=== PATIENT | female | born 1945 | race Caucasian/White ===

== ENCOUNTER 2018-01-18 08:15 | Outpatient (REF) | payer MEDICARE, MEDICAID, SELFPAY ==
[2018-01-18 12:07] LABS: Iron 17 ug/dL (50-175); Total Iron Binding Capacity 237 ug/dL (250-450); Transferrin Sat 7 % (15-50)
[2018-01-18 12:34] LABS: Ferritin 16 ng/mL (8-388); Vitamin B12 461 pg/mL (193-986)
== END 2018-01-18 08:16 ==
LOC: LBN 08:15
PROVIDERS: PCP Family Medicine; Visit Provider Family Medicine
DX: D64.9 Anemia, unspecified (principal); G21.9 Secondary parkinsonism, unspecified
CPT/HCPCS: 82607; 82728; 83540; 83550

== ENCOUNTER 2018-03-08 14:01 | Outpatient (REF) | payer MEDICARE, MEDICAID, SELFPAY ==
[2018-03-08 14:39] LABS: HCT 33.9 % (36.0-46.0); Mean Corp. HGB Concentration 29.5 g/dL (32.0-36.0); Mean Corpuscular Hemoglobin 24.5 pg (27.0-33.0); Mean Corpuscular Volume 83.1 fL (80-95); Mean Platelet Volume 10.7 fL (8.0-11.0); Platelet Count 289 x1000/uL (130-400); RBC 4.08 m/cumm (4.00-5.20); RBC Distribution Width 20.8 % (11.7-14.6); White Blood Cell Count 10.18 k/cumm (4.4-10.8)
[2018-03-08 14:47] LABS: ALT 26 U/L (12-78); AST 23 U/L (15-37); Albumin 1.8 g/dL (3.4-5.0); Alkaline Phosphatase 114 U/L (46-116); Anion Gap 4.4 mmol/L (3-11); BUN 27 mg/dL (7-18); Bilirubin, Total 0.2 mg/dL (0.2-1.0); CO2 31.6 mmol/L (21.0-32.0); CREATININE 0.77 mg/dL (0.55-1.02); Calcium 8.3 mg/dL (8.5-10.1); Chloride 96 mmol/L (98-107); Glucose 328 mg/dL (70-100); NT-proBNP 58 pg/mL; Potassium 5.1 mmol/L (3.5-5.1); Sodium 132 mmol/L (136-145); Total Protein 4.4 g/dL (6.4-8.2)
== END 2018-03-08 14:21 ==
LOC: LBN 14:01
PROVIDERS: PCP Family Medicine; Visit Provider Family Medicine
DX: J44.1 Chronic obstructive pulmonary disease with (acute) exacerbation (principal)
CPT/HCPCS: 80053; 85027; 83880

== ENCOUNTER 2018-03-15 15:24 | Outpatient (REF) | payer MEDICARE, MEDICAID, SELFPAY ==
[2018-03-15 15:47] LABS: Bilirubin Negative (Negative); Blood Small (Negative); Clarity Sl Cloudy; Glucose Negative (Negative); Ketones Negative (Negative); Leukocyte Esterase Small (Negative); Nitrite Positive (Negative); Specific Gravity 1.015 (1.005-1.025); Urobilinogen 0.2 EU/dL (Up TO 0.2); pH 8.5 (5-8)
[2018-03-15 15:58] LABS: Epithelial Cells Negative HPF (Negative); Other Cells Negative (Negative); RBC >50 (0-2); WBC >50 HPF (0-5)
[2018-03-15 15:59] LABS: Bacteria Many HPF (Negative); C & S Indicated? C&S Done As Ordered; Casts Negative LPF (Negative); Crystals Negative HPF (Negative); Mucus Negative (Negative)
== END 2018-03-15 15:44 ==
LOC: LBN 15:24
PROVIDERS: PCP Family Medicine; Visit Provider Family Medicine
DX: N39.0 Urinary tract infection, site not specified (principal)
CPT/HCPCS: 87077; 81003; 81015; 87086; 87186

== ENCOUNTER 2018-03-30 15:59 | Outpatient (REF) | payer MEDICARE, MEDICAID, SELFPAY ==
[2018-03-30 17:52] LABS: Bilirubin Negative (Negative); Blood Moderate (Negative); Clarity Sl Cloudy; Glucose 500 mg/dL (Negative); Ketones Negative (Negative); Leukocyte Esterase Moderate (Negative); Nitrite Negative (Negative); Specific Gravity 1.015 (1.005-1.025); Urobilinogen 0.2 EU/dL (Up TO 0.2); pH 8.5 (5-8)
[2018-03-30 18:22] LABS: Bacteria Moderate HPF (Negative); Epithelial Cells Rare HPF (Negative); Other Cells Negative (Negative)
[2018-03-30 18:23] LABS: C & S Indicated? C&S Done As Ordered; Casts Negative LPF (Negative); Crystals Negative HPF (Negative); Mucus Negative (Negative)
== END 2018-03-30 16:19 ==
LOC: LBN 15:59
PROVIDERS: PCP Family Medicine; Visit Provider Family Medicine
DX: R31.9 Hematuria, unspecified (principal)
CPT/HCPCS: 87077; 81003; 81015; 87086; 87186

== ENCOUNTER 2018-04-01 08:47 | Emergency (ER) | payer MEDICARE, MEDICAID, SELFPAY ==
[2018-04-01] VITALS (45 sets, daily range): BP systolic 94–168; BP diastolic 35–101; PULSE 78–107; RESP 0–25; TEMP 37–38; O2SAT 88–96
--- NOTE | 2018-04-01 08:53 | W.ED.GENAD ---
Discharge Plan Disposition Patient Disposition: HOME Condition: Stable Discharge Details Chief Complaint: Urinary Clinical Impression: Acute UTI, Hyponatremia Reason For Visit: calex Primary Care Provider: John Carpenter ED Provider: Meg Thapa Home Meds and New Rx's Prescriptions: New cephalexin [Keflex] 500 mg capsule 500 mg PO BID Qty: 13 RF: 0 Continue vitamin B comp and C no.3 [B Complex Plus Vitamin C] 1 EACH capsule 1 ea PO DAILY RF: 0 xpvzygxrvjlz-gotn-mjkua acid [Adults' Daily Formula (folic)] 1 EACH tablet 1 tab-cap PO DAILY RF: 0 ascorbic acid (vitamin C) 1,000 MG tablet 2 tab PO DAILY RF: 0 nicotine (polacrilex) 4 MG lozenge 4 mg Buccal TID PRNQty: 30 RF: 0 diaper,brief,youth disposable [Prevail Brief Youth] 1 EACH misc 1 ea Miscellaneous BID Qty: 60 RF: 11 risperidone 0.25 MG tablet 0.25 mg PO TID PRN Qty: 90 RF: 3 albuterol sulfate [ProAir HFA] 8.5 GM HFA aerosol inhaler 1 - 2 puff Inhalation Q4H PRN Qty: 1 RF: 4 lamotrigine [Lamictal] 100 MG tablet 100 mg PO QAM Qty: 90 RF: 3 magnesium chloride [Mag 64] 64 MG tablet,delayed release (DR/EC) 128 mg PO DAILY Qty: 180 RF: 3 ipratropium-albuterol [Combivent Respimat] 120 PUFF mist 1 puff Inhalation QID Qty: 120 RF: 11 marijuana RF: 0 polyethylene glycol 3350 [Miralax] 17 GM powder in packet 17 g PO DAILY PRNQty: 255 RF: 0 docusate sodium 100 MG capsule 100 mg PO DAILY RF: 0 ibuprofen 600 MG tablet 600 mg PO Q6H PRN MDD 4 30 Days Qty: 120 RF: 3 dronabinol 5 MG capsule 5 mg PO BID Qty: 60 RF: 3 clonazepam 0.5 MG tablet 0.5 mg PO Every AM RF: 0 lamotrigine 200 MG tablet 200 mg PO HS Qty: 90 RF: 4 citalopram [Celexa] 40 MG tablet 40 mg PO DAILY Qty: 90 RF: 3 triamterene-hydrochlorothiazid [Dyazide] 1 EACH capsule 1 ea PO DAILY Qty: 90 RF: 3 simvastatin [Zocor] 40 MG tablet 0.5 tab PO DAILY Qty: 45 RF: 3 glimepiride 1 MG tablet 1 mg PO DAILY Qty: 30 RF: 11 levothyroxine [Synthroid] 100 MCG tablet 100 mcg PO DAILY Qty: 90 RF: 3 pantoprazole 40 MG tablet,delayed release (DR/EC) 40 mg PO DAILY Qty: 90 RF: 3 metformin [Glucophage] 1,000 MG tablet 1,000 mg PO BID@0800,1700 Qty: 180 RF: 3 oxybutynin chloride 5 MG tablet 5 mg PO BID Qty: 180 RF: 3 spironolactone 50 MG tablet 50 mg PO DAILY Qty: 90 RF: 3 Metoprolol Succinate 25 MG Tabcr 25 mg PO DAILY Qty: 90 RF: 3 doxycycline hyclate 100 MG capsule 100 mg PO TID Qty: 270 RF: 3 risperidone 3 MG tablet 3 mg PO DAILY Qty: 90 RF: 3 fluticasone 16 GM spray,suspension 1 spray NS DAILY Qty: 16 RF: 3 nystatin 15 GM cream 1 applic Topical BID Qty: 60 RF: 5 ferrous sulfate [Iron (ferrous sulfate)] 325 MG tablet 325 mg PO BID Qty: 180 RF: 3 clonazepam 0.5 mg tablet 0.5 mg PO BID PRN (Reason: anxiety) Qty: 60 RF: 5 nystatin (bulk) 500 million unit powder 1 unit Transdermal BID PRN (Reason: tinea) Qty: 1 RF: 5 dicyclomine 10 mg capsule 10 mg PO TID Qty: 90 RF: 5 morphine 20 mg capsule,extend.release pellets 20 mg PO BID MDD 2 tabs 30 Days Qty: 60 RF: 0 methadone 10 mg tablet 10 mg PO BID MDD 2 tabs 30 Days Qty: 60 RF: 0 oxycodone 5 mg tablet 5 mg PO BID PRN MDD 2 tabs 30 Days Qty: 60 RF: 0 pregabalin [Lyrica] 50 mg capsule 50 mg PO BID Qty: 60 RF: 2 furosemide 20 mg tablet 20 mg PO DAILY Qty: 30 RF: 0 aspirin [Aspir-81] 81 MG tablet,delayed release (DR/EC) 81 mg PO DAILY RF: 0 naloxone [Narcan] 4 MG spray,non-aerosol 4 mg NS ONCE Qty: 1 RF: 0 Discontinued cephalexin 500 MG tablet 500 mg PO QID Qty: 20 RF: 0 cephalexin 500 mg capsule 500 mg PO BID Qty: 14 RF: 0 Discharge Instructions Instructions: Hyponatremia (ED), Catheter-associated Urinary Tract Infection (ED) Additional Instructions: Please return immediately to the emergency department if you develop any new or worsening symptoms or if you become otherwise concerned. It is extremely important that you make an appointment to be seen by her primary care doctor tomorrow in follow-up for this visit. Please do not salt restricted your diet for the next few days. Referrals: John Carpenter. [Primary Care Provider] - Discharge Data Discharge Date/Time-TO BE ENTERED AT DEPARTURE: 04/01/18 14:36 Medical Decision Making Deana Alvarado is a 73 y/o woman h/o COPD, DM, chronic in-dwelling toney, chronic LE weakness presents to the emergency department to have toney changed and for possible tx for recent diagnosis of UTI. On exam Pt is well and non-toxic appearing. Benign PE without abd TTP. Urine cx results positive on record review. Also, Pt was apparently prescribed keflex for UTI, but she reports that she has not been taking it and never had rx filled. Concern for UTI, given multiple co-morbidities, will send screening labs for possible metabolic/lyte derangement. Toney replaced by nursing without issue. Repeat UA equivocal. Possible partially treated infection given doxy, as Pt still with symptoms will rx keflex. Labs show new hyponatremia. Pt reports that she has been strictly sodium restricting at home to help prevent peripheral edema. Pt reports that she feels well and essentially at baseline and would like to go home. I contacted Pt's PCP's office, and spoke to Dr. Kirby, Dr. Carpenter not available. Relayed plan for keflex UTI tx and hyponatremia, need for Pt to have repeat testing and be seen within 48 hours for f/u. Dr. Kirby agreed with plan. Lengthy discussion with Pt re: hold sodium restriction until seen in f/u, RTED precautions and importance of outpt f/u with PCP within 48 hours. Pt is amenable to the plan. At time of discharge Pt found to have mild fever. Pt reports that she feels very well and would prefer to f/u outpt as planned. Tylenol given. Exam/hx not c/w sepsis, PNA or other non-UTI source of infection at this time. Plan for outpt f/u or RTED for any worsening symptoms. Pt is amenable to the plan. Medical Records Medical records reviewed: Yes I reviewed the patient's medical records. Lab Data Lab results reviewed: Yes I reviewed the patient's lab results. 04/01/18 09:10 Urine - Reflex from Ua Urine Culture - Final Proteus mirabilis Laboratory Tests Range/Units 04/01/18 04/01/18 04/01/18 09:10 09:25 09:25 WBC (4.4-10.8) k/cumm 13.06 H RBC (4.00-5.20) m/cumm 4.13 Hgb (12.0-15.5) g/dL 10.6 L Hct (36.0-46.0) % 35.3 L MCV (80-95) fL 85.5 MCH (27.0-33.0) pg 25.7 L MCHC (32.0-36.0) g/dL 30.0 L RDW (11.7-14.6) % 22.6 H Plt Count (130-400) x1000/uL 292 MPV (8.0-11.0) fL 10.8 Immature Gran % See Differential Neutrophils % 72.0 Lymphocytes % 10.0 Monocytes % 13.0 Eosinophils % 4.0 Basophils % 0.0 Absolute Neutrophils (1.2-6.7) k/cumm 9.53 H Band Neutrophils % 1.0 Absolute Lymphocytes (1.2-3.4) k/cumm 1.31 Absolute Monocytes (0.11-0.7) k/cumm 1.70 H Absolute Eosinophils (0.0-0.7) k/cumm 0.52 Absolute Basophils (0.0-0.2) k/cumm 0.00 Differential Comment Comment RBC Morphology See below Polychromasia Present Poikilocytosis 2+ Basophilic Stippling Present Anisocytosis 3+ Sodium (136-145) mmol/L 128 L Potassium (3.5-5.1) mmol/L 4.9 Chloride (98-107) mmol/L 92 L Carbon Dioxide (21.0-32.0) mmol/L 29.2 Anion Gap (3-11) mmol/L 6.8 BUN (7-18) mg/dL 31 H Creatinine (0.55-1.02) mg/dL 0.93 Estimated GFR/1.73 m2 (mL/min/1.73m2) 59.26 Glucose (70-100) mg/dL 318 H Calcium (8.5-10.1) mg/dL 8.7 Urine Color (Yellow) Yellow Urine Clarity Clear Urine pH (5-8) 7.0 Ur Specific [place] (1.005-1.025) 1.015 Urine Protein (Negative) mg/dL Negative Urine Ketones (Negative) mg/dL Negative Urine Blood (Negative) Large H Urine Nitrite (Negative) Negative Urine Bilirubin (Negative) Negative Urine Urobilinogen (Up TO 0.2) EU/dL 0.2 Ur Leukocyte Esterase (Negative) Small H Urine RBC (0-2) 20-50 H Urine WBC (0-5) HPF 5-10 Ur Epithelial Cells (Negative) HPF Rare Urine Crystals (Negative) HPF Negative Urine Bacteria (Negative) HPF Rare Urine Casts (Negative) LPF Negative Urine Mucus (Negative) Trace Ur Culture Indicated? Yes Urine Glucose (Negative) mg/dL 500 H HPI General Mode of arrival: EMS. Date/Time Provider Initiated Documentation: 04/01/18 08:53. Limitations to Documentation: no limitations. Information obtained by: patient, RN notes reviewed and old records reviewed. HPI Narrative: Deana Alvarado is a 73 y/o woman with COPD, diabetes, chronic indwelling Toney and bilateral lower extremity weakness status post postoperative infection 4 years ago presenting to the emergency department with Toney problem. Patient reports that she had back surgery 4 years ago, and had a postoperative staph infection resulting in permanent weakness of her legs and need for chronic indwelling Toney. Patient reports that she had some suprapubic discomfort, and was tested for UTI several days ago, and she does not know the results of this test at this point. Patient is presenting to the emergency department because her Toney catheter was changed recently and fell out this morning and she needs to have it replaced. Patient denies any new pain, fevers, vomiting/diarrhea, rash, new weakness/numbness/tingling, shortness of breath, cough. She reports that she feels well in her usual state of health. Has been eating and drinking as usual. Patient reports that she is nonambulatory at baseline, although she can stand and pivot to get into her wheelchair. There is no change in this status. Patient is on doxycycline for life for prophylactic MRSA treatment. Related Data Home Medications Medication Instructions Recorded Confirmed [id number] acid 1 tab-cap PO DAILY tab-cap 08/08/12 08/31/16 [Adults' Daily Formula (folic)] vitamin B comp and C no.3 [B 1 ea PO DAILY 08/08/12 08/31/16 Complex Plus Vitamin C] ascorbic acid (vitamin C) 2 tab PO DAILY 09/25/12 08/31/16 aspirin [Aspir-81] 81 mg PO DAILY 12/28/15 08/31/16 naloxone [Narcan] 4 mg NS ONCE #1 inhn 01/19/16 08/31/16 diaper,brief,youth disposable #60 isaac 01/25/16 [Prevail Brief Youth] nicotine (polacrilex) 4 mg BUCCAL TID PRN #30 freeman 01/25/16 albuterol sulfate [ProAir HFA] 1 - 2 puff INHALATION Q4H PRN #1 10/15/16 inhaler lamotrigine [Lamictal] 100 mg PO QAM #90 tab-cap 10/15/16 magnesium chloride [Mag 64] 128 mg PO DAILY #180 tabcr 10/15/16 risperidone 0.25 mg PO TID PRN #90 tab-cap 10/15/16 ipratropium-albuterol [Combivent 1 puff INHALATION QID #120 puff 10/20/16 Respimat] Marijuana 01/09/17 docusate sodium 100 mg PO DAILY tab-cap 02/06/17 polyethylene glycol 3350 [Miralax] 17 g PO DAILY PRN #255 gm 02/06/17 ibuprofen 600 mg PO Q6H PRN 30 Days #120 02/26/17 tab-cap MDD 4 dronabinol 5 mg PO BID #60 tab-cap 11/16/17 citalopram [Celexa] 40 mg PO DAILY #90 tab-cap 12/07/17 04/01/18 clonazepam 0.5 mg PO Every AM 12/07/17 doxycycline hyclate 100 mg PO TID #270 tab-cap 12/07/17 04/01/18 glimepiride 1 mg PO DAILY #30 tab-cap 12/07/17 lamotrigine 200 mg PO HS #90 tab-cap 12/07/17 04/01/18 levothyroxine [Synthroid] 100 mcg PO DAILY #90 tab-cap 12/07/17 04/01/18 metformin [Glucophage] 1,000 mg PO BID@0800,1700 #180 tab 12/07/17 04/01/18 oxybutynin chloride 5 mg PO BID #180 tab-cap 12/07/17 04/01/18 pantoprazole 40 mg PO DAILY #90 tab-cap 12/07/17 04/01/18 risperidone 3 mg PO DAILY #90 tab-cap 12/07/17 04/01/18 simvastatin [Zocor] 0.5 tab PO DAILY #45 tab-cap 12/07/17 04/01/18 spironolactone 50 mg PO DAILY #90 tab-cap 12/07/17 04/01/18 triamterene-hydrochlorothiazid 1 ea PO DAILY #90 tab-cap 12/07/17 04/01/18 [Dyazide] fluticasone 1 spray NS DAILY #16 gm 12/24/17 nystatin 1 applic TOPICAL BID #60 gm 12/26/17 ferrous sulfate [Iron (ferrous 325 mg PO BID #180 tab-cap 01/18/18 04/01/18 sulfate)] clonazepam 0.5 mg tablet 0.5 mg PO BID PRN #60 tab-cap 02/05/18 nystatin (bulk) 500 million unit 1 unit TRANSDERMAL BID PRN #1 each 02/05/18 powder dicyclomine 10 mg capsule 10 mg PO TID #90 tab-cap 03/10/18 04/01/18 methadone 10 mg tablet 10 mg PO BID 30 Days #60 tab MDD 2 03/10/18 tabs morphine ER 20 mg capsule,extended 20 mg PO BID 30 Days #60 tab-cap 03/10/18 release pellets MDD 2 tabs oxycodone 5 mg tablet 5 mg PO BID PRN 30 Days #60 mg MDD 03/10/18 2 tabs pregabalin 50 mg capsule 50 mg PO BID #60 cap 03/14/18 04/01/18 furosemide 20 mg tablet 20 mg PO DAILY #30 tab 03/22/18 cephalexin [Keflex] 500 mg PO BID #13 cap 04/01/18 Previous Rx's Medication Instructions Recorded naloxone [Narcan] 4 mg NS ONCE #1 inhn 01/19/16 ibuprofen 600 mg PO Q6H PRN 30 Days #120 02/26/17 tab-cap MDD 4 dronabinol 5 mg PO BID #60 tab-cap 11/16/17 citalopram [Celexa] 40 mg PO DAILY #90 tab-cap 12/07/17 doxycycline hyclate 100 mg PO TID #270 tab-cap 12/07/17 glimepiride 1 mg PO DAILY #30 tab-cap 12/07/17 lamotrigine 200 mg PO HS #90 tab-cap 12/07/17 levothyroxine [Synthroid] 100 mcg PO DAILY #90 tab-cap 12/07/17 metformin [Glucophage] 1,000 mg PO BID@0800,1700 #180 tab 12/07/17 oxybutynin chloride 5 mg PO BID #180 tab-cap 12/07/17 pantoprazole 40 mg PO DAILY #90 tab-cap 12/07/17 risperidone 3 mg PO DAILY #90 tab-cap 18 simvastatin [Zocor] 0.5 tab PO DAILY #45 tab-cap 12/07/17 spironolactone 50 mg PO DAILY #90 tab-cap 12/07/17 triamterene-hydrochlorothiazid 1 ea PO DAILY #90 tab-cap 18 [Dyazide] fluticasone 1 spray NS DAILY #16 gm 12/24/17 nystatin 1 applic TOPICAL BID #60 gm 12/26/17 ferrous sulfate [Iron (ferrous 325 mg PO BID #180 tab-cap 01/18/18 sulfate)] clonazepam 0.5 mg tablet 0.5 mg PO BID PRN #60 tab-cap 02/05/18 nystatin (bulk) 500 million unit 1 unit TRANSDERMAL BID PRN #1 each 02/05/18 powder dicyclomine 10 mg capsule 10 mg PO TID #90 tab-cap 03/10/18 methadone 10 mg tablet 10 mg PO BID 30 Days #60 tab MDD 2 03/10/18 tabs morphine ER 20 mg capsule,extended 20 mg PO BID 30 Days #60 tab-cap 03/10/18 release pellets MDD 2 tabs oxycodone 5 mg tablet 5 mg PO BID PRN 30 Days #60 mg MDD 03/10/18 2 tabs pregabalin 50 mg capsule 50 mg PO BID #60 cap 03/14/18 furosemide 20 mg tablet 20 mg PO DAILY #30 tab 03/22/18 cephalexin [Keflex] 500 mg PO BID #13 cap 04/01/18 Allergies Allergy/AdvReac Type Severity Reaction Status Date / Time aripiprazole AdvReac Intermediate anxiety Unverified 04/01/18 08:54 prednisone AdvReac Intermediate Hallucinati Unverified 04/01/18 08:54 ons codeine AdvReac Mild GI Upset Unverified 04/01/18 08:54 azithromycin AdvReac Unknown Unverified 04/01/18 08:54 General Stated Complaint: Urinary CHRISTIANO: 3 Review of Systems Review of Systems Constitutional: denies fevers Eyes: denies eye pain ENT: denies facial pain, dental pain, sore throat Cardiovascular: denies chest pain, edema Respiratory: denies SOB, cough GI: denies vomiting, diarrhea, reports mild suprapubic pain : denies flank pain MSK: denies back pain, neck pain, arthralgias, myalgias Skin: denies rash Neuro: denies headaches, lightheadedness, new weakness PFS Medical History Chronic pain syndrome (Acute 08/21/12) Chronic obstructive lung disease (Chronic) Hypothyroidism (Chronic) Diabetes mellitus type 2 (Chronic) Bipolar disorder (Chronic) Chronic back pain (Chronic) Hyperlipidemia (Chronic) Anxiety (Chronic) Intention tremor (Chronic) 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) Spinal stenosis of lumbar region (Chronic) Scoliosis (Chronic) Infection (Chronic) Lumbar radicular pain (Chronic) Obesity (Chronic) Anxiety COPD (chronic obstructive pulmonary disease) Chronic pain Chronic rhinitis DJD (degenerative joint disease) of pelvis Diabetes Hyperlipidemia Hypothyroidism Schizoaffective disorder, bipolar type Wound infection after surgery Social History Smoking/Tobacco Use Status: Former Tobacco Use Surgical History section Colonoscopy - MAC (~2003) ELECTROSHOCK THERAPY Spinal Fusion Tonsillectomy Total replacement of hip (~2003) Exam Narrative Exam Narrative: Constitutional: well and [id number]-yhfzgxehs, pleasant, conversing normally HENT: head atraumatic, normocephalic normal inspection, mucous membranes moist Eyes: conjunctiva normal, sclera normal, pupils 3mm b/l Neck: no stridor, normal ROM, trachea midline Chest: normal inspection Resp: normal work of breathing, LCTAB Cardio: normal rate, normal rhythm, no murmur appreciated GI: abdomen soft, non-tender, non-distended Skin: warm, dry, normal color, no rash Neuro: alert, not altered, normal tone Psych: normal mood, normal affect, normal behavior Course Vital Signs Temperature 37.6 C 04/01/18 08:48 Pulse 96 H 04/01/18 08:48 Respiratory Rate 18 04/01/18 08:48 Blood Pressure 108/47 L 04/01/18 08:48 Pulse Oximetry 93 L 04/01/18 08:48 Temperature 37.6 C 04/01/18 08:48 Temperature Source Oral 04/01/18 08:48 Pulse 96 H 04/01/18 08:48 Respiratory Rate 18 04/01/18 08:48 Blood Pressure 108/47 L 04/01/18 08:48 Blood Pressure Position Supine 04/01/18 08:48 Pulse Oximetry 93 L 04/01/18 08:48 Oxygen Delivery Method Room Air 04/01/18 08:48 Oxygen Flow Rate 0 04/01/18 08:48 Pain Level 3 04/01/18 08:48
[2018-04-01 09:21] LABS: Bilirubin Negative (Negative); Blood Large (Negative); Clarity Clear; Glucose 500 mg/dL (Negative); Ketones Negative (Negative); Leukocyte Esterase Small (Negative); Nitrite Negative (Negative); Specific Gravity 1.015 (1.005-1.025); Urobilinogen 0.2 EU/dL (Up TO 0.2)
[2018-04-01 09:31] LABS: Bacteria Rare HPF (Negative); Crystals Negative HPF (Negative); Epithelial Cells Rare HPF (Negative); RBC 20-50 (0-2)
[2018-04-01 09:32] LABS: C & S Indicated? Yes; Casts Negative LPF (Negative); Mucus Trace (Negative)
[2018-04-01 09:35] LABS: Abs Immature Grans 0.33 k/cumm (0.0-0.09); HCT 35.3 % (36.0-46.0); HGB 10.6 g/dL (12.0-15.5); Mean Corpuscular Hemoglobin 25.7 pg (27.0-33.0); Mean Corpuscular Volume 85.5 fL (80-95); Mean Platelet Volume 10.8 fL (8.0-11.0); Platelet Count 292 x1000/uL (130-400); RBC 4.13 m/cumm (4.00-5.20); RBC Distribution Width 22.6 % (11.7-14.6); White Blood Cell Count 13.06 k/cumm (4.4-10.8)
[2018-04-01 09:44] LABS: Anion Gap 6.8 mmol/L (3-11); BUN 31 mg/dL (7-18); CO2 29.2 mmol/L (21.0-32.0); CREATININE 0.93 mg/dL (0.55-1.02); Calcium 8.7 mg/dL (8.5-10.1); Chloride 92 mmol/L (98-107); Estimated GFR 59.26 (mL/min/1.73m2); Glucose 318 mg/dL (70-100); Potassium 4.9 mmol/L (3.5-5.1); Sodium 128 mmol/L (136-145)
[2018-04-01 10:04] LABS: Absolute Eosinophil Count 0.52 k/cumm (0.0-0.7); Absolute Lymphocyte Count 1.31 k/cumm (1.2-3.4); Absolute Neutrophil Count 9.53 k/cumm (1.2-6.7)
[2018-04-01 10:06] LABS: Anisocytosis 3+; Basophilic Stippling Present; Polychromasia Present
[2018-04-01 10:07] LABS: Poikilocytes 2+
[2018-04-01] MEDS: Normal Saline 500 ML IV (11:01)
[2018-04-01] MEDS: Cephalexin 500 MG CAP PO (13:43)
[2018-04-01] MEDS: Ibuprofen 400 MG TAB PO (14:21)
== END 2018-04-01 14:36 | disposition home or self-care (01) ==
PROVIDERS: Emergency Provider Student in an Organized Health Care Education/Training Program; PCP Family Medicine
DX: T83.021A Displacement of indwelling urethral catheter, initial encounter (principal); N39.0 Urinary tract infection, site not specified; B96.4 Proteus (mirabilis) (morganii) as the cause of diseases classified elsewhere; Y84.6 Urinary catheterization as the cause of abnormal reaction of the patient, or of later complication, without mention of misadventure at the time of the procedure; E87.1 Hypo-osmolality and hyponatremia; J44.9 Chronic obstructive pulmonary disease, unspecified; Z79.84 Long term (current) use of oral hypoglycemic drugs; E11.9 Type 2 diabetes mellitus without complications; Z87.891 Personal history of nicotine dependence
CPT/HCPCS: 36415; 51702; 80048; 96360; 96361; 99284; 81003; 81015; 85025; 87086

== ENCOUNTER 2018-04-09 14:51 | Outpatient (REF) | payer MEDICARE, MEDICAID, SELFPAY ==
[2018-04-09 16:52] LABS: Anion Gap 7.2 mmol/L (3-11); CO2 29.8 mmol/L (21.0-32.0); Chloride 96 mmol/L (98-107); Potassium 5.3 mmol/L (3.5-5.1); Sodium 133 mmol/L (136-145)
== END 2018-04-09 15:11 ==
LOC: LBN 14:51
PROVIDERS: PCP Family Medicine; Visit Provider Family Medicine
DX: E87.1 Hypo-osmolality and hyponatremia (principal)
CPT/HCPCS: 80051

== ENCOUNTER 2018-04-16 13:59 | Outpatient (REF) | payer MEDICARE, MEDICAID, SELFPAY ==
[2018-04-16 15:46] LABS: Anion Gap 8.4 mmol/L (3-11); BUN 25 mg/dL (7-18); CO2 27.6 mmol/L (21.0-32.0); CREATININE 0.87 mg/dL (0.55-1.02); Calcium 8.3 mg/dL (8.5-10.1); Chloride 94 mmol/L (98-107); Glucose 389 mg/dL (70-100); Potassium 5.3 mmol/L (3.5-5.1); Sodium 130 mmol/L (136-145)
== END 2018-04-16 14:19 ==
LOC: LBN 13:59
PROVIDERS: PCP Family Medicine; Visit Provider Family Medicine
DX: G21.9 Secondary parkinsonism, unspecified (principal)
CPT/HCPCS: 80048

== ENCOUNTER 2018-04-18 15:14 | Outpatient (REF) | payer MEDICARE, MEDICAID, SELFPAY ==
[2018-04-18 17:07] LABS: *AMPHETAMINES SCREEN URINE Negative (Negative); *BARBITURATES SCREEN URINE Negative (Negative); *BENZODIAZEPINES SCREEN URINE Negative (Negative); Cannabinoids THC POSITIVE (Negative); Cocaine Screen,Urine Negative (Negative); METHADONE URINE SCREEN POSITIVE (Negative); OPIATES URINE SCREEN POSITIVE (Negative)
[2018-04-18 17:08] LABS: Tricyclic Antidepressants Negative (Negative)
== END 2018-04-18 15:34 ==
LOC: LBN 15:14
PROVIDERS: PCP Family Medicine; Visit Provider Family Medicine
DX: G89.29 Other chronic pain (principal); Z79.899 Other long term (current) drug therapy
CPT/HCPCS: 80307

== ENCOUNTER 2018-05-16 23:10 | Inpatient (IN) | payer MEDICARE, MEDICAID, SELFPAY ==
--- NOTE | 2018-05-16 00:15 | DI.RAD_ITS ---
SYMPTOM/DIAGNOSIS: FEVER AP PORTABLE CHEST: The lungs are free of gross infiltrate. There is some ill-defined densities in the left lower lobe on this single AP projection of the chest and the possibility of an acute pneumonitis could not be entirely excluded. There is no pleural effusion. The cardiovascular structures are intact. Note is made of fixation of hugh and pedicle screw fixation devices affixed to the mid-dorsal through the visualized portions of the upper and mid lumbar spine. SUMMARY: No significant interval change in the chest save for a likely small area of left atelectasis. An acute pneumonitis could not be entirely excluded on this single frontal film and if clinically appropriate further assessment with follow up images is recommended.
[2018-05-16 23:08] VITALS: BP 104/53; PULSE 130; RESP 20; TEMP 38.5; O2SAT 93
--- NOTE | 2018-05-16 23:15 | W.ED.GENAD ---
Discharge Plan Disposition Patient Disposition: [facility] INPATIENT Condition: Serious Discharge Details Chief Complaint: Fever Clinical Impression: Sepsis, Acute UTI Reason For Visit: [place]EX Primary Care Provider: John Carpenter ED Provider: Duc Chandler Home Meds and New Rx's Prescriptions: No Action ranitidine HCl 150 mg tablet 150 mg PO QPM Qty: 30 RF: 2 vitamin B comp and C no.3 [B Complex Plus Vitamin C] 1 EACH capsule 1 ea PO DAILY RF: 0 pbhfdbbigulh-xtcu-gzjdg acid [Adults' Daily Formula (folic)] 1 EACH tablet 1 tab-cap PO DAILY RF: 0 ascorbic acid (vitamin C) 1,000 MG tablet 2 tab PO DAILY RF: 0 nicotine (polacrilex) 4 MG lozenge 4 mg Buccal TID PRNQty: 30 RF: 0 diaper,brief,youth disposable [Prevail Brief Youth] 1 EACH misc 1 ea Miscellaneous BID Qty: 60 RF: 11 risperidone 0.25 MG tablet 0.25 mg PO TID PRN Qty: 90 RF: 3 albuterol sulfate [ProAir HFA] 8.5 GM HFA aerosol inhaler 1 - 2 puff Inhalation Q4H PRN Qty: 1 RF: 4 lamotrigine [Lamictal] 100 MG tablet 100 mg PO QAM Qty: 90 RF: 3 magnesium chloride [Mag 64] 64 MG tablet,delayed release (DR/EC) 128 mg PO DAILY Qty: 180 RF: 3 ipratropium-albuterol [Combivent Respimat] 120 PUFF mist 1 puff Inhalation QID Qty: 120 RF: 11 marijuana RF: 0 polyethylene glycol 3350 [Miralax] 17 GM powder in packet 17 g PO DAILY PRNQty: 255 RF: 0 docusate sodium 100 MG capsule 100 mg PO DAILY RF: 0 ibuprofen 600 MG tablet 600 mg PO Q6H PRN MDD 4 30 Days Qty: 120 RF: 3 dronabinol 5 MG capsule 5 mg PO BID Qty: 60 RF: 3 clonazepam 0.5 MG tablet 0.5 mg PO Every AM RF: 0 lamotrigine 200 MG tablet 200 mg PO HS Qty: 90 RF: 4 citalopram [Celexa] 40 MG tablet 40 mg PO DAILY Qty: 90 RF: 3 triamterene-hydrochlorothiazid [Dyazide] 1 EACH capsule 1 ea PO DAILY Qty: 90 RF: 3 simvastatin [Zocor] 40 MG tablet 0.5 tab PO DAILY Qty: 45 RF: 3 glimepiride 1 MG tablet 1 mg PO DAILY Qty: 30 RF: 11 levothyroxine [Synthroid] 100 MCG tablet 100 mcg PO DAILY Qty: 90 RF: 3 pantoprazole 40 MG tablet,delayed release (DR/EC) 40 mg PO DAILY Qty: 90 RF: 3 metformin [Glucophage] 1,000 MG tablet 1,000 mg PO BID@0800,1700 Qty: 180 RF: 3 oxybutynin chloride 5 MG tablet 5 mg PO BID Qty: 180 RF: 3 spironolactone 50 MG tablet 50 mg PO DAILY Qty: 90 RF: 3 Metoprolol Succinate 25 MG Tabcr 25 mg PO DAILY Qty: 90 RF: 3 doxycycline hyclate 100 MG capsule 100 mg PO TID Qty: 270 RF: 3 risperidone 3 MG tablet 3 mg PO DAILY Qty: 90 RF: 3 fluticasone 16 GM spray,suspension 1 spray NS DAILY Qty: 16 RF: 3 nystatin 15 GM cream 1 applic Topical BID Qty: 60 RF: 5 ferrous sulfate [Iron (ferrous sulfate)] 325 MG tablet 325 mg PO BID Qty: 180 RF: 3 clonazepam 0.5 mg tablet 0.5 mg PO BID PRN (Reason: anxiety) Qty: 60 RF: 5 nystatin (bulk) 500 million unit powder 1 unit Transdermal BID PRN (Reason: tinea) Qty: 1 RF: 5 pregabalin [Lyrica] 50 mg capsule 50 mg PO BID Qty: 60 RF: 2 furosemide 20 mg tablet 20 mg PO DAILY Qty: 30 RF: 0 Hold Instructions: Changed by Provider dicyclomine 10 mg capsule 10 mg PO QID PRN (Reason: bladder spasms) Qty: 120 RF: 5 methadone 10 mg tablet 10 mg PO BID MDD 2 tabs Qty: 60 RF: 0 morphine 20 mg capsule,extend.release pellets 20 mg PO Q12H MDD 2 caps Qty: 60 RF: 0 oxycodone 5 mg tablet 5 mg PO BID MDD 2 tabs PRN (Reason: pain) Qty: 60 RF: 0 aspirin [Aspir-81] 81 MG tablet,delayed release (DR/EC) 81 mg PO DAILY RF: 0 naloxone [Narcan] 4 MG spray,non-aerosol 4 mg NS ONCE Qty: 1 RF: 0 cephalexin [Keflex] 500 mg capsule 500 mg PO BID Qty: 13 RF: 0 Medical Decision Making Patient arrives here febrile and tachycardic but normotensive with normal mentation. Her lungs have a few rhonchi but she has no cough or shortness of breath. Her abdomen is benign. 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 She has a chronic indwelling Cuevas. She denies URI or headache. Most likely source of symptoms probably is her urine. IV established and fluid resuscitation started. Laboratory studies including lactic acid and blood cultures ordered. We will change the patient's Cuevas and obtain urine off the clean catheter. Will obtain chest x-ray. Patient's urine after changing Cuevas has gross pus present. Laboratory studies significant for white count of 20.5 and a lactic acid of 5. Her heart rate is coming down with fluids. She remains normotensive. She was also found to have a glucose of 506. Sodium was 123 but when corrected is 133. She has no anion gap. Her bicarb is reasonable at 23. I do not think she has DKA. Magnesium is low at 1.4 and needs to be replaced. Because of her history of MRSA colonization she is covered with ceftriaxone and vancomycin until urine cultures are back. Patient's EKG is sinus tachycardia at a rate of 127. She has normal axis and intervals. She has no acute ST changes. Her chest x-ray per preliminary radiology read negative for infiltrates. I discussed goals of treatment with the patient. She requests to remain DNR/DNI. She would like fluids and antibiotics but beyond that does not wish to pursue. She has had some soft pressures here but no persistent hypotension. After her liter of LR she was changed to 200 and hour of LR. Glucose remains elevated so she will be covered with insulin as well. Case discussed with hospitalist who accepts patient for admission to ICU as [facility] overflow. Lab Data Lab results reviewed: Yes I reviewed the patient's lab results. ECG Data Attestation: I personally reviewed and interpreted this ECG (s) as follows: Prior ECG tracings: available for review Interpretation: Sinus tachycardia at a rate of 127. Normal axis and intervals. No acute ST changes. HPI General Mode of arrival: EMS. Date/Time Provider Initiated Documentation: 05/16/18 23:14. Limitations to Documentation: no limitations. Information obtained by: patient. HPI Narrative: Patient presents to ED by ambulance with fever and chills. She is concerned she has a urinary tract infection. She has a chronic indwelling Cuevas that was changed about 1 week ago. She has chronic back pain which is unchanged. She denies headache, cold symptoms, cough, shortness of breath, chest pain, abdominal pain. 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 She is not having increased back pain. She is currently living at home and is no longer in the [facility]. Related Data Home Medications Medication Instructions Recorded Confirmed rognaihlvjab-jsom-wqxlq acid 1 tab-cap PO DAILY tab-cap 08/08/12 08/31/16 [Adults' Daily Formula (folic)] vitamin B comp and C no.3 [B 1 ea PO DAILY 08/08/12 08/31/16 Complex Plus Vitamin C] ascorbic acid (vitamin C) 2 tab PO DAILY 09/25/12 08/31/16 aspirin [Aspir-81] 81 mg PO DAILY 12/28/15 08/31/16 naloxone [Narcan] 4 mg NS ONCE #1 inhn 01/19/16 08/31/16 diaper,brief,youth disposable #60 isaac 01/25/16 [Prevail Brief Youth] nicotine (polacrilex) 4 mg BUCCAL TID PRN #30 freeman 01/25/16 albuterol sulfate [ProAir HFA] 1 - 2 puff INHALATION Q4H PRN #1 10/15/16 inhaler lamotrigine [Lamictal] 100 mg PO QAM #90 tab-cap 10/15/16 magnesium chloride [Mag 64] 128 mg PO DAILY #180 tabcr 10/15/16 risperidone 0.25 mg PO TID PRN #90 tab-cap 10/15/16 ipratropium-albuterol [Combivent 1 puff INHALATION QID #120 puff 10/20/16 Respimat] Marijuana 01/09/17 docusate sodium 100 mg PO DAILY tab-cap 02/06/17 polyethylene glycol 3350 [Miralax] 17 g PO DAILY PRN #255 gm 02/06/17 ibuprofen 600 mg PO Q6H PRN 30 Days #120 02/26/17 tab-cap MDD 4 dronabinol 5 mg PO BID #60 tab-cap 11/16/17 citalopram [Celexa] 40 mg PO DAILY #90 tab-cap 12/07/17 04/01/18 clonazepam 0.5 mg PO Every AM 12/07/17 doxycycline hyclate 100 mg PO TID #270 tab-cap 12/07/17 04/01/18 glimepiride 1 mg PO DAILY #30 tab-cap 12/07/17 lamotrigine 200 mg PO HS #90 tab-cap 12/07/17 04/01/18 levothyroxine [Synthroid] 100 mcg PO DAILY #90 tab-cap 12/07/17 04/01/18 metformin [Glucophage] 1,000 mg PO BID@0800,1700 #180 tab 12/07/17 04/01/18 oxybutynin chloride 5 mg PO BID #180 tab-cap 12/07/17 04/01/18 pantoprazole 40 mg PO DAILY #90 tab-cap 12/07/17 04/01/18 risperidone 3 mg PO DAILY #90 tab-cap 12/07/17 04/01/18 simvastatin [Zocor] 0.5 tab PO DAILY #45 tab-cap 12/07/17 04/01/18 spironolactone 50 mg PO DAILY #90 tab-cap 12/07/17 04/01/18 triamterene-hydrochlorothiazid 1 ea PO DAILY #90 tab-cap 12/07/17 04/01/18 [Dyazide] fluticasone 1 spray NS DAILY #16 gm 12/24/17 nystatin 1 applic TOPICAL BID #60 gm 12/26/17 ferrous sulfate [Iron (ferrous 325 mg PO BID #180 tab-cap 01/18/18 04/01/18 sulfate)] clonazepam 0.5 mg tablet 0.5 mg PO BID PRN #60 tab-cap 02/05/18 nystatin (bulk) 500 million unit 1 unit TRANSDERMAL BID PRN #1 each 02/05/18 powder pregabalin 50 mg capsule 50 mg PO BID #60 cap 03/14/18 04/01/18 furosemide 20 mg tablet 20 mg PO DAILY #30 tab 03/22/18 cephalexin [Keflex] 500 mg PO BID #13 cap 04/01/18 dicyclomine 10 mg capsule 10 mg PO QID PRN #120 tab-cap 04/16/18 ranitidine 150 mg tablet 150 mg PO QPM #30 tab 05/09/18 05/09/18 methadone 10 mg tablet 10 mg PO BID #60 tab MDD 2 tabs 05/13/18 morphine ER 20 mg capsule,extended 20 mg PO Q12H #60 cap MDD 2 caps 05/13/18 release pellets oxycodone 5 mg tablet 5 mg PO BID PRN #60 tab MDD 2 tabs 05/13/18 Previous Rx's Medication Instructions Recorded naloxone [Narcan] 4 mg NS ONCE #1 inhn 01/19/16 ibuprofen 600 mg PO Q6H PRN 30 Days #120 02/26/17 tab-cap MDD 4 dronabinol 5 mg PO BID #60 tab-cap 11/16/17 citalopram [Celexa] 40 mg PO DAILY #90 tab-cap 12/07/17 doxycycline hyclate 100 mg PO TID #270 tab-cap 12/07/17 glimepiride 1 mg PO DAILY #30 tab-cap 12/07/17 lamotrigine 200 mg PO HS #90 tab-cap 12/07/17 levothyroxine [Synthroid] 100 mcg PO DAILY #90 tab-cap 12/07/17 metformin [Glucophage] 1,000 mg PO BID@0800,1700 #180 tab 12/07/17 oxybutynin chloride 5 mg PO BID #180 tab-cap 12/07/17 pantoprazole 40 mg PO DAILY #90 tab-cap 12/07/17 risperidone 3 mg PO DAILY #90 tab-cap 12/07/17 simvastatin [Zocor] 0.5 tab PO DAILY #45 tab-cap 12/07/17 spironolactone 50 mg PO DAILY #90 tab-cap 12/07/17 triamterene-hydrochlorothiazid 1 ea PO DAILY #90 tab-cap 12/07/17 [Dyazide] fluticasone 1 spray NS DAILY #16 gm 12/24/17 nystatin 1 applic TOPICAL BID #60 gm 12/26/17 ferrous sulfate [Iron (ferrous 325 mg PO BID #180 tab-cap 01/18/18 sulfate)] clonazepam 0.5 mg tablet 0.5 mg PO BID PRN #60 tab-cap 02/05/18 nystatin (bulk) 500 million unit 1 unit TRANSDERMAL BID PRN #1 each 02/05/18 powder pregabalin 50 mg capsule 50 mg PO BID #60 cap 03/14/18 furosemide 20 mg tablet 20 mg PO DAILY #30 tab 03/22/18 cephalexin [Keflex] 500 mg PO BID #13 cap 04/01/18 dicyclomine 10 mg capsule 10 mg PO QID PRN #120 tab-cap 04/16/18 ranitidine 150 mg tablet 150 mg PO QPM #30 tab 05/09/18 methadone 10 mg tablet 10 mg PO BID #60 tab MDD 2 tabs 05/13/18 morphine ER 20 mg capsule,extended 20 mg PO Q12H #60 cap MDD 2 caps 05/13/18 release pellets oxycodone 5 mg tablet 5 mg PO BID PRN #60 tab MDD 2 tabs 05/13/18 Allergies Allergy/AdvReac Type Severity Reaction Status Date / Time aripiprazole AdvReac Intermediate anxiety Unverified 05/17/18 01:29 prednisone AdvReac Intermediate Hallucinati Unverified 05/17/18 01:29 ons codeine AdvReac Mild GI Upset Unverified 05/17/18 01:29 azithromycin AdvReac Unknown Unverified 05/17/18 01:29 General Stated Complaint: Fever CHRISTIANO: 2 Review of Systems Constitutional Reports chills, Reports fever(s), Denies headache(s), Reports malaise and Reports weakness Eyes Denies other visual disturbances and Denies eye pain ENT Denies otalgia, Denies facial pain, Denies headache(s), Denies nasal congestion, Denies neck pain and Denies sore throat Cardiovascular Denies chest pain, Denies diaphoresis, Denies syncope, Denies lightheadedness and Denies dyspnea Respiratory Denies cough and Denies dyspnea Gastrointestinal Denies abdominal pain, Denies diarrhea, Denies nausea and Denies vomiting Genitourinary Comments: chronic Cuevas Musculoskeletal Reports back pain, Denies neck pain and Denies numbness Integumentary/Breasts Denies erythema and Denies rash Neurologic Denies abnormal speech, Denies confusion, Denies syncope, Denies headache(s), Denies numbness and Reports weakness Psychiatric Denies confusion [facility] Medical History Chronic pain syndrome (Acute 08/21/12) Chronic obstructive lung disease (Chronic) Hypothyroidism (Chronic) Diabetes mellitus type 2 (Chronic) Bipolar disorder (Chronic) Chronic back pain (Chronic) Hyperlipidemia (Chronic) Anxiety (Chronic) Intention tremor (Chronic) [employer] current use of antibiotics (Suspected) Spinal stenosis of lumbar region (Chronic) Scoliosis (Chronic) Infection (Chronic) Lumbar radicular pain (Chronic) Obesity (Chronic) Anxiety COPD (chronic obstructive pulmonary disease) Chronic pain Chronic rhinitis DJD (degenerative joint disease) of pelvis Diabetes Hyperlipidemia Hypothyroidism Schizoaffective disorder, bipolar type Wound infection after surgery Surgical History section Colonoscopy - MAC (~2003) ELECTROSHOCK THERAPY Spinal Fusion Tonsillectomy Total replacement of hip (~2003) Social History Smoking/Tobacco Use Status: Former Tobacco Use Exam Const General: cooperative and no acute distress Nutritional Appearance: obese Orientation: alert and oriented x3 HENMT Head: normal to inspection, normocephalic and atraumatic Mouth: mucous membranes dry Eyes Sclera: sclerae normal Neck Neck: trachea midline and supple Resp Effort & Inspection: normal respiratory effort Auscultation: no rales, rhonchi (few scattered) and no wheezes Cardio Rate: tachycardic Rhythm: regular rhythm Heart Sounds: S1 normal and S2 normal Pulses: radial pulses present GI Palpation: soft, not firm and nontender Skin General skin exam: no rashes or lesions noted and no erythema Neuro General: alert, oriented x3, moves all extremities and CN's II-XI intact bilaterally Extrem General: no clubbing, cyanosis or edema and no pedal edema Course Vital Signs Temperature 101.3 F H 05/16/18 23:08 Pulse 130 H 05/16/18 23:08 Respiratory Rate 20 05/16/18 23:08 Blood Pressure 104/53 L 05/16/18 23:08 Pulse Oximetry 93 L 05/16/18 23:08 Temperature 101.3 F H 05/16/18 23:08 Temperature Source Skin 05/16/18 23:08 Pulse 130 H 05/16/18 23:08 Respiratory Rate 20 05/16/18 23:08 Blood Pressure 104/53 L 05/16/18 23:08 Blood Pressure Position Sitting 05/16/18 23:08 Pulse Oximetry 93 L 05/16/18 23:08 Oxygen Delivery Method Room Air 05/16/18 23:08 Oxygen Flow Rate 0 05/16/18 23:08 Pain Level 6 05/16/18 23:08 Critical Care Time Critical Care Time: Yes Total Critical Care Time: 45 Attestation: Management of sepsis.
[2018-05-16] MEDS: Lactated Ringers 1,000 ML 1000 ML IV (23:25)
[2018-05-16 23:56] LABS: Abs Immature Grans 0.22 k/cumm (0.0-0.09); Absolute Basophil Count 0.02 k/cumm (0.0-0.2); Absolute Eosinophil Count 0.02 k/cumm (0.0-0.7); Absolute Lymphocyte Count 0.29 k/cumm (1.2-3.4); Absolute Monocyte Count 0.84 k/cumm (0.11-0.7); Absolute Neutrophil Count 19.17 k/cumm (1.2-6.7); Basophils % 0.1; Eosinophils % 0.1; HCT 37.3 % (36.0-46.0); HGB 11.5 g/dL (12.0-15.5); Immature Grans % 1.1; Lymphocytes % 1.4; Mean Corp. HGB Concentration 30.8 g/dL (32.0-36.0); Mean Corpuscular Hemoglobin 27.4 pg (27.0-33.0); Mean Platelet Volume 11.6 fL (8.0-11.0); Monocytes % 4.1; Neutrophils % 93.2; Platelet Count 245 x1000/uL (130-400); RBC 4.19 m/cumm (4.00-5.20); RBC Distribution Width 22.4 % (11.7-14.6); White Blood Cell Count 20.57 k/cumm (4.4-10.8)
[2018-05-17] VITALS (119 sets, daily range): BP systolic 65–235; BP diastolic 41–183; PULSE 65–238; RESP 7–39; TEMP 36.5–38.9; O2SAT 87–98
[2018-05-17 00:12] LABS: ALT 23 U/L (12-78); AST 27 U/L (15-37); Albumin 2.1 g/dL (3.4-5.0); Alkaline Phosphatase 84 U/L (46-116); Anion Gap 9.7 mmol/L (3-11); BUN 21 mg/dL (7-18); Bilirubin, Total 0.3 mg/dL (0.2-1.0); CO2 23.3 mmol/L (21.0-32.0); CREATININE 1.15 mg/dL (0.55-1.02); Calcium 8.1 mg/dL (8.5-10.1); Chloride 90 mmol/L (98-107); Estimated GFR 46.38 (mL/min/1.73m2); Magnesium 1.4 mg/dL (1.8-2.4); Total Protein 5.2 g/dL (6.4-8.2); Troponin I 0.02 ng/mL (0.00-0.06)
[2018-05-17 00:15] LABS: Glucose 506 mg/dL (70-100); Sodium 123 mmol/L (136-145)
[2018-05-17 00:20] LABS: Anisocytosis 1+; Basophilic Stippling Present; Macrocytosis 1+
[2018-05-17] MEDS: Acetaminophen 325 MG TAB 650 MG PO (00:23)
[2018-05-17 00:39] LABS: Bilirubin Negative (Negative); Blood Moderate (Negative); Clarity Cloudy; Glucose >=1000 mg/dL (Negative); Ketones Trace mg/dL (Negative); Leukocyte Esterase Small (Negative); Nitrite Negative (Negative); Urobilinogen 0.2 EU/dL (Up TO 0.2)
[2018-05-17 00:45] LABS: WBC >50 HPF (0-5)
[2018-05-17 00:46] LABS: C & S Indicated? Yes
--- NOTE | 2018-05-17 00:58 | DI.VRAD_ITS ---
EXAM: XR Chest, 1 View EXAM DATE/TIME: 05/16/2018 11:27 PM CLINICAL HISTORY: 73 years old, female; Signs and symptoms; Fever; Prior surgery; Surgery date: 6+ months; Surgery type: Spinal fusion; Patient HX: Fever, unable to sit up due to spinal fusion. Dr. Ramesh saldana with supine image on this patient. TECHNIQUE: XR of the chest, 1 view. COMPARISON: CR CHEST 2 VIEWS PA,LAT 08/31/2016 12:00 PM FINDINGS: There is some atelectasis within the left lung base. There is no consolidation. There are no pleural effusions or pneumothorax. The heart size and pulmonary vascularity are normal. Again noted is extensive instrumentation of the spine. IMPRESSION: Left basilar atelectasis. No consolidation. Dictated and Authenticated by: Gordon Bob MD. Ordering:MCKENNA Xavier MD
[2018-05-17] MEDS: VANCOMYCIN 2,000 MG in Normal Saline 500 ML 250 MG IVPB (01:22)
[2018-05-17] MEDS: MAGNESIUM SULFATE 2 GM/50 ML BAG IVPB (01:22)
[2018-05-17] MEDS: Lactated Ringers 1,000 ML 200 ML IV ×2 (01:22→06:15)
[2018-05-17] MEDS: Insulin REGULAR-Human 100 UNITS/ML UNIT 10 UNITS SC (01:56)
--- NOTE | 2018-05-17 06:51 | W.PM.HP.N ---
Date of service: 05/17/18 Time of Service: 06:51 Assessment and Plan (1) UTI (urinary tract infection): Current visit: Yes Status: Acute Patient found to have pus coming from the Cuevas catheter. The Cuevas catheter was changed in the emergency room. Urine was sent from the new flow of urine. This is presumed to be the source of her sepsis syndrome. She was empirically started on vancomycin and ceftriaxone because of a history of MRSA infection. Continue dosing of above antibiotics pending culture results. She has had trouble with sediment buildup in her Cuevas catheter and blockage of flow from her quadrant chronic indwelling catheter. Will ask urology to evaluate. She had outpatient urology recommended but was never able to make the appointment. (2) Schizoaffective disorder, bipolar type: Current visit: Yes Status: Chronic Patient has chronic schizoaffective disorder on antipsychotic medications. We will continue the Resporal, clonazepam, Lamictal (3) COPD (chronic obstructive pulmonary disease): Current visit: Yes Status: Chronic Chronic COPD. Respiratory status is currently stable. She satting well on room air. (4) Chronic pain syndrome: Current visit: No Status: Acute Chronic pain with opiate dependence. She is on methadone and as needed oxycodone. We will continue above. (5) Hypothyroidism: Current visit: No Status: Chronic Continue thyroid replacement. (6) Diabetes mellitus type 2: Current visit: No Status: Chronic Blood sugars high on admission, 500. Fluid replacement and aspart correction. Hold metformin and glimepiride, oral agents, for now. She may benefit from a long-acting insulin depending on how her sugars react. I suspect her blood sugars will come down as her infection improves (7) Spinal stenosis of lumbar region: Current visit: No Status: Chronic Severely limited mobility due to pain. We will have physical therapy evaluate. (8) Leukocytosis: Current visit: No Status: Acute White count is 20,000. Likely related to the acute urinary tract infection. (9) Sepsis: Current visit: Yes Status: Acute Patient presents with leukocytosis altered mental status. Likely urinary source. Blood cultures are pending. Continue vancomycin and ceftriaxone. She is DNR/DNI and does not want to have aggressive measures such as pressors. We will continue supportive measures as above. (10) Discharge planning issues: Current visit: Yes Status: Acute Patient has a COLST form that clearly delineates her advanced wishes. She has been seen by palliative care. She is DNR/DNI with limited interventions recommended. (11) Hypomagnesemia: Current visit: Yes Status: Acute Magnesium replaced IV in the emergency room. Continue oral magnesium replacement. Follow level History of Present Illness Chief Complaint: Sepsis syndrome/complicated urinary tract infection Narrative: This is a 73-year-old woman brought to the emergency room by EMS because of fever and chills. She lives at home with her . She was recently discharged from a chronic care facility. She is chronically disabled by severe back pain, opiate dependence, urinary incontinence, immobility. She has an underlying mental illness, schizoaffective disorder, bipolar type. In the emergency room she was found to have tachycardia, leukocytosis, hyponatremia, hypomagnesemia, hyperglycemia. She received copious IV fluids, vancomycin, ceftriaxone. Her Cuevas catheter was changed out. Blood cultures and urine cultures are pending. She is admitted to the ICU as MedSurg overflow. She had been comfort measures only at the [facility]. She transitioned home with a COLST form, DNR/DNI. Review of Systems Constitutional Reports weakness Comments: Patient is obtunded. She is arousable but does not give any specific review of systems other than as noted. Cardiovascular Denies chest pain Respiratory Denies chest congestion and Denies cough Gastrointestinal Denies abdominal pain Musculoskeletal Comments: Denies any current back pain Neurologic Reports weakness Comments: Very sleepy and decreased ability to attend. She offers no complaints. 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) Chronic osteoarthritis (Acute) Chronic pain syndrome (Acute 08/21/12) Hypothyroidism (Chronic) Diabetes mellitus type 2 (Chronic) Bipolar disorder (Chronic) Chronic back pain (Chronic) Hyperlipidemia (Chronic) Anxiety (Chronic) Intention tremor (Chronic) correction current use of antibiotics (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 She recently returned home from a long stay at the [facility]. She has limited mobility and poor use of ADLs. Former smoker. No current alcohol use. Meds Home Medications Medication Instructions Recorded Confirmed Type qawkhtllcnmz-lzpv-yttgl acid 1 tab-cap PO DAILY tab-cap 08/08/12 08/31/16 History [Adults' Daily Formula (folic)] vitamin B comp and C no.3 [B 1 ea PO DAILY 08/08/12 08/31/16 History Complex Plus Vitamin C] ascorbic acid (vitamin C) 2 tab PO DAILY 09/25/12 08/31/16 History aspirin [Aspir-81] 81 mg PO DAILY 12/28/15 08/31/16 History naloxone [Narcan] 4 mg NS ONCE #1 inhn 01/19/16 08/31/16 Rx diaper,brief,youth disposable #60 isaac 01/25/16 History [Prevail Brief Youth] nicotine (polacrilex) 4 mg BUCCAL TID PRN #30 freeman 01/25/16 History albuterol sulfate [ProAir HFA] 1 - 2 puff INHALATION Q4H PRN #1 10/15/16 History inhaler lamotrigine [Lamictal] 100 mg PO QAM #90 tab-cap 10/15/16 History magnesium chloride [Mag 64] 128 mg PO DAILY #180 tabcr 10/15/16 History risperidone 0.25 mg PO TID PRN #90 tab-cap 10/15/16 History ipratropium-albuterol [Combivent 1 puff INHALATION QID #120 puff 10/20/16 History Respimat] Marijuana 01/09/17 History docusate sodium 100 mg PO DAILY tab-cap 02/06/17 History polyethylene glycol 3350 [Miralax] 17 g PO DAILY PRN #255 gm 02/06/17 History ibuprofen 600 mg PO Q6H PRN 30 Days #120 02/26/17 Rx tab-cap MDD 4 dronabinol 5 mg PO BID #60 tab-cap 11/16/17 Rx Metoprolol Succinate 25 mg PO DAILY #90 tab-cap 12/07/17 04/01/18 Clinic citalopram [Celexa] 40 mg PO DAILY #90 tab-cap 12/07/17 04/01/18 Rx clonazepam 0.5 mg PO Every AM 12/07/17 History doxycycline hyclate 100 mg PO TID #270 tab-cap 12/07/17 04/01/18 Rx glimepiride 1 mg PO DAILY #30 tab-cap 12/07/17 Rx lamotrigine 200 mg PO HS #90 tab-cap 12/07/17 04/01/18 Rx levothyroxine [Synthroid] 100 mcg PO DAILY #90 tab-cap 12/07/17 04/01/18 Rx metformin [Glucophage] 1,000 mg PO BID@0800,1700 #180 tab 12/07/17 04/01/18 Rx oxybutynin chloride 5 mg PO BID #180 tab-cap 12/07/17 04/01/18 Rx pantoprazole 40 mg PO DAILY #90 tab-cap 12/07/17 04/01/18 Rx risperidone 3 mg PO DAILY #90 tab-cap 12/07/17 04/01/18 Rx simvastatin [Zocor] 0.5 tab PO DAILY #45 tab-cap 12/07/17 04/01/18 Rx spironolactone 50 mg PO DAILY #90 tab-cap 12/07/17 04/01/18 Rx triamterene-hydrochlorothiazid 1 ea PO DAILY #90 tab-cap 12/07/17 04/01/18 Rx [Dyazide] fluticasone 1 spray NS DAILY #16 gm 12/24/17 Rx nystatin 1 applic TOPICAL BID #60 gm 12/26/17 Rx ferrous sulfate [Iron (ferrous 325 mg PO BID #180 tab-cap 01/18/18 04/01/18 Rx sulfate)] clonazepam 0.5 mg tablet 0.5 mg PO BID PRN #60 tab-cap 02/05/18 Rx nystatin (bulk) 500 million unit 1 unit TRANSDERMAL BID PRN #1 each 02/05/18 Rx powder pregabalin 50 mg capsule 50 mg PO BID #60 cap 03/14/18 04/01/18 Rx furosemide 20 mg tablet 20 mg PO DAILY #30 tab 03/22/18 Rx cephalexin [Keflex] 500 mg PO BID #13 cap 04/01/18 Rx dicyclomine 10 mg capsule 10 mg PO QID PRN #120 tab-cap 04/16/18 Rx ranitidine 150 mg tablet 150 mg PO QPM #30 tab 05/09/18 05/09/18 Rx methadone 10 mg tablet 10 mg PO BID #60 tab MDD 2 tabs 05/13/18 Rx morphine ER 20 mg capsule,extended 20 mg PO Q12H #60 cap MDD 2 caps 05/13/18 Rx release pellets oxycodone 5 mg tablet 5 mg PO BID PRN #60 tab MDD 2 tabs 05/13/18 Rx Allergies Allergy/AdvReac Type Severity Reaction Status Date / Time aripiprazole AdvReac Intermediate anxiety Unverified 05/17/18 01:29 prednisone AdvReac Intermediate Hallucinati Unverified 05/17/18 01:29 ons codeine AdvReac Mild GI Upset Unverified 05/17/18 01:29 azithromycin AdvReac Unknown Unverified 05/17/18 01:29 Exam Narrative Exam Narrative: Patient is somnolent and is minimally able to cooperate Const General: cooperative Nutritional Appearance: obese Orientation: obtunded (Arousable with moderate stimulation) [facility] Head: normal to inspection Ears: hearing grossly normal bilaterally General nose exam: external nose normal Face and sinus: normal facial exam Mouth: oral mucosae normal Teeth and gingiva: edentulous Eyes General: appearance normal, both eyes and all related structures Neck Neck: normal visual inspection Chest Chest: normal inspection of the chest Resp Effort & Inspection: normal respiratory effort Auscultation: clear to auscultation bilaterally Cardio Rate: regular rate Rhythm: regular rhythm Heart Sounds: S1 normal, S2 normal and murmur (2/6 to 3/6 systolic murmur right upper sternal border) GI Inspection: normal to inspection and obesity Palpation: soft and no guarding Back/Spine/Pelvis Back: no CVA tenderness Cervical Spine: normal cervical lordosis Thoracic/Lumbar Spine: thoracic and lumbar spine normal to inspection and surgical scar(s) present (Well-healed) Skin General skin exam: no rashes or lesions noted Other: Sacral area inspected with very small superficial fissuring in the upper pilonidal region, no open sores Neuro General: moves all extremities, no focal motor deficits (She was able to assist with rolling and did cooperate once stimulated ) and obtunded Extrem Other: 2+ edema both lower extremities Results Labs : 05/16/18 23:42 05/16/18 23:42 Laboratory Results - last 24 hr 05/16/18 05/16/18 05/16/18 23:42 23:42 23:42 WBC 20.57 H RBC 4.19 Hgb 11.5 L Hct 37.3 MCV 89.0 MCH 27.4 MCHC 30.8 L RDW 22.4 H Plt Count 245 MPV 11.6 H Immature Gran % 1.1 Neutrophils % 93.2 Lymphocytes % 1.4 Monocytes % 4.1 Eosinophils % 0.1 Basophils % 0.1 Absolute Neutrophils 19.17 H Absolute Lymphocytes 0.29 L Absolute Monocytes 0.84 H Absolute Eosinophils 0.02 Absolute Basophils 0.02 RBC Morphology See below Basophilic Stippling Present Anisocytosis 1+ Macrocytosis 1+ Sodium 123 L* Potassium 5.0 Chloride 90 L Carbon Dioxide 23.3 Anion Gap 9.7 BUN 21 H Creatinine 1.15 H Estimated GFR/1.73 m2 46.38 Glucose 506 H* Lactate 5.0 H Calcium 8.1 L Magnesium 1.4 L Total Bilirubin 0.3 AST 27 ALT 23 Alkaline Phosphatase 84 Troponin I 0.02 Total Protein 5.2 L Albumin 2.1 L Urine Color Urine Clarity Urine pH Ur Specific [place] Urine Protein Urine Ketones Urine Blood Urine Nitrite Urine Bilirubin Urine Urobilinogen Ur Leukocyte Esterase Urine RBC Urine WBC Ur Epithelial Cells Urine Crystals Urine Bacteria Urine Mucus Ur Culture Indicated? Urine Glucose 05/17/18 00:23 WBC RBC Hgb Hct MCV MCH MCHC RDW Plt Count MPV Immature Gran % Neutrophils % Lymphocytes % Monocytes % Eosinophils % Basophils % Absolute Neutrophils Absolute Lymphocytes Absolute Monocytes Absolute Eosinophils Absolute Basophils RBC Morphology Basophilic Stippling Anisocytosis Macrocytosis Sodium Potassium Chloride Carbon Dioxide Anion Gap BUN Creatinine Estimated GFR/1.73 m2 Glucose Lactate Calcium Magnesium Total Bilirubin AST ALT Alkaline Phosphatase Troponin I Total Protein Albumin Urine Color Yellow Urine Clarity Cloudy Urine pH 7.0 Ur Specific [place] 1.020 Urine Protein 100 H Urine Ketones Trace H Urine Blood Moderate H Urine Nitrite Negative Urine Bilirubin Negative Urine Urobilinogen 0.2 Ur Leukocyte Esterase Small H Urine RBC Not Applicable Urine WBC >50 Ur Epithelial Cells Not Applicable Urine Crystals Not Applicable Urine Bacteria Not Applicable Urine Mucus Not Applicable Ur Culture Indicated? Yes Urine Glucose >=1000 H Last Vital Signs Temp 37.6 C 05/17/18 04:47 Pulse 97 H 05/17/18 06:01 Resp 15 05/17/18 06:01 BP 124/67 05/17/18 06:01 Pulse Ox 95 05/17/18 06:01
--- NOTE | 2018-05-17 07:38 | PDOC.CMIN ---
- If Service Date Differs Date of service: 05/17/18 Time of Service: 07:38 Care Management Initial Assess REASON FOR HOSPITALIZATION:: Sepsis, UTI. PAST MEDICAL HISTORY/PAST SURGICAL HISTORY:: Anxiety, bipolar disorder, chronic back pain, osteoarthritis, rhinitis, COPD, diabetes type II, DJD, hyerlipidemia, hypothyroidism, intention tremor, lumbar radicular pain, obesity, parkinsonism d/t drug, schizoaffective disorder, bipolar type, scoliosis, sepsis, spinal stenosis of lumbar region. Surgical hx: section, colonoscopy, spinal fusion, tonsillectomy, total replacement hip (R). PREVIOUS FUNCTIONAL STATUS/SOCIAL/FAMILY SUPPORTS:: Deana resides with her , Jared in [facility]. She is mostly bedbound according to her , though will occasionally get OOB with a walker to access her wheelchair. Deana resided at the [facility] for 6 months prior to moving home. The family is working on installing a ramp; at this time Deana is homebound. She requires assistance with all of her ADLs. Deana has many supports in the community including [facility] high/highest need. CURRENT FUNCTIONAL STATUS:: Deana is lying in bed with her , Jared, at bedside. She has been difficult to meet with today; sleeping x2. She responds to questions however asks her to answer in more detail when necessary. Deana is waiting for urology; discussion regarding suprapubic catheter(?) as patient has had difficulties with her indwelling. ADVANCE DIRECTIVES:: On file at [facility]. Health Care Agent: [place] Jenny. Has patient been provided with information about the portal?: Yes Did the patient sign up for the portal?: Yes (Previously signed up) CODE STATUS:: DNR/DNI INSURANCE COVERAGE / FINANCIAL ISSUES:: [employer], Medicaid, Medicare. CURRENT HOME/COMMUNITY SERVICES/EQUIPMENT:: Home health services 6x/week. When Jared is away for 10 days at a time (4x/year), Deana has 24 hour care through [facility]. FWW, wheelchair, bedside commode. PRIMARY CARE PHYSICIAN:: John Carpenter. POTENTIAL DISCHARGE NEEDS:: Follow up appointment with PCP, resumption of home health services. PATIENT/FAMILY EDUCATION NEEDS:: Discharge education, any limitations, and follow up plan of care. Ask Me Three discussion. ANTICIPATED BARRIERS TO DISCHARGE:: No anticipated barriers to discharge. TRANSPORTATION:: Deana will transport via EMS when medically ready. PLAN:: Deana will discharge home when medically ready per MD. Anticipate patient will discharge with resumption of home health services (nursing once every 4-6 weeks, PT 1x/week, OT 2x/week, [facility], [facility] [employer] 7x/week.
[2018-05-17 07:43] LABS: Abs Immature Grans 0.19 k/cumm (0.0-0.09); Absolute Basophil Count 0.02 k/cumm (0.0-0.2); Absolute Lymphocyte Count 0.54 k/cumm (1.2-3.4); Absolute Monocyte Count 1.65 k/cumm (0.11-0.7); Basophils % 0.1; Eosinophils % 0.8; Immature Grans % 1.2; Lymphocytes % 3.5; Mean Corp. HGB Concentration 30.3 g/dL (32.0-36.0); Mean Corpuscular Volume 88.9 fL (80-95); Mean Platelet Volume 10.9 fL (8.0-11.0); Monocytes % 10.7; Neutrophils % 83.7; RBC 3.71 m/cumm (4.00-5.20); RBC Distribution Width 22.2 % (11.7-14.6); White Blood Cell Count 15.42 k/cumm (4.4-10.8)
[2018-05-17 07:44] LABS: Absolute Eosinophil Count 0.12 k/cumm (0.0-0.7); Absolute Neutrophil Count 12.91 k/cumm (1.2-6.7)
[2018-05-17 08:03] LABS: ALT 21 U/L (12-78); AST 17 U/L (15-37); Alkaline Phosphatase 78 U/L (46-116); Anion Gap 5.1 mmol/L (3-11); BUN 20 mg/dL (7-18); Bilirubin, Total 0.3 mg/dL (0.2-1.0); CO2 28.9 mmol/L (21.0-32.0); CREATININE 1.03 mg/dL (0.55-1.02); Chloride 94 mmol/L (98-107); Estimated GFR 52.67 (mL/min/1.73m2); Glucose 256 mg/dL (70-100); Magnesium 2.2 mg/dL (1.8-2.4); Potassium 3.9 mmol/L (3.5-5.1); Sodium 128 mmol/L (136-145); Total Protein 5.1 g/dL (6.4-8.2)
[2018-05-17 08:07] LABS: Lactate-non-spesis 2.5 mmol/L (0.6-1.4)
[2018-05-17 08:20] LABS: Anisocytosis 2+; Basophilic Stippling Present; Diff Comment Manual Differential; Hypochromasia 1+; Microcytosis 1+
[2018-05-17 08:21] LABS: Poikilocytes 1+
[2018-05-17 08:22] LABS: Platelet Count 220 x1000/uL (130-400)
--- NOTE | 2018-05-17 08:49 | INITIAL_ITS ---
- If Service Date Differs Date of service: 05/17/18 Time of Service: 07:38 Care Management Initial Assess REASON FOR HOSPITALIZATION:: Sepsis, UTI. PAST MEDICAL HISTORY/PAST SURGICAL HISTORY:: Anxiety, bipolar disorder, chronic back pain, osteoarthritis, rhinitis, COPD, diabetes type II, DJD, hyerlipidemia, hypothyroidism, intention tremor, lumbar radicular pain, obesity, parkinsonism d/t drug, schizoaffective disorder, bipolar type, scoliosis, sepsis, spinal stenosis of lumbar region. Surgical hx: section, colonoscopy, spinal fusion, tonsillectomy, total replacement hip (R). PREVIOUS FUNCTIONAL STATUS/SOCIAL/FAMILY SUPPORTS:: Deana resides with her , Jared in [facility]. She is mostly bedbound according to her , though will occasionally get OOB with a walker to access her wheelchair. Deana resided at the [facility] for 6 months prior to moving home. The family is working on installing a ramp; at this time Deana is homebound. She requires assistance with all of her ADLs. Deana has many supports in the community including [facility] high/highest need. CURRENT FUNCTIONAL STATUS:: Deana is lying in bed with her , Jared, at bedside. She has been difficult to meet with today; sleeping x2. She responds to questions however asks her to answer in more detail when necessary. Deana is waiting for urology; discussion regarding suprapubic catheter(?) as patient has had difficulties with her indwelling. ADVANCE DIRECTIVES:: On file at [facility]. Health Care Agent: [place] Jenny. Has patient been provided with information about the portal?: Yes Did the patient sign up for the portal?: Yes (Previously signed up) CODE STATUS:: DNR/DNI INSURANCE COVERAGE / FINANCIAL ISSUES:: [employer], Medicaid, Medicare. CURRENT HOME/COMMUNITY SERVICES/EQUIPMENT:: Home health services 6x/week. When Jared is away for 10 days at a time (4x/year), Deana has 24 hour care through [facility]. FWW, wheelchair, bedside commode. PRIMARY CARE PHYSICIAN:: John Carpenter. POTENTIAL DISCHARGE NEEDS:: Follow up appointment with PCP, resumption of home health services. PATIENT/FAMILY EDUCATION NEEDS:: Discharge education, any limitations, and fol low up plan of care. Ask Me Three discussion. ANTICIPATED BARRIERS TO DISCHARGE:: No anticipated barriers to discharge. TRANSPORTATION:: Deana will transport via EMS when medically ready. PLAN:: Deana will discharge home when medically ready per MD. Anticipate patient will discharge with resumption of home health services (nursing once every 4-6 weeks, PT 1x/week, OT 2x/week, [facility], EKG/ECG TECHNICIAN 7x/week.
[2018-05-17] MEDS: Normal Saline Flush 10 ML SYR IVP ×2 (09:03→10:56)
[2018-05-17] MEDS: Dronabinol 2.5 MG CAP 5 MG PO ×2 (09:04→20:45)
[2018-05-17] MEDS: Enoxaparin 40 MG/0.4 ML SYR SC (09:04)
[2018-05-17] MEDS: Docusate Sodium 100 MG CAP PO (09:06)
[2018-05-17] MEDS: clonazePAM 0.5 MG TAB PO (09:06)
[2018-05-17] MEDS: Pantoprazole 40 MG TABCR PO (09:07)
[2018-05-17] MEDS: lamoTRIgine 100 MG TAB PO (09:07)
[2018-05-17] MEDS: Metoprolol CR 25 MG TABCR PO (09:08)
[2018-05-17] MEDS: risperiDONE 1 MG TAB 3 MG PO (09:08)
[2018-05-17] MEDS: Magnesium Chloride 64 MG TABCR 128 MG PO (09:08)
[2018-05-17] MEDS: Methadone 10 MG TAB PO ×2 (09:09→20:44)
[2018-05-17] MEDS: Levothyroxine 100 MCG TAB PO (09:09)
[2018-05-17] MEDS: Citalopram 20 MG TAB 40 MG PO (09:09)
[2018-05-17] MEDS: Pregabalin 50 MG CAP PO ×2 (09:09→20:45)
[2018-05-17] MEDS: Fluticasone NASAL SPRAY 16 GM BTL NS (09:10)
[2018-05-17] MEDS: Insulin Aspart 300 UNITS/3 ML PEN SC ×3 (09:16→17:12)
[2018-05-17] MEDS: Ipratropium/Albuterol 4 GM 120 PUFF INH IH ×3 (09:23→20:40)
--- NOTE | 2018-05-17 10:52 | PT.INIE ---
Date of service: 05/17/18 Time of Service: 10:46 PT Notes Inpatient Physical Therapy Evaluation Date: 05/09/2018 Referring Doctor: Sammy Bland MD PT Orders: PT CONSULT: Deconditioned, chronically ill woman for home assessment and strengthening Precautions: Fall precautions, contact precautions Patient Profile/Admitting Diagnosis: Patient is a 73-year-old female admitted with urinary tract infection, sepsis, hypomagnesemia PMHX: Schizoaffective disorder bipolar, chronic pain syndrome, scoliosis, spinal stenosis s/p spinal fusion, lumbar radicular pain, degenerative joint disease of pelvis, total hip arthroplasty, osteoarthritis, obesity, anxiety, intention tremor, hyperlipidemia, hypothyroidism, hypomagnesemia, chronic obstructive pulmonary disease, history of electroshock therapy, tonsillectomy, parkinsonism due to drug, bowel obstruction, drug-induced ileus Social History/Home Situation: Patient reports she lives with her in a home, ramp to enter no stairs. Baseline mobility sleeps in hospital bed uses bed elevation and bed rails to get to sitting position, reports she is independent with transfers with 3 wheel walker to wheelchair and is independent with self propelling wheelchair around home setting. She states she does not ambulate further than transfers to and from a wheelchair. Reports she performs sponge bath at home by caregiver 1 time per day. States her prepares meals. She was receiving home PT and OT prior to admission. Equipment Owned/DME: 3 wheeled walker, FWW, hospital bed, commode, raised toilet seat, grab bars Subjective: Patient lying in bed alert and agreeable to PT consult. States she only wants to transfer to a wheelchair because that is what she uses at home. Objective: General Observation: IV left upper extremity, telemetry, Cuevas catheter, 2 L O2 nasal cannula, BP/O2 monitors Mental Status: A and O x3 Pain: No complaints of pain ROM: Right Upper Extremity: AROM shoulder flexion 170 degrees, elbow and wrist within normal limits Left Upper Extremity: AROM shoulder flexion 180 degree, elbow and wrist within normal limits Right Lower Extremity: AAROM hip flexion 90 degrees, knee 0-90, ankle -10 degrees dorsiflexion Left Lower Extremity: AAROM hip flexion 95 degrees, knee 0-90 degrees,ankle -10 degrees dorsiflexion Strength: Right Upper Extremity: 2/5 shoulder flexion, 5/5 bicep, 5/5 mine manager Left Upper Extremity: 3/5 shoulder flexion, 5/5 bicep, 5/5 mine manager Right Lower Extremity: 2/5 hip flexion, 3/5 quad, 2/5 dorsiflexion/plantar Left Lower Extremity: 2/5 hip flexion, 3/5 quad, 2/5 dorsiflexion/plantarflexion Bed Mobility/Transfers: Supine to sit: HOB 40 degrees, patient able to use left rail to assist trunk to sitting, independent getting legs out of bed Sit to stand: Min assist x1 on right side to get to standing position with FWW Bed to wheelchair: CGA with FWW Stand to sit: CGA, tactile cues for hand placement to arm rest of wheelchair Gait: CGA with FWW 4 steps bed to wheelchair. Patient left up in wheelchair legs on leg rests, pillow behind back, call light in reach Wheelchair mobility: Patient deferred at this time will assess at future session. Patient states she self propels wheelchair at home. Balance: Static Sitting: Normal Dynamic Sitting: Normal Static Standing: Fair Dynamic Standing: Poor Special Tests: Mobility Limitations Standardized Measure [facility]-PAC 6 clicks Basic Mobility Inpatient Short Form: Raw Score: 14 standardized Score: 38.10 CMS Score: 61.29% CMS Modifier: CL Informed Consent/Education: Patient instructed in purpose of PT consult and plan of care. Assessment: Patient is a 73-year-old female admitted with urinary tract infection, sepsis, hypomagnesemia in setting of Schizoaffective disorder bipolar, chronic pain syndrome, scoliosis, spinal stenosis s/p spinal fusion, lumbar radicular pain, degenerative joint disease of pelvis, total hip arthroplasty, osteoarthritis, obesity, anxiety, intention tremor. Patient presents with the following impairment level findings: Weakness in bilateral upper and lower extremities, requires use of hospital bed for bed transfers, decreased strength with standing transfers requiring 1 person assist FWW, limited gait mobility performing transfers to wheelchair only, independent wheelchair mobility for community distance, decreased static and dynamic standing balance putting her at risk for falls. Patient will benefit from skilled therapy intervention for strengthening, transfer gait, wheelchair mobility training. Patient's goal is to return to home setting with home PT and caregiver assist Impairments are contributing to the following functional limitations: AMPA score CMS Score: 61.29% Patient is assessed as a High [id number] complexity based on the following: History: See above Examination: See above Presentation: Evolving Decision Making: AMPAC score CMS Score: 61.29% Goals: Goals X1 week 1. Supine-Sit: Independent with use of hospital bed 2. Sit-Supine: Independent with use of hospital bed 3. Sit-Stand: Supervision with FWW 4. Stand-Sit: Supervision with FWW 5. Bed-Chair: SBA with FWW 6. Chair-Bed: SBA with FWW 7. Gait: SBA with FWW5 steps to wheelchair 8. Independent with home exercise program Plan of Care/Treatment Plan: 1-2x/day, 7 days/week x 1 week. Plan of care has been reviewed with the COPPER PLATER providing the service under Physical Therapy direction. Initiate Physical Therapy intervention for strengthening, bed mobility, transfers, gait, stairs, balance training, use of assistive device. DISCHARGE RECOMMENDATIONS: Home with home PT, patient has all DME TREATMENT CODE/TIME: 35 minutes IE 10:45 AM G Codes in the area mobility of walking and moving around: current status [id number] []; projected status GP [id number]-[]. Discharge status (if discharging) GP [id number] CL based on AMPAC score CMS Score: 61.29% Kasie Sterling PT
--- NOTE | 2018-05-17 11:09 | OT.INIE ---
Occupational Therapy Notes Inpatient Occupational Therapy Evaluation Date: 05/17/18 Referring Doctor:oNra Simons MD OT Orders: Eval and Treat Precautions: Contact Precautions PATIENT PROFILE/ADMITTING DIAGNOSIS: Pt is a 73 year old female referred to [facility] for UTI, sepsis and hypomagnesemia. Past Medical History: Schizoaffective disorder bipolar, chronic pain syndrome, scoliosis, spinal stenosis s/p spinal fusion, lumbar radicular pain, degenerative joint disease of pelvis, total hip arthroplasty, osteoarthritis, obesity, anxiety, intention tremor, hyperlipidemia, hypothyroidism, hypomagnesemia, chronic obstructive pulmonary disease, history of electroshock therapy, tonsillectomy, parkinsonism due to drug, bowel obstruction, drug-induced ileus. Social History/Home Situation: Pt reports that she lives in her home with her . She states that her works upstair in their home in his study and she describes herself as bed bound. She states that she does not leave her home throughout the day and that she has an aide who comes into their home 6 days/week who (A) her with dressing, bathing, and ADL/IADL routines as needed. She states that her functional baseline for ADLs/IADLs is that she requires (A) for everything except soaking her teeth and eating, she uses a commode which she state she is able to (I) use. She states that the aide that comes into her home is there to specifically help her with her ADL routines. She reports that they recently had a ramp installed at her home as she uses a wheelchair for mobility. She reports that home PT is coming in to teach her and her how to use it. She drinks from a cup with (B) handles and cover with spout to avoid spilling fluids on herself. Equipment owned/DME: Pt reports that she has a FWW, hospital bed, commode, raised toilet seat, grab bars. SUBJECTIVE: Pt was sitting in her wheelchair when OT arrived. She was agreeable to OT session. OBJECTIVE: General Observation: : IV (L) UE, telemetry, Cuevas, O2 nasal cannula, BP/O2 monitors, slight tremor (R) UE Mental Status: A&Ox3 Pain: no c/o pain. ROM: RUE AROM WNL L UE AROM shoulder flexion WNL, elbow NT pt denied due to IV, hand WNL STRENGTH: RUE shoulder flexion 3/5, bicep 5/5, medical assisting program director 5/5 LUE shoulder flexion 3/5, bicep NT due to IV per pts request, medical assisting program director 5/5 EATING (I) with using a covered lid cup with (B) handles and spout. Pt reports that this makes it easier for her to grasp and bring to her mouth without spilling liquids on herself. BALANCE: Static sitting Normal Dynamic Sitting Normal SPECIAL TESTS: Daily Activity Limitations Standardized Measure [facility] AM PAC ?6 clicks? Daily Activity Inpatient Short Form: Raw score: 17 Standardized score: 37.26 CMS score: 50.11% CMS modifier: CK INFORMED CONSENT/EDUCATION: Pt instructed in purpose of OT Consult and plan of care. ASSESSMENT: Patient is a 73-year-old female referred to occupational therapy services with diagnosis of UTI, sepsis and hypomagnesemia in setting of Schizoaffective disorder bipolar, chronic pain syndrome, scoliosis, spinal stenosis s/p spinal fusion, lumbar radicular pain, degenerative joint disease of pelvis, total hip arthroplasty, osteoarthritis, obesity, anxiety, intention tremor, hyperlipidemia, hypothyroidism, hypomagnesemia, chronic obstructive pulmonary disease, history of electroshock therapy, tonsillectomy, parkinsonism due to drug, bowel obstruction, drug-induced ileus. Pt was seen today for OT eval only. Pt has caregiver that comes into her home 6 days/week to (A) her with bathing and dressing. She reports that she does not feel that she needs OT as she did not perform her ADLs with (A) before and her caregiver/aide is there to help when needed. OT recommends that pt return home to care from aide 6 days/week when medically cleared per MD. No skilled OT needed at this time. AMPAC score 17, CMS score 50.11% Patient is assessed as a high [id number] complexity based on the following: History: See Above Examination: See Above Presentation: Evolving Decision Making: AMPAC score 17, CMS score 50.11% GOALS N/A PLAN OF CARE/TREATMENT PLAN: OT consult Only. DISCHARGE RECOMMENDATIONS Home with aide 6 days a week, which pt was receiving prior to admission. Pt has all DME. TREATMENT TIME/MINUTES/CODES IE 28 minutes (10:40) G Codes in the area of self- : washing oneself, toileting, dressing, eating and drinking, current status GO [id number] CK projected status GO [id number]. Discharge status (if discharging) GO [id number] Donna Simental, OTR/L
--- NOTE | 2018-05-17 11:10 | IN_ITS ---
Date of service: 05/17/18 Time of Service: 10:46 PT Notes Inpatient Physical Therapy Evaluation Date: 05/09/2018 Referring Doctor: Sammy Bland MD PT Orders: PT CONSULT: Deconditioned, chronically ill woman for home assessment and strengthening Precautions: Fall precautions, contact precautions Patient Profile/Admitting Diagnosis: Patient is a 73-year-old female admitted with urinary tract infection, sepsis, hypomagnesemia PMHX: Schizoaffective disorder bipolar, chronic pain syndrome, scoliosis, spinal stenosis s/p spinal fusion, lumbar radicular pain, degenerative joint disease of pelvis, total hip arthroplasty, osteoarthritis, obesity, anxiety, intention tremor, hyperlipidemia, hypothyroidism, hypomagnesemia, chronic obstructive pulmonary disease, history of electroshock therapy, tonsillectomy, parkinsonism due to drug, bowel obstruction, drug-induced ileus Social History/Home Situation: Patient reports she lives with her in a home, ramp to enter no stairs. Baseline mobility sleeps in hospital bed uses b ed elevation and bed rails to get to sitting position, reports she is independent with transfers with 3 wheel walker to wheelchair and is independent with self propelling wheelchair around home setting. She states she does not ambulate further than transfers to and from a wheelchair. Reports she performs sponge bath at home by caregiver 1 time per day. States her prepares meals. She was receiving home PT and OT prior to admission. Equipment Owned/DME: 3 wheeled walker, FWW, hospital bed, commode, raised toilet seat, grab bars Subjective: Patient lying in bed alert and agreeable to PT consult. States she only wants to transfer to a wheelchair because that is what she uses at home. Objective: General Observation: IV left upper extremity, telemetry, Cuevas catheter, 2 L O2 nasal cannula, BP/O2 monitors Mental Status: A and O x3 Pain: No complaints of pain ROM: Right Upper Extremity: AROM shoulder flexion 170 degrees, elbow and wrist within normal limits Left Upper Extremity: AROM shoulder flexion 180 degree, elbow and wrist within normal limits Right Lower Extremity: AAROM hip flexion 90 degrees, knee 0-90, ankle -10 degrees dorsiflexion Left Lower Extremity: AAROM hip flexion 95 degrees, knee 0-90 degrees,ankle - 10 degrees dorsiflexion Strength: Right Upper Extremity: 2/5 shoulder flexion, 5/5 bicep, 5/5 electrical systems design engineer Left Upper Extremity: 3/5 shoulder flexion, 5/5 bicep, 5/5 electrical systems design engineer Right Lower Extremity: 2/5 hip flexion, 3/5 quad, 2/5 dorsiflexion/plantar Left Lower Extremity: 2/5 hip flexion, 3/5 quad, 2/5 dorsiflexion/plantarflexion Bed Mobility/Transfers: Supine to sit: HOB 40 degrees, patient able to use left rail to assist trunk to sitting, independent getting legs out of bed Sit to stand: Min assist x1 on right side to get to standing position with FWW Bed to wheelchair: CGA with FWW Stand to sit: CGA, tactile cues for hand placement to arm rest of wheelchair Gait: CGA with FWW 4 steps bed to wheelchair. Patient left up in wheelchair legs on leg rests, pillow behind back, call light in reach Wheelchair mobility: Patient deferred at this time will assess at future session. Patient states she self propels wheelchair at home. Balance: Static Sitting: Normal Dynamic Sitting: Normal Static Standing: Fair Dynamic Standing: Poor Special Tests: Mobility Limitations Standardized Measure [facility]-PAC 6 clicks Basic Mobility Inpatient Short Form: Raw Score: 14 standardized Score: 38.10 CMS Score: 61.29% CMS Modifier: CL Informed Consent/Education: Patient instructed in purpose of PT consult and plan of care. Assessment: Patient is a 73-year-old female admitted with urinary tract infection, sepsis, hypomagnesemia in setting of Schizoaffective disorder bipolar, chronic pain syndrome, scoliosis, spinal stenosis s/p spinal fusion, lumbar radicular pain, degenerative joint disease of pelvis, total hip arthroplasty, osteoarthritis, obesity, anxiety, intention tremor. Patient presents with the following impairment level findings: Weakness in bilateral upper and lower extremities, requires use of hospital bed for bed transfers, decreased strength with standing transfers requiring 1 person assist FWW, limited gait mobility performing transfers to wheelchair only, independent wheelchair mobility for community distance, decreased static and dynamic standing balance putting her at risk for falls. Patient will benefit from skilled therapy intervention for strengthening, transfer gait, wheelchair mobility training. Patient's goal is to return to home setting with home PT and caregiver assist Impairments are contributing to the following functional limitations: AMPA score CMS Score: 61.29% Patient is assessed as a High [id number] complexity based on the following: History: See above Examination: See above Presentation: Evolving Decision Making: AMPAC score CMS Score: 61.29% Goals: Goals X1 week 1. Supine-Sit: Independent with use of hospital bed 2. Sit-Supine: Independent with use of hospital bed 3. Sit-Stand: Supervision with FWW 4. Stand-Sit: Supervision with FWW 5. Bed-Chair: SBA with FWW 6. Chair-Bed: SBA with FWW 7. Gait: SBA with FWW5 steps to wheelchair 8. Independent with home exercise program Plan of Care/Treatment Plan: 1-2x/day, 7 days/week x 1 week. Plan of care has been reviewed with the OTR [employer]AN [employer] TR[employer] DRIVER providing the service under Physical Therapy direction. Initiate Physical Therapy intervention for strengthening, bed mobility, transfers, gait, stairs, balance training, use of assistive device. DISCHARGE RECOMMENDATIONS: Home with home PT, patient has all DME TREATMENT CODE/TIME: 35 minutes IE 10:45 AM G Codes in the area mobility of walking and moving around: current status [id number] []; projected status GP G8979-[]. Discharge status (if discharging) GP [id number] CL based on AMPAC score CMS Score: 61.29% Kasie Sterling PT
--- NOTE | 2018-05-17 11:47 | PHARADMIT ---
Addendum entered by Savanna Shoemaker 05/18/18 11:05: Pharmacy Note Subjective Chronic pain, edema, IVF's dc'd Objective BP 117/64, HR 80-90's, Afebrile now (Tmax 38.9), WBC down 12.83, BG 300 K+ down 3.4, Mag 2.3, Na++ up 130 SCr 0.97 (CrCl~45ml/min) Micro urine: 10-50K gram negative and positive Micro blood: no growth x 24h Assessment Rocephin/Vanco/Doxy oral...day#2 Will need a Vanco trough 05/19/18 @1300...ordered Potassium being replaced today orally MSContin 15mg po BID ordered to replace home med of MS ER capsules No baseline insulin, just Novolog scale, Oral Metformin and Glimepiride not started yet Spironolactone starting today Urology consult: (Indwelling cath- considering other options and can be done as outpt) Plan CT this morning abdomen/pelvis stone protocol Tx to M/S, re-evaluate Vanco level, Micro sensitivites Original Note: Admission Pharmacy Clinical Review Code Status DNR/DNI Current Weight 88.9 kg Renally Cleared and Narrow Therapeutic Index Meds CrCL ~65.2 QTc Value / Action Taken 439 (wnl) -citalopram, methadone, pantoprazole, risperidone BP Control, Fever 130/54 Electrolytes reviewed Na 128 K+ 3.9 (down from 5.0) Mag 2.2 (up from 1.4) DVT Prophylaxis Enoxaparin 40mg Opiate Usage / Scheduled Bowel Regimen Ordered Methadone 10mg BID Oxycodone 5mg BID PRN Morphine er 20mg (home med) -- dc'd for now as pt is somnolent Plt/SCr for Heparin / Enoxaparin Plt 220 SCr 1.02 INR for Warfarin n/a H/H stable, WBC/Bands H/H 10.0/33.0 WBC 15.42 (down from 20.57) Antibiotic appropriateness Vancomycin 750mg q12h (ld of 2000mg) Ceftriaxone 1mg q24h *hx of mrsa infection Cultures and Sensitivities pending Surgical ABX d/c within 24 hr n/a DM control / Insulin Dosing BG 256 (initial BG of 506) Novolog per SS (gave 10U humulin R in ED) Heart Failure (Check EF%) (CARLI's, B-Block, Diuretics) Metoprolol Succ 25mg daily IV to PO Switch n/a Home Meds Reviewed *checking with her pharmacy ([facility]) what is currently active... -spironolactone and triamterene-HCTZ combo contraindicated due to hyperkalemia -possible QTc prolongation with citalopram, methadone, pantoprazole, risperidone -hypo/hyperglycemia risks with glimepiride and several other meds; monitor for side effects, consider safer JOSESITO Home Meds Not Ordered -doxycycline -ferrous sulfate -furosemide -glimepiride -metformin -morphine cr 20mg -oxybutynin -spironolactone -triamterene-HCTZ Comments Admitted for UTI (toney catheter); vanco and ceftriaxone were started bc patient has history of MRSA (Dr. Bland thinks this might be an error and was only mssa); electrolytes affected by extremely high BG level; urology consult ordered for today; awaiting urine culture results
--- NOTE | 2018-05-17 11:49 | PT.INTREAT ---
Date of service: 05/17/18 Time of Service: 11:45 PT Notes Inpatient Physical Therapy Treatment Note Date: 05/17/18 PRECAUTIONS: Fall precautions SUBJECTIVE: Pt sitting in wheelchair, sat up for 1hr. Stating she is having back pain and asking to get back to bed. OBJECTIVE: PAIN: 11/27 pain in back, RN aware BED MOBILITY/TRANSFERS Sit-stand: CGA with FWW Wheelchair-bed: CGA with FWW Stand-sit: CGA Sit-supine: independent, pt able to lift legs into bed GAIT Assistive Device: FWW Weight bearing: as tolerated Assist: CGA Distance: 5 steps wheelchair to bed THEREX: deferred 2nd pain, wanting to rest ASSESSMENT: Pt able to sit in chair x 1 hr this morning, improved transfers back to bed from wheelchair compared to am. Will benefit from continued strengthening. PLAN: Progress strengthening Progress transfers to/from wheelchair TREATMENT CODE/TIME: 23min TAx2 11:45 Kasie Sterling PT
--- NOTE | 2018-05-17 12:17 | W.UROLOGYCON ---
Date of service: 05/17/18 Time of Service: 16:43 History of Present Illness Chief Complaint: Urosepsis Narrative: This is a 73-year-old woman in who apparently has a chronic indwelling Cuevas catheter that has been in place for about a year now. She tells me that the catheter was placed not for retention, but for urinary incontinence. It sounds like she was considered a fall risk and then did an indwelling catheter was the safest option for her. I do not see that she has ever had a urology evaluation in the past. She estimates that her catheter is changed every 4-6 weeks. Her tells me that many stone particles and debris have been identified in the urine. She has had several positive urine cultures as would be expected with a chronic indwelling catheter Apparently, she has been on oxybutynin for bladder spasms. She is not aware of any additional treatments that have been used for her bladder. Her catheter has always been a urethral catheter. She has never been considered for a suprapubic tube as far as I can tell. She does have a history of chronic spine disease. She describes numbness and tingling down both legs. She tells me that she believes there has been nerve damage related to her spine. She is not having any issues with her bowel. [facility] Medical History Sepsis (Acute) UTI (urinary tract infection) (Acute ~04/2018) Schizoaffective disorder, bipolar type (Chronic) Wound infection after surgery (Resolved) Chronic rhinitis (Chronic) Anxiety (Chronic) Hyperlipidemia (Chronic) Hypothyroidism (Chronic) 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) COPD (chronic obstructive pulmonary disease) (Chronic) 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) Chronic osteoarthritis (Acute) Chronic pain syndrome (Acute 08/21/12) Hypothyroidism (Chronic) Diabetes mellitus type 2 (Chronic) Bipolar disorder (Chronic) Chronic back pain (Chronic) Hyperlipidemia (Chronic) Anxiety (Chronic) Intention tremor (Chronic) penitentiary current use of antibiotics (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 She recently returned home from a long stay at the [facility]. She has limited mobility and poor use of ADLs. Former smoker. No current alcohol use. Exam Narrative Exam Narrative: She is in her intensive care unit bed. She is talkative. She does not appear septic or toxic. Her abdomen is somewhat obese and soft with no masses. Her urethral catheter is draining yellow urine. She is awake and alert. Results Last Vital Signs Temp 37.2 C 05/17/18 08:32 Pulse 89 05/17/18 10:01 Resp 12 05/17/18 10:15 BP 130/54 L 05/17/18 10:01 Pulse Ox 96 05/17/18 10:15 Labs : 05/17/18 07:02 05/17/18 07:02 Laboratory Results - last 24 hr 05/16/18 05/16/18 05/16/18 23:42 23:42 23:42 WBC 20.57 H RBC 4.19 Hgb 11.5 L Hct 37.3 MCV 89.0 MCH 27.4 MCHC 30.8 L RDW 22.4 H Plt Count 245 MPV 11.6 H Immature Gran % 1.1 Neutrophils % 93.2 Lymphocytes % 1.4 Monocytes % 4.1 Eosinophils % 0.1 Basophils % 0.1 Absolute Neutrophils 19.17 H Absolute Lymphocytes 0.29 L Absolute Monocytes 0.84 H Absolute Eosinophils 0.02 Absolute Basophils 0.02 Differential Comment RBC Morphology See below Hypochromasia Poikilocytosis Basophilic Stippling Present Anisocytosis 1+ Microcytosis Macrocytosis 1+ Sodium 123 L* Potassium 5.0 Chloride 90 L Carbon Dioxide 23.3 Anion Gap 9.7 BUN 21 H Creatinine 1.15 H Estimated GFR/1.73 m2 46.38 Glucose 506 H* Lactate 5.0 H Calcium 8.1 L Magnesium 1.4 L Total Bilirubin 0.3 AST 27 ALT 23 Alkaline Phosphatase 84 Troponin I 0.02 Total Protein 5.2 L Albumin 2.1 L Urine Color Urine Clarity Urine pH Ur Specific [facility] Urine Protein Urine Ketones Urine Blood Urine Nitrite Urine Bilirubin Urine Urobilinogen Ur Leukocyte Esterase Urine RBC Urine WBC Ur Epithelial Cells Urine Crystals Urine Bacteria Urine Mucus Ur Culture Indicated? Urine Glucose 05/17/18 05/17/18 05/17/18 00:23 07:02 07:02 WBC 15.42 H RBC 3.71 L Hgb 10.0 L Hct 33.0 L MCV 88.9 MCH 27.0 MCHC 30.3 L RDW 22.2 H Plt Count 220 MPV 10.9 Immature Gran % 1.2 Neutrophils % 83.7 Lymphocytes % 3.5 Monocytes % 10.7 Eosinophils % 0.8 Basophils % 0.1 Absolute Neutrophils 12.91 H Absolute Lymphocytes 0.54 L Absolute Monocytes 1.65 H Absolute Eosinophils 0.12 Absolute Basophils 0.02 Differential Comment Manual differential RBC Morphology See below Hypochromasia 1+ Poikilocytosis 1+ Basophilic Stippling Present Anisocytosis 2+ Microcytosis 1+ Macrocytosis Sodium 128 L Potassium 3.9 D Chloride 94 L Carbon Dioxide 28.9 Anion Gap 5.1 BUN 20 H Creatinine 1.03 H Estimated GFR/1.73 m2 52.67 Glucose 256 H D Lactate Calcium 8.0 L Magnesium 2.2 Total Bilirubin 0.3 AST 17 ALT 21 Alkaline Phosphatase 78 Troponin I Total Protein 5.1 L Albumin 2.0 L Urine Color Yellow Urine Clarity Cloudy Urine pH 7.0 Ur Specific [facility] 1.020 Urine Protein 100 H Urine Ketones Trace H Urine Blood Moderate H Urine Nitrite Negative Urine Bilirubin Negative Urine Urobilinogen 0.2 Ur Leukocyte Esterase Small H Urine RBC Not Applicable Urine WBC >50 Ur Epithelial Cells Not Applicable Urine Crystals Not Applicable Urine Bacteria Not Applicable Urine Mucus Not Applicable Ur Culture Indicated? Yes Urine Glucose >=1000 H 05/17/18 05/17/18 07:02 07:59 WBC RBC Hgb Hct MCV MCH MCHC RDW Plt Count MPV Immature Gran % Neutrophils % Lymphocytes % Monocytes % Eosinophils % Basophils % Absolute Neutrophils Absolute Lymphocytes Absolute Monocytes Absolute Eosinophils Absolute Basophils Differential Comment RBC Morphology Hypochromasia Poikilocytosis Basophilic Stippling Anisocytosis Microcytosis Macrocytosis Sodium Potassium Chloride Carbon Dioxide Anion Gap BUN Creatinine Estimated GFR/1.73 m2 Glucose Lactate 2.5 H Calcium Magnesium Cancelled Total Bilirubin AST ALT Alkaline Phosphatase Troponin I Total Protein Albumin Urine Color Urine Clarity Urine pH Ur Specific [facility] Urine Protein Urine Ketones Urine Blood Urine Nitrite Urine Bilirubin Urine Urobilinogen Ur Leukocyte Esterase Urine RBC Urine WBC Ur Epithelial Cells Urine Crystals Urine Bacteria Urine Mucus Ur Culture Indicated? Urine Glucose Assessment and Plan (1) UTI (urinary tract infection): Current visit: Yes Status: Acute Unfortunately, recurrent bacteriuria and sepsis is common in patients that have chronic indwelling catheters. In the short-term, treating this patient with antibiotics is appropriate. The ultimate type and duration of antibiotics will depend on her final urine and blood cultures. Since she is on chronic antibiotics, she is also at risk for yeast infections. We will simply need to wait and see what her culture and sensitivity shows A bigger long-term question is whether or not she is best served with a chronic indwelling catheter. From what I can tell from her medical records, the catheter was inserted about a year ago. It looks like the catheter was requested by the patient's home care team because of issues with incontinence. Apparently the patient had difficulty getting up to use the commode. It is not clear to me if the mobility issue is related to her spine and a neurologic component, or if it is simply a functional issue due to her chronic pain. In either event, I do not find any type of urologic evaluation either here at our facility or at [facility]. I do see that she has had bacteruria including cultures positive for Proteus. Since this particular organism can be associated with struvite stones, we should arrange for a stone protocol CT of the abdomen and pelvis while she is still here at the hospital. I do not think this needs to be done emergently, so I will not place the order today. It can be done as her clinical status improves. If any stone debris is identified in her bladder, she would likely require cystoscopy to evacuate/fragment the stones. Generally, before deciding if the patient requires a chronic indwelling catheter, we do a workup including a urodynamic study. Rather than chronic indwelling catheters, we greatly favor intermittent catheterization for patients with chronic retention. For the incontinent patients, we sometimes will try to paralyze the bladder with anticholinergics or Botox, thus placing them in retention, and starting intermittent catheterization. This management technique runs a much lower risk of urosepsis. If the patient truly does require a chronic indwelling catheter, women tend to do much better with suprapubic tubes. These tubes still have the same risk of urosepsis, but are not associated with urethral erosion as we see with chronic urethral catheters. With urethral erosion we can sometimes see loss of sphincter function in these women. In those cases, paralyzing the bladder and doing intermittent catheterization would not be practical as they would have continuous incontinence due to lack of sphincter function. Unfortunately a urodynamic study cannot be done on an inpatient basis. The patient would require a trip to our office for this procedure. I promised the family that we would try to do as much of this patient's workup while she is hospitalized. If she does require surgical treatment, I would need to talk to our anesthesia providers. If a larger surgical procedure is needed, she may need to have it done at a larger facility. (2) Sepsis: Current visit: Yes Status: Acute
[2018-05-17] MEDS: VANCOMYCIN 750 MG in Normal Saline 250 ML 250 MG IV (14:07)
[2018-05-17] MEDS: Acetaminophen 325 MG TAB PO (14:47)
--- NOTE | 2018-05-17 15:00 | DI.US_ITS ---
SYMPTOMS/DIAGNOSIS: RIGHT LEG PAIN, EDEMA, ? DVT BILATERAL LOWER EXTREMITY ULTRASOUND: There is no evidence of deep venous thrombosis or superficial venous thrombosis in either lower extremity. There is a hypoechoic collection in the medial right knee, measuring 3.7 x 1.3 x 2.7 cm, which could represent an area of hematoma versus a Correa's cyst. IMPRESSION: No evidence of DVT.
--- NOTE | 2018-05-17 15:11 | W.INDIABCONS ---
Date of service: 05/17/18 Time of Service: 15:34 Diabetes Inpatient Consult DESCRIPTION/ASSESSMENT: Appreciate diabetes consult for Deana Alvarado who is hospitalized with sepsis. She is well known to diabetes support from previous inpatient visits. BLood sugars during this hospitalization [id number] with moderate insulin correction. At home she manages diabetes with Metformin and Glimepiride. No current A1c available. She had 43 grams carbohydrate at breakfast. She is not visited due to her present condition. INTERVENTION: Deana could benefit from basal insulin to help her improve her glycemic control. Suggest standard initiation of 10 units of basal insulin once a day increasing daily until blood sugars are less than 180mg/dl fasting in addition to insulin correction at the moderate level. This could be increased to the resistant level given her elevated blood sugars and presumed insulin resistance. If more intense management is desired, could initiate by a factor of .3 x weight in KG = 26 units basal insulin. PLAN: Will follow blood sugars and await indication of a desire for improved glycemic control. Time Spent in Nutritional Counseling and Treatment: jaziel
--- NOTE | 2018-05-17 15:45 | PGE_ITS ---
Date of Service Date of service: 05/17/18 Time of Service: 10:30 Subjective Interval history since last seen: Denies dizziness, chest pain, shortness of breath, nausea, vomiting. She is now fully oriented and back at her baseline. Asking why she has edema. States she had a poor reaction to lasix and to all water pills in general. Reviewing her medication reconcilliation, she has an active script for aldactone. VSS On physical exam, the patient has 2+ BLE edema I have stopped the IVF and ordered a doppler of BLE's. Her aldactone can be resumed tomorrow am. Reviewed urology recommendations - ordering a CT of the abdomen/pelvis stone protocol. Ok to transfer out of ICU. Objective Objective Clinical Data: Abnormal lab results 05/16/18 05/16/18 05/16/18 Range/Units 23:42 23:42 23:42 WBC 20.57 H (4.4-10.8) k/cumm RBC (4.00-5.20) m/cumm Hgb 11.5 L (12.0-15.5) g/dL Hct (36.0-46.0) % MCHC 30.8 L (32.0-36.0) g/dL RDW 22.4 H (11.7-14.6) % MPV 11.6 H (8.0-11.0) fL Absolute Neutrophils 19.17 H (1.2-6.7) k/cumm Absolute Lymphocytes 0.29 L (1.2-3.4) k/cumm Absolute Monocytes 0.84 H (0.11-0.7) k/cumm Sodium 123 L* (136-145) mmol/L Chloride 90 L (98-107) mmol/L BUN 21 H (7-18) mg/dL Creatinine 1.15 H (0.55-1.02) mg/dL Glucose 506 H* (70-100) mg/dL Lactate 5.0 H (0.6-1.4) mmol/L Calcium 8.1 L (8.5-10.1) mg/dL Magnesium 1.4 L (1.8-2.4) mg/dL Total Protein 5.2 L (6.4-8.2) g/dL Albumin 2.1 L (3.4-5.0) g/dL Urine Protein (Negative) mg/dL Urine Ketones (Negative) mg/dL Urine Blood (Negative) Ur Leukocyte Esterase (Negative) Urine Glucose (Negative) mg/dL 05/17/18 05/17/18 05/17/18 Range/Units 00:23 07:02 07:02 WBC 15.42 H (4.4-10.8) k/cumm RBC 3.71 L (4.00-5.20) m/cumm Hgb 10.0 L (12.0-15.5) g/dL Hct 33.0 L (36.0-46.0) % MCHC 30.3 L (32.0-36.0) g/dL RDW 22.2 H (11.7-14.6) % MPV (8.0-11.0) fL Absolute Neutrophils 12.91 H (1.2-6.7) k/cumm Absolute Lymphocytes 0.54 L (1.2-3.4) k/cumm Absolute Monocytes 1.65 H (0.11-0.7) k/cumm Sodium 128 L (136-145) mmol/L Chloride 94 L (98-107) mmol/L BUN 20 H (7-18) mg/dL Creatinine 1.03 H (0.55-1.02) mg/dL Glucose 256 H D (70-100) mg/dL Lactate (0.6-1.4) mmol/L Calcium 8.0 L (8.5-10.1) mg/dL Magnesium (1.8-2.4) mg/dL Total Protein 5.1 L (6.4-8.2) g/dL Albumin 2.0 L (3.4-5.0) g/dL Urine Protein 100 H (Negative) mg/dL Urine Ketones Trace H (Negative) mg/dL Urine Blood Moderate H (Negative) Ur Leukocyte Esterase Small H (Negative) Urine Glucose >=1000 H (Negative) mg/dL 05/17/18 Range/Units 07:59 WBC (4.4-10.8) k/cumm RBC (4.00-5.20) m/cumm Hgb (12.0-15.5) g/dL Hct (36.0-46.0) % MCHC (32.0-36.0) g/dL RDW (11.7-14.6) % MPV (8.0-11.0) fL Absolute Neutrophils (1.2-6.7) k/cumm Absolute Lymphocytes (1.2-3.4) k/cumm Absolute Monocytes (0.11-0.7) k/cumm Sodium (136-145) mmol/L Chloride (98-107) mmol/L BUN (7-18) mg/dL Creatinine (0.55-1.02) mg/dL Glucose (70-100) mg/dL Lactate 2.5 H (0.6-1.4) mmol/L Calcium (8.5-10.1) mg/dL Magnesium (1.8-2.4) mg/dL Total Protein (6.4-8.2) g/dL Albumin (3.4-5.0) g/dL Urine Protein (Negative) mg/dL Urine Ketones (Negative) mg/dL Urine Blood (Negative) Ur Leukocyte Esterase (Negative) Urine Glucose (Negative) mg/dL Vital Signs Temperature 36.5 C 05/17/18 12:12 Temperature Source Temporal Artery Scan 05/17/18 12:12 Pulse 65 05/17/18 12:14 Pulse 98 H 05/17/18 13:15 Respiratory Rate 17 05/17/18 13:15 Respiratory Effort 05/17/18 08:32 Respiratory Depth Normal 05/17/18 08:32 Respiratory Pattern Normal 05/17/18 08:32 Blood Pressure 116/56 L 05/17/18 12:14 Blood Pressure Mean 71 05/17/18 12:14 Blood Pressure Position Supine 05/17/18 08:32 Pulse Oximetry 95 05/17/18 13:15 Oxygen Delivery Method Nasal Cannula 05/17/18 12:12 Oxygen Flow Rate 2 05/17/18 12:12 Pain Level 0 05/17/18 08:32 Comment 05/17/18 12:12 Intake & Output 05/16/18 05/17/18 05/17/18 23:59 11:59 23:59 Intake Total 4610 / 5330 720 / 5330 Output Total 1135 / 1135 Balance 3475 / 4195 720 / 4195 Weight 90.5 kg 88.9 kg Intake: IV 3560 / 3560 Oral 1050 / 1770 720 / 1770 Output: Urine 1135 / 1135 Other: Urine Color Straw Urine Appearance Cloudy Cloudy Urine Odor None Comment Cuevas catheter in place draining cloudy, straw colored urine. Large amt of leukocytes, 1+ protein, pH of 6, large amt of blood and SG of 1.015 per chem strip Laboratory Results WBC 15.42 k/cumm (4.4-10.8) H 05/17/18 07:02 RBC 3.71 m/cumm (4.00-5.20) L 05/17/18 07:02 Hgb 10.0 g/dL (12.0-15.5) L 05/17/18 07:02 Hct 33.0 % (36.0-46.0) L 05/17/18 07:02 MCV 88.9 fL (80-95) 05/17/18 07:02 MCH 27.0 pg (27.0-33.0) 05/17/18 07:02 MCHC 30.3 g/dL (32.0-36.0) L 05/17/18 07:02 RDW 22.2 % (11.7-14.6) H 05/17/18 07:02 Plt Count 220 x1000/uL (130-400) 05/17/18 07:02 MPV 10.9 fL (8.0-11.0) 05/17/18 07:02 Immature Gran % 1.2 05/17/18 07:02 Neutrophils % 83.7 05/17/18 07:02 Lymphocytes % 3.5 05/17/18 07:02 Monocytes % 10.7 05/17/18 07:02 Eosinophils % 0.8 05/17/18 07:02 Basophils % 0.1 05/17/18 07:02 Absolute Neutrophils 12.91 k/cumm (1.2-6.7) H 05/17/18 07:02 Absolute Lymphocytes 0.54 k/cumm (1.2-3.4) L 05/17/18 07:02 Absolute Monocytes 1.65 k/cumm (0.11-0.7) H 05/17/18 07:02 Absolute Eosinophils 0.12 k/cumm (0.0-0.7) 05/17/18 07:02 Absolute Basophils 0.02 k/cumm (0.0-0.2) 05/17/18 07:02 Differential Comment Manual differential 05/17/18 07:02 RBC Morphology See below 05/17/18 07:02 Hypochromasia 1+ 05/17/18 07:02 Poikilocytosis 1+ 05/17/18 07:02 Basophilic Stippling Present 05/17/18 07:02 Anisocytosis 2+ 05/17/18 07:02 Microcytosis 1+ 05/17/18 07:02 Macrocytosis 1+ 05/16/18 23:42 Sodium 128 mmol/L (136-145) L 05/17/18 07:02 Potassium 3.9 mmol/L (3.5-5.1) D 05/17/18 07:02 Chloride 94 mmol/L (98-107) L 05/17/18 07:02 Carbon Dioxide 28.9 mmol/L (21.0-32.0) 05/17/18 07:02 Anion Gap 5.1 mmol/L (3-11) 05/17/18 07:02 BUN 20 mg/dL (7-18) H 05/17/18 07:02 Creatinine 1.03 mg/dL (0.55-1.02) H 05/17/18 07:02 Estimated GFR/1.73 m2 52.67 (mL/min/1.73m2) 05/17/18 07:02 Glucose 256 mg/dL (70-100) H D 05/17/18 07:02 Lactate 2.5 mmol/L (0.6-1.4) H 05/17/18 07:59 Calcium 8.0 mg/dL (8.5-10.1) L 05/17/18 07:02 Magnesium 2.2 mg/dL (1.8-2.4) 05/17/18 07:02 Total Bilirubin 0.3 mg/dL (0.2-1.0) 05/17/18 07:02 AST 17 U/L (15-37) 05/17/18 07:02 ALT 21 U/L (12-78) 05/17/18 07:02 Alkaline Phosphatase 78 U/L (46-116) 05/17/18 07:02 Troponin I 0.02 ng/mL (0.00-0.06) 05/16/18 23:42 Total Protein 5.1 g/dL (6.4-8.2) L 05/17/18 07:02 Albumin 2.0 g/dL (3.4-5.0) L 05/17/18 07:02 Urine Color Yellow (Yellow) 05/17/18 00: Urine Clarity Cloudy 05/17/18 00: Urine pH 7.0 (5-8) 05/17/18 00:23 Ur Specific [place] 1.020 (1.005-1.025) 05/17/18 00: Urine Protein 100 mg/dL (Negative) H 05/17/18 00: Urine Ketones Trace mg/dL (Negative) H 05/17/18 00: Urine Blood Moderate (Negative) H 05/17/18 00: Urine Nitrite Negative (Negative) 05/17/18: Urine Bilirubin Negative (Negative) 05/17/18 00: Urine Urobilinogen 0.2 EU/dL (Up TO 0.2) 05/17/18 00: Ur Leukocyte Esterase Small (Negative) H 05/17/18 00: Urine RBC Not Applicable 05/17/18 00: Urine WBC >50 HPF (0-5) 05/17/18 00: Ur Epithelial Cells Not Applicable 05/17/18 00: Urine Crystals Not Applicable 05/17/18: Urine Bacteria Not Applicable 05/17/18: Urine Mucus Not Applicable 05/17/18 00: Ur Culture Indicated? Yes 05/17/18 00: Urine Glucose >=1000 mg/dL (Negative) H 05/17/18 00:23
[2018-05-17] MEDS: oxyCODONE 5 MG TAB PO (16:44)
--- NOTE | 2018-05-17 17:43 | DI.VRAD_ITS ---
EXAM: US Bilateral Duplex Lower Extremity Veins EXAM DATE/TIME: 05/17/2018 3:02 PM CLINICAL HISTORY: 73 years old, female; Signs and symptoms; Lymphedema; Lower extremity, right and lower extremity, left; Patient HX: Bilat lower leg edema, rule out dvt TECHNIQUE: Real-time duplex ultrasound of the Bilateral Lower Extremities with 2-D horan scale, color Doppler flow and spectral waveform analysis. Complete exam focused on the bilateral lower extremity veins. COMPARISON: No relevant prior studies available. FINDINGS: Right deep veins: Unremarkable. The common femoral, femoral and popliteal veins are patent without thrombus. Normal compressibility, augmentation response and Doppler waveforms. Right superficial veins: Saphenofemoral junction is patent without thrombus. Right calf/foot arteries: Hypoechoic collection with enhanced through sound transmission measuring 3.6 cm x 1.3 cm x 2.7 cm within the right medial knee, nonspecific. This may be secondary to a Correa's cyst, ganglion cyst, bursitis, hematoma as well as abscess. Correlate clinically. Left deep veins: Unremarkable. The common femoral, femoral and popliteal veins are patent without thrombus. Normal compressibility, augmentation response and Doppler waveforms. Left superficial veins: Saphenofemoral junction is patent without thrombus. Soft tissues: Unremarkable. IMPRESSION: 1. No DVT within the right or left leg. 2. Small cystic collection within the right medial knee soft tissues. This may be secondary to a Correa's cyst, ganglion cyst, bursitis, hematoma as well as abscess. Correlate clinically. Dictated and Authenticated by: Bob Delgadillo MD. Ordering:ANABELLE Melendez MD
[2018-05-17] MEDS: Simvastatin 40 MG TAB 20 MG PO (20:43)
[2018-05-17] MEDS: Doxycycline Hyclate 100 MG CAP PO (20:44)
[2018-05-17] MEDS: Oxybutynin 5 MG TAB PO (20:44)
[2018-05-17] MEDS: Acetaminophen 650 MG SUPP PR (22:05)
[2018-05-18] VITALS (40 sets, daily range): BP systolic 94–141; BP diastolic 49–92; PULSE 81–136; RESP 11–28; TEMP 36.3–38.4; O2SAT 89–98
[2018-05-18] MEDS: Insulin Aspart 100 UNITS/ML UNIT 10 UNITS SC (00:49)
[2018-05-18] MEDS: VANCOMYCIN 750 MG in Normal Saline 250 ML 250 MG IV ×2 (01:47→14:14)
[2018-05-18] MEDS: clonazePAM 0.5 MG TAB PO (06:23)
[2018-05-18] MEDS: Ferrous Sulfate 325 MG TAB PO (06:23)
--- NOTE | 2018-05-18 07:00 | DI.CT_ITS ---
SYMPTOM/DIAGNOSIS: SEPSIS, UTI, ? NEPHROLITHIASIS ABDOMEN AND PELVIC CT: Comparison is made with 01/10/16. A staghorn calculus is seen in the right renal pelvis causing moderate hydronephrosis. There is extension of the calculus into the calices. No left renal calculi are seen. A toney catheter is noted in the bladder. A right ovarian cyst is again noted. There is a small right pleural effusion and adjacent basilar atelectasis. The liver again is noted to be enlarged and extremely low density. Gallstones are again identified. The pancreas is atrophic. The spleen appears mildly enlarged, increasing from the previous exam. The adrenals appear unchanged. No bowel dilatation or inflammatory changes are identified. There are rods in the spine as well as a right hip prosthesis which create artifact. IMPRESSION: Moderate right hydronephrosis secondary to a staghorn calculus. Small right pleural effusion and right basilar atelectasis. Stable hepatomegaly and cholelithiasis. Mild splenic enlargement.
[2018-05-18 07:08] LABS: Absolute Basophil Count 0.01 k/cumm (0.0-0.2); Absolute Monocyte Count 1.49 k/cumm (0.11-0.7); Basophils % 0.1; Eosinophils % 0.2; HCT 33.5 % (36.0-46.0); HGB 10.1 g/dL (12.0-15.5); Immature Grans % 0.8; Lymphocytes % 3.4; Mean Corp. HGB Concentration 30.1 g/dL (32.0-36.0); Mean Corpuscular Hemoglobin 26.9 pg (27.0-33.0); Mean Corpuscular Volume 89.3 fL (80-95); Mean Platelet Volume 11.3 fL (8.0-11.0); Monocytes % 11.6; Neutrophils % 83.9; Platelet Count 177 x1000/uL (130-400); RBC 3.75 m/cumm (4.00-5.20); RBC Distribution Width 22.5 % (11.7-14.6); White Blood Cell Count 12.83 k/cumm (4.4-10.8)
[2018-05-18 07:11] LABS: Absolute Eosinophil Count 0.03 k/cumm (0.0-0.7); Absolute Lymphocyte Count 0.44 k/cumm (1.2-3.4); Absolute Neutrophil Count 10.76 k/cumm (1.2-6.7)
[2018-05-18 07:27] LABS: ALT 23 U/L (12-78); AST 23 U/L (15-37); Alkaline Phosphatase 89 U/L (46-116); Anion Gap 7.4 mmol/L (3-11); BUN 15 mg/dL (7-18); Bilirubin, Total 0.3 mg/dL (0.2-1.0); CO2 27.6 mmol/L (21.0-32.0); CREATININE 0.97 mg/dL (0.55-1.02); Calcium 8.1 mg/dL (8.5-10.1); Chloride 95 mmol/L (98-107); Estimated GFR 56.45 (mL/min/1.73m2); Glucose 300 mg/dL (70-100); Magnesium 2.3 mg/dL (1.8-2.4); Potassium 3.4 mmol/L (3.5-5.1); Sodium 130 mmol/L (136-145); Total Protein 5.5 g/dL (6.4-8.2)
[2018-05-18] MEDS: Magnesium Chloride 64 MG TABCR 128 MG PO (08:24)
[2018-05-18] MEDS: Enoxaparin 40 MG/0.4 ML SYR SC (08:24)
[2018-05-18] MEDS: Citalopram 20 MG TAB 40 MG PO (08:25)
[2018-05-18] MEDS: Spironolactone 25 MG TAB 50 MG PO (08:25)
[2018-05-18] MEDS: Dronabinol 2.5 MG CAP 5 MG PO (08:25)
[2018-05-18] MEDS: Levothyroxine 100 MCG TAB PO (08:25)
[2018-05-18] MEDS: Doxycycline Hyclate 100 MG CAP PO ×2 (08:25→13:33)
[2018-05-18] MEDS: risperiDONE 1 MG TAB 3 MG PO (08:25)
[2018-05-18] MEDS: lamoTRIgine 100 MG TAB PO (08:26)
[2018-05-18] MEDS: Docusate Sodium 100 MG CAP PO (08:26)
[2018-05-18] MEDS: Pregabalin 50 MG CAP PO (08:26)
[2018-05-18] MEDS: Oxybutynin 5 MG TAB PO (08:26)
[2018-05-18] MEDS: Pantoprazole 40 MG TABCR PO (08:27)
[2018-05-18] MEDS: Metoprolol CR 25 MG TABCR PO (08:27)
[2018-05-18] MEDS: Methadone 10 MG TAB PO (08:27)
--- NOTE | 2018-05-18 08:28 | PDOC.CMPRO ---
- If Service Date Differs Date of service: 05/18/18 Time of Service: 08:28 Care Management Progress Note S/O: Deana is lying in bed in the ICU when CM visits this morning. Deana's status remains MS. She makes good eye contact and is open to conversation. Deana reports that she is not feeling well but can not specify as to what is hurting. Her WBCs remain elevated, her lungs are clear though diminished, and her catheter is draining well. CM offers support to Deana and she denies any needs. Deana reports that her , Jared, will be in later in the morning to visit. CM is informed later in the day that a CT of the abdomen and pelvis was obtained, showing a large staghorn calculus on the right ureteropelvic junction, with associated right-sided obstructive uropathy. Per MD report given the size of the stone, evidence of obstruction, and sepsis Mrs. Alvarado will benefit from urological intervention, including a likely percutaneous nephrolithotomy with potential stent placement. goes on to report that the case was discussed with Dr. Bills and urology at [facility], and the recommendation is for transfer to [facility] for intervention. CM phoned Deana's , Jared, at [employer] request, and apprised him of the situation. He is understanding of the need for transfer but is worried that he will not be able to visit his easily once she leaves [facility]. Jared phones back several minutes later to report he has spoken with his daughter, who resides in [place], and that he is coming in shortly to meet with the patient. Per Pam, Deana herself was in complete agreement of the transfer. CM will continue to follow and support in any way needed. A: 73 year old female admitted for Sepsis, UTI. P: With new developments, the plan for discharge has changed and anticipate Deana will transfer to [facility] for urological intervention vs. earlier plan of discharge home when medically ready per MD. Deana will transport via EMS at discharge regardless of where she discharges to. CM will continue to offer support to patient, family, and care team regarding discharge planning and disposition.
--- NOTE | 2018-05-18 08:35 | CMPROGNOTE_ITS ---
- If Service Date Differs Date of service: 05/18/18 Time of Service: 08:28 Care Management Progress Note S/O: Deana is lying in bed in the ICU when CM visits this morning. Deana's status remains MS. She makes good eye contact and is open to conversation. Deana reports that she is not feeling well but can not specify as to what is hurting. Her WBCs remain elevated, her lungs are clear though diminished, and her catheter is draining well. CM offers support to Deana and she denies any needs. Deana reports that her , Jared, will be in later in the morning to visit. CM is informed later in the day that a CT of the abdomen and pelvis was obtained, showing a large staghorn calculus on the right ureteropelvic junction, with associated right-sided obstructive uropathy. Per MD report given the size of the stone, evidence of obstruction, and sepsis Mrs. Alvarado will benefit from urological intervention, including a likely percutaneous nephrolithotomy with potential stent placement. goes on to report that the case was discussed with Dr. Bills and urology at [facility], and the recommendation is for transfer to [facility] for intervention. CM phoned Deana's , Jared, at [employer] request, and apprised him of the situation. He is understanding of the need for transfer but is worried that he will not be able to visit his easily once she leaves [facility]. Jared phones back several minutes later to report he has spoken with his daughter, who resides in [place], and that he is coming in shortly to meet with the patient. Per Pam, Deana herself was in complete agreement of the transfer. CM will continue to follow and support in any way needed. A: 73 year old female admitted for Sepsis, UTI. P: With new developments, the plan for discharge has changed and anticipate Deana will transfer to [facility] for urological intervention vs. earlier plan of discharge home when medically ready per MD. Deana will transport via EMS at discharge regardless of where she discharges to. CM will continue to offer support to patient, family, and care team regarding discharge planning and disposition.
[2018-05-18] MEDS: Insulin Aspart 300 UNITS/3 ML PEN SC ×2 (08:38→12:17)
[2018-05-18] MEDS: Fluticasone NASAL SPRAY 16 GM BTL NS (08:41)
[2018-05-18] MEDS: Potassium Chloride 20 MEQ TABCR 40 MEQ PO ×2 (08:41→16:18)
[2018-05-18] MEDS: Ipratropium/Albuterol 4 GM 120 PUFF INH IH ×3 (09:55→16:19)
--- NOTE | 2018-05-18 11:20 | DI.VRAD_ITS ---
EXAM: CT Abdomen and Pelvis Without Contrast EXAM DATE/TIME: 05/18/2018 12:00 AM CLINICAL HISTORY: 73 years old, female; Pain; Other: Flank pain, recurring utis; Patient HX: Rule out nephrolithiasis TECHNIQUE: Axial computed tomography images of the abdomen and pelvis without contrast. All CT scans at this facility use at least one of these dose optimization techniques: automated exposure control; mA and/or kV adjustment per patient size (includes targeted exams where dose is matched to clinical indication); or iterative reconstruction. Coronal and sagittal reformatted images were created and reviewed. COMPARISON: CT ABD PELVIS WO CONTRAST 01/10/2016 12:23 PM FINDINGS: Lower thorax: Small right pleural effusion and right basilar atelectasis. ABDOMEN: Liver: Fatty infiltration of the liver with hepatomegaly. Gallbladder and bile ducts: Cholelithiasis. Pancreas: Normal. No ductal dilation. Spleen: Normal. No splenomegaly. Adrenals: Normal. No mass. Kidneys and ureters: Moderate right obstructive uropathy with large calculus at the ureteropelvic junction, appear to be staghorn calculus. Measures 2.2 x 2.5 cm, with extensions into major calyces. No left hydronephrosis. Stomach and bowel: Normal. No obstruction. No mucosal thickening. Appendix: No evidence of appendicitis. PELVIS: Bladder: Unremarkable as visualized. Reproductive: Stable right adnexal cyst measures 5.1 x 4.8 cm. ABDOMEN and PELVIS: Intraperitoneal space: Normal. No free air. No significant fluid collection. Bones/joints: No acute fracture. No dislocation. Soft tissues: Unremarkable. Vasculature: Normal. No abdominal aortic aneurysm. Lymph nodes: Normal. No enlarged lymph nodes. Other findings: Thoracolumbar fixation with mild streak artifact. IMPRESSION: 1. Moderate right obstructive uropathy with large calculus at the ureteropelvic junction, appear to be staghorn calculus. Measures 2.2 x 2.5 cm, with extensions into major calyces. 2. Cholelithiasis. 3. Small right pleural effusion and right basilar atelectasis. Dictated and Authenticated by: Dnona Du MD. Ordering:ANABELLE Melendez MD
--- NOTE | 2018-05-18 11:57 | PT.INTREAT ---
Date of service: 05/18/18 Time of Service: 11:57 PT Notes Inpatient Physical Therapy Treatment Note Date: 05/18/18 PRECAUTIONS: Fall SUBJECTIVE: Clarence is agreeable to participating in PT. OBJECTIVE: PAIN: No complaints of pain BED MOBILITY/TRANSFERS Supine-sit: Min A with HOB at 20 degrees plus use of rail Sit-stand: Min A Stand-sit: CGA Bed-Chair: CGA GAIT Assistive Device: FWW Weight bearing: WBAT Assist: CGA Distance: 5 steps + 10 steps THEREX: Refused ther ex. TOILETING: Patient toileted with assist. ASSESSMENT: Patient tolerated transfers from bed to commode and commode to chair with FWW support and CGA. She would benefit from continued transfer and gait training for improved mobility and decreased need for assistance. She would also benefit from participating in a strengthening program. PLAN: Continue with PT's POC TREATMENT CODE/TIME: 25 minutes; TA x2
[2018-05-18] MEDS: Acetaminophen 325 MG TAB PO (12:25)
--- NOTE | 2018-05-18 13:05 | W.PM.PROGNOT ---
Date of Service Date of service: 05/18/18 Time of Service: 13:06 Assessment and Plan (1) Sepsis: Current visit: Yes Status: Acute Evidence of leukocytosis, hypotension, tachycardia, and altered mental status with a urinary source. Blood cultures results currently pending. Continue vancomycin and ceftriaxone, now day#2. Prior urine culture results reviewed, including recent infections with both Proteus and E. coli. Based on multiple recurrent UTIs a CT of the abdomen and pelvis was obtained, showing a large staghorn calculus on the right ureteropelvic junction, with associated right-sided obstructive uropathy. Given the size of the stone, evidence of obstruction, and sepsis Mrs. Alvarado will benefit from urological intervention, including a likely percutaneous nephrolithotomy with potential stent placement. This case was discussed with Dr. Bills who is in agreement, and given her clinical picture recommends transfer for intervention. Case is currently pending for discussion with [facility] [place] u[place]. (2) UTI (urinary tract infection): Current visit: Yes Status: Acute Treatment as above. (3) Schizoaffective disorder, bipolar type: Current visit: Yes Status: Chronic Continue current home regimen of psych meds, including risperidone and Lamictal. Jenny is also on daily SSRI and Klonopin. (4) Hyperlipidemia: Current visit: Yes Status: Chronic Currently on statin therapy. (5) Hypothyroidism: Current visit: Yes Status: Chronic Continue replacement therapy. (6) Chronic pain syndrome: Current visit: No Status: Acute Continue home regimen of methadone, MS Contin, and oxycodone on a as needed basis. (7) Hypertension: Current visit: No Status: Acute Currently with triamterene/HCTZ on hold secondary to hypotension. Spironolactone was restarted given an overall volume fluid overload status. Patient is also receiving a one-time dose of IV Lasix. (8) Diabetes mellitus type 2: Current visit: No Status: Chronic Currently holding glimepiride and metformin, and maintained on sliding scale coverage. Monitor blood sugars carefully. (9) DVT prophylaxis: Current visit: Yes Status: Acute Subcutaneous Lovenox. (10) Advanced directives, counseling/discussion: Current visit: Yes Status: Acute DNR/DNI confirmed. Subjective Interval history since last seen: 73-year-old woman with a history of chronic indwelling toney catheter, admitted from [facility] emergency department on 05/17 with a diagnosis of sepsis due to a urinary source. Mrs. Alvarado was recently discharged from a chronic care facility. She is chronically disabled by severe back pain, and has a history of opiate dependence, urinary incontinence, and immobility. She also has an underlying mental illness, schizoaffective disorder, bipolar type. Her other medical history includes diabetes, dyslipidemia, COPD, and hypertension. She also now has a chronic indwelling Toney catheter in place. Upon presentation to the emergency department she was noted to have a fever, and was found to have tachycardia, leukocytosis, hyponatremia, and evidence of a UTI by urinalysis. She was admitted and initiated on vancomycin and ceftriaxone, with vast improvement in symptoms overall, resolution of her tachycardia, and vast improvement in her leukocytosis. This morning the patient appears improved and states that she is subjectively improved as well. No overnight events were reported. She was however found to be febrile with a T-max of 38.9 overnight. Exam Narrative Exam Narrative: General: Patient appears comfortable, AAOX3, NAD Neck: Supple CV: Regular, nontachycardic, S1S2, No rubs, murmurs, or gallops. Pulmonary: Clear to auscultation bilaterally, no crackles, wheezing, or rhonchi on limited anterior lateral exam. Abdomen: + Bowel Sounds, soft, nontender, nondistended Vascular: +2 pitting edema bilaterally Psych: Normal mood and affect. Objective Objective Clinical Data: Abnormal lab results 05/18/18 05/18/18 Range/Units 06:35 06:35 WBC 12.83 H (4.4-10.8) k/cumm RBC 3.75 L (4.00-5.20) m/cumm Hgb 10.1 L (12.0-15.5) g/dL Hct 33.5 L (36.0-46.0) % MCH 26.9 L (27.0-33.0) pg MCHC 30.1 L (32.0-36.0) g/dL RDW 22.5 H (11.7-14.6) % MPV 11.3 H (8.0-11.0) fL Absolute Neutrophils 10.76 H (1.2-6.7) k/cumm Absolute Lymphocytes 0.44 L (1.2-3.4) k/cumm Absolute Monocytes 1.49 H (0.11-0.7) k/cumm Sodium 130 L (136-145) mmol/L Potassium 3.4 L (3.5-5.1) mmol/L Chloride 95 L (98-107) mmol/L Glucose 300 H (70-100) mg/dL Calcium 8.1 L (8.5-10.1) mg/dL Total Protein 5.5 L (6.4-8.2) g/dL Albumin 2.0 L (3.4-5.0) g/dL Vital Signs Temperature 37.6 C H 05/18/18 08:10 Temperature Source Temporal Artery Scan 05/18/18 08:10 Pulse 107 H 05/18/18 10:04 Pulse Rhythm Regular 05/17/18 22:40 Pulse 103 H 05/18/18 12:02 Respiratory Rate 15 05/18/18 12:02 Respiratory Effort 05/18/18 08:10 Respiratory Depth Shallow 05/18/18 08:10 Respiratory Pattern Normal 05/18/18 08:10 Blood Pressure 109/62 05/18/18 12:02 Blood Pressure Mean 70 05/18/18 12:02 Blood Pressure Position Supine 05/17/18 08:32 Pulse Oximetry 94 L 05/18/18 11:00 Oxygen Delivery Method Nasal Cannula 05/18/18 08:10 Oxygen Flow Rate 2 05/18/18 08:10 Pain Level 0 05/18/18 08:10 Comment 05/17/18 19:00 Intake & Output 05/17/18 05/18/18 05/18/18 23:59 11:59 23:59 Intake Total 730 / 5340 750 / 750 Output Total 550 / 1685 500 / 500 Balance 180 / 3655 250 / 250 Weight 91.4 kg Intake: IV 3569 550 / 550 Oral 720 / 1770 200 / 200 Output: Urine 550 / 1685 500 / 500 Other: Urine Color Yellow Light Zarina Urine Appearance Clear Comment Toney in place. Stool Occult Blood Negative Negative Stool Size Large Moderate Stool Characteristics Formed Formed Black Hard Black Laboratory Results WBC 12.83 k/cumm (4.4-10.8) H 05/18/18 06:35 RBC 3.75 m/cumm (4.00-5.20) L 05/18/18 06:35 Hgb 10.1 g/dL (12.0-15.5) L 05/18/18 06:35 Hct 33.5 % (36.0-46.0) L 05/18/18 06:35 MCV 89.3 fL (80-95) 05/18/18 06:35 MCH 26.9 pg (27.0-33.0) L 05/18/18 06:35 MCHC 30.1 g/dL (32.0-36.0) L 05/18/18 06:35 RDW 22.5 % (11.7-14.6) H 05/18/18 06:35 Plt Count 177 x1000/uL (130-400) 05/18/18 06:35 MPV 11.3 fL (8.0-11.0) H 05/18/18 06:35 Immature Gran % 0.8 05/18/18 06:35 Neutrophils % 83.9 05/18/18 06:35 Lymphocytes % 3.4 05/18/18 06:35 Monocytes % 11.6 05/18/18 06:35 Eosinophils % 0.2 05/18/18 06:35 Basophils % 0.1 05/18/18 06:35 Absolute Neutrophils 10.76 k/cumm (1.2-6.7) H 05/18/18 06:35 Absolute Lymphocytes 0.44 k/cumm (1.2-3.4) L 05/18/18 06:35 Absolute Monocytes 1.49 k/cumm (0.11-0.7) H 05/18/18 06:35 Absolute Eosinophils 0.03 k/cumm (0.0-0.7) 05/18/18 06:35 Absolute Basophils 0.01 k/cumm (0.0-0.2) 05/18/18 06:35 Differential Comment Manual differential 05/17/18 07:02 RBC Morphology See below 05/17/18 07:02 Hypochromasia 1+ 05/17/18 07:02 Poikilocytosis 1+ 05/17/18 07:02 Basophilic Stippling Present 05/17/18 07:02 Anisocytosis 2+ 05/17/18 07:02 Microcytosis 1+ 05/17/18 07:02 Macrocytosis 1+ 05/16/18 23:42 Sodium 130 mmol/L (136-145) L 05/18/18 06:35 Potassium 3.4 mmol/L (3.5-5.1) L 05/18/18 06:35 Chloride 95 mmol/L (98-107) L 05/18/18 06:35 Carbon Dioxide 27.6 mmol/L (21.0-32.0) 05/18/18 06:35 Anion Gap 7.4 mmol/L (3-11) 05/18/18 06:35 BUN 15 mg/dL (7-18) 05/18/18 06:35 Creatinine 0.97 mg/dL (0.55-1.02) 05/18/18 06:35 Estimated GFR/1.73 m2 56.45 (mL/min/1.73m2) 05/18/18 06:35 Glucose 300 mg/dL (70-100) H 05/18/18 06:35 Lactate 2.5 mmol/L (0.6-1.4) H 05/17/18 07:59 Calcium 8.1 mg/dL (8.5-10.1) L 05/18/18 06:35 Magnesium 2.3 mg/dL (1.8-2.4) 05/18/18 06:35 Total Bilirubin 0.3 mg/dL (0.2-1.0) 05/18/18 06:35 AST 23 U/L (15-37) 05/18/18 06:35 ALT 23 U/L (12-78) 05/18/18 06:35 Alkaline Phosphatase 89 U/L (46-116) 05/18/18 06:35 Troponin I 0.02 ng/mL (0.00-0.06) 05/16/18 23:42 Total Protein 5.5 g/dL (6.4-8.2) L 05/18/18 06:35 Albumin 2.0 g/dL (3.4-5.0) L 05/18/18 06:35 Urine Color Yellow (Yellow) 05/17/18 00:23 Urine Clarity Cloudy 05/17/18 00:23 Urine pH 7.0 (5-8) 05/17/18 00:23 Ur Specific Copen 1.020 (1.005-1.025) 05/17/18 00:23 Urine Protein 100 mg/dL (Negative) H 05/17/18 00:23 Urine Ketones Trace mg/dL (Negative) H 05/17/18 00: Urine Blood Moderate (Negative) H 05/17/18: Urine Nitrite Negative (Negative) 05/17/18: Urine Bilirubin Negative (Negative) 05/17/18: Urine Urobilinogen 0.2 EU/dL (Up TO 0.2) 05/17/18: Ur Leukocyte Esterase Small (Negative) H 05/17/18: Urine RBC Not Applicable 05/17/18: Urine WBC >50 HPF (0-5) 05/17/18: Ur Epithelial Cells Not Applicable 05/17/18: Urine Crystals Not Applicable 05/17/18: Urine Bacteria Not Applicable 05/17/18: Urine Mucus Not Applicable 05/17/18: Ur Culture Indicated? Yes 05/17/18: Urine Glucose >=1000 mg/dL (Negative) H 05/17/18 00: Objective Narrative Objective Narrative: EXAM: US Bilateral Duplex Lower Extremity Veins EXAM DATE/TIME: 05/17/2018 3:02 PM IMPRESSION: 1. No DVT within the right or left leg. 2. Small cystic collection within the right medial knee soft tissues. This may be secondary to a Correa's cyst, ganglion cyst, bursitis, hematoma as well as abscess. Correlate clinically. EXAM: CT Abdomen and Pelvis Without Contrast EXAM DATE/TIME: 05/18/2018 12:00 AM CLINICAL HISTORY: 73 years old, female; Pain; Other: Flank pain, recurring utis; Patient HX: Rule out nephrolithiasis IMPRESSION: 1. Moderate right obstructive uropathy with large calculus at the ureteropelvic junction, appear to be staghorn calculus. Measures 2.2 x 2.5 cm, with extensions into major calyces. 2. Cholelithiasis. 3. Small right pleural effusion and right basilar atelectasis.
[2018-05-18] MEDS: Normal Saline Flush 10 ML SYR IVP (13:32)
[2018-05-18] MEDS: Furosemide 20 MG/2 ML VIAL IVP (13:32)
--- NOTE | 2018-05-18 16:15 | PDOC.CMDIS ---
- If Service Date Differs Date of service: 05/18/18 Time of Service: 16:15 LACE Index Scoring Tool - Questions: Length of Stay (in days): 2 Acuity (Admit via E.D.?): Yes Comorbidities: Diabetes w/o Complication E.D. Visits: 2 - Answers: Total Score: 8 Risk of Readmission: Low Risk Care Management Discharge Reason for Hospitalization: Sepsis, UTI. Discharge Plan: Anticipate patient will transfer to [facility] [place] via EMS for urological intervention. CM will continue to offer support to patient, family, and careteam regarding discharge planning and disposition as needed. Patient/Family Education Needs: Discharge education, any limitations, and follow up plan of care. Ask Me Three discussion.
[2018-05-18] MEDS: oxyCODONE 5 MG TAB PO (16:17)
--- NOTE | 2018-05-18 16:18 | CMDISCH_ITS ---
- If Service Date Differs Date of service: 05/18/18 Time of Service: 16:15 LACE Index Scoring Tool - Questions: Length of Stay (in days): 2 Acuity (Admit via E.D.?): Yes Comorbidities: Diabetes w/o Complication E.D. Visits: 2 - Answers: Total Score: 8 Risk of Readmission: Low Risk Care Management Discharge Reason for Hospitalization: Sepsis, UTI. Discharge Plan: Anticipate patient will [place] [facility] [place] intervention. CM will continue to offer support to patient, family, and careteam regarding discharge planning and disposition as needed. Patient/Family Education Needs: Discharge education, any limitations, and follow up plan of care. Ask Me Three discussion.
--- NOTE | 2018-05-20 10:26 | PT.DS ---
Date of service 05/20/18 Time of Service 10:25 PT Notes Date: 05/20/2018 Referring Doctor: Sammy Bland MD PT Orders: PT CONSULT: Deconditioned, chronically ill woman for home assessment and strengthening Precautions: Fall precautions, contact precautions Treatment Dates: 05/09/18 - 05/18/18 THIS DOCUMENT SERVES A SUMMARY OF CARE. NO PHYSICAL THERAPY SERVICES WERE PROVIDED ON THIS DATE. Patient Profile/Admitting Diagnosis: Patient is a 73-year-old female admitted with urinary tract infection, sepsis, hypomagnesemia. She was discharged to [facility] [place] work up. PMHX: Schizoaffective disorder bipolar, chronic pain syndrome, scoliosis, spinal stenosis s/p spinal fusion, lumbar radicular pain, degenerative joint disease of pelvis, total hip arthroplasty, osteoarthritis, obesity, anxiety, intention tremor, hyperlipidemia, hypothyroidism, hypomagnesemia, chronic obstructive pulmonary disease, history of electroshock therapy, tonsillectomy, parkinsonism due to drug, bowel obstruction, drug-induced ileus Social History/Home Situation: Patient reports she lives with her in a home, ramp to enter no stairs. Baseline mobility sleeps in hospital bed uses bed elevation and bed rails to get to sitting position, reports she is independent with transfers with 3 wheel walker to wheelchair and is independent with self propelling wheelchair around home setting. She states she does not ambulate further than transfers to and from a wheelchair. Reports she performs sponge bath at home by caregiver 1 time per day. States her prepares meals. She was receiving home PT and OT prior to admission. Equipment Owned/DME: 3 wheeled walker, FWW, hospital bed, commode, raised toilet seat, grab bars Subjective: Unable to obtain, as patient was discharged 05/18. Objective: ROM: Right Upper Extremity: AROM shoulder flexion 170 degrees, elbow and wrist within normal limits Left Upper Extremity: AROM shoulder flexion 180 degree, elbow and wrist within normal limits Right Lower Extremity: AAROM hip flexion 90 degrees, knee 0-90, ankle -10 degrees dorsiflexion Left Lower Extremity: AAROM hip flexion 95 degrees, knee 0-90 degrees,ankle -10 degrees dorsiflexion Strength: Right Upper Extremity: 3/5 shoulder flexion, 5/5 bicep, 5/5 senior electronics design engineer Left Upper Extremity: 3/5 shoulder flexion, 5/5 bicep, 5/5 senior electronics design engineer Right Lower Extremity: 2/5 hip flexion, 3/5 quad, 2/5 dorsiflexion/plantar Left Lower Extremity: 2/5 hip flexion, 3/5 quad, 2/5 dorsiflexion/plantarflexion Bed Mobility/Transfers: Supine to sit: HOB 20 degrees, min A with use of bed rail Sit to stand: Min assist x1 Bed to wheelchair: CGA with FWW Stand to sit: CGA, tactile cues for hand placement to arm rest of wheelchair Gait: CGA with FWW 10 steps Balance: Static Sitting: Normal Dynamic Sitting: Normal Static Standing: Fair Dynamic Standing: Poor Informed Consent/Education: Patient instructed in purpose of PT consult and plan of care. Assessment: Patient is a 73-year-old female admitted with urinary tract infection, sepsis, hypomagnesemia in setting of Schizoaffective disorder bipolar, chronic pain syndrome, scoliosis, spinal stenosis s/p spinal fusion, lumbar radicular pain, degenerative joint disease of pelvis, total hip arthroplasty, osteoarthritis, obesity, anxiety, intention tremor. She participated in skilled PT intervention 1-2x/day for 2 days, although rehab goals were note met due to transfer to [facility] [place] further medical work up. Goals: Goals X1 week 1. Supine-Sit: Independent with use of hospital bed (not met) 2. Sit-Supine: Independent with use of hospital bed(not met) 3. Sit-Stand: Supervision with FWW(not met) 4. Stand-Sit: Supervision with FWW(not met) 5. Bed-Chair: SBA with FWW(not met) 6. Chair-Bed: SBA with FWW(not met) 7. Gait: SBA with FWW5 steps to wheelchair(not met) 8. Independent with home exercise program (not met) Plan of Care/Treatment Plan: D/C from PT services due to ongoing medical care at [facility]
--- NOTE | 2018-05-20 10:32 | PTDS_ITS ---
Date of service 05/20/18 Time of Service 10:25 PT Notes Date: 05/20/2018 Referring Doctor: Sammy Bland MD PT Orders: PT CONSULT: Deconditioned, chronically ill woman for home assessment and strengthening Precautions: Fall precautions, contact precautions Treatment Dates: 05/09/18 - 05/18/18 THIS DOCUMENT SERVES A SUMMARY OF CARE. NO PHYSICAL THERAPY SERVICES WERE PROVIDED ON THIS DATE. Patient Profile/Admitting Diagnosis: Patient is a 73-year-old female admitted with urinary tract infection, sepsis, hypomagnesemia. She was discharged to [facility] for urology work up. PMHX: Schizoaffective disorder bipolar, chronic pain syndrome, scoliosis, spinal stenosis s/p spinal fusion, lumbar radicular pain, degenerative joint disease of pelvis, total hip arthroplasty, osteoarthritis, obesity, anxiety, intention tremor, hyperlipidemia, hypothyroidism, hypomagnesemia, chronic obstructive pulmonary disease, history of electroshock therapy, tonsillectomy, parkinsonism due to drug, bowel obstruction, drug-induced ileus Social History/Home Situation: Patient reports she lives with her in a h ome, ramp to enter no stairs. Baseline mobility sleeps in hospital bed uses bed elevation and bed rails to get to sitting position, reports she is independent with transfers with 3 wheel walker to wheelchair and is independent with self propelling wheelchair around home setting. She states she does not ambulate further than transfers to and from a wheelchair. Reports she performs sponge bath at home by caregiver 1 time per day. States her prepares meals. She was receiving home PT and OT prior to admission. Equipment Owned/DME: 3 wheeled walker, FWW, hospital bed, commode, raised toilet seat, grab bars Subjective: Unable to obtain, as patient was discharged 05/18. Objective: ROM: Right Upper Extremity: AROM shoulder flexion 170 degrees, elbow and wrist within normal limits Left Upper Extremity: AROM shoulder flexion 180 degree, elbow and wrist within normal limits Right Lower Extremity: AAROM hip flexion 90 degrees, knee 0-90, ankle -10 degrees dorsiflexion Left Lower Extremity: AAROM hip flexion 95 degrees, knee 0-90 degrees,ankle - 10 degrees dorsiflexion Strength: Right Upper Extremity: 3/5 shoulder flexion, 5/5 bicep, 5/5 raw shellfish preparer Left Upper Extremity: 3/5 shoulder flexion, 5/5 bicep, 5/5 raw shellfish preparer Right Lower Extremity: 2/5 hip flexion, 3/5 quad, 2/5 dorsiflexion/plantar Left Lower Extremity: 2/5 hip flexion, 3/5 quad, 2/5 dorsiflexion/plantarflexion Bed Mobility/Transfers: Supine to sit: HOB 20 degrees, min A with use of bed rail Sit to stand: Min assist x1 Bed to wheelchair: CGA with FWW Stand to sit: CGA, tactile cues for hand placement to arm rest of wheelchair Gait: CGA with FWW 10 steps Balance: Static Sitting: Normal Dynamic Sitting: Normal Static Standing: Fair Dynamic Standing: Poor Informed Consent/Education: Patient instructed in purpose of PT consult and plan of care. Assessment: Patient is a 73-year-old female admitted with urinary tract infection, sepsis, hypomagnesemia in setting of Schizoaffective disorder bipolar, chronic pain syndrome, scoliosis, spinal stenosis s/p spinal fusion, lumbar radicular pain, degenerative joint disease of pelvis, total hip arthroplasty, osteoarthritis, obesity, anxiety, intention tremor. She participated in skilled PT intervention 1-2x/day for 2 days, although rehab goals were note met due to transfer to [facility] for further medical work up. Goals: Goals X1 week 1. Supine-Sit: Independent with use of hospital bed (not met) 2. Sit-Supine: Independent with use of hospital bed(not met) 3. Sit-Stand: Supervision with FWW(not met) 4. Stand-Sit: Supervision with FWW(not met) 5. Bed-Chair: SBA with FWW(not met) 6. Chair-Bed: SBA with FWW(not met) 7. Gait: SBA with FWW5 steps to wheelchair(not met) 8. Independent with home exercise program (not met) Plan of Care/Treatment Plan: D/C from PT services due to ongoing medical care at [facility]
== END 2018-05-18 17:30 | disposition other institution (70) | DRG 689 ==
LOC: ER 05-17 01:58 → ICU 05-17 02:44
PROVIDERS: Internal Medicine; Admitting Provider Family Medicine; Emergency Provider Emergency Medicine; PCP Family Medicine; Visit Provider Family Medicine
DX: N39.0 Urinary tract infection, site not specified (principal); A41.9 Sepsis, unspecified organism; N20.1 Calculus of ureter; F25.0 Schizoaffective disorder, bipolar type; J44.9 Chronic obstructive pulmonary disease, unspecified; G89.4 Chronic pain syndrome; E03.9 Hypothyroidism, unspecified; E11.9 Type 2 diabetes mellitus without complications; Z79.84 Long term (current) use of oral hypoglycemic drugs; M48.061 Spinal stenosis, lumbar region without neurogenic claudication; Z66 Do not resuscitate; E83.42 Hypomagnesemia; Z79.891 Long term (current) use of opiate analgesic; R33.9 Retention of urine, unspecified; Z87.891 Personal history of nicotine dependence; B96.4 Proteus (mirabilis) (morganii) as the cause of diseases classified elsewhere; B95.2 Enterococcus as the cause of diseases classified elsewhere; B96.89 Other specified bacterial agents as the cause of diseases classified elsewhere; Z16.29 Resistance to other single specified antibiotic; Z16.11 Resistance to penicillins; Z16.19 Resistance to other specified beta lactam antibiotics; Z87.440 Personal history of urinary (tract) infections; E78.5 Hyperlipidemia, unspecified; I10 Essential (primary) hypertension; R32 Unspecified urinary incontinence; M79.661 Pain in right lower leg; R60.0 Localized edema
CPT/HCPCS: 36415; 36416; 51702; 80053; 82962; 87040; 87077; 93005; 94640; 96361; 96365; 96368; 96372; 97163; 97167; 97530; 99221; 99223; 99233; 99252; 99291; J1650; NC; 71045; 74176; 81003; 81015; 83605; 83735; 84484; 85025; 87086; 87186; 93010; 93970; J0696; J1941; J3490

== ENCOUNTER 2018-06-02 11:16 | Inpatient (IN) | payer MEDICARE, MEDICAID, SELFPAY ==
[2018-06-02] VITALS (25 sets, daily range): BP systolic 100–126; BP diastolic 33–66; PULSE 74–105; RESP 11–20; TEMP 36.8–37.3; O2SAT 92–98
--- NOTE | 2018-06-02 11:30 | DI.CT_ITS ---
SYMPTOM/DIAGNOSIS: LEAKING NEPHROSTOMY TUBE ABDOMEN AND PELVIC CT: Comparison is made with 05/18/18. The patient is status post placement of a right percutaneous nephrostomy tube since the previous exam. The distal loop of the catheter is seen in the upper right ureter. A large calculus is again noted in the right renal pelvis. There is no perinephric collection or evidence of fluid collection along the course of the tubing. The right kidney is unremarkable. A toney catheter is seen in the bladder. Calcification is again noted superior to the balloon of the catheter. Air is also seen in the bladder. There are mild dependent changes at the lung bases. An enlarged fatty liver is again noted. Gallstones are again noted in the dependent portion of the gallbladder. No gallbladder wall thickening or inflammation is seen. The spleen, adrenals and pancreas are unremarkable. Hardware is again noted in the spine and right hip. There is a stable 5 cm. right ovarian cyst. The uterus appears normal in size. No bowel dilatation or inflammatory changes are seen. IMPRESSION: Right nephrostomy tube. No evidence of perinephric collection or collection along the course of the tubing.
--- NOTE | 2018-06-02 11:35 | W.ED.GENAD ---
Discharge Plan Disposition Patient Disposition: [facility] INPATIENT Condition: Good Discharge Details Chief Complaint: GenMedical Clinical Impression: Adult failure to thrive, Acute hyperkalemia, Malfunction of nephrostomy tube Reason For Visit: VARUNEX Primary Care Provider: John Carpenter ED Provider: Ubaldo Peraza Home Meds and New Rx's Prescriptions: No Action Prevail Brief Youth 1 EACH misc 1 ea Miscellaneous BID Qty: 60 RF: 11 lamotrigine [Lamictal] 100 MG tablet 100 mg PO QAM Qty: 90 RF: 3 lamotrigine 200 MG tablet 200 mg PO HS Qty: 90 RF: 4 citalopram [Celexa] 40 MG tablet 40 mg PO DAILY Qty: 90 RF: 3 triamterene-hydrochlorothiazid [Dyazide] 1 EACH capsule 1 ea PO DAILY Qty: 90 RF: 3 simvastatin [Zocor] 40 MG tablet 0.5 tab PO DAILY Qty: 45 RF: 3 glimepiride 1 MG tablet 1 mg PO DAILY Qty: 30 RF: 11 levothyroxine [Synthroid] 100 MCG tablet 100 mcg PO DAILY Qty: 90 RF: 3 pantoprazole 40 MG tablet,delayed release (DR/EC) 40 mg PO DAILY Qty: 90 RF: 3 metformin [Glucophage] 1,000 MG tablet 1,000 mg PO BID@0800,1700 Qty: 180 RF: 3 oxybutynin chloride 5 MG tablet 5 mg PO BID Qty: 180 RF: 3 spironolactone 50 MG tablet 50 mg PO DAILY Qty: 90 RF: 3 Metoprolol Succinate 25 MG Tabcr 25 mg PO DAILY Qty: 90 RF: 3 doxycycline hyclate 100 MG capsule 100 mg PO TID Qty: 270 RF: 3 risperidone 3 MG tablet 3 mg PO DAILY Qty: 90 RF: 3 fluticasone 16 GM spray,suspension 1 spray NS DAILY Qty: 16 RF: 3 nystatin 15 GM cream 1 applic Topical BID Qty: 60 RF: 5 ferrous sulfate [Iron (ferrous sulfate)] 325 MG tablet 325 mg PO BID Qty: 180 RF: 3 Lyrica 50 mg capsule 50 mg PO BID Qty: 60 RF: 2 dicyclomine 10 mg capsule 10 mg PO QID PRN (Reason: bladder spasms) Qty: 120 RF: 5 methadone 10 mg tablet 10 mg PO BID MDD 2 tabs Qty: 60 RF: 0 morphine 20 mg capsule,extend.release pellets 20 mg PO Q12H MDD 2 caps Qty: 60 RF: 0 oxycodone 5 mg tablet 5 mg PO BID MDD 2 tabs PRN (Reason: pain) Qty: 60 RF: 0 dronabinol [Marinol] 2.5 mg capsule 2.5 mg PO BID PRN (Reason: nausea and vomiting) Qty: 60 RF: 0 Narcan 4 MG spray,non-aerosol 4 mg NS ONCE Qty: 1 RF: 0 Medical Decision Making This is a 73-year-old female who presents for evaluation of leaking from her right-sided nephrostomy tube. She has had no other associated red flags of fevers, chills, chest pain or shortness of breath. No abdominal pain, CVA tenderness. No other significant abnormalities. We will get a CT scan to evaluate for transition or movement of her nephrostomy tube. We will evaluate for obstruction and worsening renal function. 2:50 p.m. Patient's laboratory workup has returned, she does demonstrate a slight elevation in creatinine, mild hyperkalemia at 5.3 which she is certainly been at before in the past. No leukocytosis or bandemia. No fever or chills. Urinalysis shows greater than 50 RBCs and greater than 50 WBCs with no nitrites. I reviewed the patient's labs and images with the urologist Dr. Chandler at [facility]. After reviewing these, and having him personally reviewed the CT scan he recommends that we do continue dressing changes for the leaking. He does not want any acute management or change in the nephrostomy tube at this time. He feels that she can be safely discharged home with follow-up with the outpatient interventional radiology clinic on Sunday or Sunday. He recommends that the patient call this clinic. He has provided a phone number of [phone]. We will give the patient corrective measures on her mildly elevated potassium, recheck if this is normal she will be discharged home with close follow-up as discussed with Dr. Chandler the urologist 5 PM. The patient's potassium has been corrected on repeat laboratory eval after medication administration. Fortunately prior to discharge the family brought up with myself, the nursing provider, that they do not want to go home and are seeking assisted placement. They feel that there is slightly uncomfortable with home care. We did involve our porter sample case with this, and currently there are no options for immediate placement in assisted. Initially we did not have beds available here and we did contact [facility], they stated that they were unable and unwilling to accept the patient for admission at this time for a social admit. We do have additional beds available here, we will discussed the case again with the porter sample case to see if admission here would be a viable option in the swing bed. 5:41 PM After an extensive amount of conversations, and patient and patient's family continue refusal for home discharge as they are concerned that they will not be able to care for her, that she is in danger due to her 's inability to care for her, as well as her other medical problems, we have contacted the hospitalist, Dr. Zendejas does agree with the current assessment and plan. Patient will be admitted for observation with case management referrals for potential placement in a assisted facility. Case management states that they are optimistic that they will be able to get her into a facility shortly. I have extensively reviewed the treatment plan with the patient. I have addressed all patient concerns at this time. I have also discussed the plan with the admitting physician and they agree with the current assessment and plan and have agreed to assume responsibility for the patient. All parties demonstrate verbal understanding and agreement with our assessment and plan at this time. EKG 14: 37 Rate 98, W[place] 136, QTc 437, QRS 92, sinus rhythm with premature atrial complexes. No significant ST elevations or depressions, no T wave peaking. No significant Q waves FINDINGS: Lower thorax: Stable right infrahilar fibrosis and/or atelectasis. Resolution of the small right pleural effusion. ABDOMEN: Liver: Stable enlarged fatty infiltrated liver. Gallbladder and bile ducts: Gallbladder is enlarged on today's exam, measuring 5.4 cm diameter. Stable gallstones layering dependently. No evidence of gallbladder wall thickening and no pericholecystic inflammation. Pancreas: Fatty involution of the pancreas with. No ductal dilation. Spleen: Unremarkable.No splenomegaly. Adrenals: No right adrenal gland is unremarkable. Stable, nonspecific, nodular thickening of the left adrenal gland without discrete mass. Kidneys and ureters: Interval placement of a right percutaneous nephrostomy tube which passes down through the extrarenal pelvis to make a half loop terminating in the proximal right ureter. No subcutaneous or retroperitoneal fluid collection. Stable degree of periureteral fat stranding a to the pelvis. Stable large calculus in the right extrarenal pelvis/ureteral pelvic junction, but decreased staghorn extension into the calyces. Stable s 1 mall left renal cysts. No hydronephrosis. Stomach and bowel: Mild scattered colonic diverticulosis without signs of diverticulitis. No obstruction. No mucosal thickening. Appendix: No evidence of appendicitis. PELVIS: Right hip prosthesis produces a large amount of metal artifact, limiting evaluation of the pelvic structures. Bladder: Cuevas catheter in the urinary bladder with stable large calcification along the superior margin measuring 26 mm x 19 mm. There is intraluminal gas, consistent with instrumentation. Reproductive: Stable 5 cm right adnexal cyst. ABDOMEN and PELVIS: Intraperitoneal space: Unremarkable. No free air. No significant fluid collection. Bones/joints: No acute bony abnormality. Soft tissues: Unremarkable. Vasculature: Unremarkable. No abdominal aortic aneurysm. Lymph nodes: Unremarkable. No enlarged lymph nodes. IMPRESSION: 1. Right percutaneous nephrostomy tube with tip in the proximal right ureter. No fluid collection along the course of the tube. 2. Stable cholelithiasis. Dilated gallbladder without definite obstructing stone and no inflammatory changes. Thank you for allowing us to participate in the care of your patient. HPI General Date/Time Provider Initiated Documentation: 06/02/18 11:30. HPI Narrative: This is a 73-year-old female with a past medical history of a obstructing stone at the ureteropelvic junction, requiring right-sided nephrostomy tube. 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 Patient had the stent placed at [facility] this past month, it was recently discharged 2 days ago from [facility]. Patient states that she noticed significant discharge from her right nephrostomy tube today, and this was confirmed by her home health nurse. She was then sent in for further evaluation. The patient denies any abdominal pain, nausea, vomiting, diarrhea, fever or chills. She has been taking her medications as directed. She denies any significant change in her urine output from her nephrostomy tube or from her chronic Cuevas. She denies any hematuria or other complaints. No other modifying factors at this time. Related Data Home Medications Medication Instructions Recorded Confirmed Narcan 4 mg NS ONCE #1 inhn 01/19/16 06/02/18 Prevail Brief Youth #60 isaac 01/25/16 06/02/18 lamotrigine [Lamictal] 100 mg PO QAM #90 tab-cap 10/15/16 06/02/18 citalopram [Celexa] 40 mg PO DAILY #90 tab-cap 12/07/17 06/02/18 doxycycline hyclate 100 mg PO TID #270 tab-cap 12/07/17 06/02/18 glimepiride 1 mg PO DAILY #30 tab-cap 12/07/17 06/02/18 lamotrigine 200 mg PO HS #90 tab-cap 12/07/17 06/02/18 levothyroxine [Synthroid] 100 mcg PO DAILY #90 tab-cap 12/07/17 06/02/18 metformin [Glucophage] 1,000 mg PO BID@0800,1700 #180 tab 12/07/17 06/02/18 oxybutynin chloride 5 mg PO BID #180 tab-cap 12/07/17 06/02/18 pantoprazole 40 mg PO DAILY #90 tab-cap 12/07/17 06/02/18 risperidone 3 mg PO DAILY #90 tab-cap 12/07/17 06/02/18 simvastatin [Zocor] 0.5 tab PO DAILY #45 tab-cap 12/07/17 06/02/18 spironolactone 50 mg PO DAILY #90 tab-cap 12/07/17 06/02/18 triamterene-hydrochlorothiazid 1 ea PO DAILY #90 tab-cap 12/07/17 06/02/18 [Dyazide] fluticasone 1 spray NS DAILY #16 gm 12/24/17 06/02/18 nystatin 1 applic TOPICAL BID #60 gm 12/26/17 06/02/18 ferrous sulfate [Iron (ferrous 325 mg PO BID #180 tab-cap 01/18/18 06/02/18 sulfate)] pregabalin 50 mg capsule 50 mg PO BID #60 cap 03/14/18 06/02/18 dicyclomine 10 mg capsule 10 mg PO QID PRN #120 tab-cap 04/16/18 06/02/18 methadone 10 mg tablet 10 mg PO BID #60 tab MDD 2 tabs 05/13/18 06/02/18 morphine ER 20 mg capsule,extended 20 mg PO Q12H #60 cap MDD 2 caps 05/13/18 06/02/18 release pellets oxycodone 5 mg tablet 5 mg PO BID PRN #60 tab MDD 2 tabs 05/13/18 06/02/18 dronabinol 2.5 mg capsule 2.5 mg PO BID PRN #60 cap 05/23/18 06/02/18 Previous Rx's Medication Instructions Recorded Narcan 4 mg NS ONCE #1 inhn 01/19/16 citalopram [Celexa] 40 mg PO DAILY #90 tab-cap 12/07/17 doxycycline hyclate 100 mg PO TID #270 tab-cap 12/07/17 glimepiride 1 mg PO DAILY #30 tab-cap 12/07/17 lamotrigine 200 mg PO HS #90 tab-cap 12/07/17 levothyroxine [Synthroid] 100 mcg PO DAILY #90 tab-cap 12/07/17 metformin [Glucophage] 1,000 mg PO BID@0800,1700 #180 tab 12/07/17 oxybutynin chloride 5 mg PO BID #180 tab-cap 12/07/17 pantoprazole 40 mg PO DAILY #90 tab-cap 12/07/17 risperidone 3 mg PO DAILY #90 tab-cap 12/07/17 simvastatin [Zocor] 0.5 tab PO DAILY #45 tab-cap 12/07/17 spironolactone 50 mg PO DAILY #90 tab-cap 12/07/17 triamterene-hydrochlorothiazid 1 ea PO DAILY #90 tab-cap 12/07/17 [Dyazide] fluticasone 1 spray NS DAILY #16 gm 12/24/17 nystatin 1 applic TOPICAL BID #60 gm 12/26/17 ferrous sulfate [Iron (ferrous 325 mg PO BID #180 tab-cap 01/18/18 sulfate)] pregabalin 50 mg capsule 50 mg PO BID #60 cap 03/14/18 dicyclomine 10 mg capsule 10 mg PO QID PRN #120 tab-cap 04/16/18 methadone 10 mg tablet 10 mg PO BID #60 tab MDD 2 tabs 05/13/18 morphine ER 20 mg capsule,extended 20 mg PO Q12H #60 cap MDD 2 caps 05/13/18 release pellets oxycodone 5 mg tablet 5 mg PO BID PRN #60 tab MDD 2 tabs 05/13/18 dronabinol 2.5 mg capsule 2.5 mg PO BID PRN #60 cap 05/23/18 Allergies Allergy/AdvReac Type Severity Reaction Status Date / Time aripiprazole AdvReac Intermediate anxiety Unverified 06/02/18 16:15 prednisone AdvReac Intermediate Hallucinati Unverified 06/02/18 16:15 ons codeine AdvReac Mild GI Upset Unverified 06/02/18 16:15 azithromycin AdvReac Unknown Unverified 06/02/18 16:15 General CHRISTIANO: 2 Review of Systems Review of Systems All systems reviewed & are unremarkable except as noted in HPI and below PFSH Medical History Sepsis (Acute) UTI (urinary tract infection) (Acute ~04/2018) Schizoaffective disorder, bipolar type (Chronic) Wound infection after surgery (Resolved) Chronic rhinitis (Chronic) Anxiety (Chronic) Hyperlipidemia (Chronic) Hypothyroidism (Chronic) 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) COPD (chronic obstructive pulmonary disease) (Chronic) 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) Chronic osteoarthritis (Acute) Chronic pain syndrome (Acute 08/21/12) Hypothyroidism (Chronic) Diabetes mellitus type 2 (Chronic) Bipolar disorder (Chronic) Chronic back pain (Chronic) Hyperlipidemia (Chronic) Anxiety (Chronic) Intention tremor (Chronic) detention current use of antibiotics (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 She recently returned home from a long stay at the [facility]. She has limited mobility and poor use of ADLs. Former smoker. No current alcohol use. Exam Narrative Exam Narrative: 1.Const: Well-nourished, Well-developed, appearing stated age 2.Eyes: PERRL, no conjunctival injection, and symmetrical lids. 3.ENT: Atraumatic external nose and ears. Moist MM. Neck: Symmetric, trachea midline, No thyromegaly. 4.CVS: +S1/S2, No murmurs or gallops. Peripheral pulses 2+ and equal in all extremities. Brisk capillary refill in all extremities. 5.RESP: Unlabored respiratory effort. Clear to auscultation bilaterally. No wheezes rales or rhonchi 6.GI: Soft, Nontender/Nondistended, No hepatosplenomegaly. No guarding or rebound. Right nephrostomy tube is in place. Notable leaking is present. No significant redness or purulent discharge. No other significant abnormalities. No CVA tenderness. 7.MSK: Normocephalic/Atraumatic, Extremities w/o deformity or ttp No cyanosis or clubbing, Normal movement of all extremities 8.Skin: Warm, Dry. No rashes or lesions. 9.Neuro: eligibility analyst II-XII grossly intact. Sensation grossly intact, no focal neurologic deficits. 10.Psych: (AAO) x3. Appropriate mood and affect
--- NOTE | 2018-06-02 11:40 | ED.GENADUL_ITS ---
Discharge Plan Disposition Patient Disposition: [facility] INPATIENT Condition: Good Discharge Details Chief Complaint: GenMedical Clinical Impression: Adult failure to thrive, Acute hyperkalemia, Malfunction of nephrostomy tube Reason For Visit: VARUNEX Primary Care Provider: John Carpenter ED Provider: Ubaldo Peraza Home Meds and New Rx's Prescriptions: No Action Prevail Brief Youth 1 EACH misc 1 ea Miscellaneous BID Qty: 60 RF: 11 lamotrigine [Lamictal] 100 MG tablet 100 mg PO QAM Qty: 90 RF: 3 lamotrigine 200 MG tablet 200 mg PO HS Qty: 90 RF: 4 citalopram [Celexa] 40 MG tablet 40 mg PO DAILY Qty: 90 RF: 3 triamterene-hydrochlorothiazid [Dyazide] 1 EACH capsule 1 ea PO DAILY Qty: 90 RF: 3 simvastatin [Zocor] 40 MG tablet 0.5 tab PO DAILY Qty: 45 RF: 3 glimepiride 1 MG tablet 1 mg PO DAILY Qty: 30 RF: 11 levothyroxine [Synthroid] 100 MCG tablet 100 mcg PO DAILY Qty: 90 RF: 3 pantoprazole 40 MG tablet,delayed release (DR/EC) 40 mg PO DAILY Qty: 90 RF: 3 metformin [Glucophage] 1,000 MG tablet 1,000 mg PO BID@0800,1700 Qty: 180 RF: 3 oxybutynin chloride 5 MG tablet 5 mg PO BID Qty: 180 RF: 3 spironolactone 50 MG tablet 50 mg PO DAILY Qty: 90 RF: 3 Metoprolol Succinate 25 MG Tabcr 25 mg PO DAILY Qty: 90 RF: 3 doxycycline hyclate 100 MG capsule 100 mg PO TID Qty: 270 RF: 3 risperidone 3 MG tablet 3 mg PO DAILY Qty: 90 RF: 3 fluticasone 16 GM spray,suspension 1 spray NS DAILY Qty: 16 RF: 3 nystatin 15 GM cream 1 applic Topical BID Qty: 60 RF: 5 ferrous sulfate [Iron (ferrous sulfate)] 325 MG tablet 325 mg PO BID Qty: 180 RF: 3 Lyrica 50 mg capsule 50 mg PO BID Qty: 60 RF: 2 dicyclomine 10 mg capsule 10 mg PO QID PRN (Reason: bladder spasms) Qty: 120 RF: 5 methadone 10 mg tablet 10 mg PO BID MDD 2 tabs Qty: 60 RF: 0 morphine 20 mg capsule,extend.release pellets 20 mg PO Q12H MDD 2 caps Qty: 60 RF: 0 oxycodone 5 mg tablet 5 mg PO BID MDD 2 tabs PRN (Reason: pain) Qty: 60 RF: 0 dronabinol [Marinol] 2.5 mg capsule 2.5 mg PO BID PRN (Reason: nausea and vomiting) Qty: 60 RF: 0 Narcan 4 MG spray,non-aerosol 4 mg NS ONCE Qty: 1 RF: 0 Medical Decision Making This is a 73-year-old female who presents for evaluation of leaking from her right-sided nephrostomy tube. She has had no other associated red flags of fevers, chills, chest pain or shortness of breath. No abdominal pain, CVA tenderness. No other significant abnormalities. We will get a CT scan to evaluate for transition or movement of her nephrostomy tube. We will evaluate for obstruction and worsening renal function. 2:50 p.m. Patient's laboratory workup has returned, she does demonstrate a slight elevation in creatinine, mild hyperkalemia at 5.3 which she is certainly been at before in the past. No leukocytosis or bandemia. No fever or chills. Urina lysis shows greater than 50 RBCs and greater than 50 WBCs with no nitrites. I reviewed the patient's labs and images with the urologist Dr. Chandler at [facility]. After reviewing these, and having him personally reviewed the CT scan he recommends that we do continue dressing changes for the leaking. He does not want any acute management or change in the nephrostomy tube at this time. He feels that she can be safely discharged home with follow-up with the outpatient interventional radiology clinic on Sunday or Sunday. He recommends that the patient call this clinic. He has provided a phone number of [phone]. We will give the patient corrective measures on her mildly elevated potassium, recheck if this is normal she will be discharged home with close follow-up as discussed with Dr. Chandler the urologist 5 PM. The patient's potassium has been corrected on repeat laboratory eval after medication administration. Fortunately prior to discharge the family brought up with myself, the nursing provider, that they do not want to go home and are seeking shelter placement. They feel that there is slightly uncomfortable with home care. We did involve our rn case manager with this, and currently there are no options for immediate placement in shelter. Initially we did not have beds available here and we did contact [facility], they stated that they were unable and unwilling to accept the patient for admission at this time for a social admit. We do have additional beds available here, we will discussed the case again with the rn case manager to see if admission here would be a viable option in the swing bed. 5:41 PM After an extensive amount of conversations, and patient and patient's family continue refusal for home discharge as they are concerned that they will not be able to care for her, that she is in danger due to her 's inability to care for her, as well as her other medical problems, we have contacted the hospitalist, Dr. Zendejas does agree with the current assessment and plan. Patient will be admitted for observation with case management referrals for potential placement in a shelter facility. Case management states that they are optimistic that they will be able to get her into a facility shortly. I have extensively reviewed the treatment plan with the patient. I have addressed all patient concerns at this time. I have also discussed the plan with the admitting physician and they agree with the current assessment and plan and have agreed to assume responsibility for the patient. All parties demonstrate verbal understanding and agreement with our assessment and plan at this time. EKG 14: 37 Rate 98, WV 136, QTc 437, QRS 92, sinus rhythm with premature atrial complexes. No significant ST elevations or depressions, no T wave peaking. No significant Q waves FINDINGS: Lower thorax: Stable right infrahilar fibrosis and/or atelectasis. Resolution of the small right pleural effusion. ABDOMEN: Liver: Stable enlarged fatty infiltrated liver. Gallbladder and bile ducts: Gallbladder is enlarged on today's exam, measuring 5.4 cm diameter. Stable gallstones layering dependently. No evidence of gallbladder wall t hickening and no pericholecystic inflammation. Pancreas: Fatty involution of the pancreas with. No ductal dilation. Spleen: Unremarkable.No splenomegaly. Adrenals: No right adrenal gland is unremarkable. Stable, nonspecific, nodular thickening of the left adrenal gland without discrete mass. Kidneys and ureters: Interval placement of a right percutaneous nephrostomy tube which passes down through the extrarenal pelvis to make a half loop terminating in the proximal right ureter. No subcutaneous or retroperitoneal fluid collection. Stable degree of periureteral fat stranding a to the pelvis. Stable large calculus in the right extrarenal pelvis/ureteral pelvic junction, but decreased staghorn extension into the calyces. Stable s 1 mall left renal cysts. No hydronephrosis. Stomach and bowel: Mild scattered colonic diverticulosis without signs of diverticulitis. No obstruction. No mucosal thickening. Appendix: No evidence of appendicitis. PELVIS: Right hip prosthesis produces a large amount of metal artifact, limiting evaluation of the pelvic structures. Bladder: Cuevas catheter in the urinary bladder with stable large calcification along the superior margin measuring 26 mm x 19 mm. There is intraluminal gas, consistent with instrumentation. Reproductive: Stable 5 cm right adnexal cyst. ABDOMEN and PELVIS: Intraperitoneal space: Unremarkable. No free air. No significant fluid collec tion. Bones/joints: No acute bony abnormality. Soft tissues: Unremarkable. Vasculature: Unremarkable. No abdominal aortic aneurysm. Lymph nodes: Unremarkable. No enlarged lymph nodes. IMPRESSION: 1. Right percutaneous nephrostomy tube with tip in the proximal right ureter. No fluid collection along the course of the tube. 2. Stable cholelithiasis. Dilated gallbladder without definite obstructing stone and no inflammatory changes. Thank you for allowing us to participate in the care of your patient. HPI General Date/Time Provider Initiated Documentation: 06/02/18 11:30 . HPI Narrative: This is a 73-year-old female with a past medical history of a obstructing stone at the ureteropelvic junction, requiring right-sided nephrostomy tube. 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 Patient had the stent placed at [facility] this past month, it was recently discharged 2 days ago from [facility]. Patient states that she noticed significant discharge from her right nephrostomy tube today, and this was confirmed by her home health nurse. She was then sent in for further evaluation. The patient denies any abdominal pain, nausea, vomiting, diarrhea, fever or chills. She has been taking her medications as directed. She denies any significant change in her urine output from her nephrostomy tube or from her chronic Cuevas. She denies any hematuria or other complaints. No other modifying factors at this time. Related Data Home Medications Medication Instructions Recorded Confirmed Narcan 4 mg NS ONCE #1 inhn 01/19/16 06/02/18 Prevail Brief Youth #60 isaac 01/25/16 06/02/18 lamotrigine [Lamictal] 100 mg PO QAM #90 tab-cap 10/15/16 06/02/18 citalopram [Celexa] 40 mg PO DAILY #90 tab-cap 12/07/17 06/02/18 doxycycline hyclate 100 mg PO TID #270 tab-cap 12/07/17 06/02/18 glimepiride 1 mg PO DAILY #30 tab-cap 12/07/17 06/02/18 lamotrigine 200 mg PO HS #90 tab-cap 12/07/17 06/02/18 levothyroxine [Synthroid] 100 mcg PO DAILY #90 tab-cap 12/07/17 06/02/18 metformin [Glucophage] 1,000 mg PO BID@0800,1700 #180 tab 12/07/17 06/02/18 oxybutynin chloride 5 mg PO BID #180 tab-cap 12/07/17 06/02/18 pantoprazole 40 mg PO DAILY #90 tab-cap 12/07/17 06/02/18 risperidone 3 mg PO DAILY #90 tab-cap 12/07/17 06/02/18 simvastatin [Zocor] 0.5 tab PO DAILY #45 tab-cap 12/07/17 06/02/18 spironolactone 50 mg PO DAILY #90 tab-cap 12/07/17 06/02/18 triamterene-hydrochlorothiazid 1 ea PO DAILY #90 tab-cap 12/07/17 06/02/18 [Dyazide] fluticasone 1 spray NS DAILY #16 gm 12/24/17 06/02/18 nystatin 1 applic TOPICAL BID #60 gm 12/26/17 06/02/18 ferrous sulfate [Iron (ferrous 325 mg PO BID #180 tab-cap 01/18/18 06/02/18 sulfate)] pregabalin 50 mg capsule 50 mg PO BID #60 cap 03/14/18 06/02/18 dicyclomine 10 mg capsule 10 mg PO QID PRN #120 tab-cap 04/16/18 06/02/18 methadone 10 mg tablet 10 mg PO BID #60 tab MDD 2 tabs 05/13/18 06/02/18 morphine ER 20 mg capsule,extended 20 mg PO Q12H #60 cap MDD 2 caps 05/13/18 06/02/18 release pellets oxycodone 5 mg tablet 5 mg PO BID PRN #60 tab MDD 2 tabs 05/13/18 06/02/18 dronabinol 2.5 mg capsule 2.5 mg PO BID PRN #60 cap 05/23/18 06/02/18 Previous Rx's Medication Instructions Recorded Narcan 4 mg NS ONCE #1 inhn 01/19/16 citalopram [Celexa] 40 mg PO DAILY #90 tab-cap 12/07/17 doxycycline hyclate 100 mg PO TID #270 tab-cap 12/07/17 glimepiride 1 mg PO DAILY #30 tab-cap 12/07/17 lamotrigine 200 mg PO HS #90 tab-cap 12/07/17 levothyroxine [Synthroid] 100 mcg PO DAILY #90 tab-cap 12/07/17 metformin [Glucophage] 1,000 mg PO BID@0800,1700 #180 tab 12/07/17 oxybutynin chloride 5 mg PO BID #180 tab-cap 12/07/17 pantoprazole 40 mg PO DAILY #90 tab-cap 12/07/17 risperidone 3 mg PO DAILY #90 tab-cap 12/07/17 simvastatin [Zocor] 0.5 tab PO DAILY #45 tab-cap 12/07/17 spironolactone 50 mg PO DAILY #90 tab-cap 12/07/17 triamterene-hydrochlorothiazid 1 ea PO DAILY #90 tab-cap 12/07/17 [Dyazide] fluticasone 1 spray NS DAILY #16 gm 12/24/17 nystatin 1 applic TOPICAL BID #60 gm 12/26/17 ferrous sulfate [Iron (ferrous 325 mg PO BID #180 tab-cap 01/18/18 sulfate)] pregabalin 50 mg capsule 50 mg PO BID #60 cap 03/14/18 dicyclomine 10 mg capsule 10 mg PO QID PRN #120 tab-cap 04/16/18 methadone 10 mg tablet 10 mg PO BID #60 tab MDD 2 tabs 05/13/18 morphine ER 20 mg capsule,extended 20 mg PO Q12H #60 cap MDD 2 caps 05/13/18 release pellets oxycodone 5 mg tablet 5 mg PO BID PRN #60 tab MDD 2 tabs 05/13/18 dronabinol 2.5 mg capsule 2.5 mg PO BID PRN #60 cap 05/23/18 Allergies Allergy/AdvReac Type Severity Reaction Status Date / Time aripiprazole AdvReac Intermediate anxiety Unverified 06/02/18 16:15 prednisone AdvReac Intermediate Hallucinati Unverified 06/02/18 16:15 ons codeine AdvReac Mild GI Upset Unverified 06/02/18 16:15 azithromycin AdvReac Unknown Unverified 06/02/18 16:15 General CHRISTIANO: 2 Review of Systems Review of Systems All systems reviewed & are unremarkable except as noted in HPI and below PFSH Medical History Sepsis (Acute) UTI (urinary tract infection) (Acute ~04/2018) Schizoaffective disorder, bipolar type (Chronic) Wound infection after surgery (Resolved) Chronic rhinitis (Chronic) Anxiety (Chronic) Hyperlipidemia (Chronic) Hypothyroidism (Chronic) 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) COPD (chronic obstructive pulmonary disease) (Chronic) 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) Chronic osteoarthritis (Acute) Chronic pain syndrome (Acute 08/21/12) Hypothyroidism (Chronic) Diabetes mellitus type 2 (Chronic) Bipolar disorder (Chronic) Chronic back pain (Chronic) Hyperlipidemia (Chronic) Anxiety (Chronic) Intention tremor (Chronic) 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 She recently returned home from a long stay at the [facility]. She has limited mobility and poor use of ADLs. Former smoker. No current alcohol use. Exam Narrative Exam Narrative: 1.Const: Well-nourished, Well-developed, appearing stated age 2.Eyes: PERRL, no conjunctival injection, and symmetrical lids. 3.ENT: Atraumatic external nose and ears. Moist MM. Neck: Symmetric, trachea midline, No thyromegaly. 4.CVS: +S1/S2, No murmurs or gallops. Peripheral pulses 2+ and equal in all extremities. Brisk capillary refill in all extremities. 5.RESP: Unlabored respiratory effort. Clear to auscultation bilaterally. No wheezes rales or rhonchi 6.GI: Soft, Nontender/Nondistended, No hepatosplenomegaly. No guarding or rebound. Right nephrostomy tube is in place. Notable leaking is present. No significant redness or purulent discharge. No other significant abnormalities. No CVA tenderness. 7.MSK: Normocephalic/Atraumatic, Extremities w/o deformity or ttp No cyanosis or clubbing, Normal movement of all extremities 8.Skin: Warm, Dry. No rashes or lesions. 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 Sensation grossly intact, no focal neurologic deficits. 10.Psych: (AAO) x3. Appropriate mood and affect
[2018-06-02 12:26] LABS: Abs Immature Grans 0.09 k/cumm (0.0-0.09); Absolute Basophil Count 0.03 k/cumm (0.0-0.2); Absolute Eosinophil Count 0.19 k/cumm (0.0-0.7); Absolute Lymphocyte Count 0.73 k/cumm (1.2-3.4); Absolute Monocyte Count 0.88 k/cumm (0.11-0.7); Absolute Neutrophil Count 7.08 k/cumm (1.2-6.7); Basophils % 0.3; Eosinophils % 2.1; HCT 33.5 % (36.0-46.0); HGB 10.2 g/dL (12.0-15.5); Lymphocytes % 8.1; Mean Corp. HGB Concentration 30.4 g/dL (32.0-36.0); Mean Corpuscular Hemoglobin 27.9 pg (27.0-33.0); Mean Corpuscular Volume 91.5 fL (80-95); Mean Platelet Volume 11.5 fL (8.0-11.0); Monocytes % 9.8; Neutrophils % 78.7; Platelet Count 265 x1000/uL (130-400); RBC 3.66 m/cumm (4.00-5.20)
[2018-06-02 12:27] LABS: RBC Distribution Width 20.6 % (11.7-14.6)
[2018-06-02 12:39] LABS: ALT 31 U/L (12-78); AST 23 U/L (15-37); Albumin 2.9 g/dL (3.4-5.0); Alkaline Phosphatase 113 U/L (46-116); Anion Gap 6.6 mmol/L (3-11); BUN 26 mg/dL (7-18); Bilirubin, Total 0.3 mg/dL (0.2-1.0); CO2 28.4 mmol/L (21.0-32.0); CREATININE 1.35 mg/dL (0.55-1.02); Chloride 101 mmol/L (98-107); Estimated GFR 38.55 (mL/min/1.73m2); Glucose 205 mg/dL (70-100); Potassium 5.3 mmol/L (3.5-5.1); Sodium 136 mmol/L (136-145); Total Protein 7.2 g/dL (6.4-8.2)
[2018-06-02 12:52] LABS: Bilirubin Negative (Negative); Blood Large (Negative); Clarity Cloudy; Glucose Negative (Negative); Ketones Negative (Negative); Leukocyte Esterase Large (Negative); Nitrite Negative (Negative); Specific Gravity 1.025 (1.005-1.025); Urobilinogen 0.2 EU/dL (Up TO 0.2)
[2018-06-02 13:00] LABS: RBC >50 (0-2); WBC >50 HPF (0-5)
[2018-06-02 13:01] LABS: C & S Indicated? Yes
--- NOTE | 2018-06-02 13:36 | DI.VRAD_ITS ---
EXAM: CT Abdomen and Pelvis Without Contrast EXAM DATE/TIME: 06/02/2018 11:32 AM CLINICAL HISTORY: 73 years old, female; Signs and symptoms; Other: Leaking nephrostomy tube TECHNIQUE: Axial computed tomography images of the abdomen and pelvis without contrast. Coronal and sagittal reformatted images were created and reviewed. COMPARISON: CT Private^ROUTINE ABDOMEN PELVIS WITHOUT (Adult) 05/18/2018 10:22 AM FINDINGS: Lower thorax: Stable right infrahilar fibrosis and/or atelectasis. Resolution of the small right pleural effusion. ABDOMEN: Liver: Stable enlarged fatty infiltrated liver. Gallbladder and bile ducts: Gallbladder is enlarged on today's exam, measuring 5.4 cm diameter. Stable gallstones layering dependently. No evidence of gallbladder wall thickening and no pericholecystic inflammation. Pancreas: Fatty involution of the pancreas with. No ductal dilation. Spleen: Unremarkable.No splenomegaly. Adrenals: No right adrenal gland is unremarkable. Stable, nonspecific, nodular thickening of the left adrenal gland without discrete mass. Kidneys and ureters: Interval placement of a right percutaneous nephrostomy tube which passes down through the extrarenal pelvis to make a half loop terminating in the proximal right ureter. No subcutaneous or retroperitoneal fluid collection. Stable degree of periureteral fat stranding a to the pelvis. Stable large calculus in the right extrarenal pelvis/ureteral pelvic junction, but decreased staghorn extension into the calyces. Stable s 1 mall left renal cysts. No hydronephrosis. Stomach and bowel: Mild scattered colonic diverticulosis without signs of diverticulitis. No obstruction. No mucosal thickening. Appendix: No evidence of appendicitis. PELVIS: Right hip prosthesis produces a large amount of metal artifact, limiting evaluation of the pelvic structures. Bladder: Cuevas catheter in the urinary bladder with stable large calcification along the superior margin measuring 26 mm x 19 mm. There is intraluminal gas, consistent with instrumentation. Reproductive: Stable 5 cm right adnexal cyst. ABDOMEN and PELVIS: Intraperitoneal space: Unremarkable. No free air. No significant fluid collection. Bones/joints: No acute bony abnormality. Soft tissues: Unremarkable. Vasculature: Unremarkable. No abdominal aortic aneurysm. Lymph nodes: Unremarkable. No enlarged lymph nodes. IMPRESSION: 1. Right percutaneous nephrostomy tube with tip in the proximal right ureter. No fluid collection along the course of the tube. 2. Stable cholelithiasis. Dilated gallbladder without definite obstructing stone and no inflammatory changes. Dictated and Authenticated by: Tiffanie Martinez MD. Ordering:YAMILEX Conner MD
--- NOTE | 2018-06-02 14:59 | PDOC.ERCMPRO ---
Care Management Progress Note CM met with Deana and her , Jared. The couple reviewed current concerns about Deana's care needs at home and Jared was able to process his concerns and feeling he can no longer care for Deana's increasing needs (per his report). Deana processed feeling like a burden and not feeling safe being home when Jared couldn't care for her. Jared stated having to manage incontinence care multiple times throughout the day and worrying that when Deana gets up to the commode that she will fall as well as her nephrostomy tube leaking. CM reviewed current supports and Jared reported he would outreach to personal care attendants utilized prior through [facility] benefit hours through [employer]. CM agreed to fax referrals to all facilities within driving distance with bed availability; this process will begin tomorrow when admissions personnel are available. CM provided patient education around lack of bed availability, insurance limitations and levels of care. Jared reported the couple previously had a CM through [employer]; Mouna Chu but that currently her direct cloth brushing and sueding supervisor-Gabbie Evangelista was supporting them. Jared reports [facility] cleared Deana for discharge though he feels now that she is home that she was not ready.
[2018-06-02] MEDS: Albuterol 2.5 MG/3 ML INH SOLN VIAL UPD (15:28)
[2018-06-02] MEDS: Insulin REGULAR-Human 100 UNITS/ML UNIT SC (15:28)
[2018-06-02] MEDS: Sodium Bicarbonate 50 MEQ/50 ML SYR (15:28)
[2018-06-02] MEDS: Calcium Gluconate 4.65 MEQ/10 ML VIAL 4.65 MG IVP (15:28)
--- NOTE | 2018-06-02 16:20 | CMPROGNOTE_ITS ---
Care Management Progress Note CM met with Deana and her , Jared. The couple reviewed current concerns about Deana's care needs at home and Jared was able to process his concerns and feeling he can no longer care for Deana's increasing needs (per his report). Deana processed feeling like a burden and not feeling safe being home when Jared couldn't care for her. Jared stated having to manage incontinence care multiple times throughout the day and worrying that when Deana gets up to the commode that she will fall as well as her nephrostomy tube leaking. CM reviewed current supports and Jared reported he would outreach to personal care attendants utilized prior through [facility] benefit hours through [employer] CM agreed to fax referrals to all facilities within driving distance with bed availability; this process will begin tomorrow when admissions personnel are available. CM provided patient education around lack of bed availability, insurance limitations and levels of care. Jared reported the couple previously had a CM through [employer]; Mouna Chu but that currently her direct estimator and drafter supervisor-Gabbie Evangelista was supporting them. Jared reports [facility] cleared Deana for discharge though he feels now that she is home that she was not ready.
[2018-06-02 16:42] LABS: ALT 29 U/L (12-78); AST 23 U/L (15-37); Albumin 2.7 g/dL (3.4-5.0); Alkaline Phosphatase 109 U/L (46-116); BUN 22 mg/dL (7-18); Bilirubin, Total 0.2 mg/dL (0.2-1.0); Calcium 10.2 mg/dL (8.5-10.1); Chloride 101 mmol/L (98-107); Estimated GFR 48.82 (mL/min/1.73m2); Glucose 225 mg/dL (70-100); Potassium 4.7 mmol/L (3.5-5.1); Sodium 137 mmol/L (136-145); Total Protein 6.9 g/dL (6.4-8.2)
--- NOTE | 2018-06-02 20:39 | NUR.NOTE ---
Pt arrived from the ER accompanied by Nurse Venancio from that department on a stretcher. She is conscious alert, rational oriented x3. Verbalized pain 5/10 all over her body due to having back surgery 4 years ago. she also state she has dizziness when she moves, she is unable to walk independently but she is able to pivot and use a bedside commode. this her usual actions at home.She state she has good muscle strength to her upper extremities, but has moderate-severe ailment to her lower extremities. On assessment elderly female patient utilizing 2L oxygen via nasal cannula. In no respiratory or painful distress. Chest clear when ascultated. Abdomen obese but non-tender and soft when palpated. Nephrostomy tube to the right side draining dark colored urine appoximately 50 MLs currently in the bag. She has a toney insitu drained 1200 ML clear, yellow urine, same discarded at this time. Pt has a continuous shaking to her right arm state she has Parkinsonian disease. She has weakness to her lower extremities admits to having neuropathy. 1+ edema noted to bilateral ankle. Patient made comfortable in bed. oriented to room and policies, bed alarm put in place for safety, upper bedrails in place at this time. 20G branula noted to the right arm..
[2018-06-02] MEDS: Normal Saline Flush 10 ML SYR IVP (22:00)
[2018-06-02] MEDS: Normal Saline 1,000 ML 75 ML IV (22:01)
[2018-06-02] MEDS: Insulin Aspart 300 UNITS/3 ML PEN SC (22:41)
--- NOTE | 2018-06-02 23:51 | W.PM.HP.N ---
Date of service: 06/02/18 Time of Service: 23:51 Assessment and Plan (1) Failure to thrive: Current visit: Yes Status: Acute The patient will be evaluated by PT/OT in am with plans to go to jail as soon as bed is available. (2) UTI (urinary tract infection): Current visit: No Status: Acute Patient was d/c'ed from [facility] on bactrim DS having completed cipro there. There is no evidence of acute UTI here - but she was instructed to remain on antibiotics until stone retrieval. As the patient's potassium was borderline elevated, Bactrim DS was stopped, and cipro resumed. Per [facility] discharge summary, the urine culture was polymicrobial. (3) Hyperkalemia: Current visit: Yes Status: Acute In light of bactrim and Galdino-i use. Bactrim d/c'ed. Galdino-i remains for now, but if K again elevated, would d/c it. *I have reconciled the medications with the discharge list from [facility]. Per that discharge list, the patient was no longer on aldactone or Triamterene-HCTZ. (4) Diabetes mellitus type 2: Current visit: No Status: Chronic Continue lantus 30 units qHS. SSi while in the hospital. (5) Bipolar disorder: Current visit: No Status: Chronic Continue home therapy (6) Wound infection after surgery: Current visit: No Status: Resolved MSSA infection of spinal hardware, on chronic suppressive doxycycline - continue (7) COPD (chronic obstructive pulmonary disease): Current visit: No Status: Chronic Not in acute exacerbation. Continue asmanex and combivent. Target O2 sat >88%. Patient is not normally on O2 at home (8) Hypothyroidism: Current visit: No Status: Chronic Continue synthroid (9) DVT prophylaxis: Current visit: No Status: Acute Heparin Sq (can stop if bleeding around nephrostomy tube is clinically significant) (10) Discharge planning issues: Current visit: No Status: Acute DNR/DNI Will require SNF placement. PT/OT consulted History of Present Illness Chief Complaint: My nephrostomy tube was leaking Narrative: Ms Alvarado is a 73 year old female with PMHx of staghorn nephrolithiasis s/p nephrostomy tube at [facility] 05/19/18, d/c'ed on 05/31, as well as urinary incontinence s/p chronic indwelling toney catheter, Chronic MSSA hardware infection, on chronic suppressive therapy with doxycycline, noninsulin dependent diabetes mellitus type 2, hypertension, hyperlipidemia, anxiety, who came to [facility] ED today because her R nephrostomy tube was leaking. She had a CT of her abdomen and pelvis, which was reviewed by her urologist at [facility] and was felt to be in appropriate position. He recommended outpatient follow up, dressing changes, and no emergent intervention. Meanwhile, the patient's is unable to take care of her at home, and the patient/ would like jail placement. The patient was recently discharged from the [facility]. In addition, the patient was discharged form [facility] on 05/31 with DS bactrim post urological intervention, having completed her ciprofloxacin. Today, in the ER, her potassium was found to be 5.3 - it is 4.7 after treatment. Review of Systems Review of Systems 12 systems reviewed. 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) Chronic osteoarthritis (Acute) Chronic pain syndrome (Acute 08/21/12) Hypothyroidism (Chronic) Diabetes mellitus type 2 (Chronic) Bipolar disorder (Chronic) Chronic back pain (Chronic) Hyperlipidemia (Chronic) Anxiety (Chronic) Intention tremor (Chronic) 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 She recently returned home from a long stay at the [facility]. She has limited mobility and poor use of ADLs. Former smoker. No current alcohol use. Meds Home Medications Medication Instructions Recorded Confirmed Type Narcan 4 mg NS ONCE #1 inhn 01/19/16 06/02/18 Rx Prevail Brief Youth #60 isaac 01/25/16 06/02/18 History lamotrigine [Lamictal] 100 mg PO QAM #90 tab-cap 10/15/16 06/02/18 History citalopram [Celexa] 40 mg PO DAILY #90 tab-cap 12/07/17 06/02/18 Rx doxycycline hyclate 100 mg PO TID #270 tab-cap 12/07/17 06/02/18 Rx glimepiride 1 mg PO DAILY #30 tab-cap 12/07/17 06/02/18 Rx lamotrigine 200 mg PO HS #90 tab-cap 12/07/17 06/02/18 Rx levothyroxine [Synthroid] 100 mcg PO DAILY #90 tab-cap 12/07/17 06/02/18 Rx metformin [Glucophage] 1,000 mg PO BID@0800,1700 #180 tab 12/07/17 06/02/18 Rx oxybutynin chloride 5 mg PO BID #180 tab-cap 12/07/17 06/02/18 Rx pantoprazole 40 mg PO DAILY #90 tab-cap 12/07/17 06/02/18 Rx risperidone 3 mg PO DAILY #90 tab-cap 12/07/17 06/02/18 Rx simvastatin [Zocor] 0.5 tab PO DAILY #45 tab-cap 12/07/17 06/02/18 Rx fluticasone 1 spray NS DAILY #16 gm 12/24/17 06/02/18 Rx nystatin 1 applic TOPICAL BID #60 gm 12/26/17 06/02/18 Rx ferrous sulfate [Iron (ferrous 325 mg PO BID #180 tab-cap 01/18/18 06/02/18 Rx sulfate)] pregabalin 50 mg capsule 50 mg PO BID #60 cap 03/14/18 06/02/18 Rx dicyclomine 10 mg capsule 10 mg PO QID PRN #120 tab-cap 04/16/18 06/02/18 Rx methadone 10 mg tablet 10 mg PO BID #60 tab MDD 2 tabs 05/13/18 06/02/18 Rx dronabinol 2.5 mg capsule 2.5 mg PO BID PRN #60 cap 05/23/18 06/02/18 Rx aspirin 81 mg PO DAILY 06/03/18 06/03/18 History diazepam 2 mg PO Q6H PRN PRN 06/03/18 06/03/18 History insulin glargine [Lantus U-100 30 units SUBCUT HS 06/03/18 06/03/18 History Insulin] ipratropium-albuterol [Combivent 1 puff INHALATION Q6H PRN PRN 06/03/18 06/03/18 History Respimat] lisinopril 5 mg PO DAILY 06/03/18 06/03/18 History mometasone 1 puff INHALATION HS 06/03/18 06/03/18 History morphine [MS Contin] 15 mg PO BID 06/03/18 06/03/18 History polyethylene glycol 3350 [Miralax] 1 packet PO DAILY PRN PRN 06/03/18 06/03/18 History sulfamethoxazole-trimethoprim 1 tab PO DAILY 06/03/18 06/03/18 History [Bactrim DS] Allergies Allergy/AdvReac Type Severity Reaction Status Date / Time aripiprazole AdvReac Intermediate anxiety Unverified 06/02/18 16:15 prednisone AdvReac Intermediate Hallucinati Unverified 06/02/18 16:15 ons codeine AdvReac Mild GI Upset Unverified 06/02/18 16:15 azithromycin AdvReac Unknown Unverified 06/02/18 16:15 Exam Narrative Exam Narrative: General: Very pleasant elderly female, resting comfortably in bed, anxious, feels warm to touch Neurological: A&Ox3, no focal deficits Psychiatric: anxious Skin: no bruises/rashes; R nephrostomy tube insertion site is dressed HEENT: EOMI, MMM, clear oropharynx, no submandibular or cervical lymphadenopathy, no goiter or JVD Cardiovascular: RRR, tachycardic Lungs: CTAB Gastrointestinal: abdomen soft, nontender, nondistended : has a toney - pale clear yellow urine; nephrostomy bag with yellow urine and a couple of tiny blood clots Extremities: no edema, clubbing, or cyanosis of BLE's; 2+ pedal pulses B Results Imaging Additional studies: CT abdomen/pelvis: 1. Right percutaneous nephrostomy tube with tip in the proximal right ureter. No fluid collection along the course of the tube. 2. Stable cholelithiasis. Dilated gallbladder without definite obstructing stone and no inflammatory changes. Labs : 06/02/18 12:15 06/02/18 16:18 Laboratory Results - last 24 hr 06/02/18 06/02/18 06/02/18 12:15 12:15 12:46 WBC 9.00 RBC 3.66 L Hgb 10.2 L Hct 33.5 L MCV 91.5 MCH 27.9 MCHC 30.4 L RDW 20.6 H Plt Count 265 MPV 11.5 H Abs Immat Gran (auto) Immature Gran % 1.0 Neutrophils % 78.7 Lymphocytes % 8.1 Monocytes % 9.8 Eosinophils % 2.1 Basophils % 0.3 Absolute Neutrophils 7.08 H Band Neutrophils Absolute Lymphocytes 0.73 L Absolute Monocytes 0.88 H Absolute Eosinophils 0.19 Absolute Basophils 0.03 Metamyelocytes Myelocytes Promyelocytes Nucleated RBCs Differential Comment Atypical Lymphocytes Other Cell Type RBC Morphology Polychromasia Hypochromasia Poikilocytosis Basophilic Stippling Anisocytosis Microcytosis Macrocytosis Spherocytes Target Cells Tear Drop Cells Ovalocytes Stomatocytes [place]uel[place] Bodies Philip Cells Acanthocytes (Spur) Schistocytes Sodium 136 Potassium 5.3 H Chloride 101 Carbon Dioxide 28.4 Anion Gap 6.6 BUN 26 H Creatinine 1.35 H Estimated GFR/1.73 m2 38.55 Glucose 205 H Calcium 10.0 Magnesium Total Bilirubin 0.3 AST 23 ALT 31 Alkaline Phosphatase 113 Troponin I Total Protein 7.2 Albumin 2.9 L Urine Color [place] Urine Clarity Cloudy Urine pH 7.0 Ur Specific [place] 1.025 Urine Protein >=300 H Urine Ketones Negative Urine Blood Large H Urine Nitrite Negative Urine Bilirubin Negative Urine Urobilinogen 0.2 Ur Leukocyte Esterase Large H Urine RBC >50 H Urine WBC >50 Ur Epithelial Cells Urine Crystals Not Applicable Urine Bacteria Not Applicable Urine Mucus Not Applicable Ur Culture Indicated? Yes Urine Glucose Negative 06/02/18 06/02/18 06/02/18 16:18 17:43 17:43 WBC Cancelled RBC Cancelled Hgb Cancelled Hct Cancelled MCV Cancelled MCH Cancelled MCHC Cancelled RDW Cancelled Plt Count Cancelled MPV Cancelled Abs Immat Gran (auto) Cancelled Immature Gran % Cancelled Neutrophils % Cancelled Lymphocytes % Cancelled Monocytes % Cancelled Eosinophils % Cancelled Basophils % Cancelled Absolute Neutrophils Cancelled Band Neutrophils Cancelled Absolute Lymphocytes Cancelled Absolute Monocytes Cancelled Absolute Eosinophils Cancelled Absolute Basophils Cancelled Metamyelocytes Cancelled Myelocytes Cancelled Promyelocytes Cancelled Nucleated RBCs Cancelled Differential Comment Cancelled Atypical Lymphocytes Cancelled Other Cell Type Cancelled RBC Morphology Cancelled Polychromasia Cancelled Hypochromasia Cancelled Poikilocytosis Cancelled Basophilic Stippling Cancelled Anisocytosis Cancelled Microcytosis Cancelled Macrocytosis Cancelled Spherocytes Cancelled Target Cells Cancelled Tear Drop Cells Cancelled Ovalocytes Cancelled Stomatocytes Cancelled [place] Bodies Cancelled [place] Cells Cancelled Acanthocytes (Spur) Cancelled Schistocytes Cancelled Sodium 137 Cancelled Potassium 4.7 Cancelled Chloride 101 Cancelled Carbon Dioxide 30.0 Cancelled Anion Gap 6.0 Cancelled BUN 22 H Cancelled Creatinine 1.10 H Cancelled Estimated GFR/1.73 m2 48.82 Cancelled Glucose 225 H Cancelled Calcium 10.2 H Cancelled Magnesium Cancelled Total Bilirubin 0.2 Cancelled AST 23 Cancelled ALT 29 Cancelled Alkaline Phosphatase 109 Cancelled Troponin I Cancelled Total Protein 6.9 Cancelled Albumin 2.7 L Cancelled Urine Color Urine Clarity Urine pH Ur Specific [place] Urine Protein Urine Ketones Urine Blood Urine Nitrite Urine Bilirubin Urine Urobilinogen Ur Leukocyte Esterase Urine RBC Urine WBC Ur Epithelial Cells Urine Crystals Urine Bacteria Urine Mucus Ur Culture Indicated? Urine Glucose Last Vital Signs Temp 37.0 C 06/02/18 20:00 Pulse 77 06/02/18 20:00 Resp 16 06/02/18 20:00 BP 126/66 06/02/18 19:25 Pulse Ox 98 06/02/18 20:00
--- NOTE | 2018-06-02 23:57 | HPE_ITS ---
Date of service: 06/02/18 Time of Service: 23:51 Assessment and Plan (1) Failure to thrive: Current visit: Yes Status: Acute The patient will be evaluated by PT/OT in am with plans to go to penitentiary as soon as bed is available. (2) UTI (urinary tract infection): Current visit: No Status: Acute Patient was d/c'ed from [facility] on bactrim DS having completed cipro there. There is no evidence of acute UTI here - but she was instructed to remain on antibiotics until stone retrieval. As the patient's potassium was borderline elevated, Bactrim DS was stopped, and cipro resumed. Per [facility] discharge summary, the urine culture was polymicrobial. (3) Hyperkalemia: Current visit: Yes Status: Acute In light of bactrim and Galdino-i use. Bactrim d/c'ed. Galdino-i remains for now, but if K again elevated, would d/c it. *I have reconciled the medications with the discharge list from [facility]. Per that discharge list, the patient was no longer on aldactone or Triamterene-HCTZ. (4) Diabetes mellitus type 2: Current visit: No Status: Chronic Continue lantus 30 units qHS. SSi while in the hospital. (5) Bipolar disorder: Current visit: No Status: Chronic Continue home therapy (6) Wound infection after surgery: Current visit: No Status: Resolved MSSA infection of spinal hardware, on chronic suppressive doxycycline - continue (7) COPD (chronic obstructive pulmonary disease): Current visit: No Status: Chronic Not in acute exacerbation. Continue asmanex and combivent. Target O2 sat >88%. Patient is not normally on O2 at home (8) Hypothyroidism: Current visit: No Status: Chronic Continue synthroid (9) DVT prophylaxis: Current visit: No Status: Acute Heparin Sq (can stop if bleeding around nephrostomy tube is clinically significant) (10) Discharge planning issues: Current visit: No Status: Acute DNR/DNI Will require SNF placement. PT/OT consulted History of Present Illness Chief Complaint: My nephrostomy tube was leaking Narrative: Ms Alvarado is a 73 year old female with PMHx of staghorn nephrolithiasis s/p nephrostomy tube at [facility] 05/19/18, d/c'ed on 05/31, as well as urinary incontinence s/p chronic indwelling toney catheter, Chronic MSSA hardware infection, on chronic suppressive therapy with doxycycline, noninsulin dependent diabetes mellitus type 2, hypertension, hyperlipidemia, anxiety, who came to [facility] ED today because her R nephrostomy tube was leaking. She had a CT of her abdomen and pelvis, which was reviewed by her urologist at [facility] and was felt to be in appropriate position. He recommended outpatient follow up, dressing changes, and no emergent intervention. Meanwhile, the patient's is unable to take care of her at home, and the patient/ would like penitentiary placement. The patient was recently discharged from the [facility]. In addition, the patient was discharged form [facility] on 05/31 with DS bactrim post urological intervention, having completed her ciprofloxacin. Today, in the ER, her potassium was found to be 5.3 - it is 4.7 after treatment. Review of Systems Review of Systems 12 systems reviewed. 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) Chronic osteoarthritis (Acute) Chronic pain syndrome (Acute 08/21/12) Hypothyroidism (Chronic) Diabetes mellitus type 2 (Chronic) Bipolar disorder (Chronic) Chronic back pain (Chronic) Hyperlipidemia (Chronic) Anxiety (Chronic) Intention tremor (Chronic) 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 She recently returned home from a long stay at the [facility]. She has limited mobility and poor use of ADLs. Former smoker. No current alcohol use. Meds Home Medications Medication Instructions Recorded Confirmed Type Narcan 4 mg NS ONCE #1 inhn 01/19/16 06/02/18 Rx Prevail Brief Youth #60 isaac 01/25/16 06/02/18 History lamotrigine [Lamictal] 100 mg PO QAM #90 tab-cap 10/15/16 06/02/18 History citalopram [Celexa] 40 mg PO DAILY #90 tab-cap 12/07/17 06/02/18 Rx doxycycline hyclate 100 mg PO TID #270 tab-cap 12/07/17 06/02/18 Rx glimepiride 1 mg PO DAILY #30 tab-cap 12/07/17 06/02/18 Rx lamotrigine 200 mg PO HS #90 tab-cap 12/07/17 06/02/18 Rx levothyroxine [Synthroid] 100 mcg PO DAILY #90 tab-cap 12/07/17 06/02/18 Rx metformin [Glucophage] 1,000 mg PO BID@0800,1700 #180 tab 12/07/17 06/02/18 Rx oxybutynin chloride 5 mg PO BID #180 tab-cap 12/07/17 06/02/18 Rx pantoprazole 40 mg PO DAILY #90 tab-cap 12/07/17 06/02/18 Rx risperidone 3 mg PO DAILY #90 tab-cap 12/07/17 06/02/18 Rx simvastatin [Zocor] 0.5 tab PO DAILY #45 tab-cap 12/07/17 06/02/18 Rx fluticasone 1 spray NS DAILY #16 gm 12/24/17 06/02/18 Rx nystatin 1 applic TOPICAL BID #60 gm 12/26/17 06/02/18 Rx ferrous sulfate [Iron (ferrous 325 mg PO BID #180 tab-cap 01/18/18 06/02/18 Rx sulfate)] pregabalin 50 mg capsule 50 mg PO BID #60 cap 03/14/18 06/02/18 Rx dicyclomine 10 mg capsule 10 mg PO QID PRN #120 tab-cap 04/16/18 06/02/18 Rx methadone 10 mg tablet 10 mg PO BID #60 tab MDD 2 tabs 05/13/18 06/02/18 Rx dronabinol 2.5 mg capsule 2.5 mg PO BID PRN #60 cap 05/23/18 06/02/18 Rx aspirin 81 mg PO DAILY 06/03/18 06/03/18 History diazepam 2 mg PO Q6H PRN PRN 06/03/18 06/03/18 History insulin glargine [Lantus U-100 30 units SUBCUT HS 06/03/18 06/03/18 History Insulin] ipratropium-albuterol [Combivent 1 puff INHALATION Q6H PRN PRN 06/03/18 06/03/18 History Respimat] lisinopril 5 mg PO DAILY 06/03/18 06/03/18 History mometasone 1 puff INHALATION HS 06/03/18 06/03/18 History morphine [MS Contin] 15 mg PO BID 06/03/18 06/03/18 History polyethylene glycol 3350 [Miralax] 1 packet PO DAILY PRN PRN 06/03/18 06/03/18 History sulfamethoxazole-trimethoprim 1 tab PO DAILY 06/03/18 06/03/18 History [Bactrim DS] Allergies Allergy/AdvReac Type Severity Reaction Status Date / Time aripiprazole AdvReac Intermediate anxiety Unverified 06/02/18 16:15 prednisone AdvReac Intermediate Hallucinati Unverified 06/02/18 16:15 ons codeine AdvReac Mild GI Upset Unverified 06/02/18 16:15 azithromycin AdvReac Unknown Unverified 06/02/18 16:15 Exam Narrative Exam Narrative: General: Very pleasant elderly female, resting comfortably in bed, anxious, feels warm to touch Neurological: A&Ox3, no focal deficits Psychiatric: anxious Skin: no bruises/rashes; R nephrostomy tube insertion site is dressed HEENT: EOMI, MMM, clear oropharynx, no submandibular or cervical lymphadenopathy, no goiter or JVD Cardiovascular: RRR, tachycardic Lungs: CTAB Gastrointestinal: abdomen soft, nontender, nondistended : has a toney - pale clear yellow urine; nephrostomy bag with yellow urine and a couple of tiny blood clots Extremities: no edema, clubbing, or cyanosis of BLE's; 2+ pedal pulses B Results Imaging Additional studies: CT abdomen/pelvis: 1. Right percutaneous nephrostomy tube with tip in the proximal right ureter. No fluid collection along the course of the tube. 2. Stable cholelithiasis. Dilated gallbladder without definite obstructing stone and no inflammatory changes. Labs : 06/02/18 12:15 06/02/18 16:18 Laboratory Results - last 24 hr 06/02/18 06/02/18 06/02/18 12:15 12:15 12:46 WBC 9.00 RBC 3.66 L Hgb 10.2 L Hct 33.5 L MCV 91.5 MCH 27.9 MCHC 30.4 L RDW 20.6 H Plt Count 265 MPV 11.5 H Abs Immat Gran (auto) Immature Gran % 1.0 Neutrophils % 78.7 Lymphocytes % 8.1 Monocytes % 9.8 Eosinophils % 2.1 Basophils % 0.3 Absolute Neutrophils 7.08 H Band Neutrophils Absolute Lymphocytes 0.73 L Absolute Monocytes 0.88 H Absolute Eosinophils 0.19 Absolute Basophils 0.03 Metamyelocytes Myelocytes Promyelocytes Nucleated RBCs Differential Comment Atypical Lymphocytes Other Cell Type RBC Morphology Polychromasia Hypochromasia Poikilocytosis Basophilic Stippling Anisocytosis Microcytosis Macrocytosis Spherocytes Target Cells Tear Drop Cells Ovalocytes Stomatocytes [place] Bodies Philip Cells Acanthocytes (Spur) Schistocytes Sodium 136 Potassium 5.3 H Chloride 101 Carbon Dioxide 28.4 Anion Gap 6.6 BUN 26 H Creatinine 1.35 H Estimated GFR/1.73 m2 38.55 Glucose 205 H Calcium 10.0 Magnesium Total Bilirubin 0.3 AST 23 ALT 31 Alkaline Phosphatase 113 Troponin I Total Protein 7.2 Albumin 2.9 L Urine Color [place] Urine Clarity Cloudy Urine pH 7.0 Ur Specific [place] 1.025 Urine Protein >=300 H Urine Ketones Negative Urine Blood Large H Urine Nitrite Negative Urine Bilirubin Negative Urine Urobilinogen 0.2 Ur Leukocyte Esterase Large H Urine RBC >50 H Urine WBC >50 Ur Epithelial Cells Urine Crystals Not Applicable Urine Bacteria Not Applicable Urine Mucus Not Applicable Ur Culture Indicated? Yes Urine Glucose Negative 06/02/18 06/02/18 06/02/18 16:18 17:43 17:43 WBC Cancelled RBC Cancelled Hgb Cancelled Hct Cancelled MCV Cancelled MCH Cancelled MCHC Cancelled RDW Cancelled Plt Count Cancelled MPV Cancelled Abs Immat Gran (auto) Cancelled Immature Gran % Cancelled Neutrophils % Cancelled Lymphocytes % Cancelled Monocytes % Cancelled Eosinophils % Cancelled Basophils % Cancelled Absolute Neutrophils Cancelled Band Neutrophils Cancelled Absolute Lymphocytes Cancelled Absolute Monocytes Cancelled Absolute Eosinophils Cancelled Absolute Basophils Cancelled Metamyelocytes Cancelled Myelocytes Cancelled Promyelocytes Cancelled Nucleated RBCs Cancelled Differential Comment Cancelled Atypical Lymphocytes Cancelled Other Cell Type Cancelled RBC Morphology Cancelled Polychromasia Cancelled Hypochromasia Cancelled Poikilocytosis Cancelled Basophilic Stippling Cancelled Anisocytosis Cancelled Microcytosis Cancelled Macrocytosis Cancelled Spherocytes Cancelled Target Cells Cancelled Tear Drop Cells Cancelled Ovalocytes Cancelled Stomatocytes Cancelled [place] Bodies Cancelled [place] Cells Cancelled Acanthocytes (Spur) Cancelled Schistocytes Cancelled Sodium 137 Cancelled Potassium 4.7 Cancelled Chloride 101 Cancelled Carbon Dioxide 30.0 Cancelled Anion Gap 6.0 Cancelled BUN 22 H Cancelled Creatinine 1.10 H Cancelled Estimated GFR/1.73 m2 48.82 Cancelled Glucose 225 H Cancelled Calcium 10.2 H Cancelled Magnesium Cancelled Total Bilirubin 0.2 Cancelled AST 23 Cancelled ALT 29 Cancelled Alkaline Phosphatase 109 Cancelled Troponin I Cancelled Total Protein 6.9 Cancelled Albumin 2.7 L Cancelled Urine Color Urine Clarity Urine pH Ur Specific [place] Urine Protein Urine Ketones Urine Blood Urine Nitrite Urine Bilirubin Urine Urobilinogen Ur Leukocyte Esterase Urine RBC Urine WBC Ur Epithelial Cells Urine Crystals Urine Bacteria Urine Mucus Ur Culture Indicated? Urine Glucose Last Vital Signs Temp 37.0 C 06/02/18 20:00 Pulse 77 06/02/18 20:00 Resp 16 06/02/18 20:00 BP 126/66 06/02/18 19:25 Pulse Ox 98 06/02/18 20:00
[2018-06-03 00:16] VITALS: BP 148/73; PULSE 99; RESP 19; TEMP 37.3; O2SAT 95
[2018-06-03] MEDS: risperiDONE 1 MG TAB 3 MG PO ×2 (00:23→22:43)
[2018-06-03] MEDS: Ciprofloxacin 250 MG/5 ML 100ML BTL PO ×3 (01:12→20:58)
[2018-06-03] MEDS: Diazepam 2 MG TAB PO ×2 (01:30→13:41)
[2018-06-03] MEDS: Heparin 5,000 UNITS/ML VIAL 5000 UNITS SC ×2 (01:30→12:06)
[2018-06-03] MEDS: Acetaminophen 325 MG TAB PO (01:30)
[2018-06-03] MEDS: Levothyroxine 100 MCG TAB PO (05:47)
[2018-06-03 07:22] LABS: Abs Immature Grans 0.07 k/cumm (0.0-0.09); Absolute Basophil Count 0.02 k/cumm (0.0-0.2); Absolute Eosinophil Count 0.23 k/cumm (0.0-0.7); Absolute Lymphocyte Count 0.75 k/cumm (1.2-3.4); Absolute Monocyte Count 0.79 k/cumm (0.11-0.7); Basophils % 0.3; Eosinophils % 3.4; HCT 32.6 % (36.0-46.0); HGB 9.8 g/dL (12.0-15.5); Lymphocytes % 10.9; Mean Corp. HGB Concentration 30.1 g/dL (32.0-36.0); Mean Corpuscular Hemoglobin 27.3 pg (27.0-33.0); Mean Corpuscular Volume 90.8 fL (80-95); Mean Platelet Volume 11.4 fL (8.0-11.0); Monocytes % 11.5; Neutrophils % 72.9; Platelet Count 227 x1000/uL (130-400); RBC 3.59 m/cumm (4.00-5.20); RBC Distribution Width 20.2 % (11.7-14.6); White Blood Cell Count 6.86 k/cumm (4.4-10.8)
[2018-06-03 07:36] LABS: Anion Gap 5.8 mmol/L (3-11); BUN 14 mg/dL (7-18); CO2 29.2 mmol/L (21.0-32.0); CREATININE 0.77 mg/dL (0.55-1.02); Calcium 9.9 mg/dL (8.5-10.1); Chloride 100 mmol/L (98-107); Glucose 232 mg/dL (70-100); Magnesium 1.6 mg/dL (1.8-2.4); Potassium 4.3 mmol/L (3.5-5.1); Sodium 135 mmol/L (136-145)
[2018-06-03 07:40] VITALS: BP 127/66; PULSE 93; RESP 18; TEMP 36.5; O2SAT 98
[2018-06-03] MEDS: Pregabalin 50 MG CAP PO ×2 (08:34→20:59)
[2018-06-03] MEDS: Lisinopril 5 MG TAB PO (08:35)
[2018-06-03] MEDS: Citalopram 20 MG TAB 40 MG PO (08:35)
[2018-06-03] MEDS: Pantoprazole 40 MG TABCR PO (08:35)
[2018-06-03] MEDS: Oxybutynin 5 MG TAB PO ×2 (08:35→20:58)
[2018-06-03] MEDS: Methadone 10 MG TAB PO ×2 (08:35→20:58)
[2018-06-03] MEDS: Ferrous Sulfate 325 MG TAB PO ×2 (08:36→20:58)
[2018-06-03] MEDS: Simvastatin 40 MG TAB 20 MG PO (08:36)
[2018-06-03] MEDS: lamoTRIgine 100 MG TAB PO (08:36)
[2018-06-03] MEDS: Fluticasone NASAL SPRAY 16 GM BTL NS (08:44)
[2018-06-03] MEDS: Nystatin CREAM 30 GM TUBE TP ×2 (08:45→22:40)
[2018-06-03] MEDS: Insulin Aspart 300 UNITS/3 ML PEN SC ×4 (08:45→22:42)
[2018-06-03] MEDS: MAGNESIUM SULFATE 2 GM/50 ML BAG IVPB (09:36)
[2018-06-03] MEDS: Normal Saline 1,000 ML 75 ML IV (09:36)
[2018-06-03] MEDS: Doxycycline Hyclate 100 MG CAP PO ×3 (10:19→20:58)
[2018-06-03] MEDS: Metoprolol CR 25 MG TABCR PO (11:23)
[2018-06-03] MEDS: clonazePAM 0.5 MG TAB PO ×2 (11:23→20:58)
[2018-06-03] MEDS: Dronabinol 2.5 MG CAP PO ×2 (11:23→16:52)
--- NOTE | 2018-06-03 11:46 | OT.INIE ---
Occupational Therapy Notes Inpatient Occupational Therapy Evaluation Date: 06/03/18 Referring Doctor:Nora Simons MD OT Orders: Eval and treat Precautions: Standard, Fall Precautions PATIENT PROFILE/ADMITTING DIAGNOSIS: Pt is a 73 year old female who was admitted through the ER on 06/02/18 for failure to thrive at home, acute hyperkalemia, and malfunction of nephrostomy tube. Past Medical History: Schizoaffective disorder bipolar, chronic pain syndrome, scoliosis, spinal stenosis s/p spinal fusion, lumbar radicular pain, degenerative joint disease of pelvis, total hip arthroplasty, osteoarthritis, obesity, anxiety, intention tremor, hyperlipidemia, hypothyroidism, hypomagnesemia, chronic obstructive pulmonary disease, history of electroshock therapy, tonsillectomy, parkinsonism due to drug, bowel obstruction, drug-induced ileus. Social History/Home Situation: Pt reports that she lives in her home with her . She describes herself as bed bound. She states that she does not leave her home throughout the day and that she has an aide who comes into their home 6 days/week who (A) her with dressing, bathing, and ADL/IADL routines as needed. She states that her functional baseline for ADLs/IADLs is that she requires (A) for everything except soaking her teeth and eating, she uses a commode which she state she is able to (I) use. She states that the aide that comes into her home is there to specifically help her with her ADL routines. They recently had a ramp installed at her home as she uses a wheelchair for mobility. She drinks from a cup with (B) handles and cover with spout to avoid spilling fluids on herself and has min (A) for opening and closing containers during eating routine. Equipment owned/DME: Pt reports that she has a FWW, hospital bed, commode, raised toilet seat, grab bars. SUBJECTIVE: Pt was lying in bed when OT arrived. She was agreeable to OT consult although does report that she has a caregiver who helps her with all ADLs/IADLs at baseline. OBJECTIVE: General Observation: IV (R) UE, nephrostomy tube Mental Status: A&Ox3 Pain: Pt c/o pain during OT consult but reports them as a whole body pain. OT notified nursing. ROM: RUE Shoulder flexion WNL, elbow WNL, hand and wrist WNL L UE Shoulder flexion WNL, elbow WNL, hand and wrist WNL STRENGTH: RUE Shoulder flexion 4/5, elbow 4/5, sous chef kitchen manager 4/5 LUE Shoulder flexion 4/5, elbow 4/5, sous chef kitchen manager 4/5 FUNCTIONAL MOBILITY/ADLS: Transfers Supine-sit S Sit-supine S BALANCE: Static sitting Normal Dynamic Sitting Good SPECIAL TESTS: Daily Activity Limitations Standardized Measure [facility] AM -PAC ?6 clicks? Daily Activity Inpatient Short Form: Raw score: 14 Standardized score: 33.39 CMS score:59.67% CMS modifier: CK INFORMED CONSENT/EDUCATION: Pt instructed in purpose of OT Consult and plan of care. ASSESSMENT: Patient is a 73-year-old female referred to occupational therapy services with diagnosis of failure to thrive at home, acute hyperkalemia, and malfunction of nephrostomy tube in setting of Schizoaffective disorder bipolar, chronic pain syndrome, scoliosis, spinal stenosis s/p spinal fusion, lumbar radicular pain, degenerative joint disease of pelvis, total hip arthroplasty, osteoarthritis, obesity, anxiety, intention tremor, hyperlipidemia, hypothyroidism, hypomagnesemia, chronic obstructive pulmonary disease, history of electroshock therapy, tonsillectomy, parkinsonism due to drug, bowel obstruction, drug-induced ileus. Patient presents with clinical signs and symptoms consistent with dx, as demonstrated by the following impairment level findings: decreased (I) in ADLS/IADLs, decreased functional activity tolerance. Impairments are contributing to the following functional limitations: Decreased (I) with dressing, bathing, grooming and min (A) with eating routines. Pt reports that her baseline level of function is (A) with all ADLs/IADLs and that she doesn't perform any of these on a regular day to day basis. Due to pts premorbid level of function and an aide who comes into pts home 6 days per week to (A) with ADL/IADL routines, pt does not feel that she will need OT services. She does report that she is planning to attend SNF when medically cleared per MD as her is unable to maintain her care at home and she feels she needs more help. OT recommends that pt go to SNF when medically cleared per MD as pt requires mod-max (A) for all ADLS at baseline. At this time OT will discharge pt from skilled OT services. AMPAC score 14, CMS score 59.67% Patient is assessed as a high 86319 complexity based on the following: History: Schizoaffective disorder bipolar, chronic pain syndrome, scoliosis, spinal stenosis s/p spinal fusion, lumbar radicular pain, degenerative joint disease of pelvis, total hip arthroplasty, osteoarthritis, obesity, anxiety, intention tremor, hyperlipidemia, hypothyroidism, hypomagnesemia, chronic obstructive pulmonary disease, history of electroshock therapy, tonsillectomy, parkinsonism due to drug, bowel obstruction, drug-induced ileus. Examination: See Above Presentation: Evolving Decision Making: AMAC score 14, CMS score 59.67% GOALS N/A PLAN OF CARE/TREATMENT PLAN: OT consult only DISCHARGE RECOMMENDATIONS SNF when medically cleared per MD. TREATMENT TIME/MINUTES/CODES IE 23 minutes (08:02) G Codes in the area of self- : washing oneself, toileting, dressing, eating and drinking, current status GO [id number] CK projected status GO [id number]. Discharge status (if discharging) GO [id number] based on [facility] score of 14, CMS core 59.67%. Thank you for this referral. Donna Simental, OTR/L [facility]
[2018-06-03] MEDS: Normal Saline Flush 10 ML SYR IVP (12:06)
--- NOTE | 2018-06-03 12:19 | PT.INIE ---
Date of service: 06/03/18 Time of Service: 10:30 PT Notes Inpatient Physical Therapy Evaluation Date: 06/03/18 Referring Doctor:Nora Simons MD OT Orders: Eval and treat Precautions: Standard, Fall Precautions PATIENT PROFILE/ADMITTING DIAGNOSIS: Pt is a 73 year old female who was admitted through the ER on 06/02/18 for failure to thrive at home, acute hyperkalemia, and malfunction of nephrostomy tube. Past Medical History: Schizoaffective disorder bipolar, chronic pain syndrome, scoliosis, spinal stenosis s/p spinal fusion, lumbar radicular pain, degenerative joint disease of pelvis, total hip arthroplasty, osteoarthritis, obesity, anxiety, intention tremor, hyperlipidemia, hypothyroidism, hypomagnesemia, chronic obstructive pulmonary disease, history of electroshock therapy, tonsillectomy, parkinsonism due to drug, bowel obstruction, drug-induced ileus. Social History/Home Situation: Pt reports that she lives in her home with her . She describes herself as bed bound. She states that she does not leave her home throughout the day and that she has an aide who comes into their home 6 days/week who (A) her with dressing, bathing, and ADL/IADL routines as needed. She states that her functional baseline for ADLs/IADLs is that she requires (A) for everything except soaking her teeth and eating, she uses a commode which she state she is able to (I) use via stand pivot transfer with UE support to WW. She states that the aide that comes into her home is there to specifically help her with her ADL routines. They recently had a ramp installed at her home as she uses a wheelchair for mobility. Equipment owned/DME: Pt reports that she has a FWW, hospital bed, commode, raised toilet seat, grab bars. SUBJECTIVE: Pt was lying in bed when PT arrived. She was agreeable to PT consult although does report that she is unwilling to transfer or stand at time of consultation. OBJECTIVE: General Observation: IV (R) UE, nephrostomy tube Mental Status: A&Ox3 Pain: Pt c/o back pain during PT consult, which she reports is at baseline level. ROM: RUE Shoulder flexion WNL, elbow WNL, hand and wrist WNL L UE Shoulder flexion WNL, elbow WNL, hand and wrist WNL LLE: Grossly WFL, with the exception of ankle DF, which is -5 degrees RLE: Grossly WFL, with the exception of ankle DF, which is -10 STRENGTH: RUE Shoulder flexion 4/5, elbow 4/5, gaming worker 4/5 LUE Shoulder flexion 4/5, elbow 4/5, gaming worker 4/5 LLE: Hip flexion 3+/5, quads 4-/5, HS 4-/5, ankle DF 3-/5 RLE: Hip flexion 3+/5, quads 4-/5, HS 4-/5, ankle DF 3-/5 Transfers : rolling supine->left: partial roll, independently Supine-sit: independent with HOB at 30 degrees Sit-supine independent with HOB at 30 degrees BALANCE: Static sitting: Good Dynamic Sitting Good Static Standing: unable Dynamic Standing: unable SPECIAL TESTS: Daily Activity Limitations Standardized Measure [facility] AM -PAC ?6 clicks? Daily Activity Inpatient Short Form: Raw score: 14 Standardized score: 38 CMS score:61% CMS modifier: CL Treatment: Today's session consisted of evaluation, followed by instruction in a therapeutic exercise program, including both supine and seated activities as noted on flowsheet. Patient received manual stretching into ankle DF bilat, for 30seconds x 2 each. Informed Consent/Education: Patient instructed in purpose of PT consult and plan of care. Assessment: Patient is a 73 year old female referred to physical therapy services with the diagnosis of diminished mobility related to complicated medical history, with failure to thrive. She has very minimal mobility at home at baseline, and is unfortunately unable to effective manage in the home at this time. She will require placement to SNF following her acute care stay to allow for rehabilitation prior to returning home. Patient presents with clinical signs and symptoms consistent with diagnosis, as demonstrated by the following impairment level findings: 1. Decreased LE strength 2. Contractures of bilat ankles 3. Decreased activity tolerance Impairments are contributing to the following functional limitations: 1. Unable to ambulate 2. Unable to transfer 3. Decreased activity tolerance [facility] score 61% deficit. Patient is assessed as a Moderate [id number] complexity based on the following: History: 73-year-old female admitted for failure to thrive in the home, with multiple medical comorbidities including chronic MRSA infection,Schizoaffective disorder bipolar, chronic pain syndrome, scoliosis, spinal stenosis s/p spinal fusion, lumbar radicular pain, degenerative joint disease of pelvis, total hip arthroplasty, osteoarthritis, obesity, anxiety, intention tremor, hyperlipidemia, hypothyroidism, hypomagnesemia, chronic obstructive pulmonary disease, history of electroshock therapy, tonsillectomy, parkinsonism Examination: Functional limitations as noted above Presentation: Evolving Decision Making: Moderate complexity Goals: Goals X1 week 1. Supine-Sit : independent 2. Sit-Supine independent 3. Sit-Stand independent with WW 4. Stand-Sit independent with WW 5. Bed-Chair independent with WW 6. Chair-Bed independent with WW Plan of Care/Treatment Plan: 1-2x/day, 7 days/week x 1 week. Plan of care has been reviewed with the FLUID PUMP OPERATOR providing the service under Physical Therapy direction. Initiate Physical Therapy intervention for strengthening, bed mobility, transfers, gait, stairs, balance training, use of assistive device. DISCHARGE RECOMMENDATIONS: care home facility for continued rehabilitation prior to returning home TREATMENT CODE/TIME: 30 minutes (62486, [id number]) G Codes in the area mobility of walking and moving around: current status [id number] ; projected status GP [id number]. Discharge status (if discharging) GP G8980 CL.
--- NOTE | 2018-06-03 12:33 | IN_ITS ---
Date of service: 06/03/18 Time of Service: 10:30 PT Notes Inpatient Physical Therapy Evaluation Date: 06/03/18 Referring Doctor:Nora Simons MD OT Orders: Eval and treat Precautions: Standard, Fall Precautions PATIENT PROFILE/ADMITTING DIAGNOSIS: Pt is a 73 year old female who was admitted through the ER on 06/02/18 for failure to thrive at home, acute hyperkalemia, and malfunction of nephrostomy tube. Past Medical History: Schizoaffective disorder bipolar, chronic pain syndrome, scoliosis, spinal stenosis s/p spinal fusion, lumbar radicular pain, degenerative joint disease of pelvis, total hip arthroplasty, osteoarthritis, obesity, anxiety, intention tremor, hyperlipidemia, hypothyroidism, hypomagnesemia, chronic obstructive pulmonary disease, history of electroshock therapy, tonsillectomy, parkinsonism due to drug, bowel obstruction, drug- induced ileus. Social History/Home Situation: Pt reports that she lives in her home with her . She describes herself as bed bound. She states that she does not leave her home throughout the day and that she has an aide who comes into their home 6 days/week who (A) her with dressing, bathing, and ADL/IADL routines as needed. She states that her functional baseline for ADLs/IADLs is that she requires (A) for everything except soaking her teeth and eating, she uses a commode which she state she is able to (I) use via stand pivot transfer with UE support to WW. She states that the aide that comes into her home is there to specifically help her with her ADL routines. They recently had a ramp installed at her home as she uses a wheelchair for mobility. Equipment owned/DME: Pt reports that she has a FWW, hospital bed, commode, raised toilet seat, grab bars. SUBJECTIVE: Pt was lying in bed when PT arrived. She was agreeable to PT consult although does report that she is unwilling to transfer or stand at time of consultation. OBJECTIVE: General Observation: IV (R) UE, nephrostomy tube Mental Status: A&Ox3 Pain: Pt c/o back pain during PT consult, which she reports is at baseline level. ROM: RUE Shoulder flexion WNL, elbow WNL, hand and wrist WNL L UE Shoulder flexion WNL, elbow WNL, hand and wrist WNL LLE: Grossly WFL, with the exception of ankle DF, which is -5 degrees RLE: Grossly WFL, with the exception of ankle DF, which is -10 STRENGTH: RUE Shoulder flexion 4/5, elbow 4/5, examiner of currency 4/5 LUE Shoulder flexion 4/5, elbow 4/5, examiner of currency 4/5 LLE: Hip flexion 3+/5, quads 4-/5, HS 4-/5, ankle DF 3-/5 RLE: Hip flexion 3+/5, quads 4-/5, HS 4-/5, ankle DF 3-/5 Transfers : rolling supine->left: partial roll, independently Supine-sit: independent with HOB at 30 degrees Sit-supine independent with HOB at 30 degrees BALANCE: Static sitting: Good Dynamic Sitting Good Static Standing: unable Dynamic Standing: unable SPECIAL TESTS: Daily Activity Limitations Standardized Measure [facility] AM -PAC ?6 clicks? Daily Activity Inpatient Short Form: Raw score: 14 Standardized score: 38 CMS score:61% CMS modifier: CL Treatment: Today's session consisted of evaluation, followed by instruction in a therapeutic exercise program, including both supine and seated activities as noted on flowsheet. Patient received manual stretching into ankle DF bilat, for 30seconds x 2 each. Informed Consent/Education: Patient instructed in purpose of PT consult and plan of care. Assessment: Patient is a 73 year old female referred to physical therapy services with the diagnosis of diminished mobility related to complicated medical history, with failure to thrive. She has very minimal mobility at home at baseline, and is unfortunately unable to effective manage in the home at this time. She will require placement to SNF following her acute care stay to allow for rehabilitation prior to returning home. Patient presents with clinical signs and symptoms consistent with diagnosis, as demonstrated by the following impairment level findings: 1. Decreased LE strength 2. Contractures of bilat ankles 3. Decreased activity tolerance Impairments are contributing to the following functional limitations: 1. Unable to ambulate 2. Unable to transfer 3. Decreased activity tolerance [facility] score 61% deficit. Patient is assessed as a Moderate 23786 complexity based on the following: History: 73-year-old female admitted for failure to thrive in the home, with multiple medical comorbidities including chronic MRSA infection,Schizoaffective disorder bipolar, chronic pain syndrome, scoliosis, spinal stenosis s/p spinal fusion, lumbar radicular pain, degenerative joint disease of pelvis, total hip arthroplasty, osteoarthritis, obesity, anxiety, intention tremor, hyperlipidemia, hypothyroidism, hypomagnesemia, chronic obstructive pulmonary disease, history of electroshock therapy, tonsillectomy, parkinsonism Examination: Functional limitations as noted above Presentation: Evolving Decision Making: Moderate complexity Goals: Goals X1 week 1. Supine-Sit : independent 2. Sit-Supine independent 3. Sit-Stand independent with WW 4. Stand-Sit independent with WW 5. Bed-Chair independent with WW 6. Chair-Bed independent with WW Plan of Care/Treatment Plan: 1-2x/day, 7 days/week x 1 week. Plan of care has been reviewed with the ULTRASONIC TESTER providing the service under Physical Therapy direction. Initiate Physical Therapy intervention for strengthening, bed mobility, transfers, gait, stairs, balance training, use of assistive device. DISCHARGE RECOMMENDATIONS: long-term facility for continued rehabilitation prior to returning home TREATMENT CODE/TIME: 30 minutes ([id number], [id number]) G Codes in the area mobility of walking and moving around: current status [id number] ; projected status GP [id number]. Discharge status (if discharging) GP G8980 CL.
--- NOTE | 2018-06-03 13:58 | HPE_ITS ---
Assessment and Plan (1) Hyperkalemia: Start date: 06/03/18 Start time: 13:55 Current visit: Yes Status: Acute K+ level corrected at this time, continue to monitor (2) Failure to thrive: Start date: 06/03/18 Start time: 13:55 Current visit: Yes Status: Acute worked with PT/OT today, did not want to get OOB. PT gave in bed exercises. Foot drop to left foot, exercises given by PT (3) Tremor: Start date: 06/03/18 Start time: 13:56 Current visit: Yes Status: Acute Chronic, does not have pain multiple medications. 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) COPD (chronic obstructive pulmonary disease) (Chronic) 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) Chronic osteoarthritis (Acute) Chronic pain syndrome (Acute 08/21/12) Hypothyroidism (Chronic) Diabetes mellitus type 2 (Chronic) Bipolar disorder (Chronic) Chronic back pain (Chronic) Hyperlipidemia (Chronic) Anxiety (Chronic) Intention tremor (Chronic) 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 She recently returned home from a long stay at the [facility]. She has limited mobility and poor use of ADLs. Former smoker. No current alcohol use. Meds Home Medications Medication Instructions Recorded Confirmed Type Narcan 4 mg NS ONCE #1 inhn 01/19/16 06/02/18 Rx Prevail Brief Youth #60 isaac 01/25/16 06/02/18 History lamotrigine [Lamictal] 100 mg PO QAM #90 tab-cap 10/15/16 06/02/18 History citalopram [Celexa] 40 mg PO DAILY #90 tab-cap 12/07/17 06/02/18 Rx doxycycline hyclate 100 mg PO TID #270 tab-cap 12/07/17 06/02/18 Rx glimepiride 1 mg PO DAILY #30 tab-cap 12/07/17 06/02/18 Rx lamotrigine 200 mg PO HS #90 tab-cap 12/07/17 06/02/18 Rx levothyroxine [Synthroid] 100 mcg PO DAILY #90 tab-cap 12/07/17 06/02/18 Rx metformin [Glucophage] 1,000 mg PO BID@0800,1700 #180 tab 12/07/17 06/02/18 Rx oxybutynin chloride 5 mg PO BID #180 tab-cap 12/07/17 06/02/18 Rx pantoprazole 40 mg PO DAILY #90 tab-cap 12/07/17 06/02/18 Rx risperidone 3 mg PO DAILY #90 tab-cap 12/07/17 06/03/18 Rx simvastatin [Zocor] 0.5 tab PO DAILY #45 tab-cap 12/07/17 06/02/18 Rx fluticasone 1 spray NS DAILY #16 gm 12/24/17 06/02/18 Rx nystatin 1 applic TOPICAL BID #60 gm 12/26/17 06/02/18 Rx ferrous sulfate [Iron (ferrous 325 mg PO BID #180 tab-cap 01/18/18 06/02/18 Rx sulfate)] pregabalin 50 mg capsule 50 mg PO BID #60 cap 03/14/18 06/02/18 Rx dicyclomine 10 mg capsule 10 mg PO QID PRN #120 tab-cap 04/16/18 06/02/18 Rx methadone 10 mg tablet 10 mg PO BID #60 tab MDD 2 tabs 05/13/18 06/02/18 Rx dronabinol 2.5 mg capsule 2.5 mg PO BID PRN #60 cap 05/23/18 06/02/18 Rx aspirin 81 mg PO DAILY 06/03/18 06/03/18 History diazepam 2 mg PO Q6H PRN PRN 06/03/18 06/03/18 History insulin glargine [Lantus U-100 30 units SUBCUT HS 06/03/18 06/03/18 History Insulin] ipratropium-albuterol [Combivent 1 puff INHALATION Q6H PRN PRN 06/03/18 06/03/18 History Respimat] lisinopril 5 mg PO DAILY 06/03/18 06/03/18 History mometasone 1 puff INHALATION HS 06/03/18 06/03/18 History morphine [MS Contin] 15 mg PO BID 06/03/18 06/03/18 History polyethylene glycol 3350 [Miralax] 1 packet PO DAILY PRN PRN 06/03/18 06/03/18 History sulfamethoxazole-trimethoprim 1 tab PO DAILY 06/03/18 06/03/18 History [Bactrim DS] Allergies Allergy/AdvReac Type Severity Reaction Status Date / Time aripiprazole AdvReac Intermediate anxiety Unverified 06/02/18 16:15 prednisone AdvReac Intermediate Hallucinati Unverified 06/02/18 16:15 ons codeine AdvReac Mild GI Upset Unverified 06/02/18 16:15 azithromycin AdvReac Unknown Unverified 06/02/18 16:15 Results Labs : 06/03/18 06:40 06/03/18 06:40 Laboratory Results - last 24 hr 06/02/18 06/02/18 06/02/18 16:18 17:43 17:43 WBC Cancelled RBC Cancelled Hgb Cancelled Hct Cancelled MCV Cancelled MCH Cancelled MCHC Cancelled RDW Cancelled Plt Count Cancelled MPV Cancelled Abs Immat Gran (auto) Cancelled Immature Gran % Cancelled Neutrophils % Cancelled Lymphocytes % Cancelled Monocytes % Cancelled Eosinophils % Cancelled Basophils % Cancelled Absolute Neutrophils Cancelled Band Neutrophils Cancelled Absolute Lymphocytes Cancelled Absolute Monocytes Cancelled Absolute Eosinophils Cancelled Absolute Basophils Cancelled Metamyelocytes Cancelled Myelocytes Cancelled Promyelocytes Cancelled Nucleated RBCs Cancelled Differential Comment Cancelled Atypical Lymphocytes Cancelled Other Cell Type Cancelled RBC Morphology Cancelled Polychromasia Cancelled Hypochromasia Cancelled Poikilocytosis Cancelled Basophilic Stippling Cancelled Anisocytosis Cancelled Microcytosis Cancelled Macrocytosis Cancelled Spherocytes Cancelled Target Cells Cancelled Tear Drop Cells Cancelled Ovalocytes Cancelled Stomatocytes Cancelled Ruel[place]-Rosebush Bodies Cancelled Philip Cells Cancelled Acanthocytes (Spur) Cancelled Schistocytes Cancelled Sodium 137 Cancelled Potassium 4.7 Cancelled Chloride 101 Cancelled Carbon Dioxide 30.0 Cancelled Anion Gap 6.0 Cancelled BUN 22 H Cancelled Creatinine 1.10 H Cancelled Estimated GFR/1.73 m2 48.82 Cancelled Glucose 225 H Cancelled Calcium 10.2 H Cancelled Magnesium Cancelled Total Bilirubin 0.2 Cancelled AST 23 Cancelled ALT 29 Cancelled Alkaline Phosphatase 109 Cancelled Troponin I Cancelled Total Protein 6.9 Cancelled Albumin 2.7 L Cancelled 06/03/18 06/03/18 06:40 06:40 WBC 6.86 RBC 3.59 L Hgb 9.8 L Hct 32.6 L MCV 90.8 MCH 27.3 MCHC 30.1 L RDW 20.2 H Plt Count 227 MPV 11.4 H Abs Immat Gran (auto) Immature Gran % 1.0 Neutrophils % 72.9 Lymphocytes % 10.9 Monocytes % 11.5 Eosinophils % 3.4 Basophils % 0.3 Absolute Neutrophils 5.00 Band Neutrophils Absolute Lymphocytes 0.75 L Absolute Monocytes 0.79 H Absolute Eosinophils 0.23 Absolute Basophils 0.02 Metamyelocytes Myelocytes Promyelocytes Nucleated RBCs Differential Comment Atypical Lymphocytes Other Cell Type RBC Morphology Polychromasia Hypochromasia Poikilocytosis Basophilic Stippling Anisocytosis Microcytosis Macrocytosis Spherocytes Target Cells Tear Drop Cells Ovalocytes Stomatocytes Ruelas-Rosebush Bodies Philip Cells Acanthocytes (Spur) Schistocytes Sodium 135 L Potassium 4.3 Chloride 100 Carbon Dioxide 29.2 Anion Gap 5.8 BUN 14 D Creatinine 0.77 Estimated GFR/1.73 m2 >= 60.00 Glucose 232 H Calcium 9.9 Magnesium 1.6 L Total Bilirubin AST ALT Alkaline Phosphatase Troponin I Total Protein Albumin Last Vital Signs Temp 36.5 C 06/03/18 07:40 Pulse 93 H 06/03/18 07:40 Resp 18 06/03/18 07:40 BP 127/66 06/03/18 07:40 Pulse Ox 98 06/03/18 07:40
--- NOTE | 2018-06-03 15:28 | CHAPLAIN ---
Deana and I remembered each other from her previous admissions. She told me that she was discharged from [facility] recently, but her , Jared, was struggling to care for her at home after her nephrostomy tubes began leaking. Deana is a practicing Zoroastrianism and has been for many years. 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 Today she told me about her daughter and son in law, [facility] professors, and their two daughters. Jared planned to visit this afternoon,
[2018-06-03 16:08] VITALS: BP 112/62; PULSE 90; RESP 19; TEMP 36.6; O2SAT 93
--- NOTE | 2018-06-03 16:11 | PGE_ITS ---
Date of Service Date of service: 06/03/18 Time of Service: 16:11 Assessment and Plan (1) Anxiety: Start date: 06/03/18 Start time: 16:34 Current visit: No Status: Chronic highly anxious, restarted clonipin bid for anxiety and biopolar disorder (2) Hyperkalemia: Start date: 06/03/18 Start time: 16:34 Current visit: Yes Status: Acute resolved will continue to monitor (3) Tremor: Start date: 06/03/18 Start time: 16:35 Current visit: Yes Status: Acute hx of tremor on home meds, will continue. (4) DVT prophylaxis: Start date: 06/03/18 Start time: 16:36 Current visit: No Status: Acute Subcu Heparin (5) Hypomagnesemia: Start date: 06/03/18 Start time: 16:36 Current visit: No Status: Acute repleted will continue to monitor. (6) Chronic back pain: Start date: 06/03/18 Start time: 16:36 Current visit: No Status: Chronic on methadone BID, ms contin 15 mg bid, valium po, will continue to monitor pain (7) UTI (urinary tract infection): Start date: 06/03/18 Start time: 16:39 Current visit: No Status: Acute Patient was d/c'ed from [facility] on bactrim DS having completed cipro there. There is no evidence of acute UTI here - but she was instructed to remain on antibiotics until stone retrieval. As the patient's potassium was borderline elevated, Bactrim DS was stopped, and cipro resumed. Per [facility] discharge summary, the urine culture was polymicrobial. (8) Hypothyroidism: Start date: 06/03/18 Start time: 16:40 Current visit: No Status: Chronic continue synthroid (9) Nephrostomy complication: Start date: 06/03/18 Start time: 16:41 Current visit: Yes Status: Acute will consult urology regarding nephrostomy, leaking around site and no drainage into bag. Flushed with 5 ml per nursing with no resistance. Pt stated to nurse she felt the flush it was cold. Subjective Patient reports: still having pain Interval history since last seen: Ms Alvarado is a 73 year old female with PMHx of staghorn nephrolithiasis s/p nephrostomy tube at [facility] 05/19/18, d/c'ed on 05/31, as well as urinary incontinence s/p chronic indwelling toney catheter, Chronic MSSA hardware infection, on chronic suppressive therapy with d oxycycline, noninsulin dependent diabetes mellitus type 2, hypertension, hyperlipidemia, anxiety, who came to [facility] ED today because her Rt nephrostomy tube was leaking. She had a CT of her abdomen and pelvis, which was reviewed by her urologist at [facility] and was felt to be in appropriate position. He recommended outpatient follow up, dressing changes, and no emergent intervention. Meanwhile, the patient's is unable to take care of her at home, and the patient/ would like fpc placement. The patient was recently discharged from the [facility]. In addition, the patient was discharged form [facility] on 05/31 with DS bactrim post urological intervention, having completed her ciprofloxacin. Today, in the ER, her potassium was found to be 5.3 - it is 4.7 after treatment. Today she appears well but anxious, stated she was tired and did not get OOB with PT as she did not feel like working with them today. Asked several times about her marinol and clonipin. Stating I just want to know if I got it. Assured her I would make sure she did as the orders were in and that pleased her. She did not feel her nephrostomy tube was leaking anymore than normal although per nursing it was not draining and leaking more. Exam Const General: cooperative and anxious Nutritional Appearance: obese Orientation: alert, awake and oriented x3 HENMT Head: normal to inspection Mouth: oral mucosae normal Eyes General: appearance normal, both eyes and all related structures Neck Neck: normal visual inspection Lymphatic: no lymphadenopathy noted and no lymphedema noted Chest Chest: normal inspection of the chest Resp Effort & Inspection: normal respiratory effort and able to speak in complete sentences Auscultation: clear to auscultation bilaterally Cardio Jugular venous pressure: no JVD Rate: regular rate Rhythm: regular rhythm GI Inspection: normal to inspection Palpation: soft and no hepatosplenomegaly Auscultation: normal bowel sounds Other: nephrostomy tubes leaking with draining bag Skin General skin exam: no rashes or lesions noted Neuro General: alert and awake Extrem General: normal to inspection Left lower extremity: foot (mild foot drop, PT aware and exercises given) Other: Moderate tremor to Upper extremities greater on right then left. Not a n ew finding. Objective Objective Clinical Data: Abnormal lab results 06/02/18 06/03/18 06/03/18 Range/Units 16:18 06:40 06:40 RBC 3.59 L (4.00-5.20) m/cumm Hgb 9.8 L (12.0-15.5) g/dL Hct 32.6 L (36.0-46.0) % MCHC 30.1 L (32.0-36.0) g/dL RDW 20.2 H (11.7-14.6) % MPV 11.4 H (8.0-11.0) fL Absolute Lymphocytes 0.75 L (1.2-3.4) k/cumm Absolute Monocytes 0.79 H (0.11-0.7) k/cumm Sodium 135 L (136-145) mmol/L BUN 22 H (7-18) mg/dL Creatinine 1.10 H (0.55-1.02) mg/dL Glucose 225 H 232 H (70-100) mg/dL Calcium 10.2 H (8.5-10.1) mg/dL Magnesium 1.6 L (1.8-2.4) mg/dL Albumin 2.7 L (3.4-5.0) g/dL Vital Signs Temperature 36.6 C 06/03/18 16:08 Temperature Source Tympanic 06/03/18 16:08 Pulse 90 06/03/18 16:08 Pulse Rhythm Regular 06/03/18 08:40 Pulse 105 H 06/02/18 15:14 Respiratory Rate 06/03/18 16:08 Respiratory Effort Non-Labored 06/03/18 08:40 Respiratory Depth Normal 06/03/18 08:40 Respiratory Pattern Normal 06/03/18 08:40 Blood Pressure 112/62 06/03/18 16:08 Blood Pressure Mean 63 06/02/18 15:01 Blood Pressure Position Sitting 06/02/18 11:36 Pulse Oximetry 93 L 06/03/18 16:08 Oxygen Delivery Method Room Air 06/03/18 16:08 Oxygen Flow Rate 0 06/03/18 16:08 Pain Level 9 06/03/18 08:40 Comment 06/02/18 11:36 Intake & Output 06/02/18 06/03/18 06/03/18 23:59 11:59 23:59 Intake Total 1118.75 / 1618.75 500 / 1618.75 Output Total 1550 / 1550 Balance -431.25 / 68.75 500 / 68.75 Weight 37 kg 86.9 kg Intake: IV 878.75 / 878.75 Oral 240 / 740 500 / 740 Output: Urine 1550 / 1550 Other: Urine Color Yellow Urine Appearance Clear Clear Stool Size Copious Moderate Stool Characteristics Soft Soft Formed Formed Brown Laboratory Results WBC 6.86 k/cumm (4.4-10.8) 06/03/18 06:40 RBC 3.59 m/cumm (4.00-5.20) L 06/03/18 06:40 Hgb 9.8 g/dL (12.0-15.5) L 06/03/18 06:40 Hct 32.6 % (36.0-46.0) L 06/03/18 06:40 MCV 90.8 fL (80-95) 06/03/18 06:40 MCH 27.3 pg (27.0-33.0) 06/03/18 06:40 MCHC 30.1 g/dL (32.0-36.0) L 06/03/18 06:40 RDW 20.2 % (11.7-14.6) H 06/03/18 06:40 Plt Count 227 x1000/uL (130-400) 06/03/18 06:40 MPV 11.4 fL (8.0-11.0) H 06/03/18 06:40 Abs Immat Gran (auto) Cancelled 06/02/18 17:43 Immature Gran % 1.0 06/03/18 06:40 Neutrophils % 72.9 06/03/18 06:40 Lymphocytes % 10.9 06/03/18 06:40 Monocytes % 11.5 06/03/18 06:40 Eosinophils % 3.4 06/03/18 06:40 Basophils % 0.3 06/03/18 06:40 Absolute Neutrophils 5.00 k/cumm (1.2-6.7) 06/03/18 06:40 Band Neutrophils Cancelled 06/02/18 17:43 Absolute Lymphocytes 0.75 k/cumm (1.2-3.4) L 06/03/18 06:40 Absolute Monocytes 0.79 k/cumm (0.11-0.7) H 06/03/18 06:40 Absolute Eosinophils 0.23 k/cumm (0.0-0.7) 06/03/18 06:40 Absolute Basophils 0.02 k/cumm (0.0-0.2) 06/03/18 06:40 Metamyelocytes Cancelled 06/02/18 17:43 Myelocytes Cancelled 06/02/18 17:43 Promyelocytes Cancelled 06/02/18 17:43 Nucleated RBCs Cancelled 06/02/18 17:43 Differential Comment Cancelled 06/02/18 17:43 Atypical Lymphocytes Cancelled 06/02/18 17:43 Other Cell Type Cancelled 06/02/18 17:43 RBC Morphology Cancelled 06/02/18 17:43 Polychromasia Cancelled 06/02/18 17:43 Hypochromasia Cancelled 06/02/18 17:43 Poikilocytosis Cancelled 06/02/18 17:43 Basophilic Stippling Cancelled 06/02/18 17:43 Anisocytosis Cancelled 06/02/18 17:43 Microcytosis Cancelled 06/02/18 17:43 Macrocytosis Cancelled 06/02/18 17:43 Spherocytes Cancelled 06/02/18 17:43 Target Cells Cancelled 06/02/18 17:43 Tear Drop Cells Cancelled 06/02/18 17:43 Ovalocytes Cancelled 06/02/18 17:43 Stomatocytes Cancelled 06/02/18 17:43 Ruelas-Protivin Bodies Cancelled 06/02/18 17:43 [place] Cells Cancelled 06/02/18 17:43 Acanthocytes (Spur) Cancelled 06/02/18 17:43 Schistocytes Cancelled 06/02/18 17:43 Sodium 135 mmol/L (136-145) L 06/03/18 06:40 Potassium 4.3 mmol/L (3.5-5.1) 06/03/18 06:40 Chloride 100 mmol/L (98-107) 06/03/18 06:40 Carbon Dioxide 29.2 mmol/L (21.0-32.0) 06/03/18 06:40 Anion Gap 5.8 mmol/L (3-11) 06/03/18 06:40 BUN 14 mg/dL (7-18) D 06/03/18 06:40 Creatinine 0.77 mg/dL (0.55-1.02) 06/03/18 06:40 Estimated GFR/1.73 m2 >= 60.00 (mL/min/1.73m2) 06/03/18 06:40 Glucose 232 mg/dL (70-100) H 06/03/18 06:40 Calcium 9.9 mg/dL (8.5-10.1) 06/03/18 06:40 Magnesium 1.6 mg/dL (1.8-2.4) L 06/03/18 06:40 Total Bilirubin 0.2 mg/dL (0.2-1.0) 06/02/18 16:18 AST 23 U/L (15-37) 06/02/18 16:18 ALT 29 U/L (12-78) 06/02/18 16:18 Alkaline Phosphatase 109 U/L (46-116) 06/02/18 16:18 Troponin I Cancelled 06/02/18 17:43 Total Protein 6.9 g/dL (6.4-8.2) 06/02/18 16:18 Albumin 2.7 g/dL (3.4-5.0) L 06/02/18 16:18 Urine Color [place] (Yellow) 06/02/18 12:46 Urine Clarity Cloudy 06/02/18 12:46 Urine pH 7.0 (5-8) 06/02/18 12:46 Ur Specific [place] 1.025 (1.005-1.025) 06/02/18 12:46 Urine Protein >=300 mg/dL (Negative) H 06/02/18 12:46 Urine Ketones Negative mg/dL (Negative) 06/02/18 12:46 Urine Blood Large (Negative) H 06/02/18 12:46 Urine Nitrite Negative (Negative) 06/02/18 12:46 Urine Bilirubin Negative (Negative) 06/02/18 12:46 Urine Urobilinogen 0.2 EU/dL (Up TO 0.2) 06/02/18 12:46 Ur Leukocyte Esterase Large (Negative) H 06/02/18 12:46 Urine RBC >50 (0-2) H 06/02/18 12:46 Urine WBC >50 HPF (0-5) 06/02/18 12:46 Ur Epithelial Cells HPF (Negative) 06/02/18 12:46 Urine Crystals Not Applicable 06/02/18 12:46 Urine Bacteria Not Applicable 06/02/18 12:46 Urine Mucus Not Applicable 06/02/18 12:46 Ur Culture Indicated? Yes 06/02/18 12:46 Urine Glucose Negative mg/dL (Negative) 06/02/18 12:46
--- NOTE | 2018-06-03 16:49 | PT.INTREAT ---
Date of service: 06/03/18 Time of Service: 16:49 PT Notes Inpatient Physical Therapy Treatment Note [facility] Date: 06/03/18 PRECAUTIONS: Contact SUBJECTIVE: Deana states that she is having significant pain all over due to having her pain medications taken away. OBJECTIVE: PAIN: Patient complains of global pain with movement. BED MOBILITY/TRANSFERS Rolling L/R: I to L and R Supine-sit: I Sit-supine: I Sit-stand: CGA Stand-sit: CGA Bed-Chair: CGA Chair-bed: CGA Stand pivot transfer performed from [id number], and [id number] with CGA THEREX: Patient completed ankle pump and long arc quad exercises while seated in wheelchair. Patient received bilateral calf stretching. ASSESSMENT: Patient tolerated session with complaints of global pain with movement. Patient was able to demonstrate stand pivot transfers from bed<> wheelchair requiring CGA only. Patient was able to demonstrate independence with bed mobility at this time. Patient would benefit from continued strengthening as well as transfer training for improved mobility and independence with daily functional tasks. PLAN: Continue with PTs POC TREATMENT CODE/TIME: 25 minutes; (9753 0 x 2)
--- NOTE | 2018-06-03 16:55 | PTTR_ITS ---
Date of service: 06/03/18 Time of Service: 16:49 PT Notes Inpatient Physical Therapy Treatment Note [facility] Date: 06/03/18 PRECAUTIONS: Contact SUBJECTIVE: Deana states that she is having significant pain all over due to having her pain medications taken away. OBJECTIVE: PAIN: Patient complains of global pain with movement. BED MOBILITY/TRANSFERS Rolling L/R: I to L and R Supine-sit: I Sit-supine: I Sit-stand: CGA Stand-sit: CGA Bed-Chair: CGA Chair-bed: CGA Stand pivot transfer performed from [id number], and [id number] with CGA THEREX: Patient completed ankle pump and long arc quad exercises while seated in wheelchair. Patient received bilateral calf stretching. ASSESSMENT: Patient tolerated session with complaints of global pain with movement. Patient was able to demonstrate stand pivot transfers from bed<> wheelchair requiring CGA only. Patient was able to demonstrate independence with bed mobility at this time. Patient would benefit from continued strengthening as well as transfer training for improved mobility and independence with daily functional tasks. PLAN: Continue with PTs POC TREATMENT CODE/TIME: 25 minutes; (9753 0 x 2)
--- NOTE | 2018-06-03 17:27 | PDOC.CMIN ---
Care Management Initial Assess REASON FOR HOSPITALIZATION:: Failure to Thrive. PAST MEDICAL HISTORY/PAST SURGICAL HISTORY:: Anxiety, bipolar disorder, chronic back pain, osteoarthritis, rhinitis, COPD, diabetes type II, DJD, hyerlipidemia, hypothyroidism, intention tremor, lumbar radicular pain, obesity, parkinsonism d/t drug, schizoaffective disorder, bipolar type, scoliosis, sepsis, spinal stenosis of lumbar region. Surgical hx: section, colonoscopy, spinal fusion, tonsillectomy, total replacement hip (R). PREVIOUS FUNCTIONAL STATUS/SOCIAL/FAMILY SUPPORTS:: Deana resides with her , Jared in [facility]. She is mostly bedbound according to her , though will occasionally get OOB with a walker to access her wheelchair. Deana resided at the [facility] for 6 months prior to moving home. The family is working on installing a ramp; at this time Deana is homebound. She requires assistance with all of her ADLs. Deana has many supports in the community including [facility] high/highest need. CURRENT FUNCTIONAL STATUS:: Deana remains pleasant in interaction. ADVANCE DIRECTIVES:: On file at [facility]. Health Care Agent: Jared Alvarado. Has patient been provided with information about the portal?: Yes Did the patient sign up for the portal?: Yes CODE STATUS:: DNR/DNI INSURANCE COVERAGE / FINANCIAL ISSUES:: [facility] Health, Medicaid, Medicare. CURRENT HOME/COMMUNITY SERVICES/EQUIPMENT:: Home health services 6x/week. When Jared is away for 10 days at a time (4x/year), Deana has 24 hour care through [facility]. FWW, wheelchair, bedside commode. PRIMARY CARE PHYSICIAN:: John Carpenter POTENTIAL DISCHARGE NEEDS:: SNF coordination. PATIENT/FAMILY EDUCATION NEEDS:: Discharge education, any limitations, and follow up plan of care. Ask Me Three discussion. ANTICIPATED BARRIERS TO DISCHARGE:: Bed availability. TRANSPORTATION:: Deana will transport via EMS when medically ready. PLAN:: CM faxed referral to Sammy at [facility]. Deana will enter SWB1 or transfer to SNF dependent on bed availibility and coordination. CM will continue to support coordination of disposition. Deana will likely transfer via EMS. Readmission - Within the Past 30 Days Yes or No: Y - Date of First Admission Date of 1st Admission: 05/17/18 - Date of this Admission Date of Admission: 06/02/18 This admission was: Through ED - Assessment for Readmission Summary of readmission circumstances, based upon interviews: The couple reviewed current concerns about Deana's care needs at home and Jared was able to process his concerns and feeling he can no longer care for Deana's increasing needs (per his report). Deana processed feeling like a burden and not feeling safe being home when Jared couldn't care for her. Jared stated having to manage incontinence care multiple times throughout the day and worrying that when Deana gets up to the commode that she will fall as well as her nephrostomy tube leaking. CM reviewed current supports and Jared reported he would outreach to personal care attendants utilized prior through Deana's [facility] benefit hours through [employer]-though he reported their current provider had over the weekend and was currently unavailable. CM provided patient education around lack of bed availability, insurance limitations and levels of care. Jared reported the couple previously had a CM through [employer]; Mouna Chu but that currently her direct supervisor color making-Gabbie Evangelista was supporting them. Jared reports [facility] cleared Deana for discharge to home due to lack of SNF bed availability-he feels now that she is home that she was not ready and he cannot manage her needs.
--- NOTE | 2018-06-03 18:14 | INITIAL_ITS ---
Care Management Initial Assess REASON FOR HOSPITALIZATION:: Failure to Thrive. PAST MEDICAL HISTORY/PAST SURGICAL HISTORY:: Anxiety, bipolar disorder, chronic back pain, osteoarthritis, rhinitis, COPD, diabetes type II, DJD, hyerlipidemia, hypothyroidism, intention tremor, lumbar radicular pain, obesity, parkinsonism d/t drug, schizoaffective disorder, bipolar type, scoliosis, sepsis, spinal stenosis of lumbar region. Surgical hx: section, colonoscopy, spinal fusion, tonsillectomy, total replacement hip (R). PREVIOUS FUNCTIONAL STATUS/SOCIAL/FAMILY SUPPORTS:: Deana resides with her , Jared in [facility]. She is mostly bedbound according to her , though will occasionally get OOB with a walker to access her wheelchair. Deana resided at the [facility] for 6 months prior to moving home. The family is working on installing a ramp; at this time Deana is homebound. She requires assistance with all of her ADLs. Deana has many supports in the community including [facility] high/highest need. CURRENT FUNCTIONAL STATUS:: Deana remains pleasant in interaction. ADVANCE DIRECTIVES:: On file at [facility]. Health Care Agent: Jared Alvarado. Has patient been provided with information about the portal?: Yes Did the patient sign up for the portal?: Yes CODE STATUS:: DNR/DNI INSURANCE COVERAGE / FINANCIAL ISSUES:: [facility] Health, Medicaid, Medicare. CURRENT HOME/COMMUNITY SERVICES/EQUIPMENT:: Home health services 6x/week. When Jared is away for 10 days at a time (4x/year), Deana has 24 hour care through [facility]. FWW, wheelchair, bedside commode. PRIMARY CARE PHYSICIAN:: John Carpenter POTENTIAL DISCHARGE NEEDS:: SNF coordination. PATIENT/FAMILY EDUCATION NEEDS:: Discharge education, any limitations, and follow up plan of care. Ask Me Three discussion. ANTICIPATED BARRIERS TO DISCHARGE:: Bed availability. TRANSPORTATION:: Deana will transport via EMS when medically ready. PLAN:: CM faxed referral to Sammy at [facility]. Deana will enter SWB1 or transfer to SNF dependent on bed availibility and coordination. CM will continue to support coordination of disposition. Deana will likely transfer via EMS. Readmission - Within the Past 30 Days Yes or No: Y - Date of First Admission Date of 1st Admission: 05/17/18 - Date of this Admission Date of Admission: 06/02/18 This admission was: Through ED - Assessment for Readmission Summary of readmission circumstances, based upon interviews: The couple reviewed current concerns about Deana's care needs at home and Jared was able to process his concerns and feeling he can no longer care for Deana's increasing needs (per his report). Deana processed feeling like a burden and not feeling safe being home when Jared couldn't care for her. Jared stated having to manage incontinence care multiple times throughout the day and worrying that when Deana gets up to the commode that she will fall as well as her nephrostomy tube leaking. CM reviewed current supports and Jared reported he would outreach to personal care attendants utilized prior through Deana's [facility] benefit hours through [employer]- though he reported their current provider had over the weekend and was currently unavailable. CM provided patient education around lack of bed availability, insurance limitations and levels of care. Jared reported the couple previously had a CM through [employer]; Mouna Chu but that currently her direct rigger supervisor-Gabbie Evangelista was supporting them. Jared reports [facility] [place] discharge to home due to lack of SNF bed availability-he feels now that she is home that she was not ready and he cannot manage her needs.
[2018-06-03] MEDS: Mometasone 220 MCG 14 DOSE INHALER 1 PUFF IH (22:41)
[2018-06-03] MEDS: lamoTRIgine 100 MG TAB 200 MG PO (22:42)
[2018-06-04 00:04] VITALS: BP 132/79; PULSE 95; RESP 18; TEMP 37; O2SAT 94
[2018-06-04] MEDS: Heparin 5,000 UNITS/ML VIAL 5000 UNITS SC ×3 (00:07→23:17)
[2018-06-04] MEDS: Normal Saline 1,000 ML 75 ML IV (03:37)
[2018-06-04] MEDS: Levothyroxine 100 MCG TAB PO (05:50)
[2018-06-04 07:17] LABS: HCT 31.6 % (36.0-46.0); HGB 9.2 g/dL (12.0-15.5); Mean Corp. HGB Concentration 29.1 g/dL (32.0-36.0); Mean Corpuscular Hemoglobin 26.6 pg (27.0-33.0); Mean Corpuscular Volume 91.3 fL (80-95); Mean Platelet Volume 11.6 fL (8.0-11.0); Platelet Count 231 x1000/uL (130-400); RBC 3.46 m/cumm (4.00-5.20); RBC Distribution Width 20.1 % (11.7-14.6); White Blood Cell Count 6.07 k/cumm (4.4-10.8)
[2018-06-04 07:28] LABS: Anion Gap 6.7 mmol/L (3-11); BUN 13 mg/dL (7-18); CO2 27.3 mmol/L (21.0-32.0); CREATININE 0.98 mg/dL (0.55-1.02); Calcium 8.9 mg/dL (8.5-10.1); Chloride 98 mmol/L (98-107); Estimated GFR 55.79 (mL/min/1.73m2); Glucose 206 mg/dL (70-100); Magnesium 1.5 mg/dL (1.8-2.4); Potassium 4.4 mmol/L (3.5-5.1); Sodium 132 mmol/L (136-145)
--- NOTE | 2018-06-04 07:31 | W.UROLOGYCON ---
History of Present Illness Narrative: This is a 73-year-old woman who I initially saw when she was hospitalized with urosepsis. On CT scan, she was found to have a large staghorn stone on the right. She was transferred to [facility] so interventional radiology could place a nephrostomy tube. Ultimately, she will require a percutaneous nephrolithotomy also at [facility]. She is now hospitalized with hyperkalemia. I have been asked to see her because her nephrostomy tube is leaking. Apparently this has been an issue at least since 06/02/18. I see a phone encounter on [facility]'s EMR regarding this exact issue. I have printed out that phone encounter and placed it on the patient's physical chart. The patient tells me that in the last 24 hours, her nephrostomy tube site has been dry with no leakage PFSH Medical History Sepsis (Acute) UTI (urinary tract infection) (Acute ~04/2018) Schizoaffective disorder, bipolar type (Chronic) Wound infection after surgery (Resolved) Chronic rhinitis (Chronic) Anxiety (Chronic) Hyperlipidemia (Chronic) Hypothyroidism (Chronic) 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) COPD (chronic obstructive pulmonary disease) (Chronic) 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) Chronic osteoarthritis (Acute) Chronic pain syndrome (Acute 08/21/12) Hypothyroidism (Chronic) Diabetes mellitus type 2 (Chronic) Bipolar disorder (Chronic) Chronic back pain (Chronic) Hyperlipidemia (Chronic) Anxiety (Chronic) Intention tremor (Chronic) care home current use of antibiotics (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 She recently returned home from a long stay at the [facility]. She has limited mobility and poor use of ADLs. Former smoker. No current alcohol use. Exam Narrative Exam Narrative: She does not appear to be in any current distress. She does not appear septic or toxic Her vital signs are documented elsewhere in the chart Her drainage bag contains yellow urine with particulate matter. Results Last Vital Signs Temp 37.0 C 06/04/18 00:04 Pulse 95 H 06/04/18 00:04 Resp 18 06/04/18 00:04 BP 132/79 06/04/18 00:04 Pulse Ox 94 L 06/04/18 00:04 Labs : 06/04/18 06:15 06/04/18 06:15 Laboratory Results - last 24 hr 06/03/18 06/04/18 06/04/18 06:40 06:15 06:15 WBC 6.07 RBC 3.46 L Hgb 9.2 L Hct 31.6 L MCV 91.3 MCH 26.6 L MCHC 29.1 L RDW 20.1 H Plt Count 231 MPV 11.6 H Sodium 135 L 132 L Potassium 4.3 4.4 Chloride 100 98 Carbon Dioxide 29.2 27.3 Anion Gap 5.8 6.7 BUN 14 D 13 Creatinine 0.77 0.98 Estimated GFR/1.73 m2 >= 60.00 55.79 Glucose 232 H 206 H Calcium 9.9 8.9 Magnesium 1.6 L 1.5 L Assessment and Plan (1) Nephrostomy complication: Current visit: Yes Status: Acute Unfortunately, I have nothing to suggest or help with this issue. The nephrostomy tubes are generally managed by interventional radiology, rather than urology. I actually printed off the phone encounter with the [facility] urologist from 06/02/18. This phone encounter pretty much says the same thing. Luckily, the leakage from her nephrostomy tube has improved. The patient asked me if I can perform the percutaneous nephrolithotomy that she will require locally. I explained that we do not have access to this type of equipment here and she would need to have her surgery done back down at [facility]. I did offer to provide her postop care if that is easier for her. I would encourage a call to the interventional radiology team at [facility] if this continues to be a problem.
[2018-06-04 07:35] VITALS: BP 115/74; PULSE 89; RESP 16; TEMP 36.2; O2SAT 92
--- NOTE | 2018-06-04 07:35 | UCONE_ITS ---
History of Present Illness Narrative: This is a 73-year-old woman who I initially saw when she was hospitalized with urosepsis. On CT scan, she was found to have a large staghorn stone on the right. She was transferred to [facility] so interventional radiology could place a nephrostomy tube. Ultimately, she w ill require a percutaneous nephrolithotomy also at [facility]. She is now hospitalized with hyperkalemia. I have been asked to see her because her nephrostomy tube is leaking. Apparently this has been an issue at least since 06/02/18. I see a phone encounter on [facility]'s EMR regarding this exact issue. I have printed out that phone encounter and placed it on the patient's physical chart. The patient tells me that in the last 24 hours, her nephrostomy tube site has been dry with no leakage PFSH Medical History Sepsis (Acute) UTI (urinary tract infection) (Acute ~04/2018) Schizoaffective disorder, bipolar type (Chronic) Wound infection after surgery (Resolved) Chronic rhinitis (Chronic) Anxiety (Chronic) Hyperlipidemia (Chronic) Hypothyroidism (Chronic) 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) COPD (chronic obstructive pulmonary disease) (Chronic) 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) Chronic osteoarthritis (Acute) Chronic pain syndrome (Acute 08/21/12) Hypothyroidism (Chronic) Diabetes mellitus type 2 (Chronic) Bipolar disorder (Chronic) Chronic back pain (Chronic) Hyperlipidemia (Chronic) Anxiety (Chronic) Intention tremor (Chronic) residential current use of antibiotics (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 She recently returned home from a long stay at the [facility]. She has limited mobility and poor use of ADLs. Former smoker. No current alcohol use. Exam Narrative Exam Narrative: She does not appear to be in any current distress. She does not appear septic or toxic Her vital signs are documented elsewhere in the chart Her drainage bag contains yellow urine with particulate matter. Results Last Vital Signs Temp 37.0 C 06/04/18 00:04 Pulse 95 H 06/04/18 00:04 Resp 18 06/04/18 00:04 BP 132/79 06/04/18 00:04 Pulse Ox 94 L 06/04/18 00:04 Labs : 06/04/18 06:15 06/04/18 06:15 Laboratory Results - last 24 hr 06/03/18 06/04/18 06/04/18 06:40 06:15 06:15 WBC 6.07 RBC 3.46 L Hgb 9.2 L Hct 31.6 L MCV 91.3 MCH 26.6 L MCHC 29.1 L RDW 20.1 H Plt Count 231 MPV 11.6 H Sodium 135 L 132 L Potassium 4.3 4.4 Chloride 100 98 Carbon Dioxide 29.2 27.3 Anion Gap 5.8 6.7 BUN 14 D 13 Creatinine 0.77 0.98 Estimated GFR/1.73 m2 >= 60.00 55.79 Glucose 232 H 206 H Calcium 9.9 8.9 Magnesium 1.6 L 1.5 L Assessment and Plan (1) Nephrostomy complication: Current visit: Yes Status: Acute Unfortunately, I have nothing to suggest or help with this issue. The nephrostomy tubes are generally managed by interventional radiology, rather than urology. I actually printed off the phone encounter with the [facility] urologist from 06/02/18. This phone encounter pretty much says the same thing. Luckily, the leakage from her nephrostomy tube has improved. The patient asked me if I can perform the percutaneous nephrolithotomy that she will require locally. I explained that we do not have access to this type of equipment here and she would need to have her surgery done back down at [facility]. I did offer to provide her postop care if that is easier for her. I would encourage a call to the interventional radiology team at [facility] if this continues to be a problem.
[2018-06-04] MEDS: Fluticasone NASAL SPRAY 16 GM BTL NS (08:01)
[2018-06-04] MEDS: Citalopram 20 MG TAB 40 MG PO (08:01)
[2018-06-04] MEDS: Lisinopril 5 MG TAB PO (08:01)
[2018-06-04] MEDS: Oxybutynin 5 MG TAB PO ×2 (08:02→20:33)
[2018-06-04] MEDS: Simvastatin 40 MG TAB 20 MG PO (08:02)
[2018-06-04] MEDS: Pantoprazole 40 MG TABCR PO (08:02)
[2018-06-04] MEDS: lamoTRIgine 100 MG TAB PO (08:02)
[2018-06-04] MEDS: Metoprolol CR 25 MG TABCR PO (08:02)
[2018-06-04] MEDS: Methadone 10 MG TAB PO ×2 (08:02→20:31)
[2018-06-04] MEDS: Ferrous Sulfate 325 MG TAB PO ×2 (08:02→21:38)
[2018-06-04] MEDS: Doxycycline Hyclate 100 MG CAP PO ×2 (08:02→20:33)
[2018-06-04] MEDS: Pregabalin 50 MG CAP PO ×2 (08:03→20:31)
[2018-06-04] MEDS: clonazePAM 0.5 MG TAB PO ×2 (08:03→20:49)
[2018-06-04] MEDS: Insulin Aspart 300 UNITS/3 ML PEN SC ×4 (08:03→21:42)
[2018-06-04] MEDS: Ciprofloxacin 250 MG/5 ML 100ML BTL PO ×2 (08:03→20:35)
[2018-06-04] MEDS: Nystatin CREAM 30 GM TUBE TP ×2 (08:04→20:37)
[2018-06-04] MEDS: MAGNESIUM SULFATE 2 GM/50 ML BAG IVPB (09:41)
[2018-06-04] MEDS: Dronabinol 2.5 MG CAP PO ×2 (10:44→16:58)
--- NOTE | 2018-06-04 12:01 | PT.INTREAT ---
Date of service: 06/04/18 Time of Service: 12:01 PT Notes Inpatient Physical Therapy Treatment Note [facility] Date: 06/04/18 PRECAUTIONS: Fall, Contact SUBJECTIVE: Deana is agreeable to participating in PT. OBJECTIVE: PAIN: No c/o pain BED MOBILITY/TRANSFERS Supine-sit: I Sit-stand: SBA Stand-sit: SBA Bed-Chair: CGA Stand-pivot transfer from [id number] with CGA ASSESSMENT: Patient tolerated session well without complaint. She would benefit from continued strengthening for improved mobility. PLAN: Continue with PTs POC TREATMENT CODE/TIME: 10 minutes; ([id number] x 1)
[2018-06-04 15:47] VITALS: BP 100/68; PULSE 82; RESP 19; TEMP 36.5; O2SAT 96
--- NOTE | 2018-06-04 16:44 | W.PM.PROGNOT ---
Date of Service Date of service: 06/04/18 Time of Service: 16:44 Assessment and Plan (1) Hypomagnesemia: Current visit: No Status: Acute Replete and monitor. (2) UTI (urinary tract infection): Current visit: No Status: Acute Recently discharged from [facility] on Bactrim DS, potassium was elevated. Bactrim DS discontinued. Currently on Cipro. Urine culture growing Proteus, Morganella morganii, and enterococcus Faecalis, all sensitive to Cipro. She will remain on Cipro until her follow-up at [facility] where she is scheduled for stone extraction. Current UA growing Rosmery. Continue antibiotics per [facility] recommendations. (3) Nephrostomy complication: Current visit: Yes Status: Acute Right nephrostomy tube leaking. Consulted urology. No concerns related to leaking tube, urine is draining. Nephrostomy tube flushed. Continue to use colostomy bag to protect skin. Follow up with IR at [facility]. (4) Chronic back pain: Current visit: No Status: Chronic Continue home medications, methadone BID, ms contin 15 mg bid, valium po. Continue to monitor pain. (5) Hypothyroidism: Current visit: No Status: Chronic Continue levothyroxine at current dose. (6) Diabetes mellitus type 2: Current visit: No Status: Chronic Blood glucose elevated. Increase Lantus tonight. Continue to monitor. (7) DVT prophylaxis: Current visit: No Status: Acute Subcutaneous heparin. (8) Discharge planning issues: Current visit: No Status: Acute She is a DNR/DNI. Her is unable to care for her at home. Referrals have been sent to detention facilities. This case was discussed with Dr. leyva who is in agreement. Subjective Interval history since last seen: Ms Alvarado is a 73 year old female with PMHx of staghorn nephrolithiasis s/p nephrostomy tube at [facility] 05/19/18, d/c'ed on 05/31, as well as urinary incontinence s/p chronic indwelling toney catheter, Chronic MSSA hardware infection, on chronic suppressive therapy with doxycycline, noninsulin dependent diabetes mellitus type 2, hypertension, hyperlipidemia, anxiety. She presented to the [facility] emergency department yesterday with reports of right nephrostomy tube leaking. She had a CT of abdomen and pelvis which was reviewed by her urologist at [facility] who felt that the tube was appropriately positioned. He recommended outpatient follow-up, dressing changes without emergent intervention. The patient's felt that he was unable to take the patient home. She was also noted to have electrolyte abnormalities. She was admitted to the med/surg floor for correction of electrolyte abnormalities and urology evaluation. She feels weak today. She reports back pain, 3/10, that is chronic. She denies any right low back or abdominal pain, she is eating and drinking well, no nausea, vomiting or diarrhea. She has a chronic toney catheter. She has a colostomy bag over her Right nephrostomy tube which is draining clear yellow urine. She denies chest pain/pressure, palpitations, shortness of breath, coughing, wheezing. She feels that she does have some edema in her lower extremities. She denies any other concerns. Exam Narrative Exam Narrative: General: Elderly female, sitting up in her wheelchair, right arm tremulous, in no acute distress. HEENT: Normocephalic, atraumatic, mucous membranes moist. Neck: Supple Cardiovascular: Heart has regular rate and rhythm, no murmur appreciated. Respiratory: Respirations even and unlabored, rales to bilateral bases, no wheezing. Gastrointestinal: Abdomen soft, nontender on palpation, no masses appreciated, normoactive bowel sounds throughout. Extremities: Edema to bilateral ankles. Pedal pulses palpable. Objective Objective Clinical Data: Abnormal lab results 06/04/18 06/04/18 Range/Units 06:15 06:15 RBC 3.46 L (4.00-5.20) m/cumm Hgb 9.2 L (12.0-15.5) g/dL Hct 31.6 L (36.0-46.0) % MCH 26.6 L (27.0-33.0) pg MCHC 29.1 L (32.0-36.0) g/dL RDW 20.1 H (11.7-14.6) % MPV 11.6 H (8.0-11.0) fL Sodium 132 L (136-145) mmol/L Glucose 206 H (70-100) mg/dL Magnesium 1.5 L (1.8-2.4) mg/dL Vital Signs Temperature 36.5 C 06/04/18 15:47 Temperature Source Tympanic 06/04/18 15:47 Pulse 82 06/04/18 15:47 Pulse Rhythm Regular 06/04/18 08:05 Pulse 105 H 06/02/18 15:14 Respiratory Rate 19 06/04/18 15:47 Respiratory Effort Non-Labored 06/04/18 08:05 Respiratory Depth Normal 06/04/18 08:05 Respiratory Pattern Normal 06/04/18 08:05 Blood Pressure 100/68 06/04/18 15:47 Blood Pressure Mean 63 06/02/18 15:01 Blood Pressure Position Sitting 06/02/18 11:36 Pulse Oximetry 96 06/04/18 15:47 Oxygen Delivery Method Room Air 06/04/18 15:47 Oxygen Flow Rate 0 06/04/18 15:47 Pain Level 0 06/04/18 07:35 Comment 06/02/18 11:36 Intake & Output 06/03/18 06/04/18 06/04/18 23:59 11:59 23:59 Intake Total 1203.75 / 2322.50 596.25 / 1870.00 1273.75 / 1870.00 Output Total 600 / 2150 1400 / 1850 450 / 1850 Balance 603.75 / 172.50 -803.75 / 20.00 823.75 / 20.00 Weight 88.1 kg Intake: IV 703.75 / 1582.50 346.25 / 1140.00 793.75 / 1140.00 Oral 500 / 740 250 / 730 480 / 730 Output: Drainage 200 / 200 Right Lower Back 200 / 200 Urine 400 / 1950 1400 / 1850 450 / 1850 Other: Urine Color Pale Yellow Yellow Yellow Urine Appearance Clear Clear Clear Urine Odor None None Comment Emptied from Nephrostomy tube Emptied Neph tube 200 yellow out Neph tube emptied 250 out. Stool Size Large Stool Characteristics Formed Hard Laboratory Results WBC 6.07 k/cumm (4.4-10.8) 06/04/18 06:15 RBC 3.46 m/cumm (4.00-5.20) L 06/04/18 06:15 Hgb 9.2 g/dL (12.0-15.5) L 06/04/18 06:15 Hct 31.6 % (36.0-46.0) L 06/04/18 06:15 MCV 91.3 fL (80-95) 06/04/18 06:15 MCH 26.6 pg (27.0-33.0) L 06/04/18 06:15 MCHC 29.1 g/dL (32.0-36.0) L 06/04/18 06:15 RDW 20.1 % (11.7-14.6) H 06/04/18 06:15 Plt Count 231 x1000/uL (130-400) 06/04/18 06:15 MPV 11.6 fL (8.0-11.0) H 06/04/18 06:15 Abs Immat Gran (auto) Cancelled 06/02/18 17:43 Immature Gran % 1.0 06/03/18 06:40 Neutrophils % 72.9 06/03/18 06:40 Lymphocytes % 10.9 06/03/18 06:40 Monocytes % 11.5 06/03/18 06:40 Eosinophils % 3.4 06/03/18 06:40 Basophils % 0.3 06/03/18 06:40 Absolute Neutrophils 5.00 k/cumm (1.2-6.7) 06/03/18 06:40 Band Neutrophils Cancelled 06/02/18 17:43 Absolute Lymphocytes 0.75 k/cumm (1.2-3.4) L 06/03/18 06:40 Absolute Monocytes 0.79 k/cumm (0.11-0.7) H 06/03/18 06:40 Absolute Eosinophils 0.23 k/cumm (0.0-0.7) 06/03/18 06:40 Absolute Basophils 0.02 k/cumm (0.0-0.2) 06/03/18 06:40 Metamyelocytes Cancelled 06/02/18 17:43 Myelocytes Cancelled 06/02/18 17:43 Promyelocytes Cancelled 06/02/18 17:43 Nucleated RBCs Cancelled 06/02/18 17:43 Differential Comment Cancelled 06/02/18 17:43 Atypical Lymphocytes Cancelled 06/02/18 17:43 Other Cell Type Cancelled 06/02/18 17:43 RBC Morphology Cancelled 06/02/18 17:43 Polychromasia Cancelled 06/02/18 17:43 Hypochromasia Cancelled 06/02/18 17:43 Poikilocytosis Cancelled 06/02/18 17:43 Basophilic Stippling Cancelled 06/02/18 17:43 Anisocytosis Cancelled 06/02/18 17:43 Microcytosis Cancelled 06/02/18 17:43 Macrocytosis Cancelled 06/02/18 17:43 Spherocytes Cancelled 06/02/18 17:43 Target Cells Cancelled 06/02/18 17:43 Tear Drop Cells Cancelled 06/02/18 17:43 Ovalocytes Cancelled 06/02/18 17:43 Stomatocytes Cancelled 06/02/18 17:43 [place] Bodies Cancelled 06/02/18 17:43 Philip Cells Cancelled 06/02/18 17:43 Acanthocytes (Spur) Cancelled 06/02/18 17:43 Schistocytes Cancelled 06/02/18 17:43 Sodium 132 mmol/L (136-145) L 06/04/18 06:15 Potassium 4.4 mmol/L (3.5-5.1) 06/04/18 06:15 Chloride 98 mmol/L (98-107) 06/04/18 06:15 Carbon Dioxide 27.3 mmol/L (21.0-32.0) 06/04/18 06:15 Anion Gap 6.7 mmol/L (3-11) 06/04/18 06:15 BUN 13 mg/dL (7-18) 06/04/18 06:15 Creatinine 0.98 mg/dL (0.55-1.02) 06/04/18 06:15 Estimated GFR/1.73 m2 55.79 (mL/min/1.73m2) 06/04/18 06:15 Glucose 206 mg/dL (70-100) H 06/04/18 06:15 Calcium 8.9 mg/dL (8.5-10.1) 06/04/18 06:15 Magnesium 1.5 mg/dL (1.8-2.4) L 06/04/18 06:15 Total Bilirubin 0.2 mg/dL (0.2-1.0) 06/02/18 16:18 AST 23 U/L (15-37) 06/02/18 16:18 ALT 29 U/L (12-78) 06/02/18 16:18 Alkaline Phosphatase 109 U/L (46-116) 06/02/18 16:18 Troponin I Cancelled 06/02/18 17:43 Total Protein 6.9 g/dL (6.4-8.2) 06/02/18 16:18 Albumin 2.7 g/dL (3.4-5.0) L 06/02/18 16:18 Urine Color [place] (Yellow) 06/02/18 12:46 Urine Clarity Cloudy 06/02/18 12:46 Urine pH 7.0 (5-8) 06/02/18 12:46 Ur Specific [place] 1.025 (1.005-1.025) 06/02/18 12:46 Urine Protein >=300 mg/dL (Negative) H 06/02/18 12:46 Urine Ketones Negative mg/dL (Negative) 06/02/18 12:46 Urine Blood Large (Negative) H 06/02/18 12:46 Urine Nitrite Negative (Negative) 06/02/18 12:46 Urine Bilirubin Negative (Negative) 06/02/18 12:46 Urine Urobilinogen 0.2 EU/dL (Up TO 0.2) 06/02/18 12:46 Ur Leukocyte Esterase Large (Negative) H 06/02/18 12:46 Urine RBC >50 (0-2) H 06/02/18 12:46 Urine WBC >50 HPF (0-5) 06/02/18 12:46 Ur Epithelial Cells HPF (Negative) 06/02/18 12:46 Urine Crystals Not Applicable 06/02/18 12:46 Urine Bacteria Not Applicable 06/02/18 12:46 Urine Mucus Not Applicable 06/02/18 12:46 Ur Culture Indicated? Yes 06/02/18 12:46 Urine Glucose Negative mg/dL (Negative) 06/02/18 12:46
--- NOTE | 2018-06-04 16:46 | PDOC.CMPRO ---
- If Service Date Differs Date of service: 06/04/18 Time of Service: 16:47 Care Management Progress Note S/O: Deana is alert and engaged during assessment. Urology consulted today she states she feels better. CM faxed referral to [facility] is hopeful that they will offer a bed this week. Deana was transition to acute today her nephrostomy tubes continues to be monitored and she is receiving PT. Anticipate she will discharge this week to [facility] pending bed availability. A: Failure to Thrive P:CM faxed a referral to [facility] re[facility] admissions for review. CM spoke with admission coordinator to determine bed availability referral still pending. [facility] is unable to offer a bed however will continue to review the referral for later in the week admission. CM to continue to support patient discharge planning and disposition. Anticipate Deana will transition to SNF via wheelchair van.
--- NOTE | 2018-06-04 16:48 | PGE_ITS ---
Date of Service Date of service: 06/04/18 Time of Service: 16:44 Assessment and Plan (1) Hypomagnesemia: Current visit: No Status: Acute Replete and monitor. (2) UTI (urinary tract infection): Current visit: No Status: Acute Recently discharged from [facility] on Bactrim DS, potassium was elevated. Bactrim DS discontinued. Currently on Cipro. Urine culture growing Proteus, Morganella morganii, and enterococcus Faecalis, all se nsitive to Cipro. She will remain on Cipro until her follow-up at [facility] where she is scheduled for stone extraction. Current UA growing Rosmery. Continue antibiotics per [facility] recommendations. (3) Nephrostomy complication: Current visit: Yes Status: Acute Right nephrostomy tube leaking. Consulted urology. No concerns related to leaking tube, urine is draining. Nephrostomy tube flushed. Continue to use colostomy bag to protect skin. Follow up with IR at [facility]. (4) Chronic back pain: Current visit: No Status: Chronic Continue home medications, methadone BID, ms contin 15 mg bid, valium po. Continue to monitor pain. (5) Hypothyroidism: Current visit: No Status: Chronic Continue levothyroxine at current dose. (6) Diabetes mellitus type 2: Current visit: No Status: Chronic Blood glucose elevated. Increase Lantus tonight. Continue to monitor. (7) DVT prophylaxis: Current visit: No Status: Acute Subcutaneous heparin. (8) Discharge planning issues: Current visit: No Status: Acute She is a DNR/DNI. Her is unable to care for her at home. Referrals have been sent to retirement facilities. This case was discussed with Dr. leyva who is in agreement. Subjective Interval history since last seen: Ms Alvarado is a 73 year old female with PMHx of staghorn nephrolithiasis s/p nephrostomy tube at [facility] 05/19/18, d/c'ed on 05/31, as well as urinary incontinence s/p chronic indwelling toney catheter, Chronic MSSA hardware infection, on chronic suppressive therapy with doxycycline, noninsulin dependent diabetes mellitus type 2, hypertension, hyperlipidemia, anxiety. She presented to the [facility] emergency department yesterday with reports of right nephrostomy tube leaking. She had a CT of abdomen and pelvis which was reviewed by her urologist at [facility] who felt that the tube was appropriately positioned. He recommended outpatient follow-up, dressing changes without emergent intervention. The patient's felt that he was unable to take the patient home. She was also noted to have electrolyte abnormalities. She was admitted to the med/surg floor for correction of electrolyte abnormalities and urology evaluation. She feels weak today. She reports back pain, 3/10, that is chronic. She denies any right low back or abdominal pain, she is eating and drinking well, no nausea, vomiting or diarrhea. She has a chronic toney catheter. She has a colostomy bag over her Right nephrostomy tube which is draining clear yellow urine. She denies chest pain/pressure, palpitations, shortness of breath, coughing, wheezing. She feels that she does have some edema in her lower extremities. She denies any other concerns. Exam Narrative Exam Narrative: General: Elderly female, sitting up in her wheelchair, right arm tremulous, in no acute distress. HEENT: Normocephalic, atraumatic, mucous membranes moist. Neck: Supple Cardiovascular: Heart has regular rate and rhythm, no murmur appreciated. Respiratory: Respirations even and unlabored, rales to bilateral bases, no whe ezing. Gastrointestinal: Abdomen soft, nontender on palpation, no masses appreciated, normoactive bowel sounds throughout. Extremities: Edema to bilateral ankles. Pedal pulses palpable. Objective Objective Clinical Data: Abnormal lab results 06/04/18 06/04/18 Range/Units 06:15 06:15 RBC 3.46 L (4.00-5.20) m/cumm Hgb 9.2 L (12.0-15.5) g/dL Hct 31.6 L (36.0-46.0) % MCH 26.6 L (27.0-33.0) pg MCHC 29.1 L (32.0-36.0) g/dL RDW 20.1 H (11.7-14.6) % MPV 11.6 H (8.0-11.0) fL Sodium 132 L (136-145) mmol/L Glucose 206 H (70-100) mg/dL Magnesium 1.5 L (1.8-2.4) mg/dL Vital Signs Temperature 36.5 C 06/04/18 15:47 Temperature Source Tympanic 06/04/18 15:47 Pulse 82 06/04/18 15:47 Pulse Rhythm Regular 06/04/18 08:05 Pulse 105 H 06/02/18 15:14 Respiratory Rate 19 06/04/18 15:47 Respiratory Effort Non-Labored 06/04/18 08:05 Respiratory Depth Normal 06/04/18 08:05 Respiratory Pattern Normal 06/04/18 08:05 Blood Pressure 100/68 06/04/18 15:47 Blood Pressure Mean 63 06/02/18 15:01 Blood Pressure Position Sitting 06/02/18 11:36 Pulse Oximetry 96 06/04/18 15:47 Oxygen Delivery Method Room Air 06/04/18 15:47 Oxygen Flow Rate 0 06/04/18 15:47 Pain Level 0 06/04/18 07:35 Comment 06/02/18 11:36 Intake & Output 06/03/18 06/04/18 06/04/18 23:59 11:59 23:59 Intake Total 1203.75 / 2322.50 596.25 / 1870.00 1273.75 / 1870.00 Output Total 600 / 2150 1400 / 1850 450 / 1850 Balance 603.75 / 172.50 -803.75 / 20.00 823.75 / 20.00 Weight 88.1 kg Intake: IV 703.75 / 1582.50 346.25 / 1140.00 793.75 / 1140.00 Oral 500 / 740 250 / 730 480 / 730 Output: Drainage 200 / 200 Right Lower Back 200 / 200 Urine 400 / 1950 1400 / 1850 450 / 1850 Other: Urine Color Pale Yellow Yellow Yellow Urine Appearance Clear Clear Clear Urine Odor None None Comment Emptied from Nephrostomy tube Emptied Neph tube 200 yellow out Neph tube emptied 250 out. Stool Size Large Stool Characteristics Formed Hard Laboratory Results WBC 6.07 k/cumm (4.4-10.8) 06/04/18 06:15 RBC 3.46 m/cumm (4.00-5.20) L 06/04/18 06:15 Hgb 9.2 g/dL (12.0-15.5) L 06/04/18 06:15 Hct 31.6 % (36.0-46.0) L 06/04/18 06:15 MCV 91.3 fL (80-95) 06/04/18 06:15 MCH 26.6 pg (27.0-33.0) L 06/04/18 06:15 MCHC 29.1 g/dL (32.0-36.0) L 06/04/18 06:15 RDW 20.1 % (11.7-14.6) H 06/04/18 06:15 Plt Count 231 x1000/uL (130-400) 06/04/18 06:15 MPV 11.6 fL (8.0-11.0) H 06/04/18 06:15 Abs Immat Gran (auto) Cancelled 06/02/18 17:43 Immature Gran % 1.0 06/03/18 06:40 Neutrophils % 72.9 06/03/18 06:40 Lymphocytes % 10.9 06/03/18 06:40 Monocytes % 11.5 06/03/18 06:40 Eosinophils % 3.4 06/03/18 06:40 Basophils % 0.3 06/03/18 06:40 Absolute Neutrophils 5.00 k/cumm (1.2-6.7) 06/03/18 06:40 Band Neutrophils Cancelled 06/02/18 17:43 Absolute Lymphocytes 0.75 k/cumm (1.2-3.4) L 06/03/18 06:40 Absolute Monocytes 0.79 k/cumm (0.11-0.7) H 06/03/18 06:40 Absolute Eosinophils 0.23 k/cumm (0.0-0.7) 06/03/18 06:40 Absolute Basophils 0.02 k/cumm (0.0-0.2) 06/03/18 06:40 Metamyelocytes Cancelled 06/02/18 17:43 Myelocytes Cancelled 06/02/18 17:43 Promyelocytes Cancelled 06/02/18 17:43 Nucleated RBCs Cancelled 06/02/18 17:43 Differential Comment Cancelled 06/02/18 17:43 Atypical Lymphocytes Cancelled 06/02/18 17:43 Other Cell Type Cancelled 06/02/18 17:43 RBC Morphology Cancelled 06/02/18 17:43 Polychromasia Cancelled 06/02/18 17:43 Hypochromasia Cancelled 06/02/18 17:43 Poikilocytosis Cancelled 06/02/18 17:43 Basophilic Stippling Cancelled 06/02/18 17:43 Anisocytosis Cancelled 06/02/18 17:43 Microcytosis Cancelled 06/02/18 17:43 Macrocytosis Cancelled 06/02/18 17:43 Spherocytes Cancelled 06/02/18 17:43 Target Cells Cancelled 06/02/18 17:43 Tear Drop Cells Cancelled 06/02/18 17:43 Ovalocytes Cancelled 06/02/18 17:43 Stomatocytes Cancelled 06/02/18 17:43 [place]uel[place] Bodies Cancelled 06/02/18 17:43 Philip Cells Cancelled 06/02/18 17:43 Acanthocytes (Spur) Cancelled 06/02/18 17:43 Schistocytes Cancelled 06/02/18 17:43 Sodium 132 mmol/L (136-145) L 06/04/18 06:15 Potassium 4.4 mmol/L (3.5-5.1) 06/04/18 06:15 Chloride 98 mmol/L (98-107) 06/04/18 06:15 Carbon Dioxide 27.3 mmol/L (21.0-32.0) 06/04/18 06:15 Anion Gap 6.7 mmol/L (3-11) 06/04/18 06:15 BUN 13 mg/dL (7-18) 06/04/18 06:15 Creatinine 0.98 mg/dL (0.55-1.02) 06/04/18 06:15 Estimated GFR/1.73 m2 55.79 (mL/min/1.73m2) 06/04/18 06:15 Glucose 206 mg/dL (70-100) H 06/04/18 06:15 Calcium 8.9 mg/dL (8.5-10.1) 06/04/18 06:15 Magnesium 1.5 mg/dL (1.8-2.4) L 06/04/18 06:15 Total Bilirubin 0.2 mg/dL (0.2-1.0) 06/02/18 16:18 AST 23 U/L (15-37) 06/02/18 16:18 ALT 29 U/L (12-78) 06/02/18 16:18 Alkaline Phosphatase 109 U/L (46-116) 06/02/18 16:18 Troponin I Cancelled 06/02/18 17:43 Total Protein 6.9 g/dL (6.4-8.2) 06/02/18 16:18 Albumin 2.7 g/dL (3.4-5.0) L 06/02/18 16:18 Urine Color [place] (Yellow) 06/02/18 12:46 Urine Clarity Cloudy 06/02/18 12:46 Urine pH 7.0 (5-8) 06/02/18 12:46 Ur Specific [place] 1.025 (1.005-1.025) 06/02/18 12:46 Urine Protein >=300 mg/dL (Negative) H 06/02/18 12:46 Urine Ketones Negative mg/dL (Negative) 06/02/18 12:46 Urine Blood Large (Negative) H 06/02/18 12:46 Urine Nitrite Negative (Negative) 06/02/18 12:46 Urine Bilirubin Negative (Negative) 06/02/18 12:46 Urine Urobilinogen 0.2 EU/dL (Up TO 0.2) 06/02/18 12:46 Ur Leukocyte Esterase Large (Negative) H 06/02/18 12:46 Urine RBC >50 (0-2) H 06/02/18 12:46 Urine WBC >50 HPF (0-5) 06/02/18 12:46 Ur Epithelial Cells HPF (Negative) 06/02/18 12:46 Urine Crystals Not Applicable 06/02/18 12:46 Urine Bacteria Not Applicable 06/02/18 12:46 Urine Mucus Not Applicable 06/02/18 12:46 Ur Culture Indicated? Yes 06/02/18 12:46 Urine Glucose Negative mg/dL (Negative) 06/02/18 12:46
--- NOTE | 2018-06-04 17:03 | PT.INTREAT ---
Date of service: 06/04/18 Time of Service: 16:00 PT Notes Inpatient Physical Therapy Treatment Note [facility] Date: 06/04/18 PRECAUTIONS:fall, standard SUBJECTIVE: Deana states that she sat up to her w/c for a long time today and was very sore after. She states that she does not want to get up out of bed. She's agreeable to exercises, as long as she can return to bed afterwards. OBJECTIVE: PAIN: continued back pain, at baseline level BED MOBILITY/TRANSFERS Supine-sit: independent Sit-supine: independent Sit-stand: SBA Stand-sit: SBA Bed-Chair: declines GAIT patient declines ambulation THEREX: Patient was instructed in a progressed open and closed chain strengthening program. Began with supine exercises and manual stretching to bilat calves (30 seconds each). She then transitioned to standing for initiation of closed chain strengthening activities. She completed sit<->stand exercises for 5 reps, as well as standing weight shifts for 10 reps. She was able to tolerate static standing with UE support to WW x 60 seconds. Attempted standing july, although patient is unable to single leg stand. ASSESSMENT: Tolerated progression to closed chain strengthening today with excellent tolerance. She continues to demonstrate ankle contractures into PF bilat, and will benefit from increased WBing activity and continued stretching to prevent loss of functional mobility. PLAN: Continue progressing as tolerated. TREATMENT CODE/TIME: 32252 (20 minutes)
--- NOTE | 2018-06-04 17:09 | PTTR_ITS ---
Date of service: 06/04/18 Time of Service: 16:00 PT Notes Inpatient Physical Therapy Treatment Note [facility] Date: 06/04/18 PRECAUTIONS:fall, standard SUBJECTIVE: Deana states that she sat up to her w/c for a long time today and w as very sore after. She states that she does not want to get up out of bed. She's agreeable to exercises, as long as she can return to bed afterwards. OBJECTIVE: PAIN: continued back pain, at baseline level BED MOBILITY/TRANSFERS Supine-sit: independent Sit-supine: independent Sit-stand: SBA Stand-sit: SBA Bed-Chair: declines GAIT patient declines ambulation THEREX: Patient was instructed in a progressed open and closed chain strengthening program. Began with supine exercises and manual stretching to harley at calves (30 seconds each). She then transitioned to standing for initiation of closed chain strengthening activities. She completed sit<->stand exercises for 5 reps, as well as standing weight shifts for 10 reps. She was able to tolerate static standing with UE support to WW x 60 seconds. Attempted standing july, although patient is unable to single leg stand. ASSESSMENT: Tolerated progression to closed chain strengthening today with excellent tolerance. She continues to demonstrate ankle contractures into PF bilat, and will benefit from increased WBing activity and continued stretching to prevent loss of functional mobility. PLAN: Continue progressing as tolerated. TREATMENT CODE/TIME: 51684 (20 minutes)
[2018-06-04 20:51] VITALS: BP 104/54; PULSE 80; RESP 18; TEMP 36.4; O2SAT 94
[2018-06-04] MEDS: lamoTRIgine 100 MG TAB 200 MG PO (21:38)
[2018-06-04] MEDS: risperiDONE 1 MG TAB 3 MG PO (21:38)
[2018-06-04] MEDS: Mometasone 220 MCG 14 DOSE INHALER 1 PUFF IH (21:39)
[2018-06-04] MEDS: Insulin Glargine 300 UNITS/3 ML PEN 35 UNITS SC (21:45)
[2018-06-05] MEDS: Levothyroxine 100 MCG TAB PO (05:24)
[2018-06-05 07:21] LABS: HCT 30.3 % (36.0-46.0); Mean Corp. HGB Concentration 29.7 g/dL (32.0-36.0); Mean Platelet Volume 11.3 fL (8.0-11.0); Platelet Count 212 x1000/uL (130-400); RBC 3.33 m/cumm (4.00-5.20); RBC Distribution Width 20.2 % (11.7-14.6); White Blood Cell Count 7.22 k/cumm (4.4-10.8)
[2018-06-05 07:30] VITALS: BP 101/58; PULSE 89; RESP 16; TEMP 36.9; O2SAT 90
[2018-06-05 07:42] LABS: Anion Gap 8.4 mmol/L (3-11); BUN 25 mg/dL (7-18); CO2 25.6 mmol/L (21.0-32.0); Calcium 9.1 mg/dL (8.5-10.1); Chloride 97 mmol/L (98-107); Estimated GFR 36.96 (mL/min/1.73m2); Ferritin 45 ng/mL (8-388); Glucose 190 mg/dL (70-100); Potassium 4.5 mmol/L (3.5-5.1); Sodium 131 mmol/L (136-145)
[2018-06-05 08:06] LABS: Iron 61 ug/dL (50-175); Total Iron Binding Capacity 304 ug/dL (250-450); Transferrin Sat 20 % (15-50)
[2018-06-05] MEDS: Insulin Aspart 300 UNITS/3 ML PEN SC ×4 (08:31→21:59)
[2018-06-05] MEDS: Lisinopril 5 MG TAB PO (08:32)
[2018-06-05] MEDS: Citalopram 20 MG TAB 40 MG PO (08:32)
[2018-06-05 08:33] LABS: Folate 14.6 ng/mL (8.6-20.0); Vitamin B12 513 pg/mL (193-986)
[2018-06-05] MEDS: Simvastatin 40 MG TAB 20 MG PO (08:33)
[2018-06-05] MEDS: lamoTRIgine 100 MG TAB PO (08:33)
[2018-06-05] MEDS: Pregabalin 50 MG CAP PO ×2 (08:33→19:45)
[2018-06-05] MEDS: Doxycycline Hyclate 100 MG CAP PO ×2 (08:33→19:45)
[2018-06-05] MEDS: Oxybutynin 5 MG TAB PO ×2 (08:33→19:45)
[2018-06-05] MEDS: Pantoprazole 40 MG TABCR PO (08:33)
[2018-06-05] MEDS: clonazePAM 0.5 MG TAB PO ×2 (08:34→23:19)
[2018-06-05] MEDS: Metoprolol CR 25 MG TABCR PO (08:34)
[2018-06-05] MEDS: Methadone 10 MG TAB PO ×2 (08:34→19:45)
[2018-06-05] MEDS: Fluticasone NASAL SPRAY 16 GM BTL NS (08:35)
[2018-06-05] MEDS: Ciprofloxacin 250 MG/5 ML 100ML BTL PO ×2 (10:19→19:45)
[2018-06-05] MEDS: Ferrous Sulfate 325 MG TAB PO ×2 (10:19→22:00)
[2018-06-05] MEDS: Normal Saline 1,000 ML 100 ML IV (10:20)
[2018-06-05] MEDS: Normal Saline Flush 10 ML SYR IVP (10:20)
[2018-06-05] MEDS: Nystatin CREAM 30 GM TUBE TP ×2 (10:29→19:45)
--- NOTE | 2018-06-05 10:59 | PDOC.CMPRO ---
Care Management Progress Note S/O: Deana continues to work with PT though she was tired and weak after sitting up in her W/C for awhile today. She continues to advocate for going to [facility], oh that would be wonderful! DOMINGO spoke with Sammy of [facility] who agreed to work on bed offer for today-if [facility] is able to offer a bed pending availability-CM will advocate for [facility] until [facility] is able to admit. Sammy called later in the day to report he would be coming to meet Deana tomorrow, 06/06/18@9668. DOMINGO notified [facility] via Mary Beth; Investigation Officer. A: Failure to Thrive, UTI, nephrostomy tube leaking P: DOMINGO spoke with Sammy of [facility] who agreed to work on bed offer for today-if [facility] is able to offer a bed pending availability-CM will advocate for SNF until [facility] is able to admit. CM will continue to seek alternative placement in the event bed offer is not offered. CM to continue to support patient discharge planning and disposition. Anticipate Deana will transition to SNF via wheelchair van.
--- NOTE | 2018-06-05 11:13 | CMPROGNOTE_ITS ---
Care Management Progress Note S/O: Deana continues to work with PT though she was tired and weak after sitting up in her W/C for awhile today. She continues to advocate for going to [facility], oh that would be wonderful! DOMINGO spoke with Sammy of [facility] who agreed to work on bed offer for today-if [facility] is able to offer a bed pending availability-CM will advocate for SW[facility] until [facility] is able to admit. Sammy called later in the day to report he would be coming to meet Deana tomorrow, 06/06/18@4317. DOMINGO notified [facility] via Mary Beth; [employer]. A: Failure to Thrive, UTI, nephrostomy tube leaking P: DOMINGO spoke with Sammy of [facility] who agreed to work on bed offer for today-if [facility] is able to offer a bed pending availability-CM will advocate for SNF until [facility] is able to admit. CM will continue to seek alternative placement in the event bed offer is not offered. CM to continue to support patient discharge planning and disposition. Anticipate Deana will transition to SNF via wheelchair van.
[2018-06-05 11:30] VITALS: BP 105/59; PULSE 79; RESP 16; TEMP 37; O2SAT 94
[2018-06-05] MEDS: Dronabinol 2.5 MG CAP PO ×2 (12:08→17:00)
--- NOTE | 2018-06-05 13:02 | PT.INTREAT ---
Date of service: 06/05/18 Time of Service: 13:03 PT Notes Inpatient Physical Therapy Treatment Note [facility] Date: 06/05/18 PRECAUTIONS: Fall SUBJECTIVE: Deana states that she is feeling weak today. She believes it is due to completing all of her bed exercises last night, which she reports she has not done in a while. OBJECTIVE: PAIN: Patient complained of glute pain with ther ex. BED MOBILITY/TRANSFERS Sit-supine: I Sit-stand: Min A Stand-sit: SBA Chair-bed: CGA GAIT Assistive Device: FWW Weight bearing: Full Assist: CGA Distance: 10 steps THEREX: Patient completed sit<>stand exercise x5 from elevated bed surface with SBA, as well ankle pumps, hip flexion, and bridging exercises, as per flow sheet. ASSESSMENT: Patient tolerated session well with minimal c/o glute pain with ther ex. She was able to tolerate gait training, taking several steps with FWW support with CGA. Patient would benefit from continued gait and transfer training as well as strengthening, for improved mobility and ability to perform daily functional activites. PLAN: Continue with PT's POC TREATMENT CODE/TIME: 25 minutes; ([id number], [id number])
--- NOTE | 2018-06-05 13:03 | W.PM.PROGNOT ---
Date of Service Date of service: 06/05/18 Time of Service: 13:04 Assessment and Plan (1) Acute kidney injury: Current visit: Yes Status: Acute IV fluids discontinued yesterday. Creatinine increased today. She reports that she has not been drinking as much fluids as usual. Encourage oral intake. Will give IV fluids and reassess BMP in the morning. (2) Hypomagnesemia: Current visit: No Status: Acute Improved continue to monitor. (3) UTI (urinary tract infection): Current visit: No Status: Acute Recently discharged from [facility] on Bactrim DS, potassium was elevated. Bactrim DS discontinued. Currently on Cipro. Urine culture growing Proteus, Morganella morganii, and enterococcus Faecalis, all sensitive to Cipro. She will remain on Cipro until her follow-up at [facility] where she is scheduled for stone extraction. Current UA growing Rosmery. Continue antibiotics per [facility] recommendations. (4) Nephrostomy complication: Current visit: Yes Status: Acute Right nephrostomy tube leaking. IR contacted by ED and made aware, recommend outpatient follow up. Urology consulted. No concerns related to leaking tube, urine is draining. Nephrostomy tube flushed well. Continue to use colostomy bag to protect skin. Follow up with IR at [facility]. (5) Chronic back pain: Current visit: No Status: Chronic Continue home medications, methadone BID, ms contin 15 mg bid, valium po. Continue to monitor pain. (6) Hypothyroidism: Current visit: No Status: Chronic Continue levothyroxine at current dose. (7) Diabetes mellitus type 2: Current visit: No Status: Chronic Blood glucose remains elevated. Increased Lantus last night. Continue to monitor, adjust insulin as needed. Continue carb counting diet. (8) DVT prophylaxis: Current visit: No Status: Acute Subcutaneous heparin. (9) Discharge planning issues: Current visit: No Status: Acute She is a DNR/DNI. Her is unable to care for her at home. Referrals have been sent to retirement facilities, will transition when bed available. This case was discussed with Dr. leyva who is in agreement. Subjective Interval history since last seen: Ms Alvarado is a 73 year old female with PMHx of staghorn nephrolithiasis s/p nephrostomy tube at [facility] 05/19[place], discharged on 05/31, as well as urinary incontinence s/p chronic indwelling toney catheter, Chronic MSSA hardware infection, on chronic suppressive therapy with doxycycline, noninsulin dependent diabetes mellitus type 2, hypertension, hyperlipidemia, anxiety. She presented to the [facility] emergency department yesterday with reports of right nephrostomy tube leaking. She had a CT of abdomen and pelvis which was reviewed by her urologist at [facility] who felt that the tube was appropriately positioned. He recommended outpatient follow-up, dressing changes without emergent intervention. The patient's felt that he was unable to take the patient home. She was also noted to have electrolyte abnormalities. She was admitted to the med/surg floor for correction of electrolyte abnormalities and urology consultation. Today, she reports her chronic back pain is 3 out of 10. She does not have any increased CVA tenderness. No abdominal pain. Right nephrostomy tube continues to drain clear yellow urine into colostomy bag. Toney catheter draining clear yellow urine. She is eating and drinking with no nausea, vomiting or diarrhea. She does have some constipation. She had bowel movement yesterday. She has not had one yet today. She would like to try prune juice before trying any other bowel medications. She denies chest pain/pressure, palpitations, shortness of breath, coughing, wheezing. She feels that she does have some edema in her lower extremities. She denies any other concerns. Exam Narrative Exam Narrative: General: Elderly female, sitting up in her wheelchair, right arm tremulous, in no acute distress. HEENT: Normocephalic, atraumatic, mucous membranes moist. Neck: Supple Cardiovascular: Heart has regular rate and rhythm, no murmur appreciated. Respiratory: Respirations even and unlabored, rales to bilateral bases, no wheezing. Gastrointestinal: Abdomen soft, nontender on palpation, no masses appreciated, normoactive bowel sounds throughout. No CVA tenderness. Extremities: Mild edema to bilateral ankles. Pedal pulses palpable. Objective Objective Clinical Data: Abnormal lab results 06/05/18 06/05/18 Range/Units 06:33 06:33 RBC 3.33 L (4.00-5.20) m/cumm Hgb 9.0 L (12.0-15.5) g/dL Hct 30.3 L (36.0-46.0) % MCHC 29.7 L (32.0-36.0) g/dL RDW 20.2 H (11.7-14.6) % MPV 11.3 H (8.0-11.0) fL Sodium 131 L (136-145) mmol/L Chloride 97 L (98-107) mmol/L BUN 25 H D (7-18) mg/dL Creatinine 1.40 H (0.55-1.02) mg/dL Glucose 190 H (70-100) mg/dL Vital Signs Temperature 37 C 06/05/18 11:30 Temperature Source Tympanic 06/05/18 11:30 Pulse 79 06/05/18 11:30 Pulse Rhythm Regular 06/05/18 08:01 Pulse 105 H 06/02/18 15:14 Respiratory Rate 16 06/05/18 11:30 Respiratory Effort Non-Labored 06/05/18 08:01 Respiratory Depth Normal 06/05/18 08:01 Respiratory Pattern Normal 06/05/18 08:01 Blood Pressure 105/59 L 06/05/18 11:30 Blood Pressure Mean 63 06/02/18 15:01 Blood Pressure Position Sitting 06/02/18 11:36 Pulse Oximetry 94 L 06/05/18 11:30 Oxygen Delivery Method Room Air 06/05/18 11:30 Oxygen Flow Rate 0 06/05/18 11:30 Pain Level 3 06/05/18 08:34 Comment 06/02/18 11:36 Intake & Output 06/04/18 06/05/18 06/05/18 23:59 11:59 23:59 Intake Total 1273.75 / 1870.00 350 / 840 490 / 840 Output Total 1150 / 2550 1650 / 1650 Balance 123.75 / -680.00 -1300 / -810 490 / -810 Weight 90.7 kg Intake: IV 793.75 / 1140.00 Oral 480 / 730 350 / 840 490 / 840 Output: Urine 1150 / 2550 1650 / 1650 Other: Urine Color Yellow Yellow Urine Appearance Clear Clear Urine Odor None Comment Neph tube emptied 250 out. 350ml out of Neph tube. Laboratory Results WBC 7.22 k/cumm (4.4-10.8) 06/05/18 06:33 RBC 3.33 m/cumm (4.00-5.20) L 06/05/18 06:33 Hgb 9.0 g/dL (12.0-15.5) L 06/05/18 06:33 Hct 30.3 % (36.0-46.0) L 06/05/18 06:33 MCV 91.0 fL (80-95) 06/05/18 06:33 MCH 27.0 pg (27.0-33.0) 06/05/18 06:33 MCHC 29.7 g/dL (32.0-36.0) L 06/05/18 06:33 RDW 20.2 % (11.7-14.6) H 06/05/18 06:33 Plt Count 212 x1000/uL (130-400) 06/05/18 06:33 MPV 11.3 fL (8.0-11.0) H 06/05/18 06:33 Abs Immat Gran (auto) Cancelled 06/02/18 17:43 Immature Gran % 1.0 06/03/18 06:40 Neutrophils % 72.9 06/03/18 06:40 Lymphocytes % 10.9 06/03/18 06:40 Monocytes % 11.5 06/03/18 06:40 Eosinophils % 3.4 06/03/18 06:40 Basophils % 0.3 06/03/18 06:40 Absolute Neutrophils 5.00 k/cumm (1.2-6.7) 06/03/18 06:40 Band Neutrophils Cancelled 06/02/18 17:43 Absolute Lymphocytes 0.75 k/cumm (1.2-3.4) L 06/03/18 06:40 Absolute Monocytes 0.79 k/cumm (0.11-0.7) H 06/03/18 06:40 Absolute Eosinophils 0.23 k/cumm (0.0-0.7) 06/03/18 06:40 Absolute Basophils 0.02 k/cumm (0.0-0.2) 06/03/18 06:40 Metamyelocytes Cancelled 06/02/18 17:43 Myelocytes Cancelled 06/02/18 17:43 Promyelocytes Cancelled 06/02/18 17:43 Nucleated RBCs Cancelled 06/02/18 17:43 Differential Comment Cancelled 06/02/18 17:43 Atypical Lymphocytes Cancelled 06/02/18 17:43 Other Cell Type Cancelled 06/02/18 17:43 RBC Morphology Cancelled 06/02/18 17:43 Polychromasia Cancelled 06/02/18 17:43 Hypochromasia Cancelled 06/02/18 17:43 Poikilocytosis Cancelled 06/02/18 17:43 Basophilic Stippling Cancelled 06/02/18 17:43 Anisocytosis Cancelled 06/02/18 17:43 Microcytosis Cancelled 06/02/18 17:43 Macrocytosis Cancelled 06/02/18 17:43 Spherocytes Cancelled 06/02/18 17:43 Target Cells Cancelled 06/02/18 17:43 Tear Drop Cells Cancelled 06/02/18 17:43 Ovalocytes Cancelled 06/02/18 17:43 Stomatocytes Cancelled 06/02/18 17:43 Ruel[place]Rutherford Bodies Cancelled 06/02/18 17:43 [place] Cells Cancelled 06/02/18 17:43 Acanthocytes (Spur) Cancelled 06/02/18 17:43 Schistocytes Cancelled 06/02/18 17:43 Sodium 131 mmol/L (136-145) L 06/05/18 06:33 Potassium 4.5 mmol/L (3.5-5.1) 06/05/18 06:33 Chloride 97 mmol/L (98-107) L 06/05/18 06:33 Carbon Dioxide 25.6 mmol/L (21.0-32.0) 06/05/18 06:33 Anion Gap 8.4 mmol/L (3-11) 06/05/18 06:33 BUN 25 mg/dL (7-18) H D 06/05/18 06:33 Creatinine 1.40 mg/dL (0.55-1.02) H 06/05/18 06:33 Estimated GFR/1.73 m2 36.96 (mL/min/1.73m2) 06/05/18 06:33 Glucose 190 mg/dL (70-100) H 06/05/18 06:33 Calcium 9.1 mg/dL (8.5-10.1) 06/05/18 06:33 Magnesium 2.0 mg/dL (1.8-2.4) 06/05/18 06:33 Iron 61 ug/dL (50-175) 06/05/18 06:33 TIBC 304 ug/dL (250-450) 06/05/18 06:33 Transferrin % Sat 20 % (15-50) 06/05/18 06:33 Ferritin 45 ng/mL (8-388) 06/05/18 06:33 Total Bilirubin 0.2 mg/dL (0.2-1.0) 06/02/18 16:18 AST 23 U/L (15-37) 06/02/18 16:18 ALT 29 U/L (12-78) 06/02/18 16:18 Alkaline Phosphatase 109 U/L (46-116) 06/02/18 16:18 Troponin I Cancelled 06/02/18 17:43 Total Protein 6.9 g/dL (6.4-8.2) 06/02/18 16:18 Albumin 2.7 g/dL (3.4-5.0) L 06/02/18 16:18 Vitamin B12 513 pg/mL (193-986) 06/05/18 06:33 Folate 14.6 ng/mL (8.6-20.0) 06/05/18 06:33 Urine Color [place] (Yellow) 06/02/18 12:46 Urine Clarity Cloudy 06/02/18 12:46 Urine pH 7.0 (5-8) 06/02/18 12:46 Ur Specific [place] 1.025 (1.005-1.025) 06/02/18 12:46 Urine Protein >=300 mg/dL (Negative) H 06/02/18 12:46 Urine Ketones Negative mg/dL (Negative) 06/02/18 12:46 Urine Blood Large (Negative) H 06/02/18 12:46 Urine Nitrite Negative (Negative) 06/02/18 12:46 Urine Bilirubin Negative (Negative) 06/02/18 12:46 Urine Urobilinogen 0.2 EU/dL (Up TO 0.2) 06/02/18 12:46 Ur Leukocyte Esterase Large (Negative) H 06/02/18 12:46 Urine RBC >50 (0-2) H 06/02/18 12:46 Urine WBC >50 HPF (0-5) 06/02/18 12:46 Ur Epithelial Cells HPF (Negative) 06/02/18 12:46 Urine Crystals Not Applicable 06/02/18 12:46 Urine Bacteria Not Applicable 06/02/18 12:46 Urine Mucus Not Applicable 06/02/18 12:46 Ur Culture Indicated? Yes 06/02/18 12:46 Urine Glucose Negative mg/dL (Negative) 06/02/18 12:46
[2018-06-05] MEDS: Heparin 5,000 UNITS/ML VIAL 5000 UNITS SC ×2 (13:33→23:19)
--- NOTE | 2018-06-05 13:33 | W.INDIABCONS ---
Date of service: 06/05/18 Time of Service: 13:33 Diabetes Inpatient Consult DESCRIPTION/ASSESSMENT: Appreciate diabetes consult for Ms. Alvarado who is here for leaking urinary tubing. She is well known to us from previous admissions. At home she manages diabetes with Metformin, Glimepiride and 30u Glargine. No current A1c available. Blood sugars here mostly in the [id number] with occasional excursions to 300s. She is managed with 35u Gargine and sensitive insulin correction. She is eating 40-70 grams carbohydrate at a meal. BMI 34 Ms. Alvarado is experiencing hyperglycemia unknown if it is ongoing without A1c. INTERVENTION: Suggest adding insulin:carb at 1 unit to cover 10 grams carbohydrate given she has a reasonable appetite. Suggest increasing insulin correction to moderate given her BMI and glycemic response to current dosing. PLAN: Will follow blood sugars and follow up with her if diabetes support is desired. Time Spent in Nutritional Counseling and Treatment: chart review only
--- NOTE | 2018-06-05 13:45 | DM INPTCON_ITS ---
Date of service: 06/05/18 Time of Service: 13:33 Diabetes Inpatient Consult DESCRIPTION/ASSESSMENT: Appreciate diabetes consult for Ms. Alvarado who is here for leaking urinary tubing. She is well known to us from previous admissions. At home she manages diabetes with Metformin, Glimepiride and 30u Glargine. No current A1c available. Blood sugars here mostly in the [id number] with occasional excursions to 300s. She is managed with 35u Gargine and sensitive insulin correction. She is eating 40- 70 grams carbohydrate at a meal. BMI 34 Ms. Alvarado is experiencing hyperglycemia unknown if it is ongoing without A1c. INTERVENTION: Suggest adding insulin:carb at 1 unit to cover 10 grams carbohydrate given she has a reasonable appetite. Suggest increasing insulin correction to moderate given her BMI and glycemic response to current dosing. PLAN: Will follow blood sugars and follow up with her if diabetes support is desired. Time Spent in Nutritional Counseling and Treatment: chart review only
[2018-06-05 16:17] VITALS: BP 123/68; PULSE 101; RESP 20; TEMP 37; O2SAT 93
[2018-06-05] MEDS: Polyethylene Glycol 3350 17 GM PACKET PO (17:00)
[2018-06-05] MEDS: Mometasone 220 MCG 14 DOSE INHALER 1 PUFF IH (21:58)
[2018-06-05] MEDS: Insulin Glargine 300 UNITS/3 ML PEN 35 UNITS SC (21:58)
[2018-06-05] MEDS: lamoTRIgine 100 MG TAB 200 MG PO (21:59)
[2018-06-05] MEDS: risperiDONE 1 MG TAB 3 MG PO (21:59)
[2018-06-06 04:02] VITALS: BP 153/64; PULSE 85; RESP 20; TEMP 36.7; O2SAT 95
[2018-06-06] MEDS: Levothyroxine 100 MCG TAB PO (05:04)
--- NOTE | 2018-06-06 06:42 | NUR.NOTE ---
Pt complaint that toney was leaking, and it was due to be changed. Same was assessed and noted to be leaking. Charge nurse was informed, was advised to deflate then reinflate, same was done, leaking was more evident. So toney changed to mongolian 16.
[2018-06-06] MEDS: Normal Saline 1,000 ML 100 ML IV (06:53)
[2018-06-06 06:59] LABS: HGB 9.2 g/dL (12.0-15.5); Mean Corp. HGB Concentration 29.7 g/dL (32.0-36.0); Mean Corpuscular Hemoglobin 26.9 pg (27.0-33.0); Mean Corpuscular Volume 90.6 fL (80-95); Mean Platelet Volume 11.9 fL (8.0-11.0); Platelet Count 209 x1000/uL (130-400); RBC 3.42 m/cumm (4.00-5.20); RBC Distribution Width 19.6 % (11.7-14.6); White Blood Cell Count 6.31 k/cumm (4.4-10.8)
[2018-06-06 07:08] LABS: Anion Gap 7.5 mmol/L (3-11); BUN 17 mg/dL (7-18); CO2 26.5 mmol/L (21.0-32.0); CREATININE 0.75 mg/dL (0.55-1.02); Chloride 101 mmol/L (98-107); Glucose 247 mg/dL (70-100); Magnesium 1.7 mg/dL (1.8-2.4); Potassium 4.6 mmol/L (3.5-5.1); Sodium 135 mmol/L (136-145)
[2018-06-06 07:36] VITALS: BP 122/71; PULSE 88; RESP 18; TEMP 36.7; O2SAT 95
[2018-06-06] MEDS: Pantoprazole 40 MG TABCR PO (08:23)
[2018-06-06] MEDS: Pregabalin 50 MG CAP PO ×2 (08:23→20:19)
[2018-06-06] MEDS: Oxybutynin 5 MG TAB PO ×2 (08:23→20:18)
[2018-06-06] MEDS: lamoTRIgine 100 MG TAB PO (08:23)
[2018-06-06] MEDS: Ciprofloxacin 250 MG/5 ML 100ML BTL PO ×2 (08:23→20:25)
[2018-06-06] MEDS: Doxycycline Hyclate 100 MG CAP PO ×2 (08:24→20:19)
[2018-06-06] MEDS: Methadone 10 MG TAB PO ×2 (08:24→20:18)
[2018-06-06] MEDS: clonazePAM 0.5 MG TAB PO ×2 (08:24→20:21)
[2018-06-06] MEDS: Simvastatin 40 MG TAB 20 MG PO (08:25)
[2018-06-06] MEDS: Insulin Aspart 300 UNITS/3 ML PEN SC ×4 (08:25→21:26)
[2018-06-06] MEDS: Citalopram 20 MG TAB 40 MG PO (08:25)
[2018-06-06] MEDS: Metoprolol CR 25 MG TABCR PO (08:25)
--- NOTE | 2018-06-06 09:25 | RESPIRATORY ---
Breath sounds clear and diminished and declines MDI
--- NOTE | 2018-06-06 09:31 | PT.INPN ---
Date of service: 06/06/18 Time of Service: 09:10 PT Notes Inpatient Physical Therapy Progress Note [facility] Date: June 06, 2018 PRECAUTIONS:Fall precautions SUBJECTIVE: Patient states that she is nervous about her meeting regarding placement in SNF but she understands it is in her best interest for her well being. Is willing to participate in PT. OBJECTIVE: Seen for PT for transfer training and ther-ex. PAIN: no complaints BED MOBILITY/TRANSFERS Rolling L/R: Independent Supine-sit: Min assist Sit-supine: SBA Sit-stand: CGx1 to FWW Stand-sit: CG x1 from FWW Bed-Chair: CG x1 with FWW Chair-bed: CG x1 with FWW GAIT Assistive Device: FWW Weight bearing: Full Assist: CG x1 Distance: 5 steps THEREX: as per flow sheets ASSESSMENT: Still requires assistance (as above) for transfers but is showing improvements since admit. She does require continued PT services for strengthening, gait and functional mobility training prior to transfer to SNF. Goals: Goals X1 week 1. Supine-Sit : independent - Progressing 2. Sit-Supine independent - met 3. Sit-Stand independent with WW - progressing towards 4. Stand-Sit independent with WW - progressing towards 5. Bed-Chair independent with WW - progressing towards 6. Chair-Bed independent with WW - progressing towards PLAN: Continue with current plan of care for strengthening, gait and functional mobility training. TREATMENT CODE/TIME: [id number] and [id number]. 9:10 for 25 minutes.
[2018-06-06] MEDS: Nystatin CREAM 30 GM TUBE TP ×2 (09:43→20:21)
[2018-06-06] MEDS: Ferrous Sulfate 325 MG TAB PO ×2 (10:52→21:25)
[2018-06-06] MEDS: Magnesium Oxide 400 MG TAB 800 MG PO (10:52)
[2018-06-06] MEDS: Docusate Sodium 100 MG CAP PO (10:52)
[2018-06-06] MEDS: Dronabinol 2.5 MG CAP PO ×2 (11:29→18:09)
--- NOTE | 2018-06-06 11:46 | PHARADMIT ---
Addendum entered by James De Jesus III 06/07/18 13:04: Pharmacy Note Subjective Patient met with [facility], bed offered for next week. Patient will go to swing bed here before being discharged to SNF. Objective VS-OK Na-136 Mag-1.6 H&H,Plts-OK Wgt- 91.3 kg No BM Assessment Had some crackles, IV fluids increased. Plan Going to Swing bed then to [facility] next week. Original Note: Admission Pharmacy Clinical Review failure to thrive Code Status DNR/DNI Current Weight Wgt-90.1 kg Renally Cleared and Narrow Therapeutic Index Meds CrCl~ 54.9 mL/min Meds-OK QTc Value / Action Taken QTc-437 NA BP- 122/71 Meds-OK Electrolytes reviewed Na- 135 K+4.6 Mag-1.7 DVT Prophylaxis Heparin SC, Opiate Usage / Scheduled Bowel Regimen Ordered Yes Yes Plt/SCr for Heparin / Enoxaparin Plts-209 SCr-0.76 INR for Warfarin NA H/H stable, WBC/Bands H&H- 9.2/31.0 WBC- 6.31 Antibiotic appropriateness Cipro Susp, Doxycycline, Cultures and Sensitivities Urine- Rosmery Surgical ABX d/c within 24 hr NA DM control / Insulin Dosing BG- 247 Aspart, Lantus Heart Failure (Check EF%) (CARLI's, B-Block, Diuretics) Lisinopril, Toprol-XL, IV to PO Switch Yes Home Meds Reviewed Yes Home Meds Not Ordered ASA, Keflex, Diazepam, Glimeperide, Ibuprofen, Oxycodone, Bactrim, Dyazide Comments
[2018-06-06] MEDS: Heparin 5,000 UNITS/ML VIAL 5000 UNITS SC ×2 (12:10→23:58)
--- NOTE | 2018-06-06 14:18 | CHAPLAIN ---
Deana told me today that she had Jared met with someone from [facility], and she may go to [facility] Sunday. She said she is grateful for being able to stay in [facility] near [place] and friends. We talked some more about what led her to become a Hinduism and about her daily meditation practice. Deana seems to be comfortable being here, and looking forward to the going to [facility].
[2018-06-06] MEDS: Dicyclomine 10 MG CAP PO (14:22)
--- NOTE | 2018-06-06 14:31 | PTTR_ITS ---
Date of service: 06/06/18 Time of Service: 13:50 PT Notes Inpatient Physical Therapy Treatment Note [facility] Date: 06/06/18 PRECAUTIONS: fall, standard SUBJECTIVE: Deana states that she's having problems with her catheter. She's a greeable to PT. OBJECTIVE: BED MOBILITY/TRANSFERS Supine-sit: independent Sit-supine: independent Sit-stand: SBA with bed raised Stand-sit: SBA Bed-Chair: CG, WW Chair-bed: CG, WW GAIT Assistive Device: Weight bearing: WW Assist: CG Distance: 6' THEREX: Patient was instructed in open and closed chain strengthening as noted on flowsheet. She also received manual gastroc stretching in supine. She sat up to chair x 15 minutes. ASSESSMENT: Progressing to short distance ambulation. PLAN: Continue progressing as tolerated. Patient plans to transition to SNF early next week. TREATMENT CODE/TIME: 30' (20718, [id number])
--- NOTE | 2018-06-06 14:53 | W.PM.PROGNOT ---
Date of Service Date of service: 06/06/18 Time of Service: 14:53 Assessment and Plan (1) Acute kidney injury: Current visit: Yes Status: Acute Resolved with IV fluids. Appears dry on physical exam. Continue IV fluids, decrease rate. Reassess BMP in the morning (2) Hypomagnesemia: Current visit: No Status: Acute Replete and continue to monitor. (3) UTI (urinary tract infection): Current visit: No Status: Acute Recently discharged from [facility] on Bactrim DS, potassium was elevated on admission to [facility]. Bactrim DS discontinued. Currently on Cipro. Urine culture growing Proteus, Morganella morganii, and enterococcus Faecalis, all sensitive to Cipro. She will remain on Cipro until her follow-up at [facility] where she is scheduled for stone extraction. Current UA growing Rosmery. Continue cipro until follow up with [facility]. (4) Nephrostomy complication: Current visit: Yes Status: Acute Right nephrostomy tube leaking. IR contacted by ED and made aware, recommend outpatient follow up. Urology consulted. No concerns related to leaking tube, urine is draining. Nephrostomy tube flushed well. Continue to use colostomy bag to protect skin. Follow up with IR at [facility]. (5) Chronic back pain: Current visit: No Status: Chronic Continue home medications, methadone BID, ms contin 15 mg bid, valium po. Continue to monitor pain. (6) Hypothyroidism: Current visit: No Status: Chronic Continue levothyroxine at current dose. (7) Diabetes mellitus type 2: Current visit: No Status: Chronic Blood glucose remains elevated. Increase Lantus to 40 units tonight. Continue to monitor, adjust insulin as needed. Continue carb counting diet. (8) DVT prophylaxis: Current visit: No Status: Acute Subcutaneous heparin. (9) Discharge planning issues: Current visit: No Status: Acute She is a DNR/DNI. Her is unable to care for her at home. She has been accepted at [facility], will transition when medically ready. This case was discussed with Dr. leyva who is in agreement. Subjective Interval history since last seen: Ms Alvarado is a 73 year old female with PMHx of staghorn nephrolithiasis s/p nephrostomy tube at [facility] 05/19/18, discharged on 05/31, as well as urinary incontinence s/p chronic indwelling toney catheter, Chronic MSSA hardware infection, on chronic suppressive therapy with doxycycline, noninsulin dependent diabetes mellitus type 2, hypertension, hyperlipidemia, anxiety. She presented to the emergency department on 06/02/2018 with reports of a leaking nephrostomy tube. She had a CT of abdomen and pelvis which was reviewed by her urologist at [facility] who felt that the tube was appropriately positioned. He recommended outpatient follow-up, dressing changes without emergent intervention. The patient's felt that he was unable to take the patient home. She was also noted to have electrolyte abnormalities. She was admitted to the med/surg floor for correction of electrolyte abnormalities and urology consultation. She received IV fluids and her electrolytes were replaced. The IV fluids were discontinued with subsequent worsening renal function. She is currently back on IV fluids. Today, she continues to report chronic back pain that is controlled. She denies any increased CVA tenderness. No abdominal pain. Right nephrostomy tube continues to drain clear yellow urine into a colostomy bag. Her Toney catheter is draining clear yellow urine. She does report leaking of urine around her Toney catheter. She is not moved her bowels in 2 days. She would like to continue to use MiraLAX, she would like to hold off on a suppository until tomorrow to give the MiraLAX a chance to work. She does have chronic constipation at baseline. She denies chest pain/pressure, palpitations, shortness of breath, coughing, wheezing. She met with [facility] and rehab staff today. She feels that the meeting went very well. She is aware that she will need short-term rehab prior to returning home. She would like to stay in [place] as her family and friends are in [place]. Exam Narrative Exam Narrative: General: Elderly female, lying in bed with head elevated, right arm tremulous, in no acute distress. HEENT: Normocephalic, atraumatic, mucous membranes slightly dry Neck: Supple Cardiovascular: Heart has regular rate and rhythm, no murmur appreciated. Respiratory: Respirations even and unlabored, no rales, rhonchi, or wheezing. Gastrointestinal: Abdomen soft, nontender on palpation, no masses appreciated, normoactive bowel sounds throughout. No CVA tenderness. : Toney catheter draining clear yellow urine, appears to be some urine leakage on the bed under her, right nephrostomy tube continues to drain into colostomy bag, clear yellow urine. Extremities: Mild edema to bilateral ankles. Pedal pulses palpable. Objective Objective Clinical Data: Abnormal lab results 06/06/18 06/06/18 Range/Units 06:12 06:12 RBC 3.42 L (4.00-5.20) m/cumm Hgb 9.2 L (12.0-15.5) g/dL Hct 31.0 L (36.0-46.0) % MCH 26.9 L (27.0-33.0) pg MCHC 29.7 L (32.0-36.0) g/dL RDW 19.6 H (11.7-14.6) % MPV 11.9 H (8.0-11.0) fL Sodium 135 L (136-145) mmol/L Glucose 247 H (70-100) mg/dL Magnesium 1.7 L (1.8-2.4) mg/dL Vital Signs Temperature 36.7 C 06/06/18 07:36 Temperature Source Tympanic 06/06/18 07:36 Pulse 88 06/06/18 07:36 Pulse Rhythm Regular 06/06/18 10:48 Pulse 105 H 06/02/18 15:14 Respiratory Rate 18 06/06/18 07:36 Respiratory Effort Non-Labored 06/06/18 10:48 Respiratory Depth Normal 06/06/18 10:48 Respiratory Pattern Normal 06/06/18 10:48 Blood Pressure 122/71 06/06/18 07:36 Blood Pressure Mean 63 06/02/18 15:01 Blood Pressure Position Sitting 06/02/18 11:36 Pulse Oximetry 95 06/06/18 07:36 Oxygen Delivery Method Room Air 06/06/18 07:36 Oxygen Flow Rate 0 06/06/18 07:36 Pain Level 3 06/06/18 08:24 Comment 06/02/18 11:36 Intake & Output 06/05/18 06/06/18 06/06/18 23:59 11:59 23:59 Intake Total 1490 / 1850 4030 / 4813.333 783.333 / 4813.333 Output Total 2350 / 4000 2750 / 2750 Balance -860 / -2150 1280 / 2063.333 783.333 / 3.333 Weight 90.1 kg Intake: IV 1000 / 1010 783.333 / 783.333 Oral 490 / 840 4030 / 4030 Output: Drainage 950 / 950 350 / 350 Right Lower Back 950 / 950 350 / 350 Urine 1400 / 3050 2400 / 2400 Other: Urine Color Pale Yellow Yellow Urine Appearance Clear Clear Laboratory Results WBC 6.31 k/cumm (4.4-10.8) 06/06/18 06:12 RBC 3.42 m/cumm (4.00-5.20) L 06/06/18 06:12 Hgb 9.2 g/dL (12.0-15.5) L 06/06/18 06:12 Hct 31.0 % (36.0-46.0) L 06/06/18 06:12 MCV 90.6 fL (80-95) 06/06/18 06:12 MCH 26.9 pg (27.0-33.0) L 06/06/18 06:12 MCHC 29.7 g/dL (32.0-36.0) L 06/06/18 06:12 RDW 19.6 % (11.7-14.6) H 06/06/18 06:12 Plt Count 209 x1000/uL (130-400) 06/06/18 06:12 MPV 11.9 fL (8.0-11.0) H 06/06/18 06:12 Abs Immat Gran (auto) Cancelled 06/02/18 17:43 Immature Gran % 1.0 06/03/18 06:40 Neutrophils % 72.9 06/03/18 06:40 Lymphocytes % 10.9 06/03/18 06:40 Monocytes % 11.5 06/03/18 06:40 Eosinophils % 3.4 06/03/18 06:40 Basophils % 0.3 06/03/18 06:40 Absolute Neutrophils 5.00 k/cumm (1.2-6.7) 06/03/18 06:40 Band Neutrophils Cancelled 06/02/18 17:43 Absolute Lymphocytes 0.75 k/cumm (1.2-3.4) L 06/03/18 06:40 Absolute Monocytes 0.79 k/cumm (0.11-0.7) H 06/03/18 06:40 Absolute Eosinophils 0.23 k/cumm (0.0-0.7) 06/03/18 06:40 Absolute Basophils 0.02 k/cumm (0.0-0.2) 06/03/18 06:40 Metamyelocytes Cancelled 06/02/18 17:43 Myelocytes Cancelled 06/02/18 17:43 Promyelocytes Cancelled 06/02/18 17:43 Nucleated RBCs Cancelled 06/02/18 17:43 Differential Comment Cancelled 06/02/18 17:43 Atypical Lymphocytes Cancelled 06/02/18 17:43 Other Cell Type Cancelled 06/02/18 17:43 RBC Morphology Cancelled 06/02/18 17:43 Polychromasia Cancelled 06/02/18 17:43 Hypochromasia Cancelled 06/02/18 17:43 Poikilocytosis Cancelled 06/02/18 17:43 Basophilic Stippling Cancelled 06/02/18 17:43 Anisocytosis Cancelled 06/02/18 17:43 Microcytosis Cancelled 06/02/18 17:43 Macrocytosis Cancelled 06/02/18 17:43 Spherocytes Cancelled 06/02/18 17:43 Target Cells Cancelled 06/02/18 17:43 Tear Drop Cells Cancelled 06/02/18 17:43 Ovalocytes Cancelled 06/02/18 17:43 Stomatocytes Cancelled 06/02/18 17:43 Ruelas-Stedman Bodies Cancelled 06/02/18 17:43 Philip Cells Cancelled 06/02/18 17:43 Acanthocytes (Spur) Cancelled 06/02/18 17:43 Schistocytes Cancelled 06/02/18 17:43 Sodium 135 mmol/L (136-145) L 06/06/18 06:12 Potassium 4.6 mmol/L (3.5-5.1) 06/06/18 06:12 Chloride 101 mmol/L (98-107) 06/06/18 06:12 Carbon Dioxide 26.5 mmol/L (21.0-32.0) 06/06/18 06:12 Anion Gap 7.5 mmol/L (3-11) 06/06/18 06:12 BUN 17 mg/dL (7-18) D 06/06/18 06:12 Creatinine 0.75 mg/dL (0.55-1.02) D 06/06/18 06:12 Estimated GFR/1.73 m2 >= 60.00 (mL/min/1.73m2) 06/06/18 06:12 Glucose 247 mg/dL (70-100) H 06/06/18 06:12 Calcium 9.0 mg/dL (8.5-10.1) 06/06/18 06:12 Magnesium 1.7 mg/dL (1.8-2.4) L 06/06/18 06:12 Iron 61 ug/dL (50-175) 06/05/18 06:33 TIBC 304 ug/dL (250-450) 06/05/18 06:33 Transferrin % Sat 20 % (15-50) 06/05/18 06:33 Ferritin 45 ng/mL (8-388) 06/05/18 06:33 Total Bilirubin 0.2 mg/dL (0.2-1.0) 06/02/18 16:18 AST 23 U/L (15-37) 06/02/18 16:18 ALT 29 U/L (12-78) 06/02/18 16:18 Alkaline Phosphatase 109 U/L (46-116) 06/02/18 16:18 Troponin I Cancelled 06/02/18 17:43 Total Protein 6.9 g/dL (6.4-8.2) 06/02/18 16:18 Albumin 2.7 g/dL (3.4-5.0) L 06/02/18 16:18 Vitamin B12 513 pg/mL (193-986) 06/05/18 06:33 Folate 14.6 ng/mL (8.6-20.0) 06/05/18 06:33 Urine Color [place] (Yellow) 06/02/18 12:46 Urine Clarity Cloudy 06/02/18 12:46 Urine pH 7.0 (5-8) 06/02/18 12:46 Ur Specific [place] 1.025 (1.005-1.025) 06/02/18 12:46 Urine Protein >=300 mg/dL (Negative) H 06/02/18 12:46 Urine Ketones Negative mg/dL (Negative) 06/02/18 12:46 Urine Blood Large (Negative) H 06/02/18 12:46 Urine Nitrite Negative (Negative) 06/02/18 12:46 Urine Bilirubin Negative (Negative) 06/02/18 12:46 Urine Urobilinogen 0.2 EU/dL (Up TO 0.2) 06/02/18 12:46 Ur Leukocyte Esterase Large (Negative) H 06/02/18 12:46 Urine RBC >50 (0-2) H 06/02/18 12:46 Urine WBC >50 HPF (0-5) 06/02/18 12:46 Ur Epithelial Cells HPF (Negative) 06/02/18 12:46 Urine Crystals Not Applicable 06/02/18 12:46 Urine Bacteria Not Applicable 06/02/18 12:46 Urine Mucus Not Applicable 06/02/18 12:46 Ur Culture Indicated? Yes 06/02/18 12:46 Urine Glucose Negative mg/dL (Negative) 06/02/18 12:46
--- NOTE | 2018-06-06 15:04 | PGE_ITS ---
Date of Service Date of service: 06/06/18 Time of Service: 14:53 Assessment and Plan (1) Acute kidney injury: Current visit: Yes Status: Acute Resolved with IV fluids. Appears dry on physical exam. Continue IV fluids, decrease rate. Reassess BMP in the morning (2) Hypomagnesemia: Current visit: No Status: Acute Replete and continue to monitor. (3) UTI (urinary tract infection): Current visit: No Status: Acute Recently discharged from [facility] on Bactrim DS, potassium was elevated on admission to [facility]. Bactrim DS discontinued. Currently on Cipro. Urine culture growing Proteus, Morganella morganii, and enterococcus Faecalis, all sensitive to Cipro. She will remain on Cipro until her follow-up at [facility] where she is scheduled for stone extraction. Current UA growing Rosmery. Continue cipro until follow up with [facility]. (4) Nephrostomy complication: Current visit: Yes Status: Acute Right nephrostomy tube leaking. IR contacted by ED and made aware, recommend outpatient follow up. Urology consulted. No concerns related to leaking tube, urine is draining. Nephrostomy tube flushed well. Continue to use colostomy bag to protect skin. Follow up with IR at [facility]. (5) Chronic back pain: Current visit: No Status: Chronic Continue home medications, methadone BID, ms contin 15 mg bid, valium po. Continue to monitor pain. (6) Hypothyroidism: Current visit: No Status: Chronic Continue levothyroxine at current dose. (7) Diabetes mellitus type 2: Current visit: No Status: Chronic Blood glucose remains elevated. Increase Lantus to 40 units tonight. Continue to monitor, adjust insulin as needed. Continue carb counting diet. (8) DVT prophylaxis: Current visit: No Status: Acute Subcutaneous heparin. (9) Discharge planning issues: Current visit: No Status: Acute She is a DNR/DNI. Her is unable to care for her at home. She has been accepted at [facility], will transition when medically ready. This case was discussed with Dr. leyva who is in agreement. Subjective Interval history since last seen: Ms Alvarado is a 73 year old female with PMHx of staghorn nephrolithiasis s/p nephrostomy tube at [facility] 05/19/18, discharged on 05/31, as well as urinary incontinence s/p chronic indwelling toney catheter, Chronic MSSA hardware infection, on chronic suppressive therapy with doxycycline, noninsulin dependent diabetes mellitus type 2, hypertension, hyperlipidemia, anxiety. She presented to the emergency department on 06/02/2018 with reports of a leaking nephrostomy tube. She had a CT of abdomen and pelvis which was reviewed by her urologist at [facility] who felt that the tube was appropriately positioned. He recommended outpatient follow-up, dressing changes without emergent intervention. The patient's felt that he was unable to take the patient home. She was also noted to have electrolyte abnormalities. She was admitted to the med/surg floor for correction of electrolyte abnormalities and urology consultation. She received IV fluids and her electrolytes were replaced. The IV fluids were discontinued with subsequent worsening renal function. She is currently back on IV fluids. Today, she continues to report chronic back pain that is controlled. She denies any increased CVA tenderness. No abdominal pain. Right nephrostomy tube continues to drain clear yellow urine into a colostomy bag. Her Toney catheter is draining clear yellow urine. She does report leaking of urine around her Toney catheter. She is not moved her bowels in 2 days. She would like to continue to use MiraLAX, she would like to hold off on a suppository until tomor row to give the MiraLAX a chance to work. She does have chronic constipation at baseline. She denies chest pain/pressure, palpitations, shortness of breath, coughing, wheezing. She met with [facility] and rehab staff today. She feels that the meeting went very well. She is aware that she will need short-term rehab prior to returning home. She would like to stay in [place] as her family and friends are in [place]. Exam Narrative Exam Narrative: General: Elderly female, lying in bed with head elevated, right arm tremulous, in no acute distress. HEENT: Normocephalic, atraumatic, mucous membranes slightly dry Neck: Supple Cardiovascular: Heart has regular rate and rhythm, no murmur appreciated. Respiratory: Respirations even and unlabored, no rales, rhonchi, or wheezing. Gastrointestinal: Abdomen soft, nontender on palpation, no masses appreciated, normoactive bowel sounds throughout. No CVA tenderness. : Toney catheter draining clear yellow urine, appears to be some urine leakage on the bed under her, right nephrostomy tube continues to drain into colostomy bag, clear yellow urine. Extremities: Mild edema to bilateral ankles. Pedal pulses palpable. Objective Objective Clinical Data: Abnormal lab results 06/06/18 06/06/18 Range/Units 06:12 06:12 RBC 3.42 L (4.00-5.20) m/cumm Hgb 9.2 L (12.0-15.5) g/dL Hct 31.0 L (36.0-46.0) % MCH 26.9 L (27.0-33.0) pg MCHC 29.7 L (32.0-36.0) g/dL RDW 19.6 H (11.7-14.6) % MPV 11.9 H (8.0-11.0) fL Sodium 135 L (136-145) mmol/L Glucose 247 H (70-100) mg/dL Magnesium 1.7 L (1.8-2.4) mg/dL Vital Signs Temperature 36.7 C 06/06/18 07:36 Temperature Source Tympanic 06/06/18 07:36 Pulse 88 06/06/18 07:36 Pulse Rhythm Regular 06/06/18 10:48 Pulse 105 H 06/02/18 15:14 Respiratory Rate 18 06/06/18 07:36 Respiratory Effort Non-Labored 06/06/18 10:48 Respiratory Depth Normal 06/06/18 10:48 Respiratory Pattern Normal 06/06/18 10:48 Blood Pressure 122/71 06/06/18 07:36 Blood Pressure Mean 63 06/02/18 15:01 Blood Pressure Position Sitting 06/02/18 11:36 Pulse Oximetry 95 06/06/18 07:36 Oxygen Delivery Method Room Air 06/06/18 07:36 Oxygen Flow Rate 0 06/06/18 07:36 Pain Level 3 06/06/18 08:24 Comment 06/02/18 11:36 Intake & Output 06/05/18 06/06/18 06/06/18 23:59 11:59 23:59 Intake Total 1490 / 1850 4030 / 4813.333 783.333 / 4813.333 Output Total 2350 / 4000 2750 / 2750 Balance -860 / -2150 1280 / 2063.333 783.333 / 3.333 Weight 90.1 kg Intake: IV 1000 / 1010 783.333 / 783.333 Oral 490 / 840 4030 / 4030 Output: Drainage 950 / 950 350 / 350 Right Lower Back 950 / 950 350 / 350 Urine 1400 / 3050 2400 / 2400 Other: Urine Color Pale Yellow Yellow Urine Appearance Clear Clear Laboratory Results WBC 6.31 k/cumm (4.4-10.8) 06/06/18 06:12 RBC 3.42 m/cumm (4.00-5.20) L 06/06/18 06:12 Hgb 9.2 g/dL (12.0-15.5) L 06/06/18 06:12 Hct 31.0 % (36.0-46.0) L 06/06/18 06:12 MCV 90.6 fL (80-95) 06/06/18 06:12 MCH 26.9 pg (27.0-33.0) L 06/06/18 06:12 MCHC 29.7 g/dL (32.0-36.0) L 06/06/18 06:12 RDW 19.6 % (11.7-14.6) H 06/06/18 06:12 Plt Count 209 x1000/uL (130-400) 06/06/18 06:12 MPV 11.9 fL (8.0-11.0) H 06/06/18 06:12 Abs Immat Gran (auto) Cancelled 06/02/18 17:43 Immature Gran % 1.0 06/03/18 06:40 Neutrophils % 72.9 06/03/18 06:40 Lymphocytes % 10.9 06/03/18 06:40 Monocytes % 11.5 06/03/18 06:40 Eosinophils % 3.4 06/03/18 06:40 Basophils % 0.3 06/03/18 06:40 Absolute Neutrophils 5.00 k/cumm (1.2-6.7) 06/03/18 06:40 Band Neutrophils Cancelled 06/02/18 17:43 Absolute Lymphocytes 0.75 k/cumm (1.2-3.4) L 06/03/18 06:40 Absolute Monocytes 0.79 k/cumm (0.11-0.7) H 06/03/18 06:40 Absolute Eosinophils 0.23 k/cumm (0.0-0.7) 06/03/18 06:40 Absolute Basophils 0.02 k/cumm (0.0-0.2) 06/03/18 06:40 Metamyelocytes Cancelled 06/02/18 17:43 Myelocytes Cancelled 06/02/18 17:43 Promyelocytes Cancelled 06/02/18 17:43 Nucleated RBCs Cancelled 06/02/18 17:43 Differential Comment Cancelled 06/02/18 17:43 Atypical Lymphocytes Cancelled 06/02/18 17:43 Other Cell Type Cancelled 06/02/18 17:43 RBC Morphology Cancelled 06/02/18 17:43 Polychromasia Cancelled 06/02/18 17:43 Hypochromasia Cancelled 06/02/18 17:43 Poikilocytosis Cancelled 06/02/18 17:43 Basophilic Stippling Cancelled 06/02/18 17:43 Anisocytosis Cancelled 06/02/18 17:43 Microcytosis Cancelled 06/02/18 17:43 Macrocytosis Cancelled 06/02/18 17:43 Spherocytes Cancelled 06/02/18 17:43 Target Cells Cancelled 06/02/18 17:43 Tear Drop Cells Cancelled 06/02/18 17:43 Ovalocytes Cancelled 06/02/18 17:43 Stomatocytes Cancelled 06/02/18 17:43 Ruelas-Minot Bodies Cancelled 06/02/18 17:43 [place]ope Cells Cancelled 06/02/18 17:43 Acanthocytes (Spur) Cancelled 06/02/18 17:43 Schistocytes Cancelled 06/02/18 17:43 Sodium 135 mmol/L (136-145) L 06/06/18 06:12 Potassium 4.6 mmol/L (3.5-5.1) 06/06/18 06:12 Chloride 101 mmol/L (98-107) 06/06/18 06:12 Carbon Dioxide 26.5 mmol/L (21.0-32.0) 06/06/18 06:12 Anion Gap 7.5 mmol/L (3-11) 06/06/18 06:12 BUN 17 mg/dL (7-18) D 06/06/18 06:12 Creatinine 0.75 mg/dL (0.55-1.02) D 06/06/18 06:12 Estimated GFR/1.73 m2 >= 60.00 (mL/min/1.73m2) 06/06/18 06:12 Glucose 247 mg/dL (70-100) H 06/06/18 06:12 Calcium 9.0 mg/dL (8.5-10.1) 06/06/18 06:12 Magnesium 1.7 mg/dL (1.8-2.4) L 06/06/18 06:12 Iron 61 ug/dL (50-175) 06/05/18 06:33 TIBC 304 ug/dL (250-450) 06/05/18 06:33 Transferrin % Sat 20 % (15-50) 06/05/18 06:33 Ferritin 45 ng/mL (8-388) 06/05/18 06:33 Total Bilirubin 0.2 mg/dL (0.2-1.0) 06/02/18 16:18 AST 23 U/L (15-37) 06/02/18 16:18 ALT 29 U/L (12-78) 06/02/18 16:18 Alkaline Phosphatase 109 U/L (46-116) 06/02/18 16:18 Troponin I Cancelled 06/02/18 17:43 Total Protein 6.9 g/dL (6.4-8.2) 06/02/18 16:18 Albumin 2.7 g/dL (3.4-5.0) L 06/02/18 16:18 Vitamin B12 513 pg/mL (193-986) 06/05/18 06:33 Folate 14.6 ng/mL (8.6-20.0) 06/05/18 06:33 Urine Color [place] (Yellow) 06/02/18 12:46 Urine Clarity Cloudy 06/02/18 12:46 Urine pH 7.0 (5-8) 06/02/18 12:46 Ur Specific [place] 1.025 (1.005-1.025) 06/02/18 12:46 Urine Protein >=300 mg/dL (Negative) H 06/02/18 12:46 Urine Ketones Negative mg/dL (Negative) 06/02/18 12:46 Urine Blood Large (Negative) H 06/02/18 12:46 Urine Nitrite Negative (Negative) 06/02/18 12:46 Urine Bilirubin Negative (Negative) 06/02/18 12:46 Urine Urobilinogen 0.2 EU/dL (Up TO 0.2) 06/02/18 12:46 Ur Leukocyte Esterase Large (Negative) H 06/02/18 12:46 Urine RBC >50 (0-2) H 06/02/18 12:46 Urine WBC >50 HPF (0-5) 06/02/18 12:46 Ur Epithelial Cells HPF (Negative) 06/02/18 12:46 Urine Crystals Not Applicable 06/02/18 12:46 Urine Bacteria Not Applicable 06/02/18 12:46 Urine Mucus Not Applicable 06/02/18 12:46 Ur Culture Indicated? Yes 06/02/18 12:46 Urine Glucose Negative mg/dL (Negative) 06/02/18 12:46
--- NOTE | 2018-06-06 15:48 | PDOC.CMPRO ---
Care Management Progress Note S/O: Deana and Jared met with Sammy of [facility]. Sammy contacted this senior grant writer in the afternoon and provided an official bed offer-which Deana accepted. Deana shared her excitement at being able to go to the rehab and stay close to her friends and family-as well as Jared. Deana will need to swing at [facility] until [facility] has a bed available next week. Provider-Kim mauricio and reports Deana is not yet ready for SWB, remains acute at this time. A: Failure to Thrive, UTI, nephrostomy tube leaking P: Deana will transition to SNF via wheelchair van next 06/12/18-Sammy reports if sooner admission possible on Sunday he will contact this senior grant writer. Deana will transition to SW[facility] while awaiting placement.
--- NOTE | 2018-06-06 16:31 | CMPROGNOTE_ITS ---
Care Management Progress Note S/O: Deana and Jared met with Sammy of [facility]. Sammy contacted this entry writer in the afternoon and provided an official bed offer-which Deana accepted. Deana shared her excitement at being able to go to the rehab and stay close to her friends and family-as well as Jared. Deana will need to swing at [facility] until [facility] has a bed available next week. Provider-Kim mauricio and reports Deana is not yet ready for SWB, remains acute at this time. A: Failure to Thrive, UTI, nephrostomy tube leaking P: Deana will transition to SNF via wheelchair van next 06/12/18- Sammy reports if sooner admission possible on Sunday he will contact this entry writer. Deana will transition to SWB[facility] while awaiting placement.
[2018-06-06 17:00] VITALS: BP 133/60; PULSE 85; RESP 19; TEMP 36.1; O2SAT 92
[2018-06-06] MEDS: Polyethylene Glycol 3350 17 GM PACKET PO (20:18)
[2018-06-06] MEDS: Normal Saline 1,000 ML 75 ML IV (20:25)
[2018-06-06] MEDS: lamoTRIgine 100 MG TAB 200 MG PO (21:25)
[2018-06-06] MEDS: risperiDONE 1 MG TAB 3 MG PO (21:25)
[2018-06-06] MEDS: Mometasone 220 MCG 14 DOSE INHALER 1 PUFF IH (21:25)
[2018-06-06] MEDS: Insulin Glargine 300 UNITS/3 ML PEN 40 UNITS SC (21:26)
[2018-06-07 05:14] VITALS: BP 123/75; PULSE 86; RESP 18; TEMP 36.7; O2SAT 96
[2018-06-07 07:26] LABS: HCT 31.6 % (36.0-46.0); HGB 9.3 g/dL (12.0-15.5); Mean Corp. HGB Concentration 29.4 g/dL (32.0-36.0); Mean Corpuscular Hemoglobin 26.7 pg (27.0-33.0); Mean Corpuscular Volume 90.8 fL (80-95); Mean Platelet Volume 11.9 fL (8.0-11.0); Platelet Count 194 x1000/uL (130-400); RBC 3.48 m/cumm (4.00-5.20); RBC Distribution Width 19.9 % (11.7-14.6); White Blood Cell Count 6.37 k/cumm (4.4-10.8)
[2018-06-07 07:40] VITALS: BP 116/67; PULSE 90; RESP 20; TEMP 36.6; O2SAT 97
[2018-06-07 07:43] LABS: Anion Gap 6.5 mmol/L (3-11); BUN 15 mg/dL (7-18); CO2 28.5 mmol/L (21.0-32.0); CREATININE 0.74 mg/dL (0.55-1.02); Calcium 9.1 mg/dL (8.5-10.1); Chloride 101 mmol/L (98-107); Glucose 178 mg/dL (70-100); Magnesium 1.6 mg/dL (1.8-2.4); Potassium 4.2 mmol/L (3.5-5.1); Sodium 136 mmol/L (136-145)
[2018-06-07] MEDS: Simvastatin 40 MG TAB 20 MG PO (08:09)
[2018-06-07] MEDS: Oxybutynin 5 MG TAB PO (08:09)
[2018-06-07] MEDS: Methadone 10 MG TAB PO (08:09)
[2018-06-07] MEDS: Doxycycline Hyclate 100 MG CAP PO (08:09)
[2018-06-07] MEDS: Pregabalin 50 MG CAP PO (08:09)
[2018-06-07] MEDS: Citalopram 20 MG TAB 40 MG PO (08:10)
[2018-06-07] MEDS: Metoprolol CR 25 MG TABCR PO (08:10)
[2018-06-07] MEDS: Pantoprazole 40 MG TABCR PO (08:10)
[2018-06-07] MEDS: Polyethylene Glycol 3350 17 GM PACKET PO (08:10)
[2018-06-07] MEDS: lamoTRIgine 100 MG TAB PO (08:10)
[2018-06-07] MEDS: Dronabinol 2.5 MG CAP PO (08:10)
[2018-06-07] MEDS: Insulin Aspart 300 UNITS/3 ML PEN SC ×2 (09:00→12:29)
[2018-06-07] MEDS: MAGNESIUM SULFATE 2 GM/50 ML BAG IVPB (09:01)
[2018-06-07] MEDS: Ciprofloxacin 250 MG/5 ML 100ML BTL PO (09:01)
[2018-06-07] MEDS: Fluticasone NASAL SPRAY 16 GM BTL NS (09:01)
[2018-06-07] MEDS: Nystatin CREAM 30 GM TUBE TP (09:38)
[2018-06-07] MEDS: Ferrous Sulfate 325 MG TAB PO (10:24)
[2018-06-07] MEDS: Heparin 5,000 UNITS/ML VIAL 5000 UNITS SC (13:32)
[2018-06-07] MEDS: clonazePAM 0.5 MG TAB PO (13:32)
--- NOTE | 2018-06-07 13:46 | PDOC.CMPRO ---
Care Management Progress Note Deana will enter SWB1 for further PT/OT to support strengthening while awaiting SNF placement at [facility]-anticipated transfer date 06/12/18.
--- NOTE | 2018-06-07 15:19 | PT.INTREAT ---
Date of service: 06/07/18 Time of Service: 15:19 PT Notes Inpatient Physical Therapy Treatment Note [facility] Date: 06/07/18 PRECAUTIONS: Fall SUBJECTIVE: Deana is agreeable to participating in PT. OBJECTIVE: PAIN: Patient complains of back and buttock pain BED MOBILITY/TRANSFERS Supine-sit: I Sit-supine: I Sit-stand: SBA Stand-sit: SBA Bed-Chair: CGA Chair-bed: CGA GAIT Assistive Device: FWW Weight bearing: Full Assist: CGA Distance: 10' x2 THEREX: Patient completed several lower extremity strengthening exercises, while seated at edge of bed. Patient also completed bridging exercise, as per flow sheet. ASSESSMENT: Patient tolerated session with complaints of back and buttock pain. Patient would benefit from continued gait and transfer training as well as strengthening for improved ability to perform daily functional tasks at a more independent level. PLAN: Continue with PTs POC TREATMENT CODE/TIME: 25 minutes; (9711 0 x 1, 9753 0 x 1)
--- NOTE | 2018-06-07 15:30 | PT.INIE ---
Date of service: 06/07/18 Time of Service: 15:31 PT Notes Inpatient Physical Therapy Swingbed Evaluation Date: June 07, 2018 Referring Doctor: Dr. Regalado PT Orders: Swing Bed PT consult: evaluate and treat Precautions: Contact, Fall PATIENT PROFILE/ADMITTING DIAGNOSIS: Pt is a 73 year old female who was admitted through the ER on 06/02/18 for failure to thrive at home, acute hyperkalemia, and malfunction of nephrostomy tube. Past Medical History: Schizoaffective disorder bipolar, chronic pain syndrome, scoliosis, spinal stenosis s/p spinal fusion, lumbar radicular pain, degenerative joint disease of pelvis, total hip arthroplasty, osteoarthritis, obesity, anxiety, intention tremor, hyperlipidemia, hypothyroidism, hypomagnesemia, chronic obstructive pulmonary disease, history of electroshock therapy, tonsillectomy, parkinsonism due to drug, bowel obstruction, drug-induced ileus. Social History/Home Situation: Pt reports that she lives in her home with her . She describes herself as bed bound. She states that she does not leave her home throughout the day and that she has an aide who comes into their home 6 days/week who (A) her with dressing, bathing, and ADL/IADL routines as needed. She states that her functional baseline for ADLs/IADLs is that she requires (A) for everything except soaking her teeth and eating, she uses a commode which she state she is able to (I) use via stand pivot transfer with UE support to WW. She states that the aide that comes into her home is there to specifically help her with her ADL routines. They recently had a ramp installed at her home as she uses a wheelchair for mobility. Equipment owned/DME: Pt reports that she has a FWW, hospital bed, commode, raised toilet seat, grab bars. SUBJECTIVE: Pt was lying in bed when PT arrived. She was agreeable to PT consult. She notes that she can not walk very far. OBJECTIVE: General Observation: nephrostomy tube Mental Status: A&Ox3 Pain: Pt c/o back pain during PT consult, which she reports is at baseline level. ROM: RUE Shoulder flexion WNL, elbow WNL, hand and wrist WNL L UE Shoulder flexion WNL, elbow WNL, hand and wrist WNL LLE: Grossly WFL, with the exception of ankle DF, which is -5 degrees RLE: Grossly WFL, with the exception of ankle DF, which is -10 STRENGTH: RUE Shoulder flexion 4/5, elbow 4/5, cone machine feeder 4/5 LUE Shoulder flexion 4/5, elbow 4/5, cone machine feeder 4/5 LLE: Hip flexion 3+/5, quads 4-/5, HS 4-/5, ankle DF 3-/5 RLE: Hip flexion 3+/5, quads 4-/5, HS 4-/5, ankle DF 3-/5 Transfers : Supine-sit: independent with HOB at 30 degrees Sit-supine independent with HOB at 30 degrees Sit-stand: SBA with FWW Stand-sit: SBA Gait: FWW, CGA, 10ft x2. BALANCE: Static sitting: Good Dynamic Sitting Good Static Standing: Fair Dynamic Standing: unable SPECIAL TESTS: Daily Activity Limitations Standardized Measure [facility] AM -PAC ?6 clicks? Daily Activity Inpatient Short Form: Raw score: 18 Standardized score: 43.63 CMS score:46.58% CMS modifier: CK Treatment: Today's session consisted of swing bed evaluation. Informed Consent/Education: Patient instructed in purpose of PT consult and plan of care. Assessment: Patient is a 73 year old female referred to physical therapy services with the diagnosis of diminished mobility related to complicated medical history, with failure to thrive. She has very minimal mobility at home at baseline, and is unfortunately unable to effective manage in the home at this time. She will require placement to SNF following her acute care stay to allow for rehabilitation prior to returning home. Patient presents with clinical signs and symptoms consistent with diagnosis, as demonstrated by the following impairment level findings: 1. Decreased LE strength 2. Contractures of bilat ankles 3. Decreased activity tolerance Impairments are contributing to the following functional limitations: 1. Limited ambulation tolerance 2. Decreased activity tolerance [facility] score 46% deficit. Patient is assessed as a Moderate 13157 complexity based on the following: History: 73-year-old female admitted for failure to thrive in the home, with multiple medical comorbidities including chronic MRSA infection,Schizoaffective disorder bipolar, chronic pain syndrome, scoliosis, spinal stenosis s/p spinal fusion, lumbar radicular pain, degenerative joint disease of pelvis, total hip arthroplasty, osteoarthritis, obesity, anxiety, intention tremor, hyperlipidemia, hypothyroidism, hypomagnesemia, chronic obstructive pulmonary disease, history of electroshock therapy, tonsillectomy, parkinsonism Examination: Functional limitations as noted above Presentation: Evolving Decision Making: Moderate complexity Goals: Goals X1 week 1. Supine-Sit : independent 2. Sit-Supine independent 3. Sit-Stand independent with WW 4. Stand-Sit independent with WW 5. Bed-Chair independent with WW 6. Chair-Bed independent with WW Plan of Care/Treatment Plan: 1-2x/day, 7 days/week x 1 week. Plan of care has been reviewed with the [employer] [facility] providing the service under Physical Therapy direction. Initiate Physical Therapy intervention for strengthening, bed mobility, transfers, gait, stairs, balance training, use of assistive device. DISCHARGE RECOMMENDATIONS: assisted facility for continued rehabilitation prior to returning home TREATMENT CODE/TIME: 20 minutes (37066) G Codes in the area mobility of walking and moving around: current status [id number] ; projected status GP [id number]. Discharge status (if discharging) GP [id number] CK. Kim Ramirez, MPT
[2018-06-07 15:37] VITALS: BP 120/70; PULSE 82; RESP 20; TEMP 36.8; O2SAT 94
[2018-06-07] MEDS: Albuterol 2.5 MG/3 ML INH SOLN VIAL UPD (15:59)
--- NOTE | 2018-06-07 16:16 | DSE_ITS ---
Date of service: 06/07/18 Time of Service: 16:10 DS: Diagnosis Discharge Diagnosis (1) Acute kidney injury: Status: Acute (2) Hypomagnesemia: Status: Acute (3) UTI (urinary tract infection): Status: Acute (4) Nephrostomy complication: Status: Acute (5) Chronic back pain: Status: Chronic (6) Hypothyroidism: Status: Chronic (7) Diabetes mellitus type 2: Status: Chronic (8) DVT prophylaxis: Status: Acute (9) Discharge planning issues: Status: Acute Discharge Plan Disposition Patient Disposition: [facility] BED LEVEL 1 Condition: Good Discharge Details Reason For Visit: FAILURE TO THRIVE Admit Date/Time: 06/04/18 09:53 Admit Provider: Nora Simons Attending Provider: Nora Simons Primary Care Provider: John Carpenter Hospital Course Hospital Course: Ms Alvarado is a 73 year old female with PMHx of staghorn nephrolithiasis s/p nephrostomy tube at [facility] 05/19/18, discharged on 05/31, as well as urinary incontinence s/p chronic indwelling toney catheter, Chronic MSSA hardware infection, on chronic suppressive therapy with doxycycline, noninsulin dependent diabetes mellitus type 2, hypertension, hyperlipidemia, anxiety, schizoaffective disorder, bipolar type. She presented to the emergency department on 06/02/2018 with reports of a leaking nephrostomy tube. She had a CT of abdomen and pelvis which was reviewed by her urologist at [facility] who felt that the tube was appropriately positioned. He recommended outpatient follow-up, dressing changes without emergent intervention. The patient's felt that he was unable to take the patient home. She was also noted to have electrolyte abnormalities. She was admitted to the med/surg floor for correction of electrolyte abnormalities and urology consultation. She received IV fluids and her electrolytes were replaced. The IV fluids were discontinued with subsequent worsening renal function. She was received IV fluid hydration again with improvement in her renal function. She was seen by urology, he agreed with the recommendation to follow-up with nephrology on leaking tube. He was not concerned about using a colostomy as a urine collection device, he notes that this represents a controlled fistula. The plan will be for her to follow-up with nephrology in 6-8 weeks for stone extraction. Due to her electrolyte abnormalities the Bactrim DS that she was placed on at [facility] was discontinued. Her urine culture grew Proteus, Morganella morganii and enterococcus faecalis, all sensitive to Cipro. She is currently on Cipro and will remain on Cipro until her follow up due to concern for possible septic stone. Her electrolytes have been replaced. She will need follow up labs to ensure that the levels remain stable. She has been on her chronic pain regimen while she has been hospitalized and her pain has been well controlled. Her blood glucose has been elevated, her lantus has been increased to 40 units at HS (her home dose is 30 units at ). Her blood glucose will require monitoring with adjustment to her regimen as needed. Her is unable to care for her in her present state of health. She has been accepted at [facility] for short-term rehab prior to returning home. She will remain here on swing bed until a bed becomes available at [facility] and rehab. Home Meds and New Rx's Prescriptions: No Action Prevail Brief Youth 1 EACH misc 1 ea Miscellaneous BID Qty: 60 RF: 11 lamotrigine [Lamictal] 100 MG tablet 100 mg PO QAM Qty: 90 RF: 3 lamotrigine 200 MG tablet 200 mg PO HS Qty: 90 RF: 4 citalopram [Celexa] 40 MG tablet 40 mg PO DAILY Qty: 90 RF: 3 simvastatin [Zocor] 40 MG tablet 0.5 tab PO DAILY Qty: 45 RF: 3 glimepiride 1 MG tablet 1 mg PO DAILY Qty: 30 RF: 11 levothyroxine [Synthroid] 100 MCG tablet 100 mcg PO DAILY Qty: 90 RF: 3 pantoprazole 40 MG tablet,delayed release (DR/EC) 40 mg PO DAILY Qty: 90 RF: 3 metformin [Glucophage] 1,000 MG tablet 1,000 mg PO BID@0800,1700 Qty: 180 RF: 3 oxybutynin chloride 5 MG tablet 5 mg PO BID Qty: 180 RF: 3 doxycycline hyclate 100 MG capsule 100 mg PO TID Qty: 270 RF: 3 risperidone 3 MG tablet 3 mg PO DAILY Qty: 90 RF: 3 fluticasone 16 GM spray,suspension 1 spray NS DAILY Qty: 16 RF: 3 nystatin 15 GM cream 1 applic Topical BID Qty: 60 RF: 5 ferrous sulfate [Iron (ferrous sulfate)] 325 MG tablet 325 mg PO BID Qty: 180 RF: 3 Lyrica 50 mg capsule 50 mg PO BID Qty: 60 RF: 2 dicyclomine 10 mg capsule 10 mg PO QID PRN (Reason: bladder spasms) Qty: 120 RF: 5 methadone 10 mg tablet 10 mg PO BID MDD 2 tabs Qty: 60 RF: 0 dronabinol [Marinol] 2.5 mg capsule 2.5 mg PO BID PRN (Reason: nausea and vomiting) Qty: 60 RF: 0 Narcan 4 MG spray,non-aerosol 4 mg NS ONCE Qty: 1 RF: 0 Lantus U-100 Insulin 100 unit/mL Solution 30 units subcut HS RF: 0 aspirin 81 mg Tablet,Chewable 81 mg PO DAILY RF: 0 morphine [MS Contin] 15 mg Tablet Extended Release 15 mg PO BID RF: 0 lisinopril 5 mg Tablet 5 mg PO DAILY RF: 0 polyethylene glycol 3350 [Miralax] 17 gram/dose Powder 1 packet PO DAILY PRN PRN (Reason: Constipation) RF: 0 mometasone 220 mcg (14 doses) Aerosol Powdr Breath Activated 1 puff Inhalation HS RF: 0 diazepam 2 mg Tablet 2 mg PO Q6H PRN PRN (Reason: anxiety/mascule spasms) RF: 0 Combivent Respimat 20-100 mcg/actuation Mist 1 puff Inhalation Q6H PRN PRN (Reason: Shortness Of Breath) RF: 0 sulfamethoxazole-trimethoprim [Bactrim DS] 800-160 mg Tablet 1 tab PO DAILY RF: 0 Discharge Instructions Activity:: Activity as Tolerated Equipment/Supplies:: No Equipment Needed Diet:: Carb Counting Discharge Orders Discharge Orders: Discharge Order (Routine); Ordered 06/07/18 Ordered By: Kim Voss Exam Narrative Exam Narrative: General: Elderly female, lying in bed with head elevated, right arm tremulous, in no acute distress. HEENT: Normocephalic, atraumatic, mucous membranes slightly dry Neck: Supple Cardiovascular: Heart has regular rate and rhythm, no murmur appreciated. Respiratory: Respirations even and unlabored, no rales, rhonchi, or wheezing. Gastrointestinal: Abdomen soft, nontender on palpation, no masses appreciated, normoactive bowel sounds throughout. No CVA tenderness. : Toney catheter draining clear yellow urine, right nephrostomy tube continues to drain into colostomy bag, clear yellow urine. Extremities: +1-+2 edema to bilateral ankles. Pedal pulses palpable. BLEs sensitive to touch r/t neuropathy. DS: Data Vitals/I&O Vitals and I&O: Vital Signs Temperature 36.8 C 06/07/18 15:37 Temperature Source Tympanic 06/07/18 15:37 Pulse 82 06/07/18 15:37 Pulse Rhythm Regular 06/07/18 08:17 Pulse 105 H 06/02/18 15:14 Respiratory Rate 20 06/07/18 15:37 Respiratory Effort Non-Labored 06/07/18 08:17 Respiratory Depth Normal 06/07/18 08:17 Respiratory Pattern Normal 06/07/18 08:17 Blood Pressure 120/70 06/07/18 15:37 Blood Pressure Mean 63 06/02/18 15:01 Blood Pressure Position Sitting 06/02/18 11:36 Pulse Oximetry 94 L 06/07/18 15:37 Oxygen Delivery Method Room Air 06/07/18 15:37 Oxygen Flow Rate 0 06/07/18 15:37 Pain Level 4 06/07/18 08:09 Comment 06/02/18 11:36 Intake & Output 06/06/18 06/07/18 06/07/18 23:59 11:59 23:59 Intake Total 1263.333 / 5293.333 670 / 1270 600 / 1270 Output Total 3950 / 6700 3000 / 4000 1000 / 4000 Balance -2686.667 / -1406.667 -2330 / -2730 -400 / -2730 Weight 91.3 kg Intake: IV 783.333 / 783.333 Oral 480 / 4510 670 / 1270 600 / 1270 Output: Drainage 550 / 900 700 / 1100 400 / 1100 Right Lower Back 550 / 900 700 / 1100 400 / 1100 Urine 3400 / 5800 2300 / 2900 600 / 2900 Other: Urine Color Pale Yellow Yellow Yellow Urine Appearance Clear Cloudy Cloudy Urine Odor None None Comment changed pt's bed pads. patient stated her catheter had leaked onto bed pads. andrew louise notified 300 clear yellow emptied from nephrostomy Stool Size Moderate Stool Characteristics Formed Hard Voiding Methods Indwelling Catheter Completed studies during hospitalization [Text1]: 06/02/18: ABDOMEN AND PELVIC CT: Comparison is made with 05/18/18. The patient is status post placement of a right percutaneous nephrostomy tube since the previous exam. The distal loop of the catheter is seen in the upper right ureter. A large calculus is again noted in the right renal pelvis. There is no perinephric collection or evidence of fluid collection along the course of the tubing. The right kidney is unremarkable. A toney catheter is seen in the bladder. Calcification is again noted superior to the balloon of the catheter. Air is also seen in the bladder. There are mild dependent changes at the lung bases. An enlarged fatty liver is again noted. Gallstones are again noted in the dependent portion of the gallbladder. No gallbladder wall thickening or inflammation is seen. The spleen, adrenals and pancreas are unremarkable. Hardware is again noted in the spine and right hip. There is a stable 5 cm. right ovarian cyst. The uterus appears normal in size. No bowel dilatation or inflammatory changes are seen. IMPRESSION: Right nephrostomy tube. No evidence of perinephric collection or collection along the course of the tubing. Labs on day of discharge: Labs from last 24 hours 06/07/18 06/07/18 06:10 06:10 WBC 6.37 RBC 3.48 L Hgb 9.3 L Hct 31.6 L MCV 90.8 MCH 26.7 L MCHC 29.4 L RDW 19.9 H Plt Count 194 MPV 11.9 H Sodium 136 Potassium 4.2 Chloride 101 Carbon Dioxide 28.5 Anion Gap 6.5 BUN 15 Creatinine 0.74 Estimated GFR/1.73 m2 >= 60.00 Glucose 178 H Calcium 9.1 Magnesium 1.6 L [facility] Medical History Sepsis (Acute) UTI (urinary tract infection) (Acute ~04/2018) Schizoaffective disorder, bipolar type (Chronic) Wound infection after surgery (Resolved) Chronic rhinitis (Chronic) Anxiety (Chronic) Hyperlipidemia (Chronic) Hypothyroidism (Chronic) 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) COPD (chronic obstructive pulmonary disease) (Chronic) 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) Chronic osteoarthritis (Acute) Chronic pain syndrome (Acute 08/21/12) Hypothyroidism (Chronic) Diabetes mellitus type 2 (Chronic) Bipolar disorder (Chronic) Chronic back pain (Chronic) Hyperlipidemia (Chronic) Anxiety (Chronic) Intention tremor (Chronic) senior living current use of antibiotics (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 She recently returned home from a long stay at the [facility]. She has limited mobility and poor use of ADLs. Former smoker. No current alcohol use.
--- NOTE | 2018-06-24 10:56 | IN_ITS ---
Date of service: 06/07/18 Time of Service: 15:31 PT Notes Inpatient Physical Therapy Swingbed Evaluation Date: June 07, 2018 Referring Doctor: Dr. Regalado PT Orders: Swing Bed PT consult: evaluate and treat Precautions: Contact, Fall PATIENT PROFILE/ADMITTING DIAGNOSIS: Pt is a 73 year old female who was admitted through the ER on 06/02/18 for failure to thrive at home, acute hyperkalemia, and malfunction of nephrostomy tube. Past Medical History: Schizoaffective disorder bipolar, chronic pain syndrome, scoliosis, spinal stenosis s/p spinal fusion, lumbar radicular pain, degenerative joint disease of pelvis, total hip arthroplasty, osteoarthritis, obesity, anxiety, intention tremor, hyperlipidemia, hypothyroidism, hypomagnesemia, chronic obstructive pulmonary disease, history of electroshock therapy, tonsillectomy, parkinsonism due to drug, bowel obstruction, drug- induced ileus. Social History/Home Situation: Pt reports that she lives in her home with her . She describes herself as bed bound. She states that she does not leave her home throughout the day and that she has an aide who comes into their home 6 days/week who (A) her with dressing, bathing, and ADL/IADL routines as needed. She states that her functional baseline for ADLs/IADLs is that she requires (A) for everything except soaking her teeth and eating, she uses a commode which she state she is able to (I) use via stand pivot transfer with UE support to WW. She states that the aide that comes into her home is there to specifically help her with her ADL routines. They recently had a ramp installed at her home as she uses a wheelchair for mobility. Equipment owned/DME: Pt reports that she has a FWW, hospital bed, commode, raised toilet seat, grab bars. SUBJECTIVE: Pt was lying in bed when PT arrived. She was agreeable to PT consult. She notes that she can not walk very far. OBJECTIVE: General Observation: nephrostomy tube Mental Status: A&Ox3 Pain: Pt c/o back pain during PT consult, which she reports is at baseline level. ROM: RUE Shoulder flexion WNL, elbow WNL, hand and wrist WNL L UE Shoulder flexion WNL, elbow WNL, hand and wrist WNL LLE: Grossly WFL, with the exception of ankle DF, which is -5 degrees RLE: Grossly WFL, with the exception of ankle DF, which is -10 STRENGTH: RUE Shoulder flexion 4/5, elbow 4/5, affirmative action officer 4/5 LUE Shoulder flexion 4/5, elbow 4/5, affirmative action officer 4/5 LLE: Hip flexion 3+/5, quads 4-/5, HS 4-/5, ankle DF 3-/5 RLE: Hip flexion 3+/5, quads 4-/5, HS 4-/5, ankle DF 3-/5 Transfers : Supine-sit: independent with HOB at 30 degrees Sit-supine independent with HOB at 30 degrees Sit-stand: SBA with FWW Stand-sit: SBA Gait: FWW, CGA, 10ft x2. BALANCE: Static sitting: Good Dynamic Sitting Good Static Standing: Fair Dynamic Standing: unable SPECIAL TESTS: Daily Activity Limitations Standardized Measure [facility] AM -PAC ?6 clicks? Daily Activity Inpatient Short Form: Raw score: 18 Standardized score: 43.63 CMS score:46.58% CMS modifier: CK Treatment: Today's session consisted of swing bed evaluation. Informed Consent/Education: Patient instructed in purpose of PT consult and plan of care. Assessment: Patient is a 73 year old female referred to physical therapy s sanjiv with the diagnosis of diminished mobility related to complicated medical history, with failure to thrive. She has very minimal mobility at home at baseline, and is unfortunately unable to effective manage in the home at this time. She will require placement to SNF following her acute care stay to allow for rehabilitation prior to returning home. Patient presents with clinical signs and symptoms consistent with diagnosis, as demonstrated by the following impairment level findings: 1. Decreased LE strength 2. Contractures of bilat ankles 3. Decreased activity tolerance Impairments are contributing to the following functional limitations: 1. Limited ambulation tolerance 2. Decreased activity tolerance [facility] score 46% deficit. Patient is assessed as a Moderate 89207 complexity based on the following: History: 73-year-old female admitted for failure to thrive in the home, with multiple medical comorbidities including chronic MRSA infection,Schizoaffective disorder bipolar, chronic pain syndrome, scoliosis, spinal stenosis s/p spinal fusion, lumbar radicular pain, degenerative joint disease of pelvis, total hip arthroplasty, osteoarthritis, obesity, anxiety, intention tremor, hyperlipidemia, hypothyroidism, hypomagnesemia, chronic obstructive pulmonary disease, history of electroshock therapy, tonsillectomy, parkinsonism Examination: Functional limitations as noted above Presentation: Evolving Decision Making: Moderate complexity Goals: Goals X1 week 1. Supine-Sit : independent 2. Sit-Supine independent 3. Sit-Stand independent with WW 4. Stand-Sit independent with WW 5. Bed-Chair independent with WW 6. Chair-Bed independent with WW Plan of Care/Treatment Plan: 1-2x/day, 7 days/week x 1 week. Plan of care has been reviewed with the METALLURGICAL OR MATERIALS TECHNICIAN providing the service under Physical Therapy direction. Initiate Physical Therapy intervention for strengthening, bed mobility, transfers, gait, stairs, balance training, use of assistive device. DISCHARGE RECOMMENDATIONS: correction facility for continued rehabilitation prior to returning home TREATMENT CODE/TIME: 20 minutes (98933) G Codes in the area mobility of walking and moving around: current status [id number] ; projected status GP [id number]. Discharge status (if discharging) GP G8980 CK. Kim Ramirez, MPT
== END 2018-06-07 16:45 | disposition swing bed (61) | DRG 641 ==
LOC: ER 18:44 → MS 19:12
PROVIDERS: Nurse Practitioner; Nurse Practitioner Family; Admitting Provider Internal Medicine; Emergency Provider Student in an Organized Health Care Education/Training Program; PCP Family Medicine; Visit Provider Internal Medicine
DX: R62.7 Adult failure to thrive (principal); N39.0 Urinary tract infection, site not specified; N17.9 Acute kidney failure, unspecified; T83.89XA Other specified complication of genitourinary prosthetic devices, implants and grafts, initial encounter; E83.42 Hypomagnesemia; E87.5 Hyperkalemia; T37.0X5A Adverse effect of sulfonamides, initial encounter; G89.29 Other chronic pain; M54.9 Dorsalgia, unspecified; E03.9 Hypothyroidism, unspecified; E11.9 Type 2 diabetes mellitus without complications; I10 Essential (primary) hypertension; R78.5 Finding of other psychotropic drug in blood; F25.0 Schizoaffective disorder, bipolar type; N20.0 Calculus of kidney; Z79.4 Long term (current) use of insulin; Z79.2 Long term (current) use of antibiotics; R32 Unspecified urinary incontinence; J44.9 Chronic obstructive pulmonary disease, unspecified; Z87.891 Personal history of nicotine dependence; F41.9 Anxiety disorder, unspecified; B96.4 Proteus (mirabilis) (morganii) as the cause of diseases classified elsewhere; B95.2 Enterococcus as the cause of diseases classified elsewhere; B96.89 Other specified bacterial agents as the cause of diseases classified elsewhere; K59.00 Constipation, unspecified
CPT/HCPCS: 36415; 80048; 80053; 85027; 87077; 93005; 94640; 96372; 96374; 96375; 97110; 97162; 97167; 97530; 99220; 99221; 99232; 99233; 99239; 99285; 74176; 81003; 81015; 82607; 82728; 82746; 83540; 83550; 83735; 84484; 85025; 87086; 93010; 99226; G0378; G8978; J0610; J1644; J3490; J7613

== ENCOUNTER 2018-06-07 16:42 | Inpatient (IN) | payer MEDICARE, MEDICAID, SELFPAY ==
--- NOTE | 2018-06-07 15:19 | CM.SBPSYCH ---
- If Service Date Differs Date of service: 06/07/18 Time of Service: 15:43 SB Psychosocial/Act.Assessment - Hospital Admission Admission Date: 06/04/18 Admission From:: Community/Home Diagnosis:: Failure to Thrive - Swing Bed Admission Swing Bed Admit Date:: 06/07/18 Swing Bed Level of Care: Level 1/SNF - Social Supports PREVIOUS FUNCTIONAL STATUS/SOCIAL/FAMILY SUPPORTS:: Deana resides with her , Jared in [facility]. She is mostly bedbound according to her , though will occasionally get OOB with a walker to access her wheelchair. Deana resided at [facility] for 6 months prior to moving home. The family is working on installing a ramp; at this time Deana is homebound. She requires assistance with all of her ADLs. Deana has many supports in the community including [facility] high/highest need. - Prior to Admission Living Arrangements/Environment Prior to Admission:: Deana was discharged [place] [facility] [place] shortly before presenting to [facility] ED. She requires IV ABX prior to surgical intervention for kidney stone; likely followed by continued rehab prior to returning home with her , Jared. 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 - [place]: No 's Spouse: No - Benefits Financial: Medicare, Medicaid, Commerical - Islam Active Mandaeism Member:: Yes Mandaeism Affliation: Buddist Importance of Elizabeth:: Meditation - Advance Directives for Healthcare Advance Directives for Healthcare: Advance Directives Advance Directive Agent: Jared Alvarado; - Community Community Supports/Involvement: [facility], [facility], [employer] CM: Pooja Trujillo funding - Interests Hobbies:: Reading, music, current events, visiting with others Outdoor Activities:: Limited by physical functioning Reading:: News mostly Other Activities:: Meditation - Present Functional Status Physical Abilities:: Disabled-utilizes W/C, tremulous hands, decreased strength, chronic pain Cognitive:: Intact, intelligent Communication:: Alert and Oriented, Appropriate, sometimes timid; requires re-assurance Behavior:: Sometimes anxious, requires support processing events, diagnosed with bipolar, schizoaffective disorder and anxiety - Medical History PAST MEDICAL HISTORY/PAST SURGICAL HISTORY:: Anxiety, bipolar disorder, chronic back pain, osteoarthritis, rhinitis, COPD, diabetes type II, DJD, hyerlipidemia, hypothyroidism, intention tremor, lumbar radicular pain, obesity, parkinsonism d/t drug, schizoaffective disorder, bipolar type, scoliosis, sepsis, spinal stenosis of lumbar region. Surgical hx: section, colonoscopy, spinal fusion, tonsillectomy, total replacement hip (R). General Health:: Poor-extensive complex medical history Past Psychiatric Treatment:: Therapy, Med Management, CM, stabilization - Admission Data Reason for Swing Bed Admission:: Bed availability at SNF-requires level of care-no bed available at local SNF Discharge Plan:: [facility] pending bed availability Assessment: Appropriate for s/t rehab prior to discharge to SNF Fringe Maker: Lynn Garcia Date Assessment was completed:: 06/07/18
--- NOTE | 2018-06-07 15:43 | CMSA_ITS ---
- If Service Date Differs Date of service: 06/07/18 Time of Service: 15:43 SB Psychosocial/Act.Assessment - Hospital Admission Admission Date: 06/04/18 Admission From:: Community/Home Diagnosis:: Failure to Thrive - Swing Bed Admission Swing Bed Admit Date:: 06/07/18 Swing Bed Level of Care: Level 1/SNF - Social Supports PREVIOUS FUNCTIONAL STATUS/SOCIAL/FAMILY SUPPORTS:: Deana resides with her , Jared in [facility]. She is mostly bedbound according to her , though will occasionally get OOB with a walker to access her wheelchair. Deana resided at [facility] for 6 months prior to moving home. The family is working on installing a ramp; at this time Deana is homebound. She requires assistance with all of her ADLs. Deana has many supports in the community including [facility] high/highest need. - Prior to Admission Living Arrangements/Environment Prior to Admission:: [place] [facility] [place] before presenting [facility]. She requires IV ABX prior to surgical intervention for kidney stone; likely followed by continued rehab prior to returning home with her , Jared. 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 - [place]: No 's Spouse: No - Benefits Financial: Medicare, Medicaid, Commerical - Jainism Active Jew Member:: Yes Jew Affliation: Buddist Importance of Elizabeth:: Meditation - Advance Directives for Healthcare Advance Directives for Healthcare: Advance Directives Advance Directive Agent: Jared Alvarado; - Community Community Supports/Involvement: [facility], [employer], [employer] CM: Pooja Trujillo funding - Interests Hobbies:: Reading, music, current events, visiting with others Outdoor Activities:: Limited by physical functioning Reading:: News mostly Other Activities:: Meditation - Present Functional Status Physical Abilities:: Disabled-utilizes W/C, tremulous hands, decreased strength, chronic pain Cognitive:: Intact, intelligent Communication:: Alert and Oriented, Appropriate, sometimes timid; requires re- assurance Behavior:: Sometimes anxious, requires support processing events, diagnosed with bipolar, schizoaffective disorder and anxiety - Medical History PAST MEDICAL HISTORY/PAST SURGICAL HISTORY:: Anxiety, bipolar disorder, chronic back pain, osteoarthritis, rhinitis, COPD, diabetes type II, DJD, hyerlipidemia, hypothyroidism, intention tremor, lumbar radicular pain, obesity, parkinsonism d/t drug, schizoaffective disorder, bipolar type, scoliosis, sepsis, spinal stenosis of lumbar region. Surgical hx: section, colonoscopy, spinal fusion, tonsillectomy, total replacement hip (R). General Health:: Poor-extensive complex medical history Past Psychiatric Treatment:: Therapy, Med Management, CM, stabilization - Admission Data Reason for Swing Bed Admission:: Bed availability at SNF-requires level of care- no bed available at local SNF Discharge Plan:: [facility] pending bed availability Assessment: Appropriate for s/t rehab prior to discharge to SNF Tile Ditcher: Lynn Garica Date Assessment was completed:: 06/07/18
--- NOTE | 2018-06-07 15:43 | CM.SWINGPC ---
Swingbed Plan of Care Plan of care: SWING BED PROGRAM ACTIVITIES/DISCHARGE PLAN OF CARE ACTIVITIES PLAN Date: 06/07/18 Identified Need: Strengthening Intervention/Plan: Continue with PT/OT interventions for transfers, gait stability and increased baseline functioning Initials [facility] DISCHARGE PLAN Date: Identified Need: SNF Placement--ongoing PT/OT Intervention/Plan: Bed offer accepted from [facility] pending bed availability; anticipate transfer 06/12/18. Initials [facility]
--- NOTE | 2018-06-07 15:49 | CMSCP_ITS ---
Swingbed Plan of Care Plan of care: SWING BED PROGRAM ACTIVITIES/DISCHARGE PLAN OF CARE ACTIVITIES PLAN Date: 06/07/18 Identified Need: Strengthening Intervention/Plan: Continue with PT/OT interventions for transfers, gait stability and increased baseline functioning Initials [facility] DISCHARGE PLAN Date: Identified Need: SNF Placement--ongoing PT/OT Intervention/Plan: Bed offer accepted from [facility] pending bed availability; anticipate transfer 06/12/18. Initials [facility]
--- NOTE | 2018-06-07 16:47 | W.PM.HP.N ---
Date of service: 06/07/18 Time of Service: 16:47 Assessment and Plan (1) UTI (urinary tract infection): Current visit: No Status: Acute Recently discharged from [facility] on Bactrim DS, potassium was elevated on admission to [facility]. Bactrim DS discontinued. Currently on Cipro. Urine culture growing Proteus, Morganella morganii, and enterococcus Faecalis, all sensitive to Cipro. She will remain on Cipro until her follow-up at [facility] where she is scheduled for stone extraction. Current UA growing Rosmery. Continue cipro until follow up with [facility]. (2) Nephrostomy complication: Current visit: No Status: Acute Right nephrostomy tube leaking. IR contacted by ED and made aware, recommend outpatient follow up. Urology consulted. No concerns related to leaking tube, urine is draining. Nephrostomy tube flushed well. Continue to use colostomy bag to protect skin. Follow up with IR at [facility]. (3) Hypomagnesemia: Current visit: No Status: Acute She received supplementation. Continue to monitor. (4) Chronic back pain: Current visit: No Status: Chronic Continue home medications, methadone BID, ms contin 15 mg bid, valium po. Continue to monitor pain. (5) Hypothyroidism: Current visit: No Status: Chronic Continue levothyroxine at current dose. (6) Diabetes mellitus type 2: Current visit: No Status: Chronic Blood glucose remains elevated. Lantus increased to 40 units last night. Continue to monitor, adjust insulin as needed. Continue carb counting diet. (7) DVT prophylaxis: Current visit: No Status: Acute Subcutaneous heparin. (8) Discharge planning issues: Current visit: No Status: Acute She is a DNR/DNI. She has been accepted at [facility], will transition when medically ready. This case was discussed with Dr. leyva who is in agreement. History of Present Illness Chief Complaint: FTT, right nephrolithiasis Narrative: Ms Alvarado is a 73 year old female with PMHx of staghorn nephrolithiasis s/p nephrostomy tube at [facility] 05/19/18, discharged on 05/31, as well as urinary incontinence s/p chronic indwelling otney catheter, Chronic MSSA hardware infection, on chronic suppressive therapy with doxycycline, noninsulin dependent diabetes mellitus type 2, hypertension, hyperlipidemia, anxiety, schizoaffective disorder, bipolar type. She presented to the emergency department on 06/02/2018 with reports of a leaking nephrostomy tube. She had a CT of abdomen and pelvis which was reviewed by her urologist at [facility] who felt that the tube was appropriately positioned. He recommended outpatient follow-up, dressing changes without emergent intervention. The patient's felt that he was unable to take the patient home. She was also noted to have electrolyte abnormalities. She was admitted to the med/surg floor for correction of electrolyte abnormalities and urology consultation. She received IV fluids and her electrolytes were replaced. The IV fluids were discontinued with subsequent worsening renal function. She was received IV fluid hydration again with improvement in her renal function. She was seen by urology, he agreed with the recommendation to follow-up with nephrology on leaking tube. He was not concerned about using a colostomy as a urine collection device, he notes that this represents a controlled fistula. The plan will be for her to follow-up with nephrology in 6-8 weeks for stone extraction. Due to her electrolyte abnormalities the Bactrim DS that she was placed on at [facility] was discontinued. Her urine culture grew Proteus, Morganella morganii and enterococcus faecalis, all sensitive to Cipro. She is currently on Cipro and will remain on Cipro until her follow up due to concern for possible septic stone. Her electrolytes have been replaced. She will need follow up labs to ensure that the levels remain stable. She has been on her chronic pain regimen while she has been hospitalized and her pain has been well controlled. Her blood glucose has been elevated, her lantus has been increased to 40 units at HS (her home dose is 30 units at HS). Her blood glucose will require monitoring with adjustment to her regimen as needed. Her is unable to care for her in her present state of health. She has been accepted at [facility] for short-term rehab prior to returning home. She will remain here on swing bed until a bed becomes available at [facility] rehab. She denies any other concerns, no chest pain/pressure, shortness of breath, coughing, wheezing, she is eating and drinking, she had some constipation but had a bowel movement today. [facility] Social History household members: spouse Smoking/Tobacco Use Status: Former Tobacco Use additional social history: lives with her . She recently returned home from a long stay at the [facility]. She has limited mobility and poor use of ADLs. Former smoker. No current alcohol use. Meds Home Medications Medication Instructions Recorded Confirmed Type Narcan 4 mg NS ONCE #1 inhn 01/19/16 06/02/18 Rx Prevail Brief Youth #60 isaac 01/25/16 06/02/18 History lamotrigine [Lamictal] 100 mg PO QAM #90 tab-cap 10/15/16 06/02/18 History citalopram [Celexa] 40 mg PO DAILY #90 tab-cap 12/07/17 06/02/18 Rx doxycycline hyclate 100 mg PO TID #270 tab-cap 12/07/17 06/02/18 Rx glimepiride 1 mg PO DAILY #30 tab-cap 12/07/17 06/02/18 Rx lamotrigine 200 mg PO HS #90 tab-cap 12/07/17 06/02/18 Rx levothyroxine [Synthroid] 100 mcg PO DAILY #90 tab-cap 12/07/17 06/02/18 Rx metformin [Glucophage] 1,000 mg PO BID@0800,1700 #180 tab 12/07/17 06/02/18 Rx oxybutynin chloride 5 mg PO BID #180 tab-cap 12/07/17 06/02/18 Rx pantoprazole 40 mg PO DAILY #90 tab-cap 12/07/17 06/02/18 Rx risperidone 3 mg PO DAILY #90 tab-cap 12/07/17 06/03/18 Rx simvastatin [Zocor] 0.5 tab PO DAILY #45 tab-cap 12/07/17 06/02/18 Rx fluticasone 1 spray NS DAILY #16 gm 12/24/17 06/02/18 Rx nystatin 1 applic TOPICAL BID #60 gm 12/26/17 06/02/18 Rx ferrous sulfate [Iron (ferrous 325 mg PO BID #180 tab-cap 01/18/18 06/02/18 Rx sulfate)] pregabalin 50 mg capsule 50 mg PO BID #60 cap 03/14/18 06/02/18 Rx dicyclomine 10 mg capsule 10 mg PO QID PRN #120 tab-cap 04/16/18 06/02/18 Rx methadone 10 mg tablet 10 mg PO BID #60 tab MDD 2 tabs 05/13/18 06/02/18 Rx dronabinol 2.5 mg capsule 2.5 mg PO BID PRN #60 cap 05/23/18 06/02/18 Rx aspirin 81 mg PO DAILY 06/03/18 06/03/18 History diazepam 2 mg PO Q6H PRN PRN 06/03/18 06/03/18 History insulin glargine [Lantus U-100 30 units SUBCUT HS 06/03/18 06/03/18 History Insulin] ipratropium-albuterol [Combivent 1 puff INHALATION Q6H PRN PRN 06/03/18 06/03/18 History Respimat] lisinopril 5 mg PO DAILY 06/03/18 06/03/18 History mometasone 1 puff INHALATION HS 06/03/18 06/03/18 History morphine [MS Contin] 15 mg PO BID 06/03/18 06/03/18 History polyethylene glycol 3350 [Miralax] 1 packet PO DAILY PRN PRN 06/03/18 06/03/18 History sulfamethoxazole-trimethoprim 1 tab PO DAILY 06/03/18 06/03/18 History [Bactrim DS] Allergies Allergy/AdvReac Type Severity Reaction Status Date / Time aripiprazole AdvReac Intermediate anxiety Unverified 06/02/18 16:15 prednisone AdvReac Intermediate Hallucinati Unverified 06/02/18 16:15 ons codeine AdvReac Mild GI Upset Unverified 06/02/18 16:15 azithromycin AdvReac Unknown Unverified 06/02/18 16:15 Exam Narrative Exam Narrative: General: Elderly female, lying in bed with head elevated, right arm tremulous, in no acute distress. HEENT: Normocephalic, atraumatic, mucous membranes slightly dry Neck: Supple Cardiovascular: Heart has regular rate and rhythm, no murmur appreciated. Respiratory: Respirations even and unlabored, no rales, rhonchi, or wheezing. Gastrointestinal: Abdomen soft, nontender on palpation, no masses appreciated, normoactive bowel sounds throughout. No CVA tenderness. : Toney catheter draining clear yellow urine, right nephrostomy tube continues to drain into colostomy bag, clear yellow urine. Extremities: +1-+2 edema to bilateral ankles. Pedal pulses palpable. BLEs sensitive to touch r/t neuropathy.
[2018-06-07] MEDS: Insulin Aspart 300 UNITS/3 ML PEN SC ×2 (17:10→22:52)
[2018-06-07] MEDS: Dronabinol 2.5 MG CAP PO (17:10)
--- NOTE | 2018-06-07 17:15 | NUR.NOTE ---
Pt transferred from MS floor to swing bed status on 06/07/18 at 1700., Nursing Note:
[2018-06-07] MEDS: Polyethylene Glycol 3350 17 GM PACKET PO (20:50)
[2018-06-07] MEDS: Ciprofloxacin 250 MG/5 ML 100ML BTL PO (20:50)
[2018-06-07] MEDS: Docusate Sodium 100 MG CAP PO (20:51)
[2018-06-07] MEDS: Methadone 10 MG TAB PO (20:51)
[2018-06-07] MEDS: clonazePAM 0.5 MG TAB PO (20:51)
[2018-06-07] MEDS: Pregabalin 50 MG CAP PO (20:51)
[2018-06-07] MEDS: Nystatin CREAM 30 GM TUBE TP (20:52)
[2018-06-07] MEDS: Doxycycline Hyclate 100 MG CAP PO (20:52)
[2018-06-07] MEDS: Oxybutynin 5 MG TAB PO (21:00)
[2018-06-07] MEDS: Mometasone 220 MCG 14 DOSE INHALER 1 PUFF IH (22:50)
[2018-06-07] MEDS: risperiDONE 1 MG TAB 6 MG PO (22:51)
[2018-06-07] MEDS: lamoTRIgine 100 MG TAB 200 MG PO (22:51)
[2018-06-07] MEDS: Heparin 5,000 UNITS/ML VIAL 5000 UNITS SC (22:51)
[2018-06-07] MEDS: Ferrous Sulfate 325 MG TAB PO (22:52)
[2018-06-07] MEDS: Insulin Glargine 300 UNITS/3 ML PEN 40 UNITS SC (22:53)
[2018-06-08 01:51] VITALS: BP 135/70; PULSE 95; RESP 20; TEMP 36.5; O2SAT 95
[2018-06-08] MEDS: Levothyroxine 100 MCG TAB PO (05:54)
[2018-06-08 07:36] LABS: Platelet Count 202 x1000/uL (130-400)
[2018-06-08] MEDS: Simvastatin 40 MG TAB 20 MG PO (08:40)
[2018-06-08] MEDS: Polyethylene Glycol 3350 17 GM PACKET PO (08:40)
[2018-06-08] MEDS: Dronabinol 2.5 MG CAP PO ×2 (08:41→16:44)
[2018-06-08] MEDS: Metoprolol CR 25 MG TABCR PO (08:41)
[2018-06-08] MEDS: Lisinopril 5 MG TAB PO (08:41)
[2018-06-08] MEDS: Methadone 10 MG TAB PO ×2 (08:41→20:18)
[2018-06-08] MEDS: Doxycycline Hyclate 100 MG CAP PO ×2 (08:41→20:18)
[2018-06-08] MEDS: Pregabalin 50 MG CAP PO ×2 (08:42→20:19)
[2018-06-08] MEDS: Pantoprazole 40 MG TABCR PO (08:43)
[2018-06-08] MEDS: lamoTRIgine 100 MG TAB PO (08:43)
[2018-06-08] MEDS: Docusate Sodium 100 MG CAP PO ×2 (08:44→20:19)
[2018-06-08] MEDS: Citalopram 20 MG TAB 40 MG PO (08:44)
[2018-06-08] MEDS: Insulin Aspart 300 UNITS/3 ML PEN SC ×4 (08:45→21:26)
[2018-06-08] MEDS: Oxybutynin 5 MG TAB PO ×2 (08:47→20:19)
[2018-06-08] MEDS: Ciprofloxacin 250 MG/5 ML 100ML BTL PO ×2 (08:48→21:19)
[2018-06-08 09:26] VITALS: BP 136/76; PULSE 92; RESP 16; TEMP 36.6; O2SAT 91
[2018-06-08] MEDS: Nystatin CREAM 30 GM TUBE TP (09:32)
[2018-06-08] MEDS: Ferrous Sulfate 325 MG TAB PO ×2 (10:19→21:21)
[2018-06-08] MEDS: Heparin 5,000 UNITS/ML VIAL 5000 UNITS SC ×2 (10:19→21:22)
[2018-06-08] MEDS: clonazePAM 0.5 MG TAB PO ×2 (11:18→20:26)
[2018-06-08] MEDS: Normal Saline Flush 10 ML SYR IVP ×2 (12:22→20:19)
--- NOTE | 2018-06-08 13:01 | PT.INTREAT ---
Date of service: 06/08/18 Time of Service: 13:01 PT Notes Inpatient Physical Therapy Treatment Note [facility] Date: 06/08/18 PRECAUTIONS: Contact, Fall OBJECTIVE: Supine-sit: I Sit-supine: I Sit-stand: SBA Stand-sit: SBA GAIT Assistive Device: FWW Weight bearing: Full Assist: CGA Distance: Static standing and marching in place to fatigue. THEREX: Pt completed UE and LE ther ex as per flow sheet. ASSESSMENT: Pt tolerated today's session fairly well. Pt fatigues fairly quickly. PLAN: Cont as per PT POC. TREATMENT CODE/TIME: 10:20-10:55 (35) EDWADR PEREIRA
[2018-06-08 16:14] VITALS: BP 104/65; PULSE 77; RESP 19; TEMP 37; O2SAT 98
[2018-06-08] MEDS: lamoTRIgine 100 MG TAB 200 MG PO (21:21)
[2018-06-08] MEDS: risperiDONE 1 MG TAB 6 MG PO (21:21)
[2018-06-08] MEDS: Insulin Glargine 300 UNITS/3 ML PEN 40 UNITS SC (21:27)
[2018-06-08] MEDS: Mometasone 220 MCG 14 DOSE INHALER 1 PUFF IH (21:43)
[2018-06-08 23:30] VITALS: BP 118/61; PULSE 84; RESP 20; TEMP 36.8; O2SAT 94
[2018-06-09] MEDS: Levothyroxine 100 MCG TAB PO (05:12)
[2018-06-09 07:41] VITALS: BP 145/72; PULSE 106; RESP 20; TEMP 36.7; O2SAT 95
[2018-06-09 07:55] VITALS: BP 128/66; PULSE 104; RESP 18; TEMP 37; O2SAT 95
[2018-06-09] MEDS: Nystatin CREAM 30 GM TUBE TP (08:01)
[2018-06-09] MEDS: Insulin Aspart 300 UNITS/3 ML PEN SC ×3 (08:01→21:03)
[2018-06-09] MEDS: Dronabinol 2.5 MG CAP PO ×2 (08:02→17:05)
[2018-06-09] MEDS: Docusate Sodium 100 MG CAP PO ×2 (08:02→20:51)
[2018-06-09] MEDS: Pregabalin 50 MG CAP PO ×2 (08:02→20:52)
[2018-06-09] MEDS: Pantoprazole 40 MG TABCR PO (08:02)
[2018-06-09] MEDS: Doxycycline Hyclate 100 MG CAP PO ×2 (08:02→20:50)
[2018-06-09] MEDS: Ciprofloxacin 250 MG/5 ML 100ML BTL PO ×2 (08:03→21:02)
[2018-06-09] MEDS: Citalopram 20 MG TAB 40 MG PO (08:03)
[2018-06-09] MEDS: Oxybutynin 5 MG TAB PO ×2 (08:03→20:50)
[2018-06-09] MEDS: Lisinopril 5 MG TAB PO (08:03)
[2018-06-09] MEDS: lamoTRIgine 100 MG TAB PO (08:04)
[2018-06-09] MEDS: Metoprolol CR 25 MG TABCR PO (08:04)
[2018-06-09] MEDS: Methadone 10 MG TAB PO ×2 (08:04→20:51)
[2018-06-09] MEDS: Simvastatin 40 MG TAB 20 MG PO (08:04)
[2018-06-09] MEDS: Heparin 5,000 UNITS/ML VIAL 5000 UNITS SC ×2 (09:25→20:52)
[2018-06-09] MEDS: Ferrous Sulfate 325 MG TAB PO ×2 (09:26→20:50)
[2018-06-09] MEDS: Fluticasone NASAL SPRAY 16 GM BTL NS (09:27)
[2018-06-09] MEDS: Mylanta Suspension 30 ML CUP PO ×3 (09:27→14:56)
[2018-06-09] MEDS: clonazePAM 0.5 MG TAB PO ×2 (10:42→20:51)
--- NOTE | 2018-06-09 11:14 | PT.INTREAT ---
Date of service: 06/09/18 Time of Service: 11:15 PT Notes Inpatient Physical Therapy Treatment Note [facility] Date: 06/09/18 PRECAUTIONS: Contact, FAll OBJECTIVE: Supine-sit: I Sit-supine: I Sit-stand: CGA Stand-sit: CGA GAIT Assistive Device: FWW Weight bearing: Full Assist: CGA Distance: Marching in place and static standing as well as side stepping 4 steps to the left. THEREX: Pt completed UE and LE ther ex as per flow sheet while in the supine position. ASSESSMENT: Pt tolerated today's session well. Pt did seem to be slightly more fatigued today then yesterday. PLAN: Cont as per PT POC. TREATMENT CODE/TIME: 10-10:25 (25) EDWARD PEREIRA
[2018-06-09] MEDS: Albuterol 2.5 MG/3 ML INH SOLN VIAL UPD (14:37)
[2018-06-09 15:07] VITALS: RESP 1; RESP 18
[2018-06-09] MEDS: Polyethylene Glycol 3350 17 GM PACKET PO ×2 (15:27→20:50)
[2018-06-09 15:40] VITALS: BP 126/67; PULSE 102; RESP 20; TEMP 36.9; O2SAT 92
[2018-06-09] MEDS: Diazepam 2 MG TAB PO (17:04)
--- NOTE | 2018-06-09 17:27 | NUR.NOTE ---
pt vomited x3 and was given IM phenergan 12.5mg at 1612 pt is not eating dinner so insulin held. nursing Note:
[2018-06-09] MEDS: Normal Saline Flush 10 ML SYR IVP (20:50)
[2018-06-09] MEDS: lamoTRIgine 100 MG TAB 200 MG PO (20:50)
[2018-06-09] MEDS: risperiDONE 1 MG TAB 6 MG PO (20:51)
[2018-06-09] MEDS: Mometasone 220 MCG 14 DOSE INHALER 1 PUFF IH (21:01)
[2018-06-09] MEDS: Insulin Glargine 300 UNITS/3 ML PEN 40 UNITS SC (21:02)
[2018-06-09 23:28] VITALS: BP 125/69; PULSE 101; RESP 19; TEMP 37.1; O2SAT 93
[2018-06-10] MEDS: Levothyroxine 100 MCG TAB PO (05:44)
[2018-06-10 07:25] LABS: Platelet Count 248 x1000/uL (130-400)
[2018-06-10] MEDS: Fluticasone NASAL SPRAY 16 GM BTL NS (08:35)
[2018-06-10] MEDS: Ciprofloxacin 250 MG/5 ML 100ML BTL PO ×2 (08:35→20:06)
[2018-06-10] MEDS: Polyethylene Glycol 3350 17 GM PACKET PO ×2 (08:35→20:06)
[2018-06-10] MEDS: Insulin Aspart 300 UNITS/3 ML PEN SC ×4 (08:36→21:55)
[2018-06-10] MEDS: Simvastatin 40 MG TAB 20 MG PO (08:36)
[2018-06-10] MEDS: Nystatin CREAM 30 GM TUBE TP ×2 (08:36→20:05)
[2018-06-10] MEDS: Lisinopril 5 MG TAB PO (08:37)
[2018-06-10] MEDS: Pantoprazole 40 MG TABCR PO (08:37)
[2018-06-10] MEDS: Methadone 10 MG TAB PO ×2 (08:37→20:06)
[2018-06-10] MEDS: Citalopram 20 MG TAB 40 MG PO (08:37)
[2018-06-10] MEDS: Docusate Sodium 100 MG CAP PO ×2 (08:37→20:06)
[2018-06-10] MEDS: lamoTRIgine 100 MG TAB PO (08:37)
[2018-06-10] MEDS: Dronabinol 2.5 MG CAP PO ×2 (08:37→16:58)
[2018-06-10] MEDS: Metoprolol CR 25 MG TABCR PO (08:37)
[2018-06-10] MEDS: Doxycycline Hyclate 100 MG CAP PO ×2 (08:37→20:06)
[2018-06-10] MEDS: Oxybutynin 5 MG TAB PO ×2 (08:37→20:05)
[2018-06-10] MEDS: Pregabalin 50 MG CAP PO ×2 (08:37→20:06)
[2018-06-10 08:42] VITALS: BP 120/60; PULSE 97; RESP 18; TEMP 36.3; O2SAT 93
[2018-06-10] MEDS: Ferrous Sulfate 325 MG TAB PO ×2 (10:28→21:54)
[2018-06-10] MEDS: clonazePAM 0.5 MG TAB PO ×2 (10:28→20:09)
[2018-06-10] MEDS: Heparin 5,000 UNITS/ML VIAL 5000 UNITS SC ×2 (10:28→21:54)
--- NOTE | 2018-06-10 14:09 | PHARADMIT ---
Addendum entered by James De Jesus III 06/13/18 16:58: Pharmacy Note Subjective Leot was to be discharge today, but she spiked emp of 38C this AM. New blood cultures order. One time dose of Vancomycin given. Objective VS-OK BP 123/69 K+5.3 SCr-1.26 WBC-11.42 FSBS-226 Assessment Cipro oral liquid continues. Lantus increased Plan Watch for blood cultures, if negative may be discharged Original Note: Addendum entered by Gabbie Juarez 06/11/18 10:04: BP-145/55 other VS okay weight-90.8(up) doxy and cipro continue (day 9 of cipro, to continue until follow up at [facility] per H&P) opening in nephrostomy tube/tube leaking per morning report. MD to call about getting tube changed possible discharge to H+R tomorrow Original Note: patient changed to swingbed status HR-97 other VS okay, no labs no med changes cipro and doxy continue The folling information is from pt's acute account DAVIDE REDDING C Female : 1945 Emr# [id number] 06/06/18 11:46 - Pharmacy Review by James De Jesus III Acct Num: [id number] : 1945 Patient Age: 73 Addendum entered by James De Jesus III 06/07/18 13:04: Pharmacy Note Subjective Patient met with H&R, bed offered for next week. Patient will go to swing bed here before being discharged to SNF. Objective VS-OK Na-136 Mag-1.6 H&H,Plts-OK Wgt- 91.3 kg No BM Assessment Had some crackles, IV fluids increased. Plan Going to Swing bed then to [facility]R next week. Original Note: Admission Pharmacy Clinical Review failure to thrive Code Status DNR/DNI Current Weight Wgt-90.1 kg Renally Cleared and Narrow Therapeutic Index Meds CrCl~ 54.9 mL/min Meds-OK QTc Value / Action Taken QTc-437 NA BP- 122/71 Meds-OK Electrolytes reviewed Na- 135 K+4.6 Mag-1.7 DVT Prophylaxis Heparin SC, Opiate Usage / Scheduled Bowel Regimen Ordered Yes Yes Plt/SCr for Heparin / Enoxaparin Plts-209 SCr-0.76 INR for Warfarin NA H/H stable, WBC/Bands H&H- 9.2/31.0 WBC- 6.31 Antibiotic appropriateness Cipro Susp, Doxycycline, Cultures and Sensitivities Urine- Rosmery Surgical ABX d/c within 24 hr NA DM control / Insulin Dosing BG- 247 Aspart, Lantus Heart Failure (Check EF%) (CARLI's, B-Block, Diuretics) Lisinopril, Toprol-XL, IV to PO Switch Yes Home Meds Reviewed Yes Home Meds Not Ordered ASA, Keflex, Diazepam, Glimeperide, Ibuprofen, Oxycodone, Bactrim, Dyazide Comments
--- NOTE | 2018-06-10 14:11 | OT.INIE ---
Occupational Therapy Notes Date: 06/10/18 Referring Doctor:Nora Simons MD OT Orders: Eval and treat Precautions: Standard, Fall Precautions PATIENT PROFILE/ADMITTING DIAGNOSIS: Pt is a 73 year old female who was admitted through the ER on 06/02/18 for failure to thrive at home, acute hyperkalemia, and malfunction of nephrostomy tube, she is currently on SWING bed status. Past Medical History: Schizoaffective disorder bipolar, chronic pain syndrome, scoliosis, spinal stenosis s/p spinal fusion, lumbar radicular pain, degenerative joint disease of pelvis, total hip arthroplasty, osteoarthritis, obesity, anxiety, intention tremor, hyperlipidemia, hypothyroidism, hypomagnesemia, chronic obstructive pulmonary disease, history of electroshock therapy, tonsillectomy, parkinsonism due to drug, bowel obstruction, drug-induced ileus. Social History/Home Situation: Pt reports that she lives in her home with her . She describes herself as bed bound. She states that she does not leave her home throughout the day and that she has an aide who comes into their home 6 days/week who (A) her with dressing, bathing, and ADL/IADL routines as needed. She states that her functional baseline for ADLs/IADLs is that she requires (A) for everything except soaking her teeth and eating, she uses a commode which she state she is able to (I) use. She states that the aide that comes into her home is there to specifically help her with her ADL routines. They recently had a ramp installed at her home as she uses a wheelchair for mobility. She drinks from a cup with (B) handles and cover with spout to avoid spilling fluids on herself and has min (A) for opening and closing containers during eating routine. Equipment owned/DME: Pt reports that she has a FWW, hospital bed, commode, raised toilet seat, grab bars. SUBJECTIVE: Pt was lying in bed when OT arrived. She was agreeable to OT consult although does report that she has a caregiver who helps her with all ADLs/IADLs at baseline and states I really require max (A) unless I feel that I can do it. OBJECTIVE: General Observation: nephrostomy tube, Cuevas Mental Status: A&Ox3 Pain: no c/o pain but reports that she lost a tooth. OT notified shoe parts caser ROM: RUE Shoulder flexion WNL, elbow WNL, hand and wrist WNL L UE Shoulder flexion WNL, elbow WNL, hand and wrist WNL STRENGTH: RUE Shoulder flexion 4/5, elbow 4/5, poacher operator 4/5 LUE Shoulder flexion 4/5, elbow 4/5, poacher operator 4/5 FUNCTIONAL MOBILITY/ADLS: Pt demonstrates (I) in washing her face while sitting in bed. Noticeable (R) hand tremor, OT educated pt on tremor control techniques with use of water bottle in (L) hand pt was receptive to this and demonstrated increased (I). BALANCE: Static sitting Normal Dynamic Sitting Good SPECIAL TESTS: Daily Activity Limitations Standardized Measure [facility] AM -PAC ?6 clicks? Daily Activity Inpatient Short Form: Raw score: 14 Standardized score: 33.39 CMS score:59.67% CMS modifier: CK INFORMED CONSENT/EDUCATION: Pt instructed in purpose of OT Consult and plan of care. ASSESSMENT: Patient is a 73-year-old female referred to occupational therapy services with diagnosis of failure to thrive at home, acute hyperkalemia, and malfunction of nephrostomy tube recently admitted as SWING bed rehabilitation status in setting of Schizoaffective disorder bipolar, chronic pain syndrome, scoliosis, spinal stenosis s/p spinal fusion, lumbar radicular pain, degenerative joint disease of pelvis, total hip arthroplasty, osteoarthritis, obesity, anxiety, intention tremor, hyperlipidemia, hypothyroidism, hypomagnesemia, chronic obstructive pulmonary disease, history of electroshock therapy, tonsillectomy, parkinsonism due to drug, bowel obstruction, drug-induced ileus. Patient presents with clinical signs and symptoms consistent with dx, as demonstrated by the following impairment level findings: decreased (I) in ADLS/IADLs, decreased functional activity tolerance. Impairments are contributing to the following functional limitations: Decreased (I) with dressing, bathing, grooming and min (A) with eating routines. Pt reports that her baseline level of function is (A) with all ADLs/IADLs and that she doesn't perform any of these on a regular day to day basis. Due to pts premorbid level of function and an aide who comes into pts home 6 days per week to (A) with ADL/IADL routines, pt does not feel that she will need OT services. She does report that she is planning to attend SNF when medically cleared per MD as her is unable to maintain her care at home and she feels she needs more help. OT recommends that pt go to SNF when medically cleared per MD as pt requires mod-max (A) for all ADLS at baseline. At this time OT will discharge pt from skilled OT services. AMPAC score 14, CMS score 59.67% Patient is assessed as a moderate 66444 complexity based on the following: History: Schizoaffective disorder bipolar, chronic pain syndrome, scoliosis, spinal stenosis s/p spinal fusion, lumbar radicular pain, degenerative joint disease of pelvis, total hip arthroplasty, osteoarthritis, obesity, anxiety, intention tremor, hyperlipidemia, hypothyroidism, hypomagnesemia, chronic obstructive pulmonary disease, history of electroshock therapy, tonsillectomy, parkinsonism due to drug, bowel obstruction, drug-induced ileus. Examination: See Above Presentation: Evolving Decision Making: AMAC score 14, CMS score 59.67% GOALS N/A PLAN OF CARE/TREATMENT PLAN: OT consult only DISCHARGE RECOMMENDATIONS SNF when medically cleared per MD. TREATMENT TIME/MINUTES/[place] [address] 20 minutes (11:25) G Codes in the area of self- : washing oneself, toileting, dressing, eating and drinking, current status GO G8987 CK projected status GO [id number]. Discharge status (if discharging) GO [id number] based on AMPAC score of 14, CMS core 59.67%. Thank you for this referral. Donna Simental, OTR/L [facility]
--- NOTE | 2018-06-10 14:17 | OTIE_ITS ---
Occupational Therapy Notes Date: 06/10/18 Referring Doctor:Nora Simons MD OT Orders: Eval and treat Precautions: Standard, Fall Precautions PATIENT PROFILE/ADMITTING DIAGNOSIS: Pt is a 73 year old female who was admitted through the ER on 06/02/18 for failure to thrive at home, acute hyperkalemia, and malfunction of nephrostomy tube, she is currently on SWING bed status. Past Medical History: Schizoaffective disorder bipolar, chronic pain syndrome, scoliosis, spinal stenosis s/p spinal fusion, lumbar radicular pain, degenerative joint disease of pelvis, total hip arthroplasty, osteoarthritis, obesity, anxiety, intention tremor, hyperlipidemia, hypothyroidism, hypomagnesemia, chronic obstructive pulmonary disease, history of electroshock therapy, tonsillectomy, parkinsonism due to drug, bowel obstruction, drug- induced ileus. Social History/Home Situation: Pt reports that she lives in her home with her . She describes herself as bed bound. She states that she does not leave her home throughout the day and that she has an aide who comes into their home 6 days/week who (A) her with dressing, bathing, and ADL/IADL routines as needed. She states that her functional baseline for ADLs/IADLs is that she requires (A) for everything except soaking her teeth and eating, she uses a commode which she state she is able to (I) use. She states that the aide that comes into her home is there to specifically help her with her ADL routines. They recently had a ramp installed at her home as she uses a wheelchair for mobility. She drinks from a cup with (B) handles and cover with spout to avoid spilling fluids on herself and has min (A) for opening and closing containers during eating routine. Equipment owned/DME: Pt reports that she has a FWW, hospital bed, commode, raised toilet seat, grab bars. SUBJECTIVE: Pt was lying in bed when OT arrived. She was agreeable to OT consult although does report that she has a caregiver who helps her with all ADLs/IADLs at baseline and states I really require max (A) unless I feel that I can do it. OBJECTIVE: General Observation: nephrostomy tube, Cuevas Mental Status: A&Ox3 Pain: no c/o pain but reports that she lost a tooth. OT notified case folder ROM: RUE Shoulder flexion WNL, elbow WNL, hand and wrist WNL L UE Shoulder flexion WNL, elbow WNL, hand and wrist WNL STRENGTH: RUE Shoulder flexion 4/5, elbow 4/5, executive wellness programs director 4/5 LUE Shoulder flexion 4/5, elbow 4/5, executive wellness programs director 4/5 FUNCTIONAL MOBILITY/ADLS: Pt demonstrates (I) in washing her face while sitting in bed. Noticeable (R) hand tremor, OT educated pt on tremor control techniques with use of water bottle in (L) hand pt was receptive to this and demonstrated increased (I). BALANCE: Static sitting Normal Dynamic Sitting Good SPECIAL TESTS: Daily Activity Limitations Standardized Measure [facility] AM -PAC ?6 clicks? Daily Activity Inpatient Short Form: Raw score: 14 Standardized score: 33.39 CMS score:59.67% CMS modifier: CK INFORMED CONSENT/EDUCATION: Pt instructed in purpose of OT Consult and plan of care. ASSESSMENT: Patient is a 73-year-old female referred to occupational therapy services with diagnosis of failure to thrive at home, acute hyperkalemia, and malfunction of nephrostomy tube recently admitted as SWING bed rehabilitation status in setting of Schizoaffective disorder bipolar, chronic pain syndrome, scoliosis, spinal stenosis s/p spinal fusion, lumbar radicular pain, degenerative joint disease of pelvis, total hip arthroplasty, osteoarthritis, obesity, anxiety, intention tremor, hyperlipidemia, hypothyroidism, hypomagnesemia, chronic obstructive pulmonary disease, history of electroshock therapy, tonsillectomy, parkinsonism due to drug, bowel obstruction, drug- induced ileus. Patient presents with clinical signs and symptoms consistent with dx, as demonstrated by the following impairment level findings: decreased (I) in ADLS/IADLs, decreased functional activity tolerance. Impairments are contributing to the following functional limitations: Decreased (I) with dressing, bathing, grooming and min (A) with eating routines. Pt re ports that her baseline level of function is (A) with all ADLs/IADLs and that she doesn't perform any of these on a regular day to day basis. Due to pts premorbid level of function and an aide who comes into pts home 6 days per week to (A) with ADL/IADL routines, pt does not feel that she will need OT services. She does report that she is planning to attend SNF when medically cleared per MD as her is unable to maintain her care at home and she feels she needs more help. OT recommends that pt go to SNF when medically cleared per MD as pt requires mod-max (A) for all ADLS at baseline. At this time OT will discharge pt from skilled OT services. AMPAC score 14, CMS score 59.67% Patient is assessed as a moderate 10829 complexity based on the following: History: Schizoaffective disorder bipolar, chronic pain syndrome, scoliosis, spinal stenosis s/p spinal fusion, lumbar radicular pain, degenerative joint disease of pelvis, total hip arthroplasty, osteoarthritis, obesity, anxiety, intention tremor, hyperlipidemia, hypothyroidism, hypomagnesemia, chronic obstructive pulmonary disease, history of electroshock therapy, tonsillectomy, parkinsonism due to drug, bowel obstruction, drug-induced ileus. Examination: See Above Presentation: Evolving Decision Making: AMAC score 14, CMS score 59.67% GOALS N/A PLAN OF CARE/TREATMENT PLAN: OT consult only DISCHARGE RECOMMENDATIONS SNF when medically cleared per MD. TREATMENT TIME/MINUTES/[place] [address] 20 minutes (11:25) G Codes in the area of self- : washing oneself, toileting, dressing, eating and drinking, current status GO G8987 CK projected status GO [id number]. Discharge status (if discharging) GO [id number] based on AMPAC score of 14, CMS core 59.67%. Thank you for this referral. Donna Simental, OTR/L [facility]
--- NOTE | 2018-06-10 15:15 | PT.INTREAT ---
Date of service: 06/10/18 Time of Service: 15:15 PT Notes Inpatient Physical Therapy Treatment Note [facility] Date: 06/10/18 PRECAUTIONS: Fall SUBJECTIVE: Deana is agreeable to participating in PT OBJECTIVE: PAIN: No c/o pain BED MOBILITY/TRANSFERS Supine-sit: I Sit-supine: I Sit-stand: S Stand-sit: S Bed-Chair: SBA Chair-bed: SBA GAIT Assistive Device: FWW Weight bearing: Full Assist: SBA Distance: 10' in a.m.; 5' + 10' in p.m. THEREX: Patient completed a LE and core strengthening program, as per flow sheet. She tolerated the addition of hook-lying marches, well without complaint. TOILETING: Patient toileted with assist for perianal care and with S for transfers. ASSESSMENT: Patient tolerated a progression in her ther ex program well, without complaint. She would benefit from continued gait and transfer training as well as strengthening for improved mobility as well as improved activity tolerance. PLAN: Continue with PT's POC TREATMENT CODE/TIME: Session 1: 10 minutes; 43663 x1 Session 2: 30 minutes; 22627 x1, 26209 x1
[2018-06-10] MEDS: Diazepam 2 MG TAB PO ×2 (15:23→23:01)
[2018-06-10 15:45] LABS: Bilirubin Negative (Negative); Blood Moderate (Negative); Clarity Sl Cloudy; Glucose Negative (Negative); Ketones Negative (Negative); Leukocyte Esterase Large (Negative); Nitrite Negative (Negative); Urobilinogen 0.2 EU/dL (Up TO 0.2); pH 7.5 (5-8)
[2018-06-10 15:50] VITALS: BP 93/58; PULSE 100; RESP 18; TEMP 37.2; O2SAT 92
[2018-06-10 16:09] LABS: WBC >50 HPF (0-5)
[2018-06-10 16:10] LABS: C & S Indicated? C&S Done As Ordered
[2018-06-10 21:21] VITALS: BP 145/64; PULSE 95; RESP 19; TEMP 36.7; O2SAT 93
[2018-06-10] MEDS: risperiDONE 1 MG TAB 6 MG PO (21:54)
[2018-06-10] MEDS: lamoTRIgine 100 MG TAB 200 MG PO (21:54)
[2018-06-10] MEDS: Mometasone 220 MCG 14 DOSE INHALER 1 PUFF IH (21:57)
[2018-06-10] MEDS: Insulin Glargine 300 UNITS/3 ML PEN 40 UNITS SC (21:57)
[2018-06-11 03:42] VITALS: BP 108/68; PULSE 93; RESP 18; TEMP 36.4; O2SAT 98
[2018-06-11] MEDS: Levothyroxine 100 MCG TAB PO (06:38)
[2018-06-11 07:25] VITALS: BP 145/55; PULSE 90; RESP 18; TEMP 36.6; O2SAT 95
[2018-06-11] MEDS: Dronabinol 2.5 MG CAP PO ×2 (07:38→16:50)
[2018-06-11] MEDS: Polyethylene Glycol 3350 17 GM PACKET PO ×2 (07:38→19:54)
[2018-06-11] MEDS: Docusate Sodium 100 MG CAP PO ×2 (07:38→19:55)
[2018-06-11] MEDS: Oxybutynin 5 MG TAB PO ×2 (07:38→19:54)
[2018-06-11] MEDS: Pantoprazole 40 MG TABCR PO (07:38)
[2018-06-11] MEDS: Fluticasone NASAL SPRAY 16 GM BTL NS (07:38)
[2018-06-11] MEDS: Doxycycline Hyclate 100 MG CAP PO ×2 (07:38→19:55)
[2018-06-11] MEDS: Citalopram 20 MG TAB 40 MG PO (07:38)
[2018-06-11] MEDS: Pregabalin 50 MG CAP PO ×2 (07:38→19:54)
[2018-06-11] MEDS: Ciprofloxacin 250 MG/5 ML 100ML BTL PO ×2 (07:38→19:53)
[2018-06-11] MEDS: Lisinopril 5 MG TAB PO (07:38)
[2018-06-11] MEDS: Simvastatin 40 MG TAB 20 MG PO (07:39)
[2018-06-11] MEDS: Metoprolol CR 25 MG TABCR PO (07:39)
[2018-06-11] MEDS: lamoTRIgine 100 MG TAB PO (07:39)
[2018-06-11] MEDS: Methadone 10 MG TAB PO ×2 (07:39→19:54)
[2018-06-11] MEDS: Insulin Aspart 300 UNITS/3 ML PEN SC ×4 (08:27→21:54)
[2018-06-11] MEDS: Heparin 5,000 UNITS/ML VIAL 5000 UNITS SC ×2 (10:02→21:50)
[2018-06-11] MEDS: clonazePAM 0.5 MG TAB PO ×2 (10:02→19:55)
[2018-06-11] MEDS: Ferrous Sulfate 325 MG TAB PO ×2 (10:02→21:51)
--- NOTE | 2018-06-11 10:10 | PT.INDS ---
Date of service: 06/08/18 Time of Service: 10:11 PT Notes Inpatient Physical Therapy Acute Care Discharge Summary Date: June 11, 2018 Referring Doctor: Dr. Regalado PT Orders: Swing Bed PT consult: evaluate and treat Precautions: Contact, Fall Treatment Dates: 06/03/18 - 06/07/18 This document serves as a summary of care. For charges related to this DOS, please see SB evaluation and treatment notes. PATIENT PROFILE/ADMITTING DIAGNOSIS: Pt is a 73 year old female who was admitted through the ER on 06/02/18 for failure to thrive at home, acute hyperkalemia, and malfunction of nephrostomy tube. She participated in PT intervention 1-2x/day during acute care stay, and was then transitioned to Swing Bed level of care for short term rehabilitation prior to transition to [facility]. Past Medical History: Schizoaffective disorder bipolar, chronic pain syndrome, scoliosis, spinal stenosis s/p spinal fusion, lumbar radicular pain, degenerative joint disease of pelvis, total hip arthroplasty, osteoarthritis, obesity, anxiety, intention tremor, hyperlipidemia, hypothyroidism, hypomagnesemia, chronic obstructive pulmonary disease, history of electroshock therapy, tonsillectomy, parkinsonism due to drug, bowel obstruction, drug-induced ileus. Social History/Home Situation: Pt reports that she lives in her home with her . She describes herself as bed bound. She states that she does not leave her home throughout the day and that she has an aide who comes into their home 6 days/week who (A) her with dressing, bathing, and ADL/IADL routines as needed. She states that her functional baseline for ADLs/IADLs is that she requires (A) for everything except soaking her teeth and eating, she uses a commode which she state she is able to (I) use via stand pivot transfer with UE support to WW. She states that the aide that comes into her home is there to specifically help her with her ADL routines. They recently had a ramp installed at her home as she uses a wheelchair for mobility. Equipment owned/DME: Pt reports that she has a FWW, hospital bed, commode, raised toilet seat, grab bars. SUBJECTIVE: None obtained. OBJECTIVE: General Observation: nephrostomy tube Mental Status: A&Ox3 Pain: Pt c/o back pain during PT consult, which she reports is at baseline level. ROM: RUE Shoulder flexion WNL, elbow WNL, hand and wrist WNL L UE Shoulder flexion WNL, elbow WNL, hand and wrist WNL LLE: Grossly WFL, with the exception of ankle DF, which is -5 degrees RLE: Grossly WFL, with the exception of ankle DF, which is -10 STRENGTH: RUE Shoulder flexion 4/5, elbow 4/5, tile layer supervisor 4/5 LUE Shoulder flexion 4/5, elbow 4/5, tile layer supervisor 4/5 LLE: Hip flexion 3+/5, quads 4-/5, HS 4-/5, ankle DF 3-/5 RLE: Hip flexion 3+/5, quads 4-/5, HS 4-/5, ankle DF 3-/5 Transfers : Supine-sit: independent with HOB at 30 degrees Sit-supine independent with HOB at 30 degrees Sit-stand: SBA with FWW Stand-sit: SBA Gait: FWW, CGA, 10ft x2. BALANCE: Static sitting: Good Dynamic Sitting Good Static Standing: Fair Dynamic Standing: unable SPECIAL TESTS: Daily Activity Limitations Standardized Measure [facility] AM -PAC ?6 clicks? Daily Activity Inpatient Short Form: Raw score: 18 Standardized score: 43.63 CMS score:46.58% CMS modifier: CK Informed Consent/Education: Patient instructed in purpose of PT consult and plan of care. Assessment: Patient is a 73 year old female referred to physical therapy services with the diagnosis of diminished mobility related to complicated medical history, with failure to thrive. She has very minimal mobility at home at baseline, and is unfortunately unable to effective manage in the home at this time. She will require placement to SNF following her acute care stay to allow for rehabilitation prior to returning home. Patient is medically stable at this time, and has transitioned to Swing Bed level of care prior to anticipated d/c to [facility]. Will d/c from acute care services. [facility] score 46% deficit. Patient is assessed as a Moderate 77876 complexity based on the following: History: 73-year-old female admitted for failure to thrive in the home, with multiple medical comorbidities including chronic MRSA infection,Schizoaffective disorder bipolar, chronic pain syndrome, scoliosis, spinal stenosis s/p spinal fusion, lumbar radicular pain, degenerative joint disease of pelvis, total hip arthroplasty, osteoarthritis, obesity, anxiety, intention tremor, hyperlipidemia, hypothyroidism, hypomagnesemia, chronic obstructive pulmonary disease, history of electroshock therapy, tonsillectomy, parkinsonism Examination: Functional limitations as noted above Presentation: Evolving Decision Making: Moderate complexity Goals: Goals X1 week 1. Supine-Sit : independent 2. Sit-Supine independent 3. Sit-Stand independent with WW 4. Stand-Sit independent with WW 5. Bed-Chair independent with WW 6. Chair-Bed independent with WW Plan of Care/Treatment Plan: D/C from PT in acute care setting. Consult performed for continuation of services on Swing Bed level of care. DISCHARGE RECOMMENDATIONS: SB level of care prior to transition to nursing home facility for continued rehabilitation prior to returning home
--- NOTE | 2018-06-11 10:15 | INDS_ITS ---
Date of service: 06/08/18 Time of Service: 10:11 PT Notes Inpatient Physical Therapy Acute Care Discharge Summary Date: June 11, 2018 Referring Doctor: Dr. Regalado PT Orders: Swing Bed PT consult: evaluate and treat Precautions: Contact, Fall Treatment Dates: 06/03/18 - 06/07/18 This document serves as a summary of care. For charges related to this DOS, please see SB evaluation and treatment notes. PATIENT PROFILE/ADMITTING DIAGNOSIS: Pt is a 73 year old female who was admitted through the ER on 06/02/18 for failure to thrive at home, acute hyperkalemia, and malfunction of nephrostomy tube. She participated in PT intervention 1-2x/day during acute care stay, and was then transitioned to Swing Bed level of care for short term rehabilitation prior to transition to [facility]. Past Medical History: Schizoaffective disorder bipolar, chronic pain syndrome, scoliosis, spinal stenosis s/p spinal fusion, lumbar radicular pain, degenerative joint disease of pelvis, total hip arthroplasty, osteoarthritis, obesity, anxiety, intention tremor, hyperlipidemia, hypothyroidism, hypomagnesemia, chronic obstructive pulmonary disease, history of electroshock therapy, tonsillectomy, parkinsonism due to drug, bowel obstruction, drug- induced ileus. Social History/Home Situation: Pt reports that she lives in her home with her . She describes herself as bed bound. She states that she does not leave her home throughout the day and that she has an aide who comes into their home 6 days/week who (A) her with dressing, bathing, and ADL/IADL routines as needed. She states that her functional baseline for ADLs/IADLs is that she requires (A) for everything except soaking her teeth and eating, she uses a commode which she state she is able to (I) use via stand pivot transfer with UE support to WW. She states that the aide that comes into her home is there to specifically help her with her ADL routines. They recently had a ramp installed at her home as she uses a wheelchair for mobility. Equipment owned/DME: Pt reports that she has a FWW, hospital bed, commode, ra ised toilet seat, grab bars. SUBJECTIVE: None obtained. OBJECTIVE: General Observation: nephrostomy tube Mental Status: A&Ox3 Pain: Pt c/o back pain during PT consult, which she reports is at baseline level. ROM: RUE Shoulder flexion WNL, elbow WNL, hand and wrist WNL L UE Shoulder flexion WNL, elbow WNL, hand and wrist WNL LLE: Grossly WFL, with the exception of ankle DF, which is -5 degrees RLE: Grossly WFL, with the exception of ankle DF, which is -10 STRENGTH: RUE Shoulder flexion 4/5, elbow 4/5, shot bagger 4/5 LUE Shoulder flexion 4/5, elbow 4/5, shot bagger 4/5 LLE: Hip flexion 3+/5, quads 4-/5, HS 4-/5, ankle DF 3-/5 RLE: Hip flexion 3+/5, quads 4-/5, HS 4-/5, ankle DF 3-/5 Transfers : Supine-sit: independent with HOB at 30 degrees Sit-supine independent with HOB at 30 degrees Sit-stand: SBA with FWW Stand-sit: SBA Gait: FWW, CGA, 10ft x2. BALANCE: Static sitting: Good Dynamic Sitting Good Static Standing: Fair Dynamic Standing: unable SPECIAL TESTS: Daily Activity Limitations Standardized Measure [facility] AM -PAC ?6 clicks? Daily Activity Inpatient Short Form: Raw score: 18 Standardized score: 43.63 CMS score:46.58% CMS modifier: CK Informed Consent/Education: Patient instructed in purpose of PT consult and plan of care. Assessment: Patient is a 73 year old female referred to physical therapy services with the diagnosis of diminished mobility related to complicated medical history, with failure to thrive. She has very minimal mobility at home at baseline, and is unfortunately unable to effective manage in the home at this time. She will require placement to SNF following her acute care stay to allow for rehabilitation prior to returning home. Patient is medically stable at this time, and has transitioned to Swing Bed level of care prior to anticipated d/c to [facility]. Will d/c from acute care services. AMPA score 46% deficit. Patient is assessed as a Moderate 30758 complexity based on the following: History: 73-year-old female admitted for failure to thrive in the home, with multiple medical comorbidities including chronic MRSA infection,Schizoaffective disorder bipolar, chronic pain syndrome, scoliosis, spinal stenosis s/p spinal fusion, lumbar radicular pain, degenerative joint disease of pelvis, total hip arthroplasty, osteoarthritis, obesity, anxiety, intention tremor, hyperlipidemia , hypothyroidism, hypomagnesemia, chronic obstructive pulmonary disease, history of electroshock therapy, tonsillectomy, parkinsonism Examination: Functional limitations as noted above Presentation: Evolving Decision Making: Moderate complexity Goals: Goals X1 week 1. Supine-Sit : independent 2. Sit-Supine independent 3. Sit-Stand independent with WW 4. Stand-Sit independent with WW 5. Bed-Chair independent with WW 6. Chair-Bed independent with WW Plan of Care/Treatment Plan: D/C from PT in acute care setting. Consult performed for continuation of services on Swing Bed level of care. DISCHARGE RECOMMENDATIONS: SB level of care prior to transition to care home facility for continued rehabilitation prior to returning home
--- NOTE | 2018-06-11 10:49 | PT.INTREAT ---
Date of service: 06/11/18 Time of Service: 10:49 PT Notes Inpatient Physical Therapy Treatment Note [facility] Date: 06/11/18 PRECAUTIONS: Fall SUBJECTIVE: Deana is agreeable to participating in PT. She has questions regarding what to bring with her when she transfers to SNF level of care, referred her to Staff Reporter, Lynn, whom I also spoke with regarding Deana's concerns. OBJECTIVE: PAIN: No c/o pain BED MOBILITY/TRANSFERS Supine-sit: I Sit-supine: I Sit-stand: S Stand-sit: S Bed-Chair: S Chair-bed: S GAIT Assistive Device: FWW Weight bearing: Full Assist: S Distance: 10' x2 Deviation: Refused further gait THEREX: Patient completed a resisted UE and LE strengthening program, in a supine position, as per flow sheet. Patient was issued yellow Theraband for exercise completion. ASSESSMENT: Patient tolerated session well without complaint. She was able to tolerate a progression in ther ex today, adding yellow Theraband for increased resistance. She would benefit from continued strengthening for improved activity tolerance. PLAN: Continue with PT's POC TREATMENT CODE/TIME: 25 minutes; (06487 x1, 22574 x1)
--- NOTE | 2018-06-11 11:56 | PT.INDS ---
Date of service: 06/11/18 Time of Service: 11:30 PT Notes Date: June 11, 2018 Referring Doctor: Dr. Regalado PT Orders: Swing Bed PT consult: evaluate and treat Precautions: Contact, Fall Treatment Dates: 06/07/18 - 06/11/18 PATIENT PROFILE/ADMITTING DIAGNOSIS: Pt is a 73 year old female who was admitted through the ER on 06/02/18 for failure to thrive at home, acute hyperkalemia, and malfunction of nephrostomy tube. She was seen 1-2x/day for 5 days on Swing Bed status for skilled PT intervention, and is now safe for transition to continued rehabilitation in SNF setting. Past Medical History: Schizoaffective disorder bipolar, chronic pain syndrome, scoliosis, spinal stenosis s/p spinal fusion, lumbar radicular pain, degenerative joint disease of pelvis, total hip arthroplasty, osteoarthritis, obesity, anxiety, intention tremor, hyperlipidemia, hypothyroidism, hypomagnesemia, chronic obstructive pulmonary disease, history of electroshock therapy, tonsillectomy, parkinsonism due to drug, bowel obstruction, drug-induced ileus. Social History/Home Situation: Pt reports that she lives in her home with her . She describes herself as bed bound. She states that she does not leave her home throughout the day and that she has an aide who comes into their home 6 days/week who (A) her with dressing, bathing, and ADL/IADL routines as needed. She states that her functional baseline for ADLs/IADLs is that she requires (A) for everything except soaking her teeth and eating, she uses a commode which she state she is able to (I) use via stand pivot transfer with UE support to WW. She states that the aide that comes into her home is there to specifically help her with her ADL routines. They recently had a ramp installed at her home as she uses a wheelchair for mobility. Equipment owned/DME: Pt reports that she has a FWW, hospital bed, commode, raised toilet seat, grab bars. SUBJECTIVE: Patient states that she is feeling well. She's agreeable to PT session, and would like to get up to her w/c for lunch. OBJECTIVE: General Observation: nephrostomy tube, otney catheter Mental Status: A&Ox3 Pain: Pt c/o back pain during PT consult, which she reports is at baseline level. ROM: RUE Shoulder flexion WNL, elbow WNL, hand and wrist WNL L UE Shoulder flexion WNL, elbow WNL, hand and wrist WNL LLE: Grossly WFL, with the exception of ankle DF, which is -5 degrees RLE: Grossly WFL, with the exception of ankle DF, which is -5 STRENGTH: RUE Shoulder flexion 4/5, elbow 4/5, computer architect 4/5 LUE Shoulder flexion 4/5, elbow 4/5, computer architect 4/5 LLE: Hip flexion 3+/5, quads 4-/5, HS 4-/5, ankle DF 3-/5 RLE: Hip flexion 3+/5, quads 4-/5, HS 4-/5, ankle DF 3-/5 Transfers : Supine-sit: independent with HOB at 30 degrees Sit-supine independent with HOB at 30 degrees Sit-stand: SBA with FWW Stand-sit: SBA Gait: FWW, SBA, 10ft. BALANCE: Static sitting: Good Dynamic Sitting Good Static Standing: Fair Dynamic Standing: Fair Treatment: Today's session consisted of re-evaluation, followed by gait training and instruction in seated exercise program. Patient declines standing exercise today. She completed the followin. LAQ x 10 2. Hip flexion x 10 3. Ankle pumps x 15 each 4. Shoulder punch ups 10x 5. bicep curls x 10 Assessment: Patient is a 73 year old female referred to physical therapy services with the diagnosis of diminished mobility related to complicated medical history, with failure to thrive. She has very minimal mobility at home at baseline, and is unfortunately unable to effective manage in the home at this time. She will require placement to SNF following her SB stay to allow for rehabilitation prior to returning home. Goals: Goals X1 week 1. Supine-Sit : independent (met) 2. Sit-Supine independent (met) 3. Sit-Stand independent with WW (progressing toward) 4. Stand-Sit independent with WW(progressing toward) 5. Bed-Chair independent with WW(progressing toward) 6. Chair-Bed independent with WW(progressing toward) Plan of Care/Treatment Plan: Patient to transition to [facility] for continued rehabilitation. DISCHARGE RECOMMENDATIONS[facility] for [facility] prior to returning home TREATMENT CODE/TIME: 25 minutes ([id number], [id number])
--- NOTE | 2018-06-11 12:03 | INDS_ITS ---
Date of service: 06/11/18 Time of Service: 11:30 PT Notes Date: June 11, 2018 Referring Doctor: Dr. Regalado PT Orders: Swing Bed PT consult: evaluate and treat Precautions: Contact, Fall Treatment Dates: 06/07/18 - 06/11/18 PATIENT PROFILE/ADMITTING DIAGNOSIS: Pt is a 73 year old female who was admitted through the ER on 06/02/18 for failure to thrive at home, acute hyperkalemia, and malfunction of nephrostomy tube. She was seen 1-2x/day for 5 days on Swing Bed status for skilled PT intervention, and is now safe for transition to continued rehabilitation in SNF setting. Past Medical History: Schizoaffective disorder bipolar, chronic pain syndrome, scoliosis, spinal stenosis s/p spinal fusion, lumbar radicular pain, degenerative joint disease of pelvis, total hip arthroplasty, osteoarthritis, obesity, anxiety, intention tremor, hyperlipidemia, hypothyroidism, hypomagnesemia, chronic obstructive pulmonary disease, history of electroshock therapy, tonsillectomy, parkinsonism due to drug, bowel obstruction, drug- induced ileus. Social History/Home Situation: Pt reports that she lives in her home with her . She describes herself as bed bound. She states that she does not leave her home throughout the day and that she has an aide who comes into their home 6 days/week who (A) her with dressing, bathing, and ADL/IADL routines as needed. She states that her functional baseline for ADLs/IADLs is that she requires (A) for everything except soaking her teeth and eating, she uses a commode which she state she is able to (I) use via stand pivot transfer with UE support to WW. She states that the aide that comes into her home is there to specifically help her with her ADL routines. They recently had a ramp installed at her home as she uses a wheelchair for mobility. Equipment owned/DME: Pt reports that she has a FWW, hospital bed, commode, raised toilet seat, grab bars. SUBJECTIVE: Patient states that she is feeling well. She's agreeable to PT session, and would like to get up to her w/c for lunch. OBJECTIVE: General Observation: nephrostomy tube, toney catheter Mental Status: A&Ox3 Pain: Pt c/o back pain during PT consult, which she reports is at baseline level. ROM: RUE Shoulder flexion WNL, elbow WNL, hand and wrist WNL L UE Shoulder flexion WNL, elbow WNL, hand and wrist WNL LLE: Grossly WFL, with the exception of ankle DF, which is -5 degrees RLE: Grossly WFL, with the exception of ankle DF, which is -5 STRENGTH: RUE Shoulder flexion 4/5, elbow 4/5, faucets assembler 4/5 LUE Shoulder flexion 4/5, elbow 4/5, faucets assembler 4/5 LLE: Hip flexion 3+/5, quads 4-/5, HS 4-/5, ankle DF 3-/5 RLE: Hip flexion 3+/5, quads 4-/5, HS 4-/5, ankle DF 3-/5 Transfers : Supine-sit: independent with HOB at 30 degrees Sit-supine independent with HOB at 30 degrees Sit-stand: SBA with FWW Stand-sit: SBA Gait: FWW, SBA, 10ft. BALANCE: Static sitting: Good Dynamic Sitting Good Static Standing: Fair Dynamic Standing: Fair Treatment: Today's session consisted of re-evaluation, followed by gait training and instruction in seated exercise program. Patient declines standing exercise today. She completed the followin. LAQ x 10 2. Hip flexion x 10 3. Ankle pumps x 15 each 4. Shoulder punch ups 10x 5. bicep curls x 10 Assessment: Patient is a 73 year old female referred to physical therapy services with the diagnosis of diminished mobility related to complicated medical history, with failure to thrive. She has very minimal mobility at home at baseline, and is unfortunately unable to effective manage in the home at this time. She will require placement to SNF following her SB stay to allow for rehabilitation prior to returning home. Goals: Goals X1 week 1. Supine-Sit : independent (met) 2. Sit-Supine independent (met) 3. Sit-Stand independent with WW (progressing toward) 4. Stand-Sit independent with WW(progressing toward) 5. Bed-Chair independent with WW(progressing toward) 6. Chair-Bed independent with WW(progressing toward) Plan of Care/Treatment Plan: Patient to transition to [facility] for continued rehabilitation. DISCHARGE RECOMMENDATIONS: [facility] facility for continued rehabilitation prior to returning home TREATMENT CODE/TIME: 25 minutes ([id number], [id number])
--- NOTE | 2018-06-11 14:12 | DI.RAD_ITS ---
SYMPTOMS/DIAGNOSIS: CONFIRM UROSTOMY TUBE PLACEMENT KUB: Three views were obtained. Comparison CT scan is 06/02/17. There is a right nephrostomy tube. In comparison with the CT scan of the abdomen and pelvis, the pigtail appears to be in the location consistent with the right renal pelvis. Note is made of multiple stones within the gallbladder. The bowel gas pattern is nonspecific without evidence of obstruction. The visualized lung bases appear clear. No pneumoperitoneum or organomegaly is appreciated. There are postsurgical changes seen with rods in the thoracic and lumbar spine and a right total hip replacement. IMPRESSION: Right nephrostomy tube; its location suggests that the pigtail is indeed in the region of the right renal pelvis. If further confirmation is needed, a CT scan should be considered.
[2018-06-11] MEDS: Diazepam 2 MG TAB PO ×2 (14:44→22:21)
[2018-06-11 16:08] VITALS: BP 115/68; PULSE 92; RESP 18; TEMP 36.9; O2SAT 93
--- NOTE | 2018-06-11 16:16 | PDOC.CMPRO ---
Care Management Progress Note DOMINGO met with Deana to discuss change in DC planning and [facility] transport. Deana processed the change appropriately and asked appropriate questions regarding process tomorrow--DOMINGO provided answers to Deana with MD/RNCC coordination. Deana will remain NPO but will take her medications normally including pain meds as she shared concerns about transport and being uncomfortable. DOMINGO explained process to Deana going to for imaging and resulting treatment per results. She will return to [facility] with a planned discharge to [facility] on if ready per MD. She will transport via [facility]. DOMINGO spoke with Harish JURADO who reported coordinating EMS transport to and from [facility] for [facility] tomorrow. DOMINGO spoke with Sammy of [facility] to re-coordinate discharge plan. DOMINGO spoke with Jared who is unavailable to support Deana in person tomorrow but spoke with her via phone and helped her feel supported with change in plan.
--- NOTE | 2018-06-11 17:06 | CMPROGNOTE_ITS ---
Care Management Progress Note DOMINGO met with Deana to discuss change in DC planning and [facility] transport. Deana processed the change appropriately and asked appropriate questions regarding process tomorrow--DOMINGO provided answers to Deana with MD/RNCC coordination. Deana will remain NPO but will take her medications normally including pain meds as she shared concerns about transport and being uncomfortable. DOMINGO explained process to Deana going to for imaging and resulting treatment per results. She will return to [facility] with a planned discharge to [facility] on if ready per MD. She will transport via [facility]. DOMINGO spoke with Harish JURADO who reported coordinating EMS transport to and from [facility] for [facility] tomorrow. DOMINGO spoke with Sammy of [facility] to re-coordinate discharge plan. DOMINGO spoke with Jared who is unavailable to support Deana in person tomorrow but spoke with her via phone and helped her feel supported with change in plan.
--- NOTE | 2018-06-11 17:51 | W.PM.PROGNOT ---
Date of Service Date of service: 06/11/18 Time of Service: 17:51 Subjective Interval history since last seen: I have discussed the continuous leakage from the nephrostomy tube with IR at [facility] - the patient will be going to [facility] tomorrow to have her nephrostomy tube exchanged as it has likely dislodged; appointment is set for 9:30. Patient is NPO after midnight. Objective Objective Clinical Data: Vital Signs Temperature 36.9 C 06/11/18 16:08 Temperature Source Tympanic 06/11/18 16:08 Pulse 92 H 06/11/18 16:08 Pulse Rhythm Regular 06/11/18 09:33 Respiratory Rate 18 06/11/18 16:08 Respiratory Effort 06/11/18 09:33 Respiratory Depth Normal 06/11/18 09:33 Respiratory Pattern Normal 06/11/18 09:33 Blood Pressure 115/68 06/11/18 16:08 Pulse Oximetry 93 L 06/11/18 16:08 Oxygen Delivery Method Room Air 06/11/18 16:08 Oxygen Flow Rate 0 06/11/18 16:08 Pain Level 4 06/11/18 07:39 Comment 06/10/18 08:42 Intake & Output 06/10/18 06/11/18 06/11/18 23:59 11:59 23:59 Intake Total 1290 / 1780 540 / 1500 960 / 1500 Output Total 3100 / 5075 2100 / 2700 600 / 2700 Balance -1810 / -3295 -1560 / -1200 360 / -1200 Weight 90.8 kg Intake: Oral 1290 / 1780 540 / 1500 960 / 1500 Output: Drainage 1050 / 1600 950 / 1250 300 / 1250 Right 1050 / 1600 950 / 1250 300 / 1250 Urine 2050 / 3475 1150 / 1450 300 / 1450 Other: Urine Color Yellow Yellow Yellow Urine Appearance Clear Cloudy Stool Size Moderate Moderate Small Stool Characteristics Soft Soft Formed Formed Brown Brown Laboratory Results Plt Count 248 x1000/uL (130-400) 06/10/18 06:33 Urine Color Yellow (Yellow) 06/10/18 09:50 Urine Clarity Sl cloudy 06/10/18 09:50 Urine pH 7.5 (5-8) 06/10/18 09:50 Ur Specific [place] 1.010 (1.005-1.025) 06/10/18 09:50 Urine Protein Trace mg/dL (Negative) H 06/10/18 09:50 Urine Ketones Negative mg/dL (Negative) 06/10/18 09:50 Urine Blood Moderate (Negative) H 06/10/18 09:50 Urine Nitrite Negative (Negative) 06/10/18 09:50 Urine Bilirubin Negative (Negative) 06/10/18 09:50 Urine Urobilinogen 0.2 EU/dL (Up TO 0.2) 06/10/18 09:50 Ur Leukocyte Esterase Large (Negative) H 06/10/18 09:50 Urine RBC Not Applicable 06/10/18 09:50 Urine WBC >50 HPF (0-5) 06/10/18 09:50 Ur Epithelial Cells Not Applicable 06/10/18 09:50 Urine Crystals Not Applicable 06/10/18 09:50 Urine Bacteria Not Applicable 06/10/18 09:50 Urine Mucus Not Applicable 06/10/18 09:50 Urine Other Many yeast (Negative) 06/10/18 09:50 Ur Culture Indicated? C&s done as ordered 06/10/18 09:50 Urine Glucose Negative mg/dL (Negative) 06/10/18 09:50
[2018-06-11] MEDS: Mometasone 220 MCG 14 DOSE INHALER 1 PUFF IH (19:54)
[2018-06-11] MEDS: Dicyclomine 10 MG CAP PO (19:54)
[2018-06-11 20:41] VITALS: BP 123/68; PULSE 91; RESP 19; TEMP 37.2; O2SAT 95
[2018-06-11] MEDS: risperiDONE 1 MG TAB 6 MG PO (21:50)
[2018-06-11] MEDS: lamoTRIgine 100 MG TAB 200 MG PO (21:50)
[2018-06-11] MEDS: Insulin Glargine 300 UNITS/3 ML PEN 20 UNITS SC (21:53)
[2018-06-11 23:00] VITALS: BP 133/73; PULSE 97; RESP 18; TEMP 37.4; O2SAT 93
[2018-06-12] VITALS (8 sets, daily range): BP systolic 88–146; BP diastolic 44–73; PULSE 84–101; RESP 17–22; TEMP 36.5–37.1; O2SAT 89–95
[2018-06-12] MEDS: Levothyroxine 100 MCG TAB PO (06:52)
[2018-06-12] MEDS: Methadone 10 MG TAB PO ×2 (06:52→20:19)
[2018-06-12] MEDS: Dronabinol 2.5 MG CAP PO ×2 (06:52→17:22)
[2018-06-12] MEDS: Doxycycline Hyclate 100 MG CAP PO ×2 (06:52→20:19)
[2018-06-12] MEDS: Ciprofloxacin 250 MG/5 ML 100ML BTL PO ×2 (06:55→20:22)
[2018-06-12] MEDS: Oxybutynin 5 MG TAB PO ×2 (06:56→20:18)
[2018-06-12] MEDS: Pantoprazole 40 MG TABCR PO (06:56)
[2018-06-12] MEDS: Citalopram 20 MG TAB 40 MG PO (06:56)
[2018-06-12] MEDS: Pregabalin 50 MG CAP PO ×2 (06:56→20:19)
[2018-06-12] MEDS: lamoTRIgine 100 MG TAB PO (06:56)
[2018-06-12] MEDS: Metoprolol CR 25 MG TABCR PO (06:56)
[2018-06-12] MEDS: Docusate Sodium 100 MG CAP PO ×2 (06:56→20:19)
[2018-06-12] MEDS: Lisinopril 5 MG TAB PO (06:56)
[2018-06-12] MEDS: Polyethylene Glycol 3350 17 GM PACKET PO ×2 (06:56→20:16)
[2018-06-12] MEDS: Simvastatin 40 MG TAB 20 MG PO (06:56)
[2018-06-12] MEDS: Diazepam 2 MG TAB PO ×2 (06:57→13:57)
[2018-06-12] MEDS: clonazePAM 0.5 MG TAB PO ×2 (06:57→20:20)
[2018-06-12] MEDS: Albuterol 2.5 MG/3 ML INH SOLN VIAL UPD (07:28)
[2018-06-12] MEDS: Fluticasone NASAL SPRAY 16 GM BTL NS (07:40)
[2018-06-12] MEDS: Insulin Aspart 300 UNITS/3 ML PEN SC ×4 (07:40→21:35)
--- NOTE | 2018-06-12 10:14 | NUR.NOTE ---
Nursing Note: Deana was transported to [facility] for down and back at 0845. She had a walker, per request, with her when she d/c'ed. Neph tube and catheters draining clear, yellow. AxOx3. VSS; 94% RA, FS 250 at discharge. Pt received all am. meds; administered by night CASSY Mcmanus. Breathing tx administered by RT per pt request prior to d/c. Insulin and nasal spray at 0800. Pt reported 2/10 pain; denied offer of pain medications or zofran prior to transfer.
[2018-06-12] MEDS: Normal Saline Flush 10 ML SYR IVP ×2 (13:58→18:07)
[2018-06-12] MEDS: Acetaminophen 325 MG TAB PO (15:03)
[2018-06-12] MEDS: Dicyclomine 10 MG CAP PO ×2 (15:05→21:54)
[2018-06-12] MEDS: Mometasone 220 MCG 14 DOSE INHALER 1 PUFF IH (21:31)
[2018-06-12] MEDS: Ferrous Sulfate 325 MG TAB PO (21:32)
[2018-06-12] MEDS: lamoTRIgine 100 MG TAB 200 MG PO (21:32)
[2018-06-12] MEDS: risperiDONE 1 MG TAB 6 MG PO (21:33)
[2018-06-12] MEDS: Insulin Glargine 300 UNITS/3 ML PEN 20 UNITS SC (21:37)
[2018-06-13] MEDS: Levothyroxine 100 MCG TAB PO (05:40)
[2018-06-13 07:25] LABS: Platelet Count 244 x1000/uL (130-400)
[2018-06-13 07:45] VITALS: BP 121/71; PULSE 95; RESP 18; TEMP 38; O2SAT 93
[2018-06-13] MEDS: Simvastatin 40 MG TAB 20 MG PO (09:32)
[2018-06-13] MEDS: Dronabinol 2.5 MG CAP PO ×2 (09:33→16:50)
[2018-06-13] MEDS: lamoTRIgine 100 MG TAB PO (09:33)
[2018-06-13] MEDS: clonazePAM 0.5 MG TAB PO ×2 (09:33→21:24)
[2018-06-13] MEDS: Pantoprazole 40 MG TABCR PO (09:33)
[2018-06-13] MEDS: Pregabalin 50 MG CAP PO ×2 (09:33→19:11)
[2018-06-13] MEDS: Doxycycline Hyclate 100 MG CAP PO ×2 (09:33→19:11)
[2018-06-13] MEDS: Citalopram 20 MG TAB 40 MG PO (09:34)
[2018-06-13] MEDS: Lisinopril 5 MG TAB PO (09:34)
[2018-06-13] MEDS: Ferrous Sulfate 325 MG TAB PO ×2 (09:34→21:24)
[2018-06-13] MEDS: Metoprolol CR 25 MG TABCR PO (09:34)
[2018-06-13] MEDS: Oxybutynin 5 MG TAB PO ×2 (09:34→19:11)
[2018-06-13] MEDS: Insulin Aspart 300 UNITS/3 ML PEN SC ×4 (09:34→21:26)
[2018-06-13] MEDS: Docusate Sodium 100 MG CAP PO ×2 (09:34→19:11)
[2018-06-13] MEDS: Nystatin CREAM 30 GM TUBE TP (09:34)
[2018-06-13] MEDS: Methadone 10 MG TAB PO ×2 (09:34→19:11)
[2018-06-13] MEDS: Polyethylene Glycol 3350 17 GM PACKET PO ×2 (09:37→19:11)
[2018-06-13] MEDS: Fluticasone NASAL SPRAY 16 GM BTL NS (09:38)
[2018-06-13] MEDS: Ciprofloxacin 250 MG/5 ML 100ML BTL PO ×2 (09:38→19:19)
[2018-06-13 09:46] VITALS: TEMP 37.5
[2018-06-13 10:01] LABS: Abs Immature Grans 0.25 k/cumm (0.0-0.09); Anion Gap 10.5 mmol/L (3-11); BUN 30 mg/dL (7-18); CO2 25.5 mmol/L (21.0-32.0); CREATININE 1.26 mg/dL (0.55-1.02); Calcium 9.3 mg/dL (8.5-10.1); Chloride 98 mmol/L (98-107); Estimated GFR 41.74 (mL/min/1.73m2); Glucose 250 mg/dL (70-100); HCT 30.6 % (36.0-46.0); HGB 9.1 g/dL (12.0-15.5); Magnesium 1.9 mg/dL (1.8-2.4); Mean Corp. HGB Concentration 29.7 g/dL (32.0-36.0); Mean Corpuscular Hemoglobin 27.7 pg (27.0-33.0); Mean Platelet Volume 11.7 fL (8.0-11.0); Potassium 5.3 mmol/L (3.5-5.1); RBC 3.29 m/cumm (4.00-5.20); RBC Distribution Width 20.9 % (11.7-14.6); Sodium 134 mmol/L (136-145); White Blood Cell Count 11.42 k/cumm (4.4-10.8)
[2018-06-13] MEDS: Dicyclomine 10 MG CAP PO ×2 (10:10→16:50)
--- NOTE | 2018-06-13 10:56 | PDOC.CMDIS ---
LACE Index Scoring Tool - Questions: Length of Stay (in days): 7 - 13 Acuity (Admit via E.D.?): Yes Comorbidities: Diabetes w/o Complication, Chronic Pulmonary Disease E.D. Visits: 3 - Answers: Total Score: 14 Risk of Readmission: High Risk Care Management Discharge Reason for Hospitalization: Right Nephrolithiasis, FTT, SWB1 Discharge Plan: Deana will transfer to [facility] for continued rehabilitation in preparation of kidney stone extraction and assumed continued rehab post surgically prior to returning home with increased home based supports. She will transfer via [facility] W/C Van coordinated by this entry writer. Patient/Family Education Needs: Review discharge instructions, insurance limitations, SWB1 education; SNF admission considerations. Deana had a down and back appointment outpatient while in [facility] swing bed at [place] for nephrostomy tube replacement. Services Needed at Discharge: Long-Term Facility ([facility]), Transportation ([facility] W/C Van)
[2018-06-13 11:02] LABS: Absolute Neutrophil Count 8.57 k/cumm (1.2-6.7)
[2018-06-13 11:03] LABS: Absolute Monocyte Count 1.14 k/cumm (0.11-0.7); Anisocytosis 2+; Basophilic Stippling Present; Diff Comment Manual Differential; Hypochromasia 1+
[2018-06-13 11:04] LABS: Poikilocytes 2+; Polychromasia Present
--- NOTE | 2018-06-13 11:38 | CMDISCH_ITS ---
LACE Index Scoring Tool - Questions: Length of Stay (in days): 7 - 13 Acuity (Admit via E.D.?): Yes Comorbidities: Diabetes w/o Complication, Chronic Pulmonary Disease E.D. Visits: 3 - Answers: Total Score: 14 Risk of Readmission: High Risk Care Management Discharge Reason for Hospitalization: Right Nephrolithiasis, FTT, SWB1 Discharge Plan: Deana will transfer to [facility] for continued rehabilitation in preparation of kidney stone extraction and assumed continued rehab post surgically prior to returning home with increased home based supports. She will transfer via [facility] W/C Van coordinated by this advertising copy writer. Patient/Family Education Needs: Review discharge instructions, insurance limitations, SWB1 education; SNF admission considerations. Deana had a down and back appointment outpatient while in [facility] swing bed at [facility] for nephrostomy tube replacement. Services Needed at Discharge: Fdc Facility ([facility]), Transportation ([facility] W/C Van)
[2018-06-13] MEDS: Diazepam 2 MG TAB PO ×2 (12:54→19:11)
[2018-06-13 14:47] VITALS: TEMP 37.7
[2018-06-13 15:30] VITALS: BP 123/69; PULSE 100; RESP 20; TEMP 37.6; O2SAT 93
--- NOTE | 2018-06-13 16:57 | PGE_ITS ---
Date of Service Date of service: 06/13/18 Time of Service: 16:47 Assessment and Plan (1) Leukocytosis: Current visit: Yes Status: Acute Possibly related to instrumentation yesterday. With fever to 38 this morning. Mild leukocytosis at 11.42. We will obtain blood cultures and urine cultures, vancomycin IV x1 dose, continue Cipro for septic stone. Continue to monitor temperatures, repeat CBC in the morning. (2) UTI (urinary tract infection): Current visit: No Status: Acute As above, continue Cipro for septic stone. Repeat urine culture, obtain blood culture. (3) Chronic back pain: Current visit: No Status: Chronic Continue home medications, methadone BID, ms contin 15 mg bid, valium po. Continue to monitor pain. (4) Hypothyroidism: Current visit: No Status: Chronic Continue levothyroxine at current dose. (5) Diabetes mellitus type 2: Current visit: No Status: Chronic Blood glucose elevated, increase Lantus from 20 units to 25 units at at bedtime. Continue to monitor blood glucose. Continue ADA diet. (6) DVT prophylaxis: Current visit: No Status: Acute Subcutaneous heparin. (7) Discharge planning issues: Current visit: No Status: Acute She is a DNR/DNI. She has been accepted at [facility] and rehab, the plan was for her to transition to [facility] rehab today, however, she had a fever to 38 this morning, mild leukocytosis. Hold and monitor overnight as above, consideration for discharge again tomorrow. This case was discussed with Dr. Simons who is in agreement. Subjective Interval history since last seen: Went to [facility] yesterday for nephrostomy tube change. Monitored overnight prior to plan to [facility], however, she was febrile to 38 this morning. Labs revealed mildly elevated white blood cell count of 11.42. The patient feels fine today, she denies chills, rigors, shortness of breath, coughing, wheezing, chest pain/pressure, palpitations, abdominal pain, nausea, vomiting, diarrhea. She reports feeling anxious that she could possibly lose the bed at the rehab center not discharged today. Otherwise she verbalizes no complaints. Exam Narrative Exam Narrative: General: Elderly female, lying in bed with head elevated, right arm tremulous, in no acute distress. HEENT: Normocephalic, atraumatic, mucous membranes moist. Neck: Supple, no JVD. Cardiovascular: Heart has regular rate and rhythm, no murmur appreciated. Respiratory: Respirations even and unlabored, no rales, rhonchi, or wheezing. Gastrointestinal: Abdomen soft, round, nontender on palpation, no masses appreciated, normoactive bowel sounds throughout. No CVA tenderness. : Toney catheter draining clear yellow urine, new right nephrostomy tube draining into colostomy bag, clear yellow urine. Extremities: +1 edema to bilateral ankles. Pedal pulses palpable. BLEs sensitive to touch r/t neuropathy. Objective Objective Clinical Data: Abnormal lab results 06/13/18 06/13/18 Range/Units 06:40 06:40 WBC 11.42 H (4.4-10.8) k/cumm RBC 3.29 L (4.00-5.20) m/cumm Hgb 9.1 L (12.0-15.5) g/dL Hct 30.6 L (36.0-46.0) % MCHC 29.7 L (32.0-36.0) g/dL RDW 20.9 H (11.7-14.6) % MPV 11.7 H (8.0-11.0) fL Absolute Neutrophils 8.57 H (1.2-6.7) k/cumm Absolute Lymphocytes 0.80 L (1.2-3.4) k/cumm Absolute Monocytes 1.14 H (0.11-0.7) k/cumm Absolute Eosinophils 0.80 H (0.0-0.7) k/cumm Sodium 134 L (136-145) mmol/L Potassium 5.3 H (3.5-5.1) mmol/L BUN 30 H (7-18) mg/dL Creatinine 1.26 H (0.55-1.02) mg/dL Glucose 250 H (70-100) mg/dL Vital Signs Temperature 37.6 C H 06/13/18 15:30 Temperature Source Tympanic 06/13/18 15:30 Pulse 100 H 06/13/18 15:30 Pulse Rhythm Regular 06/13/18 10:44 Respiratory Rate 20 06/13/18 15:30 Respiratory Effort Non-Labored 06/13/18 15:54 Respiratory Depth Normal 06/13/18 15:54 Respiratory Pattern Normal 06/13/18 15:54 Blood Pressure 123/69 06/13/18 15:30 Pulse Oximetry 93 L 06/13/18 15:30 Oxygen Delivery Method Room Air 06/13/18 15:30 Oxygen Flow Rate 0 06/13/18 15:30 Pain Level 3 06/12/18 20:19 Comment 06/10/18 08:42 Intake & Output 06/12/18 06/13/18 06/13/18 23:59 11:59 23:59 Intake Total 500 / 500 730 / 1210 480 / 1210 Output Total 725 / 2675 650 / 1725 1075 / 1725 Balance -225 / -2175 80 / -515 -595 / -515 Weight 90.7 kg Intake: IV Oral 480 / 480 480 / 960 480 / 960 Injectate 250 / 250 Right Flank 250 / 250 Output: Drainage 225 / 1125 100 / 625 525 / 625 Right 150 / 1050 Right Flank 75 / 75 100 / 625 525 / 625 Urine 500 / 1550 550 / 1100 550 / 1100 Other: Urine Color Yellow Pale Yellow Straw Yellow Urine Appearance Clear Clear Clear Sediment Comment toney 250cc. Stool Size Moderate Large Stool Characteristics Soft Formed Laboratory Results WBC 11.42 k/cumm (4.4-10.8) H 06/13/18 06:40 RBC 3.29 m/cumm (4.00-5.20) L 06/13/18 06:40 Hgb 9.1 g/dL (12.0-15.5) L 06/13/18 06:40 Hct 30.6 % (36.0-46.0) L 06/13/18 06:40 MCV 93.0 fL (80-95) 06/13/18 06:40 MCH 27.7 pg (27.0-33.0) 06/13/18 06:40 MCHC 29.7 g/dL (32.0-36.0) L 06/13/18 06:40 RDW 20.9 % (11.7-14.6) H 06/13/18 06:40 Plt Count 244 x1000/uL (130-400) 06/13/18 06:40 MPV 11.7 fL (8.0-11.0) H 06/13/18 06:40 Abs Immat Gran (auto) Cancelled 06/13/18 06:40 Immature Gran % See Differential 06/13/18 06:40 Neutrophils % 71.0 06/13/18 06:40 Band Neutrophils % 4.0 % 06/13/18 06:40 Lymphocytes % 7.0 06/13/18 06:40 Atypical Lymphs % Cancelled 06/13/18 06:40 Monocytes % 10.0 06/13/18 06:40 Eosinophils % 7.0 06/13/18 06:40 Basophils % 0.0 06/13/18 06:40 Absolute Neutrophils 8.57 k/cumm (1.2-6.7) H 06/13/18 06:40 Absolute Lymphocytes 0.80 k/cumm (1.2-3.4) L 06/13/18 06:40 Absolute Monocytes 1.14 k/cumm (0.11-0.7) H 06/13/18 06:40 Absolute Eosinophils 0.80 k/cumm (0.0-0.7) H 06/13/18 06:40 Absolute Basophils 0.00 k/cumm (0.0-0.2) 06/13/18 06:40 Metamyelocytes 1.0 % 06/13/18 06:40 Myelocytes Cancelled 06/13/18 06:40 Promyelocytes Cancelled 06/13/18 06:40 Nucleated RBCs Cancelled 06/13/18 06:40 Differential Comment Manual differential 06/13/18 06:40 Other Cell Type Cancelled 06/13/18 06:40 RBC Morphology See below 06/13/18 06:40 Polychromasia Present 06/13/18 06:40 Hypochromasia 1+ 06/13/18 06:40 Poikilocytosis 2+ 06/13/18 06:40 Basophilic Stippling Present 06/13/18 06:40 Anisocytosis 2+ 06/13/18 06:40 Microcytosis Cancelled 06/13/18 06:40 Macrocytosis Cancelled 06/13/18 06:40 Spherocytes Cancelled 06/13/18 06:40 Target Cells Cancelled 06/13/18 06:40 Tear Drop Cells Cancelled 06/13/18 06:40 Ovalocytes Cancelled 06/13/18 06:40 Stomatocytes Cancelled 06/13/18 06:40 Ruelas-[place] Bodies Cancelled 06/13/18 06:40 Beacon Cells Cancelled 06/13/18 06:40 Acanthocytes (Spur) Cancelled 06/13/18 06:40 Schistocytes Cancelled 06/13/18 06:40 Sodium 134 mmol/L (136-145) L 06/13/18 06:40 Potassium 5.3 mmol/L (3.5-5.1) H 06/13/18 06:40 Chloride 98 mmol/L (98-107) 06/13/18 06:40 Carbon Dioxide 25.5 mmol/L (21.0-32.0) 06/13/18 06:40 Anion Gap 10.5 mmol/L (3-11) 06/13/18 06:40 BUN 30 mg/dL (7-18) H 06/13/18 06:40 Creatinine 1.26 mg/dL (0.55-1.02) H 06/13/18 06:40 Estimated GFR/1.73 m2 41.74 (mL/min/1.73m2) 06/13/18 06:40 Glucose 250 mg/dL (70-100) H 06/13/18 06:40 Calcium 9.3 mg/dL (8.5-10.1) 06/13/18 06:40 Magnesium 1.9 mg/dL (1.8-2.4) 06/13/18 06:40 Urine Color Yellow (Yellow) 06/10/18 09:50 Urine Clarity Sl cloudy 06/10/18 09:50 Urine pH 7.5 (5-8) 06/10/18 09:50 Ur Specific [place] 1.010 (1.005-1.025) 06/10/18 09:50 Urine Protein Trace mg/dL (Negative) H 06/10/18 09:50 Urine Ketones Negative mg/dL (Negative) 06/10/18 09:50 Urine Blood Moderate (Negative) H 06/10/18 09:50 Urine Nitrite Negative (Negative) 06/10/18 09:50 Urine Bilirubin Negative (Negative) 06/10/18 09:50 Urine Urobilinogen 0.2 EU/dL (Up TO 0.2) 06/10/18 09:50 Ur Leukocyte Esterase Large (Negative) H 06/10/18 09:50 Urine RBC Not Applicable 06/10/18 09:50 Urine WBC >50 HPF (0-5) 06/10/18 09:50 Ur Epithelial Cells Not Applicable 06/10/18 09:50 Urine Crystals Not Applicable 06/10/18 09:50 Urine Bacteria Not Applicable 06/10/18 09:50 Urine Mucus Not Applicable 06/10/18 09:50 Urine Other Many yeast (Negative) 06/10/18 09:50 Ur Culture Indicated? C&s done as ordered 06/10/18 09:50 Urine Glucose Negative mg/dL (Negative) 06/10/18 09:50
[2018-06-13] MEDS: Acetaminophen 325 MG TAB PO (17:08)
[2018-06-13] MEDS: Normal Saline 250 ML 150 ML IV (17:09)
[2018-06-13 19:09] VITALS: BP 110/63; PULSE 86; RESP 18; TEMP 36.7; O2SAT 93
[2018-06-13] MEDS: lamoTRIgine 100 MG TAB 200 MG PO (21:24)
[2018-06-13] MEDS: Mometasone 220 MCG 14 DOSE INHALER 1 PUFF IH (21:24)
[2018-06-13] MEDS: risperiDONE 1 MG TAB 6 MG PO (21:24)
[2018-06-13] MEDS: Insulin Glargine 300 UNITS/3 ML PEN 25 UNITS SC (21:25)
[2018-06-14] MEDS: Levothyroxine 100 MCG TAB PO (05:52)
[2018-06-14 05:59] VITALS: BP 115/68; PULSE 84; RESP 18; TEMP 36.5; O2SAT 94
[2018-06-14 07:27] LABS: Abs Immature Grans 0.39 k/cumm (0.0-0.09); HCT 30.9 % (36.0-46.0); HGB 9.2 g/dL (12.0-15.5); Mean Corp. HGB Concentration 29.8 g/dL (32.0-36.0); Mean Corpuscular Hemoglobin 27.6 pg (27.0-33.0); Mean Corpuscular Volume 92.8 fL (80-95); Mean Platelet Volume 11.2 fL (8.0-11.0); Platelet Count 234 x1000/uL (130-400); RBC 3.33 m/cumm (4.00-5.20); RBC Distribution Width 20.6 % (11.7-14.6); White Blood Cell Count 9.86 k/cumm (4.4-10.8)
[2018-06-14 07:35] VITALS: BP 133/60; PULSE 90; RESP 18; TEMP 36.6; O2SAT 94
[2018-06-14 07:41] LABS: Anion Gap 7.6 mmol/L (3-11); BUN 32 mg/dL (7-18); CO2 29.4 mmol/L (21.0-32.0); CREATININE 1.09 mg/dL (0.55-1.02); Calcium 9.6 mg/dL (8.5-10.1); Chloride 99 mmol/L (98-107); Estimated GFR 49.34 (mL/min/1.73m2); Glucose 238 mg/dL (70-100); Potassium 4.9 mmol/L (3.5-5.1); Sodium 136 mmol/L (136-145)
[2018-06-14 08:03] LABS: Absolute Eosinophil Count 0.49 k/cumm (0.0-0.7); Absolute Lymphocyte Count 0.69 k/cumm (1.2-3.4); Absolute Monocyte Count 1.18 k/cumm (0.11-0.7); Anisocytosis 2+; Diff Comment Manual Differential; Poikilocytes 1+; Polychromasia Present
[2018-06-14] MEDS: Nystatin CREAM 30 GM TUBE TP (08:23)
[2018-06-14] MEDS: Oxybutynin 5 MG TAB PO (08:24)
[2018-06-14] MEDS: Pregabalin 50 MG CAP PO (08:24)
[2018-06-14] MEDS: Insulin Aspart 300 UNITS/3 ML PEN SC (08:24)
[2018-06-14] MEDS: Lisinopril 5 MG TAB PO (08:25)
[2018-06-14] MEDS: Metoprolol CR 25 MG TABCR PO (08:25)
[2018-06-14] MEDS: Dronabinol 2.5 MG CAP PO (08:25)
[2018-06-14] MEDS: Methadone 10 MG TAB PO (08:25)
[2018-06-14] MEDS: lamoTRIgine 100 MG TAB PO (08:25)
[2018-06-14] MEDS: Pantoprazole 40 MG TABCR PO (08:25)
[2018-06-14] MEDS: Doxycycline Hyclate 100 MG CAP PO (08:25)
[2018-06-14] MEDS: Docusate Sodium 100 MG CAP PO (08:25)
[2018-06-14] MEDS: Simvastatin 40 MG TAB 20 MG PO (08:25)
[2018-06-14] MEDS: Polyethylene Glycol 3350 17 GM PACKET PO (08:26)
[2018-06-14] MEDS: Fluticasone NASAL SPRAY 16 GM BTL NS (08:26)
[2018-06-14] MEDS: Ciprofloxacin 250 MG/5 ML 100ML BTL PO (08:26)
[2018-06-14] MEDS: Citalopram 20 MG TAB 40 MG PO (08:27)
[2018-06-14] MEDS: clonazePAM 0.5 MG TAB PO (08:34)
[2018-06-14] MEDS: Diazepam 2 MG TAB PO (09:33)
--- NOTE | 2018-06-14 09:45 | DSE_ITS ---
Date of service: 06/14/18 Time of Service: 09:43 DS: Diagnosis Discharge Diagnosis (1) Leukocytosis: Status: Acute (2) UTI (urinary tract infection): Status: Acute (3) Chronic back pain: Status: Chronic (4) Hypothyroidism: Status: Chronic (5) Diabetes mellitus type 2: Status: Chronic Discharge Plan Disposition Patient Disposition: SNF ([facility]) [facility] Condition: Good Discharge Details Reason For Visit: RIGHT NEPHROLITHIASIS, FTT Admit Date/Time: 06/07/18 16:42 Admit Provider: Adeel Regalado Attending Provider: Adeel Regalado Primary Care Provider: John Carpenter Hospital Course Hospital Course: Ms Alvarado is a 73 year old female with PMHx of staghorn nephrolithiasis s/p nephrostomy tube at [facility] 05/19/18, discharged on 05/31, as well as urinary incontinence s/p chronic indwelling toney catheter, Chronic MSSA hardware infection, on chronic suppressive therapy with doxycycline, noninsulin dependent diabetes mellitus type 2, hypertension, hyperlipidemia, anxiety, schizoaffective disorder, bipolar type. She presented to the emergency department on 06/02/2018 with reports of a leaking nephrostomy tube. She had a CT of abdomen and pelvis at that time, which was reviewed by her urologist at [facility] who felt that the tube was appropriately positioned. They did not initially recommend emergent intervention. She transitioned to a swing bed status on 06/07/18, she remained on Cipro for a UTI, growing proteus, Morganella Morganii, adn entercoccus Faecalis, with a septic stone that will need to be extracted. She was transported on 06/12/18 (down and back) to have the nephrostomy tube changed. She was monitored over night to ensure that she remained afebrile and to reassess white blood cell count. On the morning of 06/13/18 she was febrile to 38, her white blood cell count was mildly eleavated at 11.42, she was given one dose of IV Vanco. She remained afebrile overnight, her Leukocytosis resolved. Given the fever and mild increased white blood cell count, her Cipro was upgraded to Levaquin (based on previous urine culture results). She remains on Doxycycline for chronic hardware infection in her back. She will need to follow up at [facility] for stone extraction (6-8 weeks from discharge on 05/31/17). She also has chronic pain for which she will remain on her home regimen of methadone BID, ms contin 15 mg bid, and valium. Adjustments have been made to her diabetic regimen. Her Lantus dose is currently at 25 (increased the night prior to discharge) units at hs, with a fasting blood glucose of 145 this m orning. Her blood glucose will require monitoring and adjustment as needed. She will remain on an ADA diet. She is discharged to [facility] for ongoing rehab prior to returning home with her . Repeat urine culture and blood cultures pending. Home Meds and New Rx's Prescriptions: New clonazepam 0.5 mg Tablet 0.5 mg PO BID PRN PRNQty: 20 RF: 0 Novolog Flexpen U-100 Insulin 100 unit/mL Insulin Pen 1 unit subcut AC & HS Qty: 15 RF: 0 metoprolol succinate 25 mg Tablet Extended Release 24 Hr 25 mg PO DAILY Qty: 0 RF: 0 levofloxacin 250 mg tablet 250 mg PO DAILY Qty: 30 RF: 0 Continued Prevail Brief Youth 1 EACH misc 1 ea Miscellaneous BID Qty: 60 RF: 11 lamotrigine [Lamictal] 100 MG tablet 100 mg PO QAM Qty: 90 RF: 3 lamotrigine 200 MG tablet 200 mg PO HS Qty: 90 RF: 4 citalopram [Celexa] 40 MG tablet 40 mg PO DAILY Qty: 90 RF: 3 simvastatin [Zocor] 40 MG tablet 0.5 tab PO DAILY Qty: 45 RF: 3 glimepiride 1 MG tablet 1 mg PO DAILY Qty: 30 RF: 11 levothyroxine [Synthroid] 100 MCG tablet 100 mcg PO DAILY Qty: 90 RF: 3 pantoprazole 40 MG tablet,delayed release (DR/EC) 40 mg PO DAILY Qty: 90 RF: 3 metformin [Glucophage] 1,000 MG tablet 1,000 mg PO BID@0800,1700 Qty: 180 RF: 3 oxybutynin chloride 5 MG tablet 5 mg PO BID Qty: 180 RF: 3 doxycycline hyclate 100 MG capsule 100 mg PO TID Qty: 270 RF: 3 fluticasone 16 GM spray,suspension 1 spray NS DAILY Qty: 16 RF: 3 nystatin 15 GM cream 1 applic Topical BID Qty: 60 RF: 5 ferrous sulfate [Iron (ferrous sulfate)] 325 MG tablet 325 mg PO BID Qty: 180 RF: 3 dicyclomine 10 mg capsule 10 mg PO QID PRN (Reason: bladder spasms) Qty: 120 RF: 5 Narcan 4 MG spray,non-aerosol 4 mg NS ONCE Qty: 1 RF: 0 methadone 10 mg tablet 10 mg PO BID MDD 2 tabs Qty: 30 RF: 0 dronabinol [Marinol] 2.5 mg capsule 2.5 mg PO BID PRN (Reason: nausea and vomiting) Qty: 30 RF: 0 morphine [MS Contin] 15 mg Tablet Extended Release 15 mg PO BID Qty: 30 RF: 0 Lyrica 50 mg capsule 50 mg PO BID Qty: 30 RF: 2 aspirin 81 mg Tablet,Chewable 81 mg PO DAILY RF: 0 lisinopril 5 mg Tablet 5 mg PO DAILY RF: 0 polyethylene glycol 3350 [Miralax] 17 gram/dose Powder 1 packet PO DAILY PRN PRN (Reason: Constipation) RF: 0 mometasone 220 mcg (14 doses) Aerosol Powdr Breath Activated 1 puff Inhalation HS RF: 0 diazepam 2 mg Tablet 2 mg PO Q6H PRN PRN (Reason: anxiety/mascule spasms) RF: 0 Combivent Respimat 20-100 mcg/actuation Mist 1 puff Inhalation Q6H PRN PRN (Reason: Shortness Of Breath) RF: 0 Changed Lantus U-100 Insulin 100 unit/mL Solution 25 unit subcut HS Qty: 0 RF: 0 risperidone 3 MG tablet 6 mg PO DAILY Qty: 90 RF: 3 Discontinued sulfamethoxazole-trimethoprim [Bactrim DS] 800-160 mg Tablet 1 tab PO DAILY RF: 0 Discharge Instructions Activity:: Activity as Tolerated Equipment/Supplies:: No Equipment Needed Diet:: Carb Counting Discharge Orders Discharge Orders: Discharge Order (Routine); Ordered 06/14/18 Ordered By: Kim Voss Discharge Data Discharge Date/Time-TO BE ENTERED AT DEPARTURE: 06/14/18 10:36 Exam Narrative Exam Narrative: General: Elderly female, lying in bed with head elevated, right arm tremulous, in no acute distress. HEENT: Normocephalic, atraumatic, mucous membranes moist. Neck: Supple, no JVD. Cardiovascular: Heart has regular rate and rhythm, no murmur appreciated. Respiratory: Respirations even and unlabored, no rales, rhonchi, or wheezing. Gastrointestinal: Abdomen soft, round, nontender on palpation, no masses appreciated, normoactive bowel sounds throughout. No CVA tenderness. : Toney catheter draining clear yellow urine, new right nephrostomy tube draining into colostomy bag, clear yellow urine. Extremities: +1 edema to bilateral ankles. Pedal pulses palpable. BLEs sensitive to touch r/t neuropathy. DS: Data Vitals/I&O Vitals and I&O: Vital Signs Temperature 36.6 C 06/14/18 07:35 Temperature Source Tympanic 06/14/18 07:35 Pulse 90 06/14/18 07:35 Pulse Rhythm Regular 06/14/18 04:56 Respiratory Rate 18 06/14/18 07:35 Respiratory Effort Non-Labored 06/14/18 04:56 Respiratory Depth Normal 06/14/18 04:56 Respiratory Pattern Normal 06/14/18 04:56 Blood Pressure 133/60 06/14/18 07:35 Pulse Oximetry 94 L 06/14/18 07:35 Oxygen Delivery Method Room Air 06/14/18 07:35 Oxygen Flow Rate 0 06/14/18 07:35 Pain Level 4 06/14/18 08:25 Comment 06/10/18 08:42 Intake & Output 06/13/18 06/13/18 06/14/18 11:59 23:59 11:59 Intake Total 730 / 1940 1210 / 1940 Output Total 650 / 3425 2775 / 3425 520 / 520 Balance 80 / -1485 -1565 / -1485 -520 / -520 Weight 90.7 kg 90.5 kg Intake: IV 250 / 250 Oral 480 / 1440 960 / 1440 Injectate 250 / 250 Right Flank 250 / 250 Output: Drainage 100 / 1425 1325 / 1425 520 / 520 Right Flank 100 / 1425 1325 / 1425 520 / 520 Urine 550 / 2000 1450 / 2000 Other: Urine Color Pale Yellow Yellow Urine Appearance Clear Clear Clear Sediment Comment toney 250cc. Neph tube Stool Size Moderate Large Large Stool Characteristics Soft Formed Soft Formed Completed studies during hospitalization [Text1]: 06/11/18: KUB: Three views were obtained. Comparison CT scan is 06/02/17. There is a right nephrostomy tube. In comparison with the CT scan of the abdomen and pelvis, the pigtail appears to be in the location consistent with the right renal pelvis. Note is made of multiple stones within the gallbladder. The bowel gas pattern is nonspecific without evidence of obstruction. The visualized lung bases appear clear. No pneumoperitoneum or organomegaly is appreciated. There are postsurgical changes seen with rods in the thoracic and lumbar spine and a right total hip replacement. IMPRESSION: Right nephrostomy tube; its location suggests that the pigtail is indeed in the region of the right renal pelvis. If further confirmation is ne eded, a CT scan should be considered. Labs on day of discharge: Labs from last 24 hours 06/14/18 06/14/18 06/13/18 06:25 06:25 06:40 WBC 9.86 Cancelled RBC 3.33 L Cancelled Hgb 9.2 L Cancelled Hct 30.9 L Cancelled MCV 92.8 Cancelled MCH 27.6 Cancelled MCHC 29.8 L Cancelled RDW 20.6 H Cancelled Plt Count 234 Cancelled MPV 11.2 H Cancelled Abs Immat Gran (auto) Cancelled Immature Gran % See Differential Cancelled Neutrophils % 71.0 Cancelled Band Neutrophils % 1.0 Cancelled Lymphocytes % 7.0 Cancelled Atypical Lymphs % Cancelled Monocytes % 12.0 Cancelled Eosinophils % 5.0 Cancelled Basophils % 0.0 Cancelled Absolute Neutrophils 7.10 H Cancelled Absolute Lymphocytes 0.69 L Cancelled Absolute Monocytes 1.18 H Cancelled Absolute Eosinophils 0.49 Cancelled Absolute Basophils 0.00 Cancelled Metamyelocytes 2.0 Cancelled Myelocytes 2.0 Cancelled Promyelocytes Cancelled Nucleated RBCs Cancelled Differential Comment Manual differential Cancelled Other Cell Type Cancelled RBC Morphology See below Cancelled Polychromasia Present Cancelled Hypochromasia Cancelled Poikilocytosis 1+ Cancelled Basophilic Stippling Cancelled Anisocytosis 2+ Cancelled Microcytosis Cancelled Macrocytosis Cancelled Spherocytes Cancelled Target Cells Cancelled Tear Drop Cells Cancelled Ovalocytes Cancelled Stomatocytes Cancelled [place]uel[place] Bodies Cancelled Philip Cells Cancelled Acanthocytes (Spur) Cancelled Schistocytes Cancelled Sodium 136 Potassium 4.9 Chloride 99 Carbon Dioxide 29.4 Anion Gap 7.6 BUN 32 H Creatinine 1.09 H Estimated GFR/1.73 m2 49.34 Glucose 238 H Calcium 9.6 Magnesium 06/13/18 06/13/18 06:40 06:40 WBC 11.42 H RBC 3.29 L Hgb 9.1 L Hct 30.6 L MCV 93.0 MCH 27.7 MCHC 29.7 L RDW 20.9 H Plt Count 244 MPV 11.7 H Abs Immat Gran (auto) Immature Gran % See Differential Neutrophils % 71.0 Band Neutrophils % 4.0 Lymphocytes % 7.0 Atypical Lymphs % Monocytes % 10.0 Eosinophils % 7.0 Basophils % 0.0 Absolute Neutrophils 8.57 H Absolute Lymphocytes 0.80 L Absolute Monocytes 1.14 H Absolute Eosinophils 0.80 H Absolute Basophils 0.00 Metamyelocytes 1.0 Myelocytes Promyelocytes Nucleated RBCs Differential Comment Manual differential Other Cell Type RBC Morphology See below Polychromasia Present Hypochromasia 1+ Poikilocytosis 2+ Basophilic Stippling Present Anisocytosis 2+ Microcytosis Macrocytosis Spherocytes Target Cells Tear Drop Cells Ovalocytes Stomatocytes [place] Bodies Philip Cells Acanthocytes (Spur) Schistocytes Sodium 134 L Potassium 5.3 H Chloride 98 Carbon Dioxide 25.5 Anion Gap 10.5 BUN 30 H Creatinine 1.26 H Estimated GFR/1.73 m2 41.74 Glucose 250 H Calcium 9.3 Magnesium 1.9 06/13/18 13:45 Urine - Right Urostomy Tube Urine Culture - Pending 06/13/18 12:40 Blood Blood Culture - Pending 06/13/18 12:25 Blood Blood Culture - Pending Preliminary micro results at discharge 06/13/18 13:45 Urine Culture - Pending Urine - Right Urostomy Tube 06/13/18 12:40 Blood Culture - Pending Blood 06/13/18 12:25 Blood Culture - Pending Blood [facility] Medical History Sepsis (Acute) UTI (urinary tract infection) (Acute ~04/2018) Schizoaffective disorder, bipolar type (Chronic) Wound infection after surgery (Resolved) Chronic rhinitis (Chronic) Anxiety (Chronic) Hyperlipidemia (Chronic) Hypothyroidism (Chronic) 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) COPD (chronic obstructive pulmonary disease) (Chronic) 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) Chronic osteoarthritis (Acute) Chronic pain syndrome (Acute 08/21/12) Hypothyroidism (Chronic) Diabetes mellitus type 2 (Chronic) Bipolar disorder (Chronic) Chronic back pain (Chronic) Hyperlipidemia (Chronic) Anxiety (Chronic) Intention tremor (Chronic) 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 She recently returned home from a long stay at the [facility]. She has limited mobility and poor use of ADLs. Former smoker. No current alcohol use.
[2018-06-14] MEDS: Ferrous Sulfate 325 MG TAB PO (10:03)
[2018-06-14] MEDS: Dicyclomine 10 MG CAP PO (10:03)
--- NOTE | 2018-06-24 10:57 | PT.INIE ---
Date of service: 06/07/18 Time of Service: 15:31 PT Notes Inpatient Physical Therapy Swingbed Evaluation Date: June 07, 2018 Referring Doctor: Dr. Regalado PT Orders: Swing Bed PT consult: evaluate and treat Precautions: Contact, Fall PATIENT PROFILE/ADMITTING DIAGNOSIS: Pt is a 73 year old female who was admitted through the ER on 06/02/18 for failure to thrive at home, acute hyperkalemia, and malfunction of nephrostomy tube. Past Medical History: Schizoaffective disorder bipolar, chronic pain syndrome, scoliosis, spinal stenosis s/p spinal fusion, lumbar radicular pain, degenerative joint disease of pelvis, total hip arthroplasty, osteoarthritis, obesity, anxiety, intention tremor, hyperlipidemia, hypothyroidism, hypomagnesemia, chronic obstructive pulmonary disease, history of electroshock therapy, tonsillectomy, parkinsonism due to drug, bowel obstruction, drug-induced ileus. Social History/Home Situation: Pt reports that she lives in her home with her . She describes herself as bed bound. She states that she does not leave her home throughout the day and that she has an aide who comes into their home 6 days/week who (A) her with dressing, bathing, and ADL/IADL routines as needed. She states that her functional baseline for ADLs/IADLs is that she requires (A) for everything except soaking her teeth and eating, she uses a commode which she state she is able to (I) use via stand pivot transfer with UE support to WW. She states that the aide that comes into her home is there to specifically help her with her ADL routines. They recently had a ramp installed at her home as she uses a wheelchair for mobility. Equipment owned/DME: Pt reports that she has a FWW, hospital bed, commode, raised toilet seat, grab bars. SUBJECTIVE: Pt was lying in bed when PT arrived. She was agreeable to PT consult. She notes that she can not walk very far. OBJECTIVE: General Observation: nephrostomy tube Mental Status: A&Ox3 Pain: Pt c/o back pain during PT consult, which she reports is at baseline level. ROM: RUE Shoulder flexion WNL, elbow WNL, hand and wrist WNL L UE Shoulder flexion WNL, elbow WNL, hand and wrist WNL LLE: Grossly WFL, with the exception of ankle DF, which is -5 degrees RLE: Grossly WFL, with the exception of ankle DF, which is -10 STRENGTH: RUE Shoulder flexion 4/5, elbow 4/5, generator switchboard operator 4/5 LUE Shoulder flexion 4/5, elbow 4/5, generator switchboard operator 4/5 LLE: Hip flexion 3+/5, quads 4-/5, HS 4-/5, ankle DF 3-/5 RLE: Hip flexion 3+/5, quads 4-/5, HS 4-/5, ankle DF 3-/5 Transfers : Supine-sit: independent with HOB at 30 degrees Sit-supine independent with HOB at 30 degrees Sit-stand: SBA with FWW Stand-sit: SBA Gait: FWW, CGA, 10ft x2. BALANCE: Static sitting: Good Dynamic Sitting Good Static Standing: Fair Dynamic Standing: unable SPECIAL TESTS: Daily Activity Limitations Standardized Measure [facility] AM -PAC ?6 clicks? Daily Activity Inpatient Short Form: Raw score: 18 Standardized score: 43.63 CMS score:46.58% CMS modifier: CK Treatment: Today's session consisted of swing bed evaluation. Informed Consent/Education: Patient instructed in purpose of PT consult and plan of care. Assessment: Patient is a 73 year old female referred to physical therapy services with the diagnosis of diminished mobility related to complicated medical history, with failure to thrive. She has very minimal mobility at home at baseline, and is unfortunately unable to effective manage in the home at this time. She will require placement to SNF following her acute care stay to allow for rehabilitation prior to returning home. Patient presents with clinical signs and symptoms consistent with diagnosis, as demonstrated by the following impairment level findings: 1. Decreased LE strength 2. Contractures of bilat ankles 3. Decreased activity tolerance Impairments are contributing to the following functional limitations: 1. Limited ambulation tolerance 2. Decreased activity tolerance [facility] score 46% deficit. Patient is assessed as a Moderate 33079 complexity based on the following: History: 73-year-old female admitted for failure to thrive in the home, with multiple medical comorbidities including chronic MRSA infection,Schizoaffective disorder bipolar, chronic pain syndrome, scoliosis, spinal stenosis s/p spinal fusion, lumbar radicular pain, degenerative joint disease of pelvis, total hip arthroplasty, osteoarthritis, obesity, anxiety, intention tremor, hyperlipidemia, hypothyroidism, hypomagnesemia, chronic obstructive pulmonary disease, history of electroshock therapy, tonsillectomy, parkinsonism Examination: Functional limitations as noted above Presentation: Evolving Decision Making: Moderate complexity Goals: Goals X1 week 1. Supine-Sit : independent 2. Sit-Supine independent 3. Sit-Stand independent with WW 4. Stand-Sit independent with WW 5. Bed-Chair independent with WW 6. Chair-Bed independent with WW Plan of Care/Treatment Plan: 1-2x/day, 7 days/week x 1 week. Plan of care has been reviewed with the DRAWSTRING KNOTTER providing the service under Physical Therapy direction. Initiate Physical Therapy intervention for strengthening, bed mobility, transfers, gait, stairs, balance training, use of assistive device. DISCHARGE RECOMMENDATIONS: [facility] facility for continued rehabilitation prior to returning home TREATMENT CODE/TIME: 20 minutes (35754) G Codes in the area mobility of walking and moving around: current status [id number] ; projected status GP [id number]. Discharge status (if discharging) GP G8980 CK. Kim Ramirez, MPT
== END 2018-06-14 10:36 | disposition skilled nursing facility (03) | DRG 690 ==
PROVIDERS: General Practice; Internal Medicine; Nurse Practitioner; Admitting Provider Internal Medicine; PCP Family Medicine; Visit Provider Internal Medicine
DX: N39.0 Urinary tract infection, site not specified (principal); T83.032A Leakage of nephrostomy catheter, initial encounter; E83.42 Hypomagnesemia; G89.29 Other chronic pain; M54.9 Dorsalgia, unspecified; E03.9 Hypothyroidism, unspecified; E11.9 Type 2 diabetes mellitus without complications; Z79.82 Long term (current) use of aspirin; J44.9 Chronic obstructive pulmonary disease, unspecified; Z87.891 Personal history of nicotine dependence; I10 Essential (primary) hypertension; D72.829 Elevated white blood cell count, unspecified; B96.20 Unspecified Escherichia coli [E. coli] as the cause of diseases classified elsewhere
CPT/HCPCS: 36415; 80048; 87040; 87077; 97110; 97162; 97166; 97530; 99222; 99239; 99305; 99308; 99316; NC; 74018; 81003; 81015; 83735; 85025; 85049; 87086; 87186; 94640; A0425; A0428; A0429; J1644; J7613

== ENCOUNTER 2018-06-21 12:06 | Outpatient (REF) | payer MEDICARE, MEDICAID, SELFPAY ==
[2018-06-21 13:44] LABS: HCT 35.3 % (36.0-46.0); HGB 10.6 g/dL (12.0-15.5); Mean Corpuscular Hemoglobin 27.5 pg (27.0-33.0); Mean Corpuscular Volume 91.5 fL (80-95); Mean Platelet Volume 11.6 fL (8.0-11.0); Platelet Count 236 x1000/uL (130-400); RBC 3.86 m/cumm (4.00-5.20); RBC Distribution Width 19.4 % (11.7-14.6); White Blood Cell Count 7.47 k/cumm (4.4-10.8)
[2018-06-21 14:15] LABS: ALT 19 U/L (12-78); AST 20 U/L (15-37); Alkaline Phosphatase 110 U/L (46-116); Anion Gap 10.6 mmol/L (3-11); BUN 23 mg/dL (7-18); Bilirubin, Direct 0.07 mg/dL (0.00-0.20); Bilirubin, Total 0.2 mg/dL (0.2-1.0); CO2 26.4 mmol/L (21.0-32.0); CREATININE 0.87 mg/dL (0.55-1.02); Calcium 9.2 mg/dL (8.5-10.1); Chloride 97 mmol/L (98-107); Glucose 196 mg/dL (70-100); Potassium 4.4 mmol/L (3.5-5.1); Sodium 134 mmol/L (136-145); Total Protein 6.5 g/dL (6.4-8.2)
== END 2018-06-21 12:26 ==
LOC: LBN 12:06
PROVIDERS: PCP Family Medicine; Visit Provider Family Medicine
DX: E87.1 Hypo-osmolality and hyponatremia (principal); E46 Unspecified protein-calorie malnutrition; E87.5 Hyperkalemia; I10 Essential (primary) hypertension; Z93.6 Other artificial openings of urinary tract status; Z79.2 Long term (current) use of antibiotics
CPT/HCPCS: 80048; 80076; 85027

== ENCOUNTER 2018-09-19 09:38 | Inpatient (IN) | payer OTHER, MEDICARE, MEDICAID, SELFPAY ==
[2018-09-19 10:24] VITALS: BP 131/68; PULSE 110; RESP 32; TEMP 36.7; O2SAT 95
[2018-09-19 10:27] VITALS: BP 131/68; PULSE 113; RESP 32; TEMP 36.7; O2SAT 95
--- NOTE | 2018-09-19 13:59 | PHARADMIT ---
Admission Pharmacy Clinical Review HOSPICE RESPITE, RECURRENT UROSEPSIS, HYDRONEPHROSIS Home medications ordered. No Labs No H&P or physician note. Has Morphine Conc. and Fentanyl patch.
--- NOTE | 2018-09-19 14:33 | W.PM.HP.N ---
Date of service: 09/19/18 Assessment and Plan (1) Admission for hospice care: Current visit: No Status: Chronic admitted after home visit showed her symptoms were not adequately controlled with home care plan in place. pain meds need recalibration since changing from methadone to fentanyl patient still uncomfortable on symptom management for this (2) Schizoaffective disorder, bipolar type: Current visit: No Status: Chronic anxious continuing some of her psych meds (3) Anxiety: Current visit: No Status: Chronic continue clonazepam scheduled and lorazepam prn (4) Failure to thrive: Current visit: No Status: Acute weaker, less interaction, poor po intake, including meds meds found in her bed and in her mouth when seen at home History of Present Illness Chief Complaint: uncontrolled pain in hospice pt; symptom management Narrative: 73 yo woman with h/o recurrent urosepsis, has known staghorn calculus, had nephrostomy tube in place that she asked to have removed. On hospice. Failing. Taking in very little po fluids or food. Given this, have been transitioning her from oral methadone to topical fentanyl for her pain control. Has had chronic pain x decades. She is chronically incontinent of urine around her toney catheter. Went to see her at home today and found her lying on soaked nightclothes and sheets. She was clearly uncomfortable calling out help me. She reported pain. Her , Jared, has been tiring caring for her. He does have some station mechanic helper and hospice aids, but still not enough care. Given this, we decided to admit her for symptom management until her pain is controlled, and then once it is controlled, change her status to respite. Today, she is being admitted under symptom management. Review of Systems Constitutional Reports fatigue, Reports weakness and Reports weight loss Eyes Reports requires corrective lenses ENT Reports hearing loss Cardiovascular Reports leg edema and Reports dyspnea on exertion Respiratory Reports dyspnea on exertion Gastrointestinal Reports constipation Genitourinary Reports urinary incontinence Musculoskeletal Reports muscle weakness Integumentary/Breasts Reports dry skin Neurologic Reports weakness Psychiatric Reports difficulty concentrating Endocrine Reports fatigue [facility] Medical History Sepsis (Acute) UTI (urinary tract infection) (Acute ~04/2018) Schizoaffective disorder, bipolar type (Chronic) Wound infection after surgery (Resolved) Chronic rhinitis (Chronic) Anxiety (Chronic) Hyperlipidemia (Chronic) Hypothyroidism (Chronic) 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) COPD (chronic obstructive pulmonary disease) (Chronic) 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) Chronic osteoarthritis (Acute) Chronic pain syndrome (Acute 08/21/12) Hypothyroidism (Chronic) Diabetes mellitus type 2 (Chronic) Bipolar disorder (Chronic) Chronic back pain (Chronic) Hyperlipidemia (Chronic) Anxiety (Chronic) Intention tremor (Chronic) intermediate current use of antibiotics (Suspected) Spinal stenosis of lumbar region (Chronic) Scoliosis (Chronic) Infection (Chronic) Lumbar radicular pain (Chronic) Obesity (Chronic) Surgical History ELECTROSHOCK THERAPY (Inactive) Spinal Fusion (Resolved) Tonsillectomy (Resolved) Total replacement of hip (Resolved ~2003) section (Resolved) Colonoscopy - MAC (Resolved ~2003) Family History Daughter No problems noted. Social History Smoking/Tobacco Use Status: Former Tobacco Use Drug use: Daily Substance use type: marijuana Details: patient is not able to answwer questions at this time Caregiver/Support person: Yes Household members: spouse Housing: house Number of Children: 1 number of grandchildren: 2 Pets and animals: Yes What is your relationship status?: How often do you talk on the phone with friends or family?: once per week How often do you get together with friends or relatives?: once per week Panel score (0-1 are the most socially isolated patients): 1 What type of physical activity do you participate in: none Elizabeth/Sabianist: L[employer] Special elizabeth needs: Yes Agree to transfusion: No Do you feel safe in your relationship?: Yes Additional Social history: lives with her . She recently returned home from a long stay at the [facility]. She has limited mobility and poor use of ADLs. Former smoker. No current alcohol use. Meds Home Medications Medication Instructions Recorded Confirmed Type Prevail Brief Youth #60 isaac 01/25/16 06/02/18 History lamotrigine [Lamictal] 100 mg PO QAM #90 tab-cap 10/15/16 06/02/18 History citalopram [Celexa] 40 mg PO DAILY #90 tab-cap 12/07/17 06/02/18 Rx doxycycline hyclate 100 mg PO TID #270 tab-cap 12/07/17 06/02/18 Rx lamotrigine 200 mg PO HS #90 tab-cap 12/07/17 06/02/18 Rx levothyroxine [Synthroid] 100 mcg PO DAILY #90 tab-cap 12/07/17 06/02/18 Rx oxybutynin chloride 5 mg PO BID #180 tab-cap 12/07/17 06/02/18 Rx fluticasone propionate 1 spray NS DAILY #16 gm 12/24/17 06/02/18 Rx nystatin 1 applic TOPICAL BID #60 gm 12/26/17 06/02/18 Rx dicyclomine 10 mg capsule 10 mg PO QID PRN #120 tab-cap 04/16/18 06/02/18 Rx Combivent Respimat 1 puff INHALATION Q6H PRN PRN 06/03/18 06/03/18 History diazepam 2 mg PO Q6H PRN PRN 06/03/18 06/03/18 History lisinopril 5 mg PO DAILY 06/03/18 06/03/18 History mometasone 1 puff INHALATION HS 06/03/18 06/03/18 History polyethylene glycol 3350 [Miralax] 1 packet PO DAILY PRN PRN 06/03/18 06/03/18 History Lantus U-100 Insulin 25 unit SUBCUT HS #0 ml 06/14/18 06/03/18 Rx insulin aspart U-100 [Novolog 1 unit SUBCUT AC & HS #15 ml 06/14/18 Rx Flexpen U-100 Insulin] pregabalin 50 mg capsule 50 mg PO BID #60 cap 07/02/18 Rx clonazepam 0.5 mg tablet 0.5 mg PO BID PRN #60 tab 07/03/18 Rx dronabinol 2.5 mg capsule 2.5 mg PO BID PRN #60 cap 07/03/18 Rx naloxone 4 mg/actuation nasal spray 4 mg NS ONCE PRN #1 inhn 07/03/18 Rx magnesium hydroxide 400 mg/5 mL 30 ml PO QHS PRN ml 07/05/18 History oral suspension polyethylene glycol 3350 17 17 gm PO .24 hr prn gm 07/05/18 History gram/dose oral powder lorazepam 1 mg tablet 1 mg PO Q4H PRN #20 tab MDD 4 08/09/18 Rx methadone 10 mg tablet 10 mg PO BID #30 tab MDD 2 tabs 08/21/18 Rx morphine ER 15 mg tablet,extended 15 mg PO BID #30 tab MDD 2 08/21/18 Rx release risperidone 3 mg tablet 6 mg PO DAILY #180 tab-cap 08/30/18 Rx morphine concentrate 100 mg/5 mL See Rx Instructions SL Q1H PRN PRN 09/16/18 Rx (20 mg/mL) oral solution #30 ml MDD 15ml Allergies Allergy/AdvReac Type Severity Reaction Status Date / Time aripiprazole AdvReac Intermediate anxiety Unverified 06/02/18 16:15 prednisone AdvReac Intermediate Hallucinati Unverified 06/02/18 16:15 ons codeine AdvReac Mild GI Upset Unverified 06/02/18 16:15 azithromycin AdvReac Unknown Unverified 06/02/18 16:15 Exam Narrative Exam Narrative: General: Elderly female, lying in bed with head elevated, right arm tremulous, in mild to moderate acute distress. Pallor. Chronically ill appearing. Grimacing at home, more comfortable at [facility]. HEENT: Normocephalic, atraumatic, mucous membranes dry, bright red tongue, edentulous Neck: tense, painful, no LAD, no JVD Cardiovascular: Heart has regular rate and rhythm, no murmur appreciated. Respiratory: Respirations even and unlabored, bilateral lower lobe rales, rhonchi, but no wheezing. Gastrointestinal: Abdomen soft, nontender on palpation, no masses appreciated, normoactive bowel sounds throughout. No CVA tenderness. : Toney catheter draining yellow urine with copious amounts of sediment, was incontinent around her toney at home, seems to be working as inpatient Extremities: +1-+2 edema to bilateral ankles. Pedal pulses palpable. contractures in both feet, right worse than left; heel pressure changes Skin stage 1 coccyx ulcer psych; anxious, more agitated at home than inpatient; did improve after changed from wet nightclothes and bedding Results Last Vital Signs Temp 98.1 F 09/19/18 10:27 Pulse 113 H 09/19/18 10:27 Resp 32 H 09/19/18 10:27 BP 131/68 09/19/18 10:27 Pulse Ox 95 09/19/18 10:27
--- NOTE | 2018-09-19 14:48 | HPE_ITS ---
Date of service: 09/19/18 Assessment and Plan (1) Admission for hospice care: Current visit: No Status: Chronic admitted after home visit showed her symptoms were not adequately controlled with home care plan in place. pain meds need recalibration since changing from methadone to fentanyl patient still uncomfortable on symptom management for this (2) Schizoaffective disorder, bipolar type: Current visit: No Status: Chronic anxious continuing some of her psych meds (3) Anxiety: Current visit: No Status: Chronic continue clonazepam scheduled and lorazepam prn (4) Failure to thrive: Current visit: No Status: Acute weaker, less interaction, poor po intake, including meds meds found in her bed and in her mouth when seen at home History of Present Illness Chief Complaint: uncontrolled pain in hospice pt; symptom management Narrative: 73 yo woman with h/o recurrent urosepsis, has known staghorn calculus, had nephrostomy tube in place that she asked to have removed. On hospice. Failing. Taking in very little po fluids or food. Given this, have been transitioning her from oral methadone to topical fentanyl for her pain control. Has had chronic pain x decades. She is chronically incontinent of urine around her toney catheter. Went to see her at home today and found her lying on soaked nightclothes and sheets. She was clearly uncomfortable calling out help me. She reported pain. Her , Jared, has been tiring caring for her. He does have some tuber machine operator helper and hospice aids, but still not enough care. Given this, we decided to admit her for symptom management until her pain is controlled, and then once it is controlled, change her status to respite. Today, she is being admitted under symptom management. Review of Systems Constitutional Reports fatigue, Reports weakness and Reports weight loss Eyes Reports requires corrective lenses ENT Reports hearing loss Cardiovascular Reports leg edema and Reports dyspnea on exertion Respiratory Reports dyspnea on exertion Gastrointestinal Reports constipation Genitourinary Reports urinary incontinence Musculoskeletal Reports muscle weakness Integumentary/Breasts Reports dry skin Neurologic Reports weakness Psychiatric Reports difficulty concentrating Endocrine Reports fatigue [facility] Medical History Sepsis (Acute) UTI (urinary tract infection) (Acute ~04/2018) Schizoaffective disorder, bipolar type (Chronic) Wound infection after surgery (Resolved) Chronic rhinitis (Chronic) Anxiety (Chronic) Hyperlipidemia (Chronic) Hypothyroidism (Chronic) 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) COPD (chronic obstructive pulmonary disease) (Chronic) 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) Chronic osteoarthritis (Acute) Chronic pain syndrome (Acute 08/21/12) Hypothyroidism (Chronic) Diabetes mellitus type 2 (Chronic) Bipolar disorder (Chronic) Chronic back pain (Chronic) Hyperlipidemia (Chronic) Anxiety (Chronic) Intention tremor (Chronic) USP current use of antibiotics (Suspected) Spinal stenosis of lumbar region (Chronic) Scoliosis (Chronic) Infection (Chronic) Lumbar radicular pain (Chronic) Obesity (Chronic) Surgical History ELECTROSHOCK THERAPY (Inactive) Spinal Fusion (Resolved) Tonsillectomy (Resolved) Total replacement of hip (Resolved ~2003) section (Resolved) Colonoscopy - MAC (Resolved ~2003) Family History Daughter No problems noted. Social History Smoking/Tobacco Use Status: Former Tobacco Use Drug use: Daily Substance use type: marijuana Details: patient is not able to answwer questions at this time Caregiver/Support person: Yes Household members: spouse Housing: house Number of Children: 1 number of grandchildren: 2 Pets and animals: Yes What is your relationship status?: How often do you talk on the phone with friends or family?: once per week How often do you get together with friends or relatives?: once per week Panel score (0-1 are the most socially isolated patients): 1 What type of physical activity do you participate in: none Elizabeth/Mormon: L[employer] Day Special elizabeth needs: Yes Agree to transfusion: No Do you feel safe in your relationship?: Yes Additional Social history: lives with her . She recently returned home from a long stay at the [facility]. She has limited mobility and poor use of ADLs. Former smoker. No current alcohol use. Meds Home Medications Medication Instructions Recorded Confirmed Type Prevail Brief Youth #60 isaac 01/25/16 06/02/18 History lamotrigine [Lamictal] 100 mg PO QAM #90 tab-cap 10/15/16 06/02/18 History citalopram [Celexa] 40 mg PO DAILY #90 tab-cap 12/07/17 06/02/18 Rx doxycycline hyclate 100 mg PO TID #270 tab-cap 12/07/17 06/02/18 Rx lamotrigine 200 mg PO HS #90 tab-cap 12/07/17 06/02/18 Rx levothyroxine [Synthroid] 100 mcg PO DAILY #90 tab-cap 12/07/17 06/02/18 Rx oxybutynin chloride 5 mg PO BID #180 tab-cap 12/07/17 06/02/18 Rx fluticasone propionate 1 spray NS DAILY #16 gm 12/24/17 06/02/18 Rx nystatin 1 applic TOPICAL BID #60 gm 12/26/17 06/02/18 Rx dicyclomine 10 mg capsule 10 mg PO QID PRN #120 tab-cap 04/16/18 06/02/18 Rx Combivent Respimat 1 puff INHALATION Q6H PRN PRN 06/03/18 06/03/18 History diazepam 2 mg PO Q6H PRN PRN 06/03/18 06/03/18 History lisinopril 5 mg PO DAILY 06/03/18 06/03/18 History mometasone 1 puff INHALATION HS 06/03/18 06/03/18 History polyethylene glycol 3350 [Miralax] 1 packet PO DAILY PRN PRN 06/03/18 06/03/18 History Lantus U-100 Insulin 25 unit SUBCUT HS #0 ml 06/14/18 06/03/18 Rx insulin aspart U-100 [Novolog 1 unit SUBCUT AC & HS #15 ml 06/14/18 Rx Flexpen U-100 Insulin] pregabalin 50 mg capsule 50 mg PO BID #60 cap 07/02/18 Rx clonazepam 0.5 mg tablet 0.5 mg PO BID PRN #60 tab 07/03/18 Rx dronabinol 2.5 mg capsule 2.5 mg PO BID PRN #60 cap 07/03/18 Rx naloxone 4 mg/actuation nasal spray 4 mg NS ONCE PRN #1 inhn 07/03/18 Rx magnesium hydroxide 400 mg/5 mL 30 ml PO QHS PRN ml 07/05/18 History oral suspension polyethylene glycol 3350 17 17 gm PO .24 hr prn gm 07/05/18 History gram/dose oral powder lorazepam 1 mg tablet 1 mg PO Q4H PRN #20 tab MDD 4 08/09/18 Rx methadone 10 mg tablet 10 mg PO BID #30 tab MDD 2 tabs 08/21/18 Rx morphine ER 15 mg tablet,extended 15 mg PO BID #30 tab MDD 2 08/21/18 Rx release risperidone 3 mg tablet 6 mg PO DAILY #180 tab-cap 08/30/18 Rx morphine concentrate 100 mg/5 mL See Rx Instructions SL Q1H PRN PRN 09/16/18 Rx (20 mg/mL) oral solution #30 ml MDD 15ml Allergies Allergy/AdvReac Type Severity Reaction Status Date / Time aripiprazole AdvReac Intermediate anxiety Unverified 06/02/18 16:15 prednisone AdvReac Intermediate Hallucinati Unverified 06/02/18 16:15 ons codeine AdvReac Mild GI Upset Unverified 06/02/18 16:15 azithromycin AdvReac Unknown Unverified 06/02/18 16:15 Exam Narrative Exam Narrative: General: Elderly female, lying in bed with head elevated, right arm tremulous, in mild to moderate acute distress. Pallor. Chronically ill appearing. Grimacing at home, more comfortable at [facility]. HEENT: Normocephalic, atraumatic, mucous membranes dry, bright red tongue, edentulous Neck: tense, painful, no LAD, no JVD Cardiovascular: Heart has regular rate and rhythm, no murmur appreciated. Respiratory: Respirations even and unlabored, bilateral lower lobe rales, rhonchi, but no wheezing. Gastrointestinal: Abdomen soft, nontender on palpation, no masses appreciated, normoactive bowel sounds throughout. No CVA tenderness. : Toney catheter draining yellow urine with copious amounts of sediment, was incontinent around her toney at home, seems to be working as inpatient Extremities: +1-+2 edema to bilateral ankles. Pedal pulses palpable. contractures in both feet, right worse than left; heel pressure changes Skin stage 1 coccyx ulcer psych; anxious, more agitated at home than inpatient; did improve after changed from wet nightclothes and bedding Results Last Vital Signs Temp 98.1 F 09/19/18 10:27 Pulse 113 H 09/19/18 10:27 Resp 32 H 09/19/18 10:27 BP 131/68 09/19/18 10:27 Pulse Ox 95 09/19/18 10:27
--- NOTE | 2018-09-19 15:49 | CHAPLAIN ---
Deana was mostly sleeping this morning when I checked in a couple of times. I found her awake at one point and she asked for a drink of water. She seems to be tired. I'm not sure if she recognized me. She has brought in her own pillow. She had taken her [facility] off and was not interested in having it back on. I will continue to visit Deana, and offer support to [place] as well. Deana is a Religion.
[2018-09-19] MEDS: Nystatin CREAM 15 GM TUBE TP ×2 (15:57→22:55)
[2018-09-19] MEDS: LORazepam 2 MG/ML VIAL IV/SC (15:57)
[2018-09-19] MEDS: lamoTRIgine 100 MG TAB 200 MG PO (22:55)
[2018-09-20 07:15] VITALS: BP 135/78; PULSE 120; RESP 24; TEMP 35.9
[2018-09-20] MEDS: lamoTRIgine 100 MG TAB PO (08:23)
[2018-09-20] MEDS: Nystatin CREAM 15 GM TUBE TP ×2 (08:23→19:56)
--- NOTE | 2018-09-20 13:54 | PDOC.CMPRO ---
- If Service Date Differs Date of service: 09/20/18 Time of Service: 13:54 Care Management Progress Note S/O: Deana is lying in bed when CM into visit she is not alert and appears to be resting. Deana is currently admitted for symptom management through Hospice, anticipate she will transition to respite once her pain in under control. CM contacted Hospice and spoke with RN plan will be for Deana to return home with her spouse with private caregivers or LTC facility depending on her level of pain control and ability to be cared for there. Tiffanie Farmer is the SUPERVISOR ELECTRON TUBE PROCESSING working with the patient and will be coordinating home vs placement. CM contacted to change the admission status to symptom management from respite services. A: Deana is a 73 year old female admitted for symptom management for pain control. (Please see Hospice note) P: Plan will be for Deana to receive symptom management then transition to Respite services through her Hospice benefit. She will transport via ambulance once she returns home with services vs LTC facility.
--- NOTE | 2018-09-20 14:10 | CMPROGNOTE_ITS ---
- If Service Date Differs Date of service: 09/20/18 Time of Service: 13:54 Care Management Progress Note S/O: Deana is lying in bed when CM into visit she is not alert and appears to be resting. Deana is currently admitted for symptom management through Hospice, anticipate she will transition to respite once her pain in under control. CM contacted Hospice and spoke with RN plan will be for Deana to return home with her spouse with private caregivers or LTC facility depending on her level of pain control and ability to be cared for there. Tiffanie Farmer is the PLANT MAINTENANCE MECHANIC working with the patient and will be coordinating home vs placement. CM contacted to change the admission status to symptom management from respite services. A: Deana is a 73 year old female admitted for symptom management for pain control. (Please see Hospice note) P: Plan will be for Deana to receive symptom management then transition to Respite services through her Hospice benefit. She will transport via ambulance once she returns home with services vs LTC facility.
--- NOTE | 2018-09-20 18:00 | W.PM.PROGNOT ---
Date of Service Date of service: 09/20/18 Time of Service: 17:00 Assessment and Plan (1) Admission for hospice care: Current visit: No Status: Chronic Admitted 09/19 for symptom management. Toney leaking; Deana delirious. Likely another round of early urosepsis. She clearly had stated in her AD and GOC that she would NOT want to be treated for urosepsis/infection of any kind. No antibiotics. Her , Jared, did not feel comfortable caring for her in her last days. He asked that she be transferred to the hospital as he was overwhelmed by her physical and psychological needs. She was admitted by me yesterday. She had a bout of tachypnea and anxiety before I arrived. SHe was calm by the time I arrived. No evidence of pain or anxiety. Stopped all her oral medications. Called Jared to let him know I thought she likely only had hours left. He is due to come in soon. (2) Acute kidney injury: Current visit: No Status: Acute Reinjury. Has ESRD from her staghorn calculus, hydronephrosis from same. She asked to her her nephrostomy tube pulled about 4-6 weeks ago. As expected, she developed another round of urosepsis (Likely, not confirmed) with this tube out. (3) Sepsis: Current visit: No Status: Acute presumed pt asked for no treatment when she was able to see her GOC/AD/COLST (4) Staghorn calculus: Current visit: No Status: Chronic (5) Dying care: Current visit: No Status: Acute Med-Surg nurses are caring for her very well. No evidence of pain or anxiety. They asked that all her oral meds be stopped. These were. Music of her choice is playing. has been notified about her change in status Expect Deana will overnight. Advised hospitalist Dr Regalado of this. IF she is still here tomorrow, will see her then. Subjective Patient reports: pain is less, no bowel movement and shortness of breath Interval history since last seen: I was called by the med-surg charge nurse, Kasie James RN, in the afternoon to let me know that Deana seemed to be actively dying. She was breathing fast and shallowly. She was not having pain. She was minimally responsive. Her legs were mottled. I did not add the extra fentanyl patch after her admission; she has remained on her home dose of 100 mcg q 72 hrs. She was no longer able to take any of her oral medication. She had had a few bites of food all day, mostly custard in the am. She was making about 40 ccs of urine hourly. Exam Const General: comfortable, no acute distress, frail appearing and ill appearing Nutritional Appearance: overweight Orientation: obtunded [facility] Head: normocephalic and atraumatic Ears: external ears normal General nose exam: external nose normal Face and sinus: dry mucous membranes Teeth and gingiva: edentulous Eyes Eyelids: eyelid abnormality (ptosis) right upper eyelid and left upper eyelid Sclera: sclerae normal Neck Neck: no lymphadenopathy and no JVD Resp Effort & Inspection: normal respiratory effort and tachypneic Auscultation: crackles and diminished lung sounds Cardio Jugular venous pressure: no JVD Rate: tachycardic Rhythm: regular rhythm Heart Sounds: S1 normal and S2 normal GI Inspection: obesity Palpation: soft Auscultation: normal bowel sounds General: other (toney in place) Back/Spine/Pelvis Back: no CVA tenderness and other (multiple scars from multiple surgeries) Skin General skin exam: dry skin and pallor Hair: general thinning Neuro General: obtunded Cognition: abnormal cognition Extrem General: muscle atrophy and other (both LE with mottling) Psych Appearance: grossly normal Speech and Movement: mute Objective Objective Clinical Data: Vital Signs Temperature 96.6 F L 09/20/18 07:15 Temperature Source Tympanic 09/20/18 07:15 Pulse 120 H 09/20/18 07:15 Pulse Rhythm Regular 09/19/18 10:27 Respiratory Rate 24 09/20/18 07:15 Respiratory Effort 09/20/18 20:04 Respiratory Depth Normal 09/20/18 20:04 Respiratory Pattern Normal 09/20/18 20:04 Blood Pressure 135/78 09/20/18 07:15 Pulse Oximetry 95 09/19/18 10:27 Oxygen Delivery Method Room Air 09/20/18 07:15 Oxygen Flow Rate 0 09/20/18 07:15 Pain Level 5 09/19/18 10:27 Comment 09/20/18 07:15 Intake & Output 09/20/18 09/20/18 09/21/18 11:59 23:59 11:59 Output Total 1250 / 1550 300 / 1550 250 / 250 Balance -1250 / -1550 -300 / -1550 -250 / -250 Output: Urine 1250 / 1550 300 / 1550 250 / 250 Other: Urine Color Pale Yellow Yellow Light Zarina Urine Appearance Clear Clear Cloudy Comment catheter checked for patency, marycruz anal area is cleansed and dried, patient is made comfortable pt has some periods of incontince around the toney Stool Size Smear Stool Characteristics Soft Formed
--- NOTE | 2018-09-21 09:18 | W.PM.DDS ---
Date of service: 09/21/18 Discharge Sum: Prov Provider Consults: 09/19/18 09:35 Lockstitch Waistline Joiner Consult [CONS] Routine Consultation Status:: Follow-up needed Clarification:: Manage/follow per spec. Reason for consult:: [place] anxious Discharge Sum: Diag Contributing Factors (1) Admission for hospice care: (2) Acute kidney injury: (3) Sepsis: (4) Staghorn calculus: (5) Dying care: Discharge Sum: Summary Date and Time Admission Date: 06/04/1904/02/19 09:38
--- NOTE | 2018-09-21 09:21 | EXPE_ITS ---
Date of service: 09/21/18 Discharge Sum: Prov Provider Consults: 09/19/18 09:35 Vat Cleaner Consult [CONS] Routine Consultation Status:: Follow-up needed Clarification:: Manage/follow per spec. Reason for consult:: Worship anxious Discharge Sum: Diag Contributing Factors (1) Admission for hospice care: (2) Acute kidney injury: (3) Sepsis: (4) Staghorn calculus: (5) Dying care: Discharge Sum: Summary Date and Time Admission Date: 06/04/1904/02/19 09:38
== END 2018-09-21 08:41 | disposition expired | DRG 871 ==
PROVIDERS: Admitting Provider Family Medicine; PCP Family Medicine; Visit Provider Family Medicine
DX: A41.9 Sepsis, unspecified organism (principal); N18.6 End stage renal disease; N17.9 Acute kidney failure, unspecified; Z51.5 Encounter for palliative care; N20.0 Calculus of kidney; F25.0 Schizoaffective disorder, bipolar type; F41.9 Anxiety disorder, unspecified; R62.7 Adult failure to thrive; Z93.6 Other artificial openings of urinary tract status; J44.9 Chronic obstructive pulmonary disease, unspecified
CPT/HCPCS: 99223; 99233; 99238; J2060; J3490